=== PATIENT | male | born 1945 | race Caucasian/White ===

== ENCOUNTER 2016-06-07 11:15 | Emergency (ER) | payer OTHER, MEDICARE, BC ==
--- NOTE | 2016-06-07 11:22 | ER Document Report ---
ED Medical Screen (RME) - General Stated Complaint: POSSIBLE FINGER LACERATION Notes: 70 yo male c/o finger laceration. cut left index finger with kitchen knife. unknown tetnus status. bleeding controlled
[2016-06-07 11:23] VITALS: BP 115/75
[2016-06-07] MEDS ORDERED: DIPH/PERTUSS(ACELL)/TETANUS VAC/PF 0.5 ML SYR (>=10YO) IM ONE (11:42)
--- NOTE | 2016-06-07 12:02 | ER Document Report ---
ED General - General Chief Complaint: Laceration Stated Complaint: POSSIBLE FINGER LACERATION TRAVEL OUTSIDE OF THE [place] IN LAST 30 DAYS: No - HPI Patient complains to provider of: left index finger laceration Notes: Patient coming in for evaluation of the left index finger laceration. Lacerations approximately 1.5 cm. Patient states cut this with a knife at work. Patient is unaware if his tetanus status. Laceration is on the palmar side of the index finger going through the pulp of the distal phalanx. Range of motion intact bleeding controlled no other medical problems - Related Data Allergies/Adverse Reactions: No Known Allergies Allergy (Verified 06/07/16 11:20) Past Medical History - Social History Smoking Status: Current Every Day Smoker Chew tobacco use (# tins/day): No Frequency of alcohol use: None Drug Abuse: None Family History: Reviewed & Not Pertinent Patient has suicidal ideation: No Patient has homicidal ideation: No Review of Systems - Review of Systems Constitutional: No symptoms reported EENT: No symptoms reported Cardiovascular: No symptoms reported Respiratory: No symptoms reported Gastrointestinal: No symptoms reported Genitourinary: No symptoms reported Male Genitourinary: No symptoms reported Musculoskeletal: No symptoms reported Skin: No symptoms reported Hematologic/Lymphatic: No symptoms reported Neurological/Psychological: No symptoms reported -: Yes All other systems reviewed and negative Physical Exam - Vital signs Vitals: Temp Pulse Resp BP Pulse Ox 97.4 F 80 15 115/75 97 06/07/16 11:20 06/07/16 11:20 06/07/16 11:20 06/07/16 11:20 06/07/16 11:20 Interpretation: Normal - General General appearance: Appears well, Alert - HEENT Head: Normocephalic, Atraumatic Eyes: Normal Pupils: PERRL - Respiratory Respiratory status: No respiratory distress Chest status: Nontender Breath sounds: Normal Chest palpation: Normal - Cardiovascular Rhythm: Regular Heart sounds: Normal auscultation Murmur: No - Abdominal Inspection: Normal Distension: No distension Bowel sounds: Normal Tenderness: Nontender Organomegaly: No organomegaly - Back Back: Normal, Nontender - Extremities General upper extremity: Nontender, Tender - Patient with a 1.5 similar laceration over the left index finger palmar side., Normal color, Normal ROM, Normal temperature General lower extremity: Normal inspection, Nontender, Normal color, Normal ROM , Normal temperature, Normal weight bearing. No: Dwayne's sign - Neurological Neuro grossly intact: Yes Cognition: Normal Orientation: AAOx4 [place] Coma Scale Eye Opening: Spontaneous [place] Coma Scale Verbal: Oriented [place] Coma Scale Motor: Obeys Commands [place] Coma Scale Total: 15 Speech: Normal Motor strength normal: LUE, RUE, LLE, RLE Sensory: Normal - Psychological Associated symptoms: Normal affect, Normal mood - Skin Skin Temperature: Warm Skin Moisture: Dry Skin Color: Normal Course - Re-evaluation Re-evalutation: 06/07/16 13:44 Dermabond with Steri-Strips applied to the laceration. Good closure was obtained. Tetanus was updated patient discharged home - Vital Signs Vital signs: Temp Pulse Resp BP Pulse Ox 97.4 F 80 15 115/75 97 06/07/16 11:20 06/07/16 11:20 06/07/16 11:20 06/07/16 11:20 06/07/16 11:20 Procedures - Laceration/Wound Repair Left 2nd digit Wound length (cm): 1.5 Wound's Depth, Shape: Linear Wound explored: Clean Irrigated w/ Saline (mLs): 500 - water Wound Repaired With: Steri-strips, Dermabond Post-procedure wound care: Sterile dressing applied Post-procedure NV exam normal: Yes Complications: No Discharge - Discharge Clinical Impression: Laceration of left index finger Disposition: HOME, SELF-CARE Instructions: Tetanus Immunization Given ([facility]), Care of Steri-Strip Closure ( [facility]), Skin Adhesive Closure ([facility]) Additional Instructions: Follow-up with your doctor as needed. Read your discharge instructions Referrals: NICKY CAMPOS MD [Primary Care Provider] - Follow up as needed
== END 2016-06-07 12:20 | disposition home or self-care (01) ==
LOC: ER 11:15
PROC: 0HQGXZZ Repair Left Hand Skin, External Approach (ICD-10-PCS; principal; 2016-06-07)
DX: S61.211A Laceration without foreign body of left index finger without damage to nail, initial encounter (principal); W26.0XXA Contact with knife, initial encounter; F17.210 Nicotine dependence, cigarettes, uncomplicated
CPT/HCPCS: 90471; 90715; 99282

== ENCOUNTER 2017-03-11 10:08 | Day surgery (SDC) | payer MEDICARE, BC ==
[~2017-03-11 10:08] MED LIST: KETOROLAC TROMETHAMINE 0.45% 4 DROP/0.4 ML DROPERETTE OD PRN
[2017-03-11] MEDS ORDERED: LIDOCAINE 1% INJ-PF (10 MG/ML) 30 ML SDV ONE (10:15)
[2017-03-11] MEDS ORDERED: CHONDR SU A NA/HYALUR INTRAOC KIT (SURGICARE) ONE (10:15)
[2017-03-11] MEDS ORDERED: EPINEPHRINE INJ/PF 1 MG/1 ML AMPULE ONE (10:15)
[2017-03-11] MEDS ORDERED: MIDAZOLAM 2 MG/2 ML INJ ONE (10:27)
[2017-03-11] MEDS ORDERED: FENTANYL CITRATE INJ/PF 100 MCG/2 ML AMPUL ONE (10:27)
[2017-03-11] MEDS: CYCLOPENTOLATE 0.2%/PHENYLEPHRINE 1% OPH SOLN 2 ML OD PRN ×3 (10:28→10:41)
[2017-03-11] MEDS: TROPICAMIDE 1% OPH SOLN 3 ML OD PRN ×3 (10:28→10:41)
[2017-03-11] MEDS: BESIFLOXACIN HCL 0.6% OPH SUSP 5 ML BOTTLE OD PRN ×3 (10:28→11:10)
[2017-03-11] MEDS: TETRACAINE HCL 0.5% OPH SOLN 2 ML OD PRN ×3 (10:28→10:50)
--- NOTE | 2017-03-12 07:43 | [facility] OPERATIVE REPORT E ---
[facility] Operative Report NAME: FLORIN BOWIE AGE: 71Y DATE OF SURGERY: 03/11/2017 ROOM: PREOPERATIVE DIAGNOSIS: CATARACT, RIGHT EYE. POSTOPERATIVE DIAGNOSIS: CATARACT, RIGHT EYE. OPERATION: Cataract extraction with intraocular lens implant of the right eye. SURGEON: LEDA SILVA M.D. ANESTHESIA: Topical. PROCEDURE: After obtaining appropriate consent, the patient's right eye was prepped and draped in sterile fashion as well as the surgeon in a sterile manner and cataract surgery was started. First a paracentesis blade was used to make a small side-port incision. Viscoelastic was used to inflate the anterior chamber. Next a 2.4 mm incision was made with the paracentesis blade. A continuous capsulorrhexis incision was made using a cystotome and Utrata forceps. Following this hydrodissection was carried out to make the lens fully loose and mobile and it was rotated 90 degrees. Following this, a cptgtx-sho-xiyxoxw technique was used to phacoemulsify the lens with a CDE of 6.37. The remaining cortex was removed with irrigation/aspiration. Provisc was instilled into the capsular bag to inflate the bag. A SN60WF, 17.5 diopter lens was placed. The remaining viscoelastic material was removed with irrigation/aspiration. Following this, a 10-0 Nylon suture was used to close the incision and it was found to be watertight. Vigamox was instilled in the eye and a protective shield was placed over the eye. The patient returned to the postoperative recovery in stable condition. DICTATING PHYSICIAN: LEDA SILVA M.D. [id number] PHY#: [id number] ID: [id number] JOB#: [id number] ACCT: [id number] cc:LEDA SILVA M.D. >
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
== END 2017-03-11 11:56 | disposition home or self-care (01) ==
LOC: SC 10:08
PROVIDERS: ATTEND Internal Medicine
PROC: 08RJ3JZ Replacement of Right Lens with Synthetic Substitute, Percutaneous Approach (ICD-10-PCS; principal; 2017-03-11 11:30)
DX: H25.89 Other age-related cataract (principal); I10 Essential (primary) hypertension; F17.210 Nicotine dependence, cigarettes, uncomplicated; Z79.899 Other long term (current) drug therapy
CPT/HCPCS: 66984; V2632; J2250; J3490 ×2; A9270; J0171; J3010; 142

== ENCOUNTER 2017-04-08 07:27 | Day surgery (SDC) | payer MEDICARE, BC ==
[~2017-04-08 07:27] MED LIST changes: -KETOROLAC TROMETHAMINE 0.45% 4 DROP/0.4 ML DROPERETTE OD PRN; +KETOROLAC TROMETHAMINE 0.45% 4 DROP/0.4 ML DROPERETTE OS PRN; +MIDAZOLAM 2 MG/2 ML INJ ONE
[2017-04-08] MEDS ORDERED: CHONDR SU A NA/HYALUR INTRAOC KIT (SURGICARE) ONE (07:59)
[2017-04-08] MEDS: CYCLOPENTOLATE 0.2%/PHENYLEPHRINE 1% OPH SOLN 2 ML OS PRN ×3 (08:10→08:30)
[2017-04-08] MEDS: TETRACAINE HCL 0.5% OPH SOLN 2 ML OS PRN ×3 (08:10→08:43)
[2017-04-08] MEDS: TROPICAMIDE 1% OPH SOLN 3 ML OS PRN ×3 (08:10→08:30)
[2017-04-08] MEDS: BESIFLOXACIN HCL 0.6% OPH SUSP 5 ML BOTTLE OS PRN ×3 (08:11→09:08)
[2017-04-08] MEDS: LIDOCAINE 1% INJ-PF (10 MG/ML) 30 ML SDV ONE ×2 (08:43→08:55)
[2017-04-08] MEDS: EPINEPHRINE INJ/PF 1 MG/1 ML AMPULE ONE ×2 (08:43→08:55)
--- NOTE | 2017-04-08 20:53 | [facility] OPERATIVE REPORT E ---
[facility] Operative Report NAME: FLORIN BOWIE AGE: 71Y DATE OF SURGERY: 04/08/2017 ROOM: PREOPERATIVE DIAGNOSIS: CATARACT, LEFT EYE. POSTOPERATIVE DIAGNOSIS: CATARACT, LEFT EYE. OPERATION: Cataract extraction with intraocular lens implant of the left eye. SURGEON: LEDA SILVA M.D. ANESTHESIA: Topical. PROCEDURE: After obtaining appropriate consent, the patient's left eye was prepped and draped in sterile fashion as well as the surgeon in a sterile manner and cataract surgery was started. First a paracentesis blade was used to make a small side-port incision. Viscoelastic was used to inflate the anterior chamber. Next a 2.4 mm incision was made with the paracentesis blade. A continuous capsulorrhexis incision was made using a cystotome and Utrata forceps. Following this hydrodissection was carried out to make the lens fully loose and mobile and it was rotated 90 degrees. Following this, a ysevso-zpd-dxrqpwd technique was used to phacoemulsify the lens with a CDE of 19.7. The remaining cortex was removed with irrigation/aspiration. Provisc was instilled into the capsular bag to inflate the bag. A SN60WF, 18.0 diopter lens was placed. The remaining viscoelastic material was removed with irrigation/aspiration. Following this, a 10-0 nylon suture was used to close the incision and it was found to be watertight. Vigamox was instilled in the eye and a protective shield was placed over the eye. The patient returned to the postoperative recovery in stable condition. DICTATING PHYSICIAN: LEDA SILVA M.D. [id number] PHY#: [id number] ID: [id number] JOB#: [id number] ACCT: [id number] cc:LEDA SILVA M.D. >
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
== END 2017-04-08 09:51 | disposition home or self-care (01) ==
LOC: SC 07:27
PROVIDERS: ATTEND Internal Medicine
PROC: 08RK3JZ Replacement of Left Lens with Synthetic Substitute, Percutaneous Approach (ICD-10-PCS; principal; 2017-04-08 09:00)
DX: H25.89 Other age-related cataract (principal); Z96.1 Presence of intraocular lens; H35.3223 Exudative age-related macular degeneration, left eye, with inactive scar; I10 Essential (primary) hypertension; H81.09 Meniere's disease, unspecified ear; Z79.899 Other long term (current) drug therapy
CPT/HCPCS: 66984; V2632; J2250; J3490 ×2; A9270; J0171; 142

== ENCOUNTER 2018-04-02 10:14 | Emergency (ER) | payer OTHER, MEDICARE, BC ==
--- NOTE | 2018-04-02 10:45 | ER Document Report ---
ED Medical Screen (RME) - General Chief Complaint: Back Injury Stated Complaint: BACK PAIN Time Seen by Provider: 04/02/18 10:43 Mode of Arrival: Ambulatory Information source: Patient TRAVEL OUTSIDE OF THE [place] IN LAST 30 DAYS: No - HPI Patient complains to provider of: fall Onset: Yesterday - pt fell yesterday afternoon with injury to R lower back - Related Data Allergies/Adverse Reactions: No Known Allergies Allergy (Verified 06/07/16 11:20) Past Medical History - Past Medical History Cardiac Medical History: Denies: Hx Heart Attack, Hx Hypertension Pulmonary Medical History: Denies: Hx Asthma Neurological Medical History: Denies: Hx Cerebrovascular Accident, Hx Seizures GI Medical History: Denies: Hx Hepatitis, Hx Hiatal Hernia, Hx Ulcer Infectious Medical History: Denies: Hx Hepatitis Past Surgical History: Denies: Hx Open Heart Surgery, Hx Pacemaker Physical Exam - Vital signs Vitals: Temp Pulse Resp BP Pulse Ox 97.9 F 70 16 118/72 92 04/02/18 10:34 04/02/18 10:34 04/02/18 10:34 04/02/18 10:34 04/02/18 10:34 Course - Vital Signs Vital signs: Temp Pulse Resp BP Pulse Ox 97.9 F 70 16 118/72 92 04/02/18 10:34 04/02/18 10:34 04/02/18 10:34 04/02/18 10:34 04/02/18 10:34 Doctor's Discharge - Discharge Referrals: NICKY CAMPOS MD [Primary Care Provider] - Follow up as needed
--- NOTE | 2018-04-02 11:19 | RADIOLOGY REPORT (SQ) ---
EXAM DESCRIPTION: L SPINE WHOLE COMPLETED DATE/TIME: 04/02/2018 11:12 am REASON FOR STUDY: fall COMPARISON: None. NUMBER OF VIEWS: Five views including obliques. TECHNIQUE: AP, lateral, oblique, and sacral radiographic images acquired of the lumbar spine. LIMITATIONS: None. FINDINGS: MINERALIZATION: Normal. SEGMENTATION: Normal. No transitional anatomy. ALIGNMENT: Normal. VERTEBRAE: Maintained height. No fracture or worrisome bone lesion. DISCS: Multilevel disc space narrowing with osteophytes. POSTERIOR ELEMENTS: Pedicles and facets are intact. No pars defect or posterior arch defects. Facet arthropathy is present. HARDWARE: None in the spine. PARASPINAL SOFT TISSUES: Normal. PELVIS: Intact as visualized. No fractures or worrisome bone lesions. SI joints intact. OTHER: No other significant finding. IMPRESSION: SPONDYLOSIS WITHOUT BONE LESION OR FRACTURE. TECHNICAL DOCUMENTATION: JOB ID: [id number] [employer]- All Rights Reserved Reading location - IP/workstation name: [email or web address]
[2018-04-02] MEDS ORDERED: KETOROLAC TROMETHAMINE INJ/PF 30 MG/1 ML SDV IM ONE (13:19)
[2018-04-02] MEDS ORDERED: LIDOCAINE 5% (700 MG) TRANSDERMAL ADH..PATCH TP ONE (13:20)
--- NOTE | 2018-04-02 13:20 | ER Document Report ---
ED General - General Chief Complaint: Back Injury Stated Complaint: BACK PAIN Time Seen by Provider: 04/02/18 10:43 Mode of Arrival: Ambulatory TRAVEL OUTSIDE OF THE [place] IN LAST 30 DAYS: No - HPI Patient complains to provider of: Back pain Onset: Other - 72-year-old otherwise healthy man who presents for evaluation after slipping on some steps and hitting his right ribs. He says "all I need is a pain shot and a work note". He does have no other complaints at this time did not loses consciousness, no neck pain no chest pain no abdominal pain. No other complaints. - Related Data Allergies/Adverse Reactions: No Known Allergies Allergy (Verified 04/02/18 10:47) Past Medical History - General Information source: Patient - Social History Smoking Status: Never Smoker Chew tobacco use (# tins/day): No Frequency of alcohol use: None Drug Abuse: None Family History: Reviewed & Not Pertinent Patient has suicidal ideation: No Patient has homicidal ideation: No - Past Medical History Cardiac Medical History: Denies: Hx Heart Attack, Hx Hypertension Pulmonary Medical History: Denies: Hx Asthma Neurological Medical History: Denies: Hx Cerebrovascular Accident, Hx Seizures Renal/ Medical History: Reports: Hx Kidney Stones. Denies: Hx Peritoneal Dialysis GI Medical History: Denies: Hx Hepatitis, Hx Hiatal Hernia, Hx Ulcer Infectious Medical History: Denies: Hx Hepatitis Past Surgical History: Reports: Hx Bowel Surgery, Hx Kidney (Renal Surgery) - stone. Denies: Hx Open Heart Surgery, Hx Pacemaker Review of Systems - Review of Systems -: Yes All other systems reviewed and negative Physical Exam - Vital signs Vitals: Temp Pulse Resp BP Pulse Ox 97.9 F 70 16 118/72 92 04/02/18 10:34 04/02/18 10:34 04/02/18 10:34 04/02/18 10:34 04/02/18 10:34 - General General appearance: Appears well, Alert - HEENT Head: Normocephalic, Atraumatic Eyes: Normal Pupils: PERRL - Respiratory Respiratory status: No respiratory distress Chest status: Nontender Breath sounds: Normal Chest palpation: Normal - Cardiovascular Rhythm: Regular Heart sounds: Normal auscultation Murmur: No - Abdominal Inspection: Normal Distension: No distension Bowel sounds: Normal Tenderness: Nontender Organomegaly: No organomegaly - Back Back: Other - Ecchymoses over the right flank - Extremities General upper extremity: Normal inspection, Nontender, Normal color, Normal ROM , Normal temperature General lower extremity: Normal inspection, Nontender, Normal color, Normal ROM , Normal temperature, Normal weight bearing. No: Dwayne's sign - Neurological Neuro grossly intact: Yes Cognition: Normal Orientation: AAOx4 [place] Coma Scale Eye Opening: Spontaneous [place] Coma Scale Verbal: Oriented [place] Coma Scale Motor: Obeys Commands [place] Coma Scale Total: 15 Speech: Normal Motor strength normal: LUE, RUE, LLE, RLE Sensory: Normal - Psychological Associated symptoms: Normal affect, Normal mood - Skin Skin Temperature: Warm Skin Moisture: Dry Skin Color: Normal Course - Re-evaluation Re-evalutation: 04/04/18 21:18 Here is a 72-year-old man who presents for an ecchymosis over his right side after having hit them against the ground slipping down some steps while at work. On examination he is well-appearing, he is got intact breath sounds, he had an x -ray ordered through triage. X-ray does not demonstrate any acute fracture or listhesis in the lumbar spine. Patient does not have any midline tenderness. Will administer a dose of Toradol outpatient follow-up as necessary as well as Lidoderm patches. At the time of discharge as patient was ambulatory without any assistance able to tolerate p.o. and breathing spontaneously. - Vital Signs Vital signs: Temp Pulse Resp BP Pulse Ox 97.9 F 58 L 16 122/68 97 04/02/18 10:34 04/02/18 13:30 04/02/18 10:34 04/02/18 13:30 04/02/18 13:30 Discharge - Discharge Clinical Impression: Back contusion Qualifiers: Encounter type: initial encounter Laterality: right Qualified Code(s): S20.221A - Contusion of right back wall of thorax, initial encounter Condition: Good Disposition: HOME, SELF-CARE Instructions: Ice Packs ([facility]), Muscle Strain ([facility]) Prescriptions: Lidocaine HCl [Xylocaine 5% Ointment 35.44 gm] 35.44 applic TP BID #1 tube Referrals: NICKY CAMPOS MD [Primary Care Provider] - Follow up as needed
[2018-04-02 13:32] VITALS: BP 122/68
== END 2018-04-02 13:31 | disposition home or self-care (01) ==
LOC: ER 10:14
DX: S20.221A Contusion of right back wall of thorax, initial encounter (principal); W10.9XXA Fall (on) (from) unspecified stairs and steps, initial encounter; Y99.0 Civilian activity done for income or pay
CPT/HCPCS: 99283; 96372; 72110; J1885

== ENCOUNTER 2019-02-16 12:38 | Emergency (ER) | payer MEDICARE, BC ==
[2019-02-16] MEDS ORDERED: NORMAL SALINE 1000 ML 1,000 ML IV ONE (13:01)
--- NOTE | 2019-02-16 13:05 | ER Document Report ---
ED Medical Screen (RME) - General Chief Complaint: Abdominal Swelling Stated Complaint: ABDOMINAL PAIN Time Seen by Provider: 02/16/19 12:54 Primary Care Provider: NICKY CAMPOS MD [Primary Care Provider] - Follow up as needed Notes: Patient is a 73-year-old male who presents the emergency department with a chief complaint of abdominal pain. He states that he woke up this morning and felt bloated this morning. Patient states that he has a history of colitis and he feels like this is the same as he had a 5 years ago. He describes it as a contractions/cramping pain. His last bowel movement was this morning. Exam: Soft, distended, mildly tender abdomen. I have greeted and performed a rapid initial assessment of this patient. A comprehensive ED assessment and evaluation of the patient, analysis of test results and completion of medical decision making process will be conducted by an additional ED providers. TRAVEL OUTSIDE OF THE [place] IN LAST 30 DAYS: No - Related Data Allergies/Adverse Reactions: No Known Allergies Allergy (Verified 04/02/18 10:47) Past Medical History - Social History Chew tobacco use (# tins/day): No Frequency of alcohol use: None - Past Medical History Cardiac Medical History: Denies: Hx Heart Attack, Hx Hypertension Pulmonary Medical History: Denies: Hx Asthma Neurological Medical History: Denies: Hx Cerebrovascular Accident, Hx Seizures Renal/ Medical History: Reports: Hx Kidney Stones. Denies: Hx Peritoneal Dialysis GI Medical History: Denies: Hx Hepatitis, Hx Hiatal Hernia, Hx Ulcer Infectious Medical History: Denies: Hx Hepatitis Past Surgical History: Reports: Hx Bowel Surgery, Hx Kidney (Renal Surgery) - stone. Denies: Hx Open Heart Surgery, Hx Pacemaker Physical Exam - Vital signs Vitals: Temp Pulse Resp BP Pulse Ox 97.6 F 81 17 121/80 95 02/16/19 12:45 02/16/19 12:45 02/16/19 12:45 02/16/19 12:45 02/16/19 12:45 Course - Vital Signs Vital signs: Temp Pulse Resp BP Pulse Ox 97.6 F 81 17 121/80 95 02/16/19 12:45 02/16/19 12:45 02/16/19 12:45 02/16/19 12:45 02/16/19 12:45 Doctor's Discharge - Discharge Referrals: NICKY CAMPOS MD [Primary Care Provider] - Follow up as needed
[2019-02-16 13:40] LABS: ABSOLUTE BASOPHILS # (AUTO) 0.1 10^3/uL (0.0-0.2); ABSOLUTE EOSINOPHILS # (AUTO) 0.2 10^3/uL (0.0-0.6); ABSOLUTE LYMPHOCYTES (AUTO) 1.6 10^3/uL (0.5-4.7); ABSOLUTE MONOCYTES (AUTO) 0.6 10^3/uL (0.1-1.4); ABSOLUTE NEUT (AUTO) 3.7 10^3/uL (1.7-8.2); BASOPHILS % (AUTO) 1.1 % (0-2); EOSINOPHILS % (AUTO) 2.5 % (0-6); HEMATOCRIT 40.4 % (37.9-51.0); HEMOGLOBIN 14.3 g/dL (13.5-17.0); LYMPHOCYTES % (AUTO) 26.4 % (13-45); MEAN CORPUSCULAR HEMOGLOBIN 31.3 pg (27.0-33.4); MEAN CORPUSCULAR HGB CONC 35.4 g/dL (32.0-36.0); MEAN CORPUSCULAR VOLUME 88 fl (80-97); MONOCYTES % (AUTO) 9.9 % (3-13); PLATELET COUNT 219 10^3/uL (150-450); RED BLOOD COUNT 4.57 10^6/uL (4.35-5.55); RED CELL DISTRIBUTION WIDTH 12.9 % (11.5-14.0); SEGMENTED NEUTROPHILS % (AUTO) 60.1 % (42-78); TOTAL CELLS COUNTED % (AUTO) 100 %; WHITE BLOOD COUNT 6.2 10^3/uL (4.0-10.5)
[2019-02-16 13:42] LABS: APPEARANCE,URINE CLEAR; BILIRUBIN,URINE NEGATIVE (NEGATIVE); COLOR,URINE YELLOW; GLUCOSE, URINE NEGATIVE (NEGATIVE); KETONES,URINE NEGATIVE (NEGATIVE); LEUKOCYTE ESTERASE,URINE NEGATIVE (NEGATIVE); NITRITE,URINE NEGATIVE (NEGATIVE); PROTEIN,URINE NEGATIVE (NEGATIVE); UROBILINOGEN,URINE NEGATIVE mg/dL (<2.0)
[2019-02-16 13:58] LABS: ALBUMIN 4.2 g/dL (3.5-5.0); ALKALINE PHOSPHATASE 76 U/L (38-126); ANION GAP 6 (5-19); ASPARTATE AMINO TRANSFERASE 30 U/L (17-59); BILIRUBIN,DIRECT 0.1 mg/dL (0.0-0.4); BILIRUBIN,TOTAL 0.4 mg/dL (0.2-1.3); BLOOD UREA NITROGEN 14 mg/dL (7-20); CALCIUM 9.8 mg/dL (8.4-10.2); CARBON DIOXIDE 31 mmol/L (22-30); CHLORIDE 104 mmol/L (98-107); GLUCOSE 111 mg/dL (75-110); POTASSIUM 4.3 mmol/L (3.6-5.0); TOTAL PROTEIN 7.2 g/dL (6.3-8.2)
--- NOTE | 2019-02-16 15:59 | ER Document Report ---
ED GI/ - General Chief Complaint: Abdominal Swelling Stated Complaint: ABDOMINAL PAIN Time Seen by Provider: 02/16/19 12:54 Primary Care Provider: JOSE FRANCISCO HURLEY DO [NO LOCAL MD] - Follow up in 3-5 days Mode of Arrival: Ambulatory Information source: Patient Notes: 73-year-old male presented to ED for complaint of abdominal pain. He states he woke up this morning with a bloated feeling and feeling like he had a return of his colitis. He states his pain is much better now he is still feeling bloated. He does have some tenderness to the left flank area. He states he also had a few drops of blood from his penis he states this doctor thought that he might leigh ve a piece of skin that is thin and sometimes drops blood. He also has benign prostate hyperplasia just sometimes has some blood in his urine. He states he does not have any nausea or vomiting but he does have like a contract tracting cramping feelings at times but it is better at this time. Patient is alert and oriented respirations regular and unlabored speaking in full sentences. TRAVEL OUTSIDE OF THE [place] IN LAST 30 DAYS: No - HPI Patient complains to provider of: Abdominal pain, Flank pain Onset: This morning Timing/Duration: Intermittent, Better Quality of pain: Cramping Severity at maximum: Moderate Severity in ED: Almost gone Pain Level: 1 Location: Left flank Associated symptoms: Other - Bloated feeling Exacerbated by: Food Relieved by: Denies Similar symptoms previously: Yes Recently seen / treated by doctor: No - Related Data Allergies/Adverse Reactions: No Known Allergies Allergy (Verified 04/02/18 10:47) Past Medical History - General Information source: Patient - Social History Smoking Status: Former Smoker Chew tobacco use (# tins/day): No Frequency of alcohol use: Occasional Drug Abuse: None Lives with: Spouse/Significant other Family History: Reviewed & Not Pertinent Patient has suicidal ideation: No Patient has homicidal ideation: No - Past Medical History Cardiac Medical History: Reports: None Pulmonary Medical History: Reports: None EENT Medical History: Reports: None Neurological Medical History: Reports: None Endocrine Medical History: Reports: None Renal/ Medical History: Reports: Hx Benign Prostatic Hyperplasia, Hx Kidney Stones, Other - Erectile dysfunction Malignancy Medical History: Reports None GI Medical History: Reports: Other - Colitis Musculoskeletal Medical History: Reports Hx Arthritis Skin Medical History: Reports None Psychiatric Medical History: Reports: None Traumatic Medical History: Reports: None Infectious Medical History: Denies: Hx Hepatitis Past Surgical History: Reports: Hx Bowel Surgery - 15 and she does have a small intestines removed when he was a young child, Hx Kidney (Renal Surgery) - stone - Immunizations Immunizations up to date: Yes Review of Systems - Review of Systems Constitutional: No symptoms reported EENT: No symptoms reported Cardiovascular: No symptoms reported Respiratory: No symptoms reported Gastrointestinal: Abdomen distended, Abdominal pain, Nausea. denies: Vomiting Genitourinary: No symptoms reported Male Genitourinary: No symptoms reported Musculoskeletal: No symptoms reported Skin: No symptoms reported Hematologic/Lymphatic: No symptoms reported Neurological/Psychological: No symptoms reported Physical Exam - Vital signs Vitals: Temp Pulse Resp BP Pulse Ox 97.6 F 81 17 121/80 95 02/16/19 12:45 02/16/19 12:45 02/16/19 12:45 02/16/19 12:45 02/16/19 12:45 Interpretation: Normal - General General appearance: Appears well, Alert - HEENT Head: Normocephalic, Atraumatic Eyes: Normal Pupils: PERRL - Respiratory Respiratory status: No respiratory distress Chest status: Nontender Breath sounds: Normal Chest palpation: Normal - Cardiovascular Rhythm: Regular Heart sounds: Normal auscultation Murmur: No - Abdominal Inspection: Normal Distension: No distension Bowel sounds: Normal Tenderness: Tender - Left flank Organomegaly: No organomegaly - Back Back: Normal, Tender, CVA tenderness - Left flank - Extremities General upper extremity: Normal inspection, Nontender, Normal color, Normal ROM, Normal temperature General lower extremity: Normal inspection, Nontender, Normal color, Normal ROM, Normal temperature, Normal weight bearing. No: Dwayne's sign - Neurological Neuro grossly intact: Yes Cognition: Normal Orientation: AAOx4 Tova Coma Scale Eye Opening: Spontaneous Springer Coma Scale Verbal: Oriented Springer Coma Scale Motor: Obeys Commands Springer Coma Scale Total: 15 Speech: Normal Motor strength normal: LUE, RUE, LLE, RLE Sensory: Normal - Psychological Associated symptoms: Normal affect, Normal mood - Skin Skin Temperature: Warm Skin Moisture: Dry Skin Color: Normal Course - Re-evaluation Re-evalutation: 02/16/19 17:[address] were discussed with patient and written report of labs and CT were given to patient. Patient was instructed to follow-up with his primary care doctor today or tomorrow to schedule follow-up appointment. He is very constipated according to the CT. He was given mag citrate and given instructions on MiraLAX. Patient verbalized understanding and agreement with treatment plan and patient was discharged home. - Vital Signs Vital signs: Temp Pulse Resp BP Pulse Ox 98.2 F 72 20 135/87 H 96 02/16/19 16:55 02/16/19 16:55 02/16/19 16:55 02/16/19 16:55 02/16/19 16:55 - Laboratory Result Diagrams: 02/16/19 13:07 02/16/19 13:07 Laboratory results interpreted by me: 02/16/19 02/16/19 13:07 13:07 Carbon Dioxide 31 H Glucose 111 H Urine Blood MODERATE H - Diagnostic Test Radiology reviewed: Image reviewed, Reports reviewed Discharge - Discharge Clinical Impression: Abdominal pain Qualifiers: Abdominal location: generalized Qualified Code(s): R10.84 - Generalized abdominal pain Constipation Qualifiers: Constipation type: unspecified constipation type Qualified Code(s): K59.00 - Constipation, unspecified Condition: Stable Disposition: HOME, SELF-CARE Additional Instructions: ABDOMINAL PAIN: There are many causes of abdominal pain. Pain can mean a serious problem requiring surgery (such as appendicitis). It can also be an innocent problem that goes away on its own (such as a viral infection). Often, time must pass to determine the cause of pain. The physician does not feel that hospitalization is necessary, at present. Things may change within the next 24 hours. Call the doctor or come back for re- examination if any problems occur, such as: (1) Pain that becomes more severe, steady, or becomes concentrated in one specific area. Also, pain that is more severe with movement or coughing. (2) Vomiting that persists or becomes more frequent. (3) Blood in the vomitus, urine, or bowel movements. Blood in the stool may have a tarry or black appearance. (4) Shaking chills or fever greater than 100 degrees F. (5) The abdomen becomes more distended or swollen. (6) Bowel movements cease. (7) Failure to improve as expected. NORMAL EXAM AND WORKUP: At this time, your examination and workup show no significant abnormality. No significant abnormal physical findings are noted. All laboratory, EKG, and imaging (x-ray, CT scans, ultrasound) studies that were ordered show no significant abnormality. Although your examination and all studies that were ordered showed no significant abnormal finding, there are no examinations and no studies that are 100% accurate. There is always the possibility that some abnormality could exist and not be detected with physical examination or within the limits and capabilities of laboratory and other studies. You should return or follow up as you were instructed on your visit today for further evaluation if your symptoms do not resolve. CONSTIPATION: Constipation is a common problem. It is especially likely as you get older. Constipation is a common cause of abdominal pain, but sometimes causes no symptoms at all. Causes of constipation include certain medications, dehydration, diets, inactivity, and low-fiber intake. Rarely, it can be a symptom of underlying disease. The physician has evaluated you for this. Avoid constipation by eating a diet high in fiber, fruits, and vegetables. Drink plenty of liquids. Get regular exercise. If possible, avoid constipating medicines like narcotic pain medication. Some vitamin tablets can cause con stipation. Stool softeners may be needed for difficult cases. An excellent stool softener is Konsyl which is available at [employer], and [employer]. Just add a teaspoon to a glass of pineapple or orange juice daily or twice a day if needed. Laxatives are useful for occasional constipation. You should use them only when necessary. Too-frequent use can make your bowels dependent on them. Some over the counter laxatives available without prescription are: Milk of Magnesia, 1-2 tablespoons twice a day Dulcolax, 5 mg pill or 10 mg suppository. Citrate of Magnesia, 4-5 ounces a day for a day or two For acute constipation, Fleet's Enemas and Dulcolax suppositories are helpful. Chronic, manager intermediate use of laxatives or enemas is not a good idea. Your bowel may become dependant on them. You do not need to have a bowel movement every day. Many people do fine with a bowel movement every three or four days. You should call your doctor or return for re-evaluation if you pass blood in the stool, or if you develop fever or increasing abdominal pain. BULK LAXATIVES: Bulk laxatives make the stool softer and bulkier. They're useful for preventing constipation. You can choose between psyllium, methylcellulose, and polycarbophil. They are available without a prescription. Psyllium brand names include Konsyl, Metamucil, Perdiem, Effer-Syllium and Hydrocil. It's available as powder, flavored drink powder, or chewable. The usual dose of psyllium powder is one heaping teaspoon in water each morning, increasing to twice a day if needed. [place] juice can disguise the slightly grainy texture. Methylcellulose is marketed as Citrucel and other brands. The average dose is two grams in a cup of water one to three times a day. Polycarbophil is marketed as Fiber-Con. Take two tablets with a cup of water one to three times a day. LAXATIVE: A laxative agent has been prescribed for your condition. This should result in passage of stool within 12 hours. Some mild intestinal cramping is common as the hard stool begins to move. You may have loose or runny stools for a short time. Contact your doctor if there is severe cramping, vomiting, or passage of blood. Return for further care if this medicine fails to improve your condition. I have given you a copy of your labs and CAT scan for you to take to your primary care doctor. Please take these with you so that your primary care doctor can evaluate your progress on your constipation. Also of your labs. Please take 1 capful of MiraLAX in 8 ounce glass of liquid daily for the next 2 weeks to regulate your bowels. You could take this just about every day and it would not harm you but I want you to take it for at least the next 2 weeks. FOLLOW-UP CARE: If you have been referred to a physician for follow-up care, call the [facility] sicians office for an appointment as you were instructed or within the next two days. If you experience worsening or a significant change in your symptoms, notify the physician immediately or return to the Emergency Department at any time for re-evaluation. Referrals: JOSE FRANCISCO HURLEY DO [NO LOCAL MD] - Follow up in 3-5 days
--- NOTE | 2019-02-16 16:18 | RADIOLOGY REPORT (SQ) ---
EXAM DESCRIPTION: CT ABD/PELVIS NO ORAL OR IV COMPLETED DATE/TIME: 02/16/2019 4:00 pm REASON FOR STUDY: abdominal pain blood in urine COMPARISON: None. TECHNIQUE: CT scan of the abdomen and pelvis performed without intravenous or oral contrast. Images reviewed with lung, soft tissue, and bone windows. Reconstructed coronal and sagittal MPR images revi ewed. All images stored on PACS. All CT scanners at this facility use dose modulation, iterative reconstruction, and/or weight based d osing when appropriate to reduce radiation dose to as low as reasonably achievable (ALARA). [facility]: Dose Right [facility]: CareDose [facility]: Dose Right [facility]: Teradose 4D [facility]: Smart Distractify RADIATION DOSE: CT Rad equipment meets quality standard of care and radiation dose reduction techniq ues were employed. CTDIvol: 13.7 mGy. DLP: 823 mGy-cm.mGy. LIMITATIONS: None. FINDINGS: LOWER CHEST: No significant findings. No nodules or infiltrates. NON-CONTRASTED LIVER, SPLEEN, ADRENALS: The liver is diffusely hypoattenuating. No masses. The sple en and adrenal glands are normal. PANCREAS: No masses. No peripancreatic inflammatory changes. GALLBLADDER: Multiple small gallstones are present. RIGHT KIDNEY AND URETER: No suspicious masses. Assessment limited by lack of IV contrast. No signif icant calcifications. No hydronephrosis or hydroureter. LEFT KIDNEY AND URETER: No suspicious masses. Assessment limited by lack of IV contrast. No signifi cant calcifications. No hydronephrosis or hydroureter. AORTA AND RETROPERITONEUM: No aneurysm. No retroperitoneal masses or adenopathy. BOWEL AND PERITONEAL CAVITY: Considerable retained stool. No obvious bowel mass. APPENDIX: Normal. PELVIS, BLADDER, AND ABDOMINAL WALL:Urinary bladder is normal. There is prostatic enlargement. BONES: No significant findings. OTHER: No other significant finding. IMPRESSION: Hepatic steatosis. Constipation. Prostatic enlargement. COMMENT: Quality ID # [id number]: Final reports with documentation of one or more dose reduction techniques (e.g., Automated exposure control, adjustment of the mA and/or kV according to patient size, use of iterative reconstruction technique) TECHNICAL DOCUMENTATION: JOB ID: [id number] [employer]- All Rights Reserved Reading location - IP/workstation name: [email or web address]
[2019-02-16] MEDS ORDERED: NITROFURANTOIN MONOHYD/M-CRYST 100 MG CAPSULE PO ONE (16:37)
[2019-02-16] MEDS ORDERED: MAGNESIUM CITRATE 296 ML BOTTLE PO ONE (16:47)
[2019-02-16 16:58] VITALS: BP 135/87
== END 2019-02-16 16:58 | disposition home or self-care (01) ==
LOC: ER 12:38
DX: K59.00 Constipation, unspecified (principal); R10.84 Generalized abdominal pain; R11.0 Nausea; N48.89 Other specified disorders of penis; Z87.19 Personal history of other diseases of the digestive system; Z87.891 Personal history of nicotine dependence; Z87.442 Personal history of urinary calculi; Z90.49 Acquired absence of other specified parts of digestive tract
CPT/HCPCS: 99284; 96360; 36415; 83690; 85025; 80053; 81001; 74176; J3490; J7030

== ENCOUNTER 2019-03-27 09:22 | Day surgery (SDC) | payer MEDICARE, BC ==
[~2019-03-27 09:22] MED LIST changes: -KETOROLAC TROMETHAMINE 0.45% 4 DROP/0.4 ML DROPERETTE OS PRN; -MIDAZOLAM 2 MG/2 ML INJ ONE; +PROPOFOL INJ 200 MG/20 ML VIAL IV ONE
[2019-03-27 10:50] VITALS: BP 105/65
--- NOTE | 2019-03-27 11:59 | Operative Report ---
Operative Report DATE OF SURGERY: 03/27/19 Operative Report: The risks, benefits and alternatives of the procedure including the risk of bleeding, perforation requiring surgery have been explained to the patient in detail and informed consent has been obtained. The patient is placed in a left, lateral decubital position. Timeout was called. Propofol medication is administered. Rectal examination is done which did not reveal any masses, tears or fissures. An Olympus videoscope was introduced into the patient's rectum. The scope was then carefully advanced all the way to the cecum. Cecum was identified by the usual anatomical landmarks of the ileocecal valve as well as the appendiceal office. Photodocumentation is obtained. Scope was then sequentially pulled back via the the various segments of the colon including the ascending colon, hepatic flexure, transverse colon, splenic flexure, descending colon finding to the rectosigmoid portions of the colon. Retroflexion maneuvers performed. The risks benefits and alternatives of the procedure explained to the patient in detail and informed consent is obtained.A GIF Olympus video scope was inserted into the patient's mouth and hypopharynx ,the esophagus is identified intubated and insufflated, the scope was then advanced through the esophagus stomach and duodenum, retroflexion maneuver is done, the esophagus stomach and first and second portions of the duodenum examined. PREOPERATIVE DIAGNOSIS: Personal history of polyp. Dyspepsia POSTOPERATIVE DIAGNOSIS: Duodenitis. Mild nodular gastritis status post biopsy without Helicobacter pylori. right colon inflammation status post biopsy. Internal hemorrhoids OPERATION: Colonoscopy with biopsy. EGD with biopsy SURGEON: BINA PADILLA ANESTHESIA: LMAC TISSUE REMOVED OR ALTERED: As noted above. COMPLICATIONS: None. ESTIMATED BLOOD LOSS: None. INTRAOPERATIVE FINDINGS: As noted above. PROCEDURE: Patient tolerated the procedure well. No immediate postprocedure complications are noted. Patient is discharged in good condition. Discharge date 03/27/2019. Discharge diet: Regular. Discharge activity: Regular. 2 to 3-week follow-up to discuss findings. Patient is instructed to call the office or proceed to the emergency room should there be any further problems or questions. Wait on the pathology. 5-year surveillance colonoscopy.
== END 2019-03-27 11:03 | disposition home or self-care (01) ==
LOC: END 09:22
PROVIDERS: ATTEND Internal Medicine Gastroenterology
DX: Z12.11 Encounter for screening for malignant neoplasm of colon (principal); K52.9 Noninfective gastroenteritis and colitis, unspecified; K64.8 Other hemorrhoids; K29.60 Other gastritis without bleeding; Z86.010 Personal history of colon polyps; I10 Essential (primary) hypertension
CPT/HCPCS: 43239; 45380; 88305 ×2; 00813; J2704; 813

== ENCOUNTER → 2019-12-05 | Outpatient (CLI) | payer MEDICARE, BC ==
--- NOTE | 2019-12-05 14:50 | ER [facility] ASSESSMENT REPORT ---
Intake - In the Last 14 days Have you traveled outside [place]?: Yes Have you been in close contact with someone CONFIRMED: Yes Worked in Healthcare?: No - Symptoms Subjective Fever([place] feverish): No Chills: No Muscule Aches: No Runny Nose: No Sore Throat: No Cough (New or worsening chronic cough): No Shortness of breath: No Nausea or Vomiting: No Headache: No Abdominal Pain: No Diarrhea(3 or more loose stools in last 24 hours): No - Do you have any of the following Chronic lung disease: Asthma or emphysema or COPD: No Cystic Fibrosis: No Diabetes: No High Blood Pressure: Yes Cardiovascular Disease: No Chronic Kidney Disease: No Chronic Liver Disease: No Chronic blood disorder like Sickle Cell Disease: No Weak immune system due to disease or medication: No Neurologic condition that limits movement: No Developmental delay - Moderate to Severe: No Recent (within past 2 weeks) or current : No Morbid Obesity (>100 pounds over ideal weight): No - Objective Temperature: 97.1 F Pulse Rate: 93 Respiratory Rate: 20 Blood Pressure: 127/61 O2 Sat by Pulse Oximetry: 93 Objective: Given above, testing performed: If Testing Performed: Test Specimen Type Sent to General - General Information source: Patient Notes: Patient presents to the [facility] for screening for the coronavirus. Patient denies any symptoms although does report recent [id number] travel as well as a recent exposure to someone who did test positive. Patient has underlying history of hypertension. - Related Data Allergies/Adverse Reactions: No Known Allergies Allergy (Verified 03/27/19 09:40) Past Medical History - General Information source: Patient - Social History Smoking Status: Never Smoker Lives with: Family Family History: Reviewed & Not Pertinent - Past Medical History Cardiac Medical History: Reports: Hx Hypertension Denies: Hx Coronary Artery Disease, Hx Heart Attack Pulmonary Medical History: Denies: Hx Asthma, Hx Bronchitis, Hx COPD, Hx Pneumonia Neurological Medical History: Denies: Hx Cerebrovascular Accident, Hx Seizures Renal/ Medical History: Reports: Hx Benign Prostatic Hyperplasia, Hx Kidney Stones. Denies: Hx Peritoneal Dialysis Musculoskeletal Medical History: Reports Hx Arthritis Infectious Medical History: Denies: Hx Hepatitis Past Surgical History: Reports: Hx Bowel Surgery - 15 and she does have a small intestines removed when he was a young child, Hx Kidney (Renal Surgery) - stone Physical Exam - Notes Notes: The patient was evaluated during the global Covid 19 pandemic, and that diagnosis was suspected/considered upon their initial presentation. Their evaluation, treatment and testing was consistent with current guidelines for p atients who present with complaints or symptoms that may be related to Covid 19. Full physical exam could not be performed due to covid 19 isolation protocols. Constitutional: Nontoxic appearance, no acute distress Eyes: Nonicteric, extraocular movements intact, sclera clear Cardiovascular: Heart rate and rhythm regular, no JVD Respiratory: Breath sounds clear bilaterally, nonlabored breathing, no use of accessory muscles, no tachypnea Gastrointestinal: Abdomen not distended Muculoskeletal: Moves all extremities well Skin: Normal color Neuro: Awake alert oriented, normal speech Psych: Normal mood and affect Diagnostic Results Laboratory Results: Patient presents with upper respiratory symptoms worrisome for possible Covid 19. Patient does not have emergency worrying symptoms such as difficulty breathing, shortness of breath, chest pain, pressure, confusion or cyanosis. Patient appears suitable for discharge as vital signs are stable and patient is nontoxic in appearance. Good return precautions have been discussed with patient, patient verbalized understanding and is agreeable with discharge plan of care at this time. Patient Education/Counseling Counseling/Education: Patient was provided with discharge information including: As a person under investigation for Covid 19, the [place] department of Health and Human Services, division of public health advises you to adhere to the following guidance until your test results are reported to you. If your test result is positive, you will receive additional information from your provider and your local health department at that time. Remain at home until you are cleared by the health provider or public health authorities. Keep a log of visitors to your home, notify any visitors to your home of your isolation status. If you plan to move to a new address or leave the county, notify the local health department in your County. Call your doctor or seek care if you have an urgent medical need. Before seeking medical care, call ahead to get instructions from the provider before arriving at the medical office clinic or hospital. Notify them that you are being tested for the virus that causes Covid 19 so that arrangements can be made, as necessary, to prevent transmission to others in the healthcare setting. Next, notify the local health department in your county. If a medical emergency arises and you need to call 911, inform the first responders that you are being tested for the virus that causes Covid 19. Next, notify the local health department in your county. [facility] Discharge - Discharge Clinical Impression: Encounter for screening laboratory testing for COVID-19 virus Condition: Stable Disposition: Home; Selfcare
[2019-12-05 14:51] VITALS: BP 127/61
== END ==
LOC: RDC 13:59
PROVIDERS: ATTEND Nurse Practitioner Family
DX: Z20.828 Contact with and (suspected) exposure to other viral communicable diseases (principal); I10 Essential (primary) hypertension; N40.0 Benign prostatic hyperplasia without lower urinary tract symptoms
CPT/HCPCS: 99201; U0003; G0463; C9803; 87635; 99211

== ENCOUNTER 2020-05-16 08:51 | Emergency (ER) | payer MEDICARE, BC ==
[2020-05-16] MEDS ORDERED: ACETAMINOPHEN 325 MG TABLET PO ONE (10:42)
[2020-05-16] MEDS ORDERED: NORMAL SALINE 500 ML IV ONE (10:42)
--- NOTE | 2020-05-16 10:46 | ER Document Report ---
ED General - General Chief Complaint: Abdominal Pain Stated Complaint: ABDOMINAL PAIN/DIARRHEA Time Seen by Provider: 05/16/20 10:03 Primary Care Provider: JOSE FRANCISCO HURLEY DO [Primary Care Provider] - Follow up as needed TRAVEL OUTSIDE OF THE [place] IN LAST 30 DAYS: No - HPI Notes: Patient is a 74-year-old male who presents emergency department for evaluation. Proximally 6 days ago the patient started developing shaking chills. He has had some nausea but no vomiting. He has had diarrhea. His only had about 1 episode of diarrhea in the last 24 hours. He has minimal cough, primarily only at night, that he states he just attributed to being a former smoker. He has had some cramping abdominal pain that continues, so he thought he should be evaluated for that. He denies any anosmia. He denies any shortness of breath. - Related Data Allergies/Adverse Reactions: No Known Allergies Allergy (Verified 03/27/19 09:40) Home Medications: finasteride, triamterene-hctz Past Medical History - General Information source: Patient - Social History Smoking Status: Former Smoker Chew tobacco use (# tins/day): No Frequency of alcohol use: None Drug Abuse: None Family History: Reviewed & Not Pertinent - Past Medical History Cardiac Medical History: Reports: Hx Hypertension Denies: Hx Coronary Artery Disease, Hx Heart Attack Pulmonary Medical History: Denies: Hx Asthma, Hx Bronchitis, Hx COPD, Hx Pneumonia EENT Medical History: Reports: Eyes - Glaucoma and retinal detachment in the right eye Neurological Medical History: Denies: Hx Cerebrovascular Accident, Hx Seizures Renal/ Medical History: Reports: Hx Benign Prostatic Hyperplasia, Hx Kidney Stones. Denies: Hx Peritoneal Dialysis GI Medical History: Denies: Hx Hepatitis Musculoskeletal Medical History: Reports Hx Arthritis Infectious Medical History: Denies: Hx Hepatitis Past Surgical History: Reports: Hx Bowel Surgery - 15, Hx Kidney (Renal Surgery) - stone - Immunizations Immunizations up to date: Yes Hx Diphtheria, Pertussis, Tetanus Vaccination: Yes Hx Pneumococcal Vaccination: 05/31/18 Review of Systems - Review of Systems Constitutional: See HPI EENT: No symptoms reported Cardiovascular: No symptoms reported Respiratory: See HPI Gastrointestinal: See HPI Genitourinary: No symptoms reported Musculoskeletal: No symptoms reported Skin: No symptoms reported Neurological/Psychological: No symptoms reported Physical Exam - Vital signs Vitals: Temp Pulse Resp BP Pulse Ox 97.9 F 65 18 121/65 95 05/16/20 08:58 05/16/20 08:58 05/16/20 08:58 05/16/20 08:58 05/16/20 08:58 - Notes Notes: Vital signs reviewed, please refer to chart. Head is normocephalic, atraumatic. Left pupil is round, reactive to light. Right pupil is dilated, nonreactive. Oral mucosa is moist. Neck is supple without meningismus. Heart is regular rate and rhythm. Lungs reveal crackles in the right base. Abdomen is soft, diffusely tender without rebound or guarding, normoactive bowel sounds throughout. Extremities without cyanosis, clubbing. Posterior calves are nontender. Peripheral pulses are equal. Skin is warm and dry. Patient is awake, alert, neurological exam is nonfocal. Course - Re-evaluation Re-evalutation: 05/16/20 10:45 Patient presents emergency department for evaluation. Laboratory investigations, fluids, symptomatic treatment has been initiated. Patient has a minimal cough but he does have diarrhea and chills, I am concerned about the possibility of COVID-19. He does have crackles in the right base of his lungs as well. Chest x-ray ordered. Patient was updated on the treatment plan and is amenable to it. We will continue to monitor. - Vital Signs Vital signs: Temp Pulse Resp BP Pulse Ox 97.7 F 78 17 113/74 95 05/16/20 13:50 05/16/20 13:50 05/16/20 13:50 05/16/20 13:50 05/16/20 13:50 - Laboratory Results Result Diagrams: 05/16/20 11:45 05/16/20 11:45 Laboratory Results Interpreted: 05/16/20 05/16/20 05/16/20 11:15 11:45 11:45 Hct 37.8 L MCHC 36.4 H Sodium 133.5 L Potassium 3.2 L Chloride 95 L Glucose 114 H Lipase 342.8 H Urine Ascorbic Acid 20 H Critical Laboratory Results Reviewed: No Critical Results - Radiology Results Critical Radiology Results Reviewed: No Critical Results Discharge - Discharge Clinical Impression: Hypokalemia, Generalized abdominal pain, Person under investigation for COVID- 19 Diarrhea Qualifiers: Diarrhea type: presumed infectious Qualified Code(s): R19.7 - Diarrhea, unspe cified Condition: Stable Disposition: HOME, SELF-CARE Instructions: COVID-19 Guidance for Persons Under Investigation, Abdominal Pain ([facility]), Diarrhea, Nonspecific ([facility]), Hypokalemia ([facility]) Additional Instructions: Your chest x-ray did not show any acute process. Your lab work showed some mild dehydration and low potassium. Your potassium was replaced. Please try to eat a bland diet with potassium rich foods. Otherwise, you have been tested for COVID-19. Your test results are still pending. You will be contacted. Please quarantine. No clear cause was found for your abdominal pain today. Follow-up with your primary care provider this week. Return to the emergency department for worsening or new concerning symptoms of any sort. Referrals: JOSE FRANCISCO HURLEY DO [Primary Care Provider] - Follow up as needed
[2020-05-16 11:27] LABS: APPEARANCE,URINE CLEAR; BILIRUBIN,URINE NEGATIVE (NEGATIVE); COLOR,URINE YELLOW; GLUCOSE, URINE NEGATIVE (NEGATIVE); KETONES,URINE NEGATIVE (NEGATIVE); LEUKOCYTE ESTERASE,URINE NEGATIVE (NEGATIVE); NITRITE,URINE NEGATIVE (NEGATIVE); PROTEIN,URINE NEGATIVE (NEGATIVE); UROBILINOGEN,URINE NEGATIVE mg/dL (<2.0)
--- NOTE | 2020-05-16 11:40 | RADIOLOGY REPORT (SQ) ---
EXAM DESCRIPTION: CHEST SINGLE VIEW IMAGES COMPLETED DATE/TIME: 05/16/2020 11:28 am REASON FOR STUDY: mild cough, chills COMPARISON: None. EXAM PARAMETERS: NUMBER OF VIEWS: One view. TECHNIQUE: Single frontal radiographic view of the chest acquired. RADIATION DOSE: NA LIMITATIONS: None. FINDINGS: LUNGS AND PLEURA: No opacities, masses or pneumothorax. No pleural effusion. MEDIASTINUM AND HILAR STRUCTURES: No masses. Contour normal. HEART AND VASCULAR STRUCTURES: Heart normal in size. Normal vasculature. BONES: No acute findings. HARDWARE: None in the chest. OTHER: No other significant finding. IMPRESSION: NO ACUTE RADIOGRAPHIC FINDING IN THE CHEST. TECHNICAL DOCUMENTATION: JOB ID: [id number] 2010 [employer]- All Rights Reserved Reading location - IP/workstation name: [id number]
[2020-05-16 12:01] LABS: ABSOLUTE LYMPHOCYTES (AUTO) 0.9 10^3/uL (0.5-4.7); ABSOLUTE MONOCYTES (AUTO) 0.6 10^3/uL (0.1-1.4); ABSOLUTE NEUT (AUTO) 3.2 10^3/uL (1.7-8.2); BASOPHILS % (AUTO) 0.4 % (0-2); EOSINOPHILS % (AUTO) 0.3 % (0-6); HEMATOCRIT 37.8 % (37.9-51.0); HEMOGLOBIN 13.8 g/dL (13.5-17.0); LYMPHOCYTES % (AUTO) 19.1 % (13-45); MEAN CORPUSCULAR HEMOGLOBIN 31.3 pg (27.0-33.4); MEAN CORPUSCULAR HGB CONC 36.4 g/dL (32.0-36.0); MEAN CORPUSCULAR VOLUME 86 fl (80-97); PLATELET COUNT 161 10^3/uL (150-450); RED BLOOD COUNT 4.41 10^6/uL (4.35-5.55); RED CELL DISTRIBUTION WIDTH 13.1 % (11.5-14.0); SEGMENTED NEUTROPHILS % (AUTO) 68.2 % (42-78); TOTAL CELLS COUNTED % (AUTO) 100 %; WHITE BLOOD COUNT 4.6 10^3/uL (4.0-10.5)
[2020-05-16 12:23] LABS: ALBUMIN 3.7 g/dL (3.5-5.0); ALKALINE PHOSPHATASE 58 U/L (38-126); ANION GAP 10 (5-19); ASPARTATE AMINO TRANSFERASE 39 U/L (17-59); BILIRUBIN,DIRECT 0.2 mg/dL (0.0-0.4); BILIRUBIN,TOTAL 0.7 mg/dL (0.2-1.3); BLOOD UREA NITROGEN 14 mg/dL (7-20); CARBON DIOXIDE 29 mmol/L (22-30); CHLORIDE 95 mmol/L (98-107); GLUCOSE 114 mg/dL (75-110); POTASSIUM 3.2 mmol/L (3.6-5.0); TOTAL PROTEIN 6.7 g/dL (6.3-8.2)
[2020-05-16] MEDS ORDERED: POTASSIUM CHLORIDE 10 MEQ TABLET.ER PO ONE (12:36)
[2020-05-16 13:55] VITALS: BP 113/74
== END 2020-05-16 13:55 | disposition home or self-care (01) ==
LOC: ER 08:51
DX: U07.1 COVID-19 (principal); E87.6 Hypokalemia; R10.84 Generalized abdominal pain; R11.0 Nausea; R68.83 Chills (without fever); R19.7 Diarrhea, unspecified; R05 Cough; H57.04 Mydriasis; I10 Essential (primary) hypertension; N40.0 Benign prostatic hyperplasia without lower urinary tract symptoms; Z79.899 Other long term (current) drug therapy; Z87.891 Personal history of nicotine dependence
CPT/HCPCS: 99284; 96360; 36415; 83690; 85025; 80053; 81001; 71045; U0003; A9270 ×2; J7040; C9803; 87635

== ENCOUNTER 2020-05-19 10:57 | Inpatient (IN) | payer MEDICARE, BC ==
--- NOTE | 2020-05-19 11:14 | ER Document Report ---
ED Medical Screen (RME) - General Chief Complaint: Fever Stated Complaint: FEVER Time Seen by Provider: 05/19/20 11:06 Primary Care Provider: JOSE FRANCISCO HURLEY DO [Primary Care Provider] - Follow up as needed Notes: Patient presents complaining of not feeling well for the past 3 weeks. Patient reports diarrhea that is watery. Patient reports lower abdominal tenderness. Patient denies any nausea or vomiting. Patient reports occasional lightheadedness. Patient with persistent fever for the past 4 days and recent diagnosis of Covid 4 days ago. Patient had decreased oral intake. Patient does have a history of hypertension and retinal detachment. I have greeted and performed a rapid initial assessment of this patient. A comprehensive ED assessment and evaluation of the patient, analysis of test results and completion of the medical decision making process will be conducted by additional ED providers. TRAVEL OUTSIDE OF THE [place] IN LAST 30 DAYS: No - Related Data Allergies/Adverse Reactions: No Known Allergies Allergy (Verified 03/27/19 09:40) Past Medical History - Past Medical History Cardiac Medical History: Reports: Hx Hypertension Denies: Hx Coronary Artery Disease, Hx Heart Attack Pulmonary Medical History: Denies: Hx Asthma, Hx Bronchitis, Hx COPD, Hx Pneumonia Neurological Medical History: Denies: Hx Cerebrovascular Accident, Hx Seizures Renal/ Medical History: Reports: Hx Benign Prostatic Hyperplasia, Hx Kidney Stones. Denies: Hx Peritoneal Dialysis GI Medical History: Denies: Hx Hepatitis Musculoskeltal Medical History: Reports Hx Arthritis Infectious Medical History: Denies: Hx Hepatitis Past Surgical History: Reports: Hx Bowel Surgery - 15, Hx Kidney (Renal Surgery) - stone - Immunizations Immunizations up to date: Yes Hx Diphtheria, Pertussis, Tetanus Vaccination: Yes Physical Exam - Abdominal Tenderness: Tender - Lower abdomen, exam limited as patient is in chair Doctor's Discharge - Discharge Referrals: JOSE FRANCISCO HURLEY DO [Primary Care Provider] - Follow up as needed
--- NOTE | 2020-05-19 11:40 | RADIOLOGY REPORT (SQ) ---
EXAM DESCRIPTION: CHEST SINGLE VIEW IMAGES COMPLETED DATE/TIME: 05/19/2020 11:32 am REASON FOR STUDY: fever, hx covid COMPARISON: 05/16/2020. EXAM PARAMETERS: NUMBER OF VIEWS: One view. TECHNIQUE: Single frontal radiographic view of the chest acquired. RADIATION DOSE: NA LIMITATIONS: None. FINDINGS: LUNGS AND PLEURA: Chronic interstitial scarring. No opacities, masses or pneumothorax. No pleural effusion. MEDIASTINUM AND HILAR STRUCTURES: No masses. Contour normal. HEART AND VASCULAR STRUCTURES: Heart normal in size. Normal vasculature. BONES: No acute findings. HARDWARE: None in the chest. OTHER: No other significant finding. IMPRESSION: CHRONIC SCARRING. NO ACUTE RADIOGRAPHIC FINDING IN THE CHEST. TECHNICAL DOCUMENTATION: JOB ID: [id number] 2010 [employer]- All Rights Reserved Reading location - IP/workstation name: [email or web address]
[2020-05-19 13:16] LABS: ABSOLUTE MONOCYTES (AUTO) 0.3 10^3/uL (0.1-1.4); ABSOLUTE NEUT (AUTO) 5.1 10^3/uL (1.7-8.2); BASOPHILS % (AUTO) 0.1 % (0-2); HEMATOCRIT 37.3 % (37.9-51.0); HEMOGLOBIN 13.5 g/dL (13.5-17.0); LYMPHOCYTES % (AUTO) 16.1 % (13-45); MEAN CORPUSCULAR HEMOGLOBIN 30.9 pg (27.0-33.4); MEAN CORPUSCULAR HGB CONC 36.1 g/dL (32.0-36.0); MEAN CORPUSCULAR VOLUME 85 fl (80-97); PLATELET COUNT 125 10^3/uL (150-450); RED BLOOD COUNT 4.37 10^6/uL (4.35-5.55); SEGMENTED NEUTROPHILS % (AUTO) 78.8 % (42-78); TOTAL CELLS COUNTED % (AUTO) 100 %; WHITE BLOOD COUNT 6.5 10^3/uL (4.0-10.5)
[2020-05-19 13:31] LABS: ALBUMIN 3.4 g/dL (3.5-5.0); ALKALINE PHOSPHATASE 47 U/L (38-126); ANION GAP 7 (5-19); ASPARTATE AMINO TRANSFERASE 49 U/L (17-59); BILIRUBIN,DIRECT 0.2 mg/dL (0.0-0.4); BILIRUBIN,TOTAL 0.6 mg/dL (0.2-1.3); BLOOD UREA NITROGEN 16 mg/dL (7-20); CALCIUM 8.3 mg/dL (8.4-10.2); CARBON DIOXIDE 31 mmol/L (22-30); CHLORIDE 90 mmol/L (98-107); GLUCOSE 146 mg/dL (75-110); POTASSIUM 3.1 mmol/L (3.6-5.0); TOTAL PROTEIN 6.6 g/dL (6.3-8.2)
[2020-05-19 13:34] LABS: APPEARANCE,URINE SLIGHTLY-CLOUDY; BILIRUBIN,URINE NEGATIVE (NEGATIVE); COLOR,URINE YELLOW; GLUCOSE, URINE NEGATIVE (NEGATIVE); KETONES,URINE TRACE mg/dL (NEGATIVE); LEUKOCYTE ESTERASE,URINE NEGATIVE (NEGATIVE); NITRITE,URINE NEGATIVE (NEGATIVE); PROTEIN,URINE 30 mg/dL (NEGATIVE); URINE SPECIFIC GRAVITY 1.017; UROBILINOGEN,URINE NEGATIVE mg/dL (<2.0)
[2020-05-19] MEDS ORDERED: NORMAL SALINE 1000 ML 1,000 ML IV ONE (15:55)
--- NOTE | 2020-05-19 17:20 | RADIOLOGY REPORT (SQ) ---
EXAM DESCRIPTION: CT ABD/PELVIS WITH IV ONLY IMAGES COMPLETED DATE/TIME: 05/19/2020 1:39 pm REASON FOR STUDY: elevated Lipase, ? pancreatitis COMPARISON: 02/16/2019. TECHNIQUE: CT scan of the abdomen and pelvis performed using helical scanning technique with dynamic intravenous contrast injection. No oral contrast. Images reviewed with lung, soft tissue, and bone windows. Reconstructed coronal and sagittal MPR images reviewed. Delayed images for evaluation of the urinary system also acquired. All images stored on PACS. All CT scanners at this facility use dose modulation, iterative reconstruction, and/or weight based d osing when appropriate to reduce radiation dose to as low as reasonably achievable (ALARA). [facility]: Dose Right [facility]: CareDose [facility]: Dose Right [facility]: Teradose 4D [facility]: LeCab CONTRAST TYPE AND DOSE: contrast/concentration: Isovue 350.00 mmol/ml; Total Contrast Delivered: 100 .0 ml; Total Saline Delivered: 72.0 ml RENAL FUNCTION: Creatinine 1.1 RADIATION DOSE: CT Rad equipment meets quality standard of care and radiation dose reduction techniq ues were employed. CTDIvol: 11.2 - 11.2 mGy. DLP: 1289 mGy-cm.. LIMITATIONS: None. FINDINGS: LOWER CHEST: Prominent ground-glass opacities in the posterior right lower lobe and additi onal mild patchy bilateral predominantly peripheral ground-glass opacities may be infectious in etiol ogy. LIVER: Diffuse decreased density compatible with steatosis. Possible cyst within hepatic segment IV. Appearance is similar to prior examination. SPLEEN: Normal size. No focal lesions. PANCREAS: No masses. No significant calcifications. No adjacent inflammation or peripancreatic fluid collections. Pancreatic duct not dilated. GALLBLADDER: Cholelithiasis. No acute inflammation. ADRENAL GLANDS: No significant masses or asymmetry. RIGHT KIDNEY AND URETER: No solid masses. No significant calcifications. No hydronephrosis or hyd roureter. LEFT KIDNEY AND URETER: Multiple hypodense left renal lesions are too small to adequately characteriz e, but likely represent benign cysts. No suspicious renal mass. No significant calcifications. N o hydronephrosis or hydroureter. AORTA AND VESSELS: No aneurysm. No dissection. Renal arteries, SMA, celiac without stenosis. RETROPERITONEUM: No retroperitoneal adenopathy, hemorrhage or masses. BOWEL AND PERITONEAL CAVITY: Tiny hiatal hernia. Some mild nonspecific fluid-filled small bowel loop s in the right abdomen. No bowel obstruction. No significant wall thickening. APPENDIX: Not visualized. PELVIS: Enlarged prostate gland. Urinary bladder is unremarkable. Small fat containing left inguina l hernia ABDOMINAL WALL: No masses. No hernias. BONES: No significant or acute findings. OTHER: No other significant finding. IMPRESSION: 1. Nonspecific mild fluid-filled small bowel loops could reflect a mild enteritis. No bowel obstruction. 2. No peripancreatic inflammation. 3. Cholelithiasis. 4. Hepatic steatosis. 5. Enlarged prostate gland. 6. Basilar ground-glass pulmonary opacities are not specific but can be seen with infectious and non infectious processes, including COVID 19 infection. Correlate with exposure history. TECHNICAL DOCUMENTATION: JOB ID: [id number] Quality ID # [id number]: Final reports with documentation of one or more dose reduction techniques (e.g., Au tomated exposure control, adjustment of the mA and/or kV according to patient size, use of iterative reconstruction technique) 2010 [employer]- All Rights Reserved Reading location - IP/workstation name: [email or web address]
--- NOTE | 2020-05-19 18:21 | ER Document Report ---
ED General - General Chief Complaint: Diarrhea Stated Complaint: FEVER Time Seen by Provider: 05/19/20 11:06 Mode of Arrival: Ambulatory Information source: Patient Notes: This 74-year-old man presents to the emergency department with a 3-week history of fatigue, feeling weak and recently developed diarrhea and decreased appetite with associated nonproductive cough. Patient had tested positive for the coronavirus on . His daughter who is a nurse instructed him to seek medical care for the continued diarrhea and possible dehydration. Patient also complains of some mild epigastric abdominal pain. He denies a prior history of any difficulties regarding his GI tract. TRAVEL OUTSIDE OF THE [place] IN LAST 30 DAYS: No - Related Data Allergies/Adverse Reactions: No Known Allergies Allergy (Verified 03/27/19 09:40) Home Medications: htn. macular degeneration Past Medical History - Social History Smoking Status: Former Smoker Chew tobacco use (# tins/day): No Frequency of alcohol use: None Drug Abuse: None Family History: Reviewed & Not Pertinent Patient has homicidal ideation: No - Past Medical History Cardiac Medical History: Reports: Hx Hypertension Denies: Hx Coronary Artery Disease, Hx Heart Attack Pulmonary Medical History: Denies: Hx Asthma, Hx Bronchitis, Hx COPD, Hx Pneumonia Neurological Medical History: Denies: Hx Cerebrovascular Accident, Hx Seizures Renal/ Medical History: Reports: Hx Benign Prostatic Hyperplasia, Hx Kidney Stones. Denies: Hx Peritoneal Dialysis GI Medical History: Denies: Hx Hepatitis Musculoskeletal Medical History: Reports Hx Arthritis Infectious Medical History: Denies: Hx Hepatitis Past Surgical History: Reports: Hx Bowel Surgery - 15, Hx Kidney (Renal Surgery) - stone - Immunizations Immunizations up to date: Yes Hx Diphtheria, Pertussis, Tetanus Vaccination: Yes Hx Pneumococcal Vaccination: 05/31/18 Review of Systems - Review of Systems Notes: Constitutional: Negative for fever. HENT: Negative for sore throat. Eyes: Negative for visual changes. Cardiovascular: Negative for chest pain. Respiratory: Negative for shortness of breath. Gastrointestinal: See HPI Genitourinary: Negative for dysuria. Musculoskeletal: Negative for back pain. Skin: Negative for rash. Neurological: Negative for headaches, weakness or numbness. 10 point ROS negative except as marked above and in HPI. Physical Exam - Vital signs Vitals: Temp Pulse Resp BP Pulse Ox 98.0 F 100 18 104/64 97 05/19/20 11:08 05/19/20 11:08 05/19/20 11:08 05/19/20 11:08 05/19/20 11:08 - Notes Notes: PHYSICAL EXAMINATION: Physical Exam: General: Well-nourished well-developed 74-year-old male in no acute distress HEENT: NC/AT, pupils equal round and reactive to light, MM moist,nares clear, oropharynx clear, airway patent Neck: supple, no adenopathy, no masses. Good range of motion Lungs: clear, no wheezing, no rales no rhonchi CVS: Regular rate and rhythm no murmur gallop or rub Abdomen: Soft, active, + epigastric tenderness, no guarding, no rebound, no masses, no hepatosplenomegaly Ext: No edema, clubbing or cyanosis. Neuro: Alert and responsive, moving all 4 extremities on command, cranial nerves intact, no focal findings Skin: decreased capillary refill Course - Re-evaluation Re-evalutation: 05/19/20 18:30 74-year-old man presenting with a known coronavirus positive test as an outpatient. He has no complaint of diarrhea and epigastric pain. Found to have an elevated lipase of 1745.2, CT scan was performed there is no peripancreatic stranding, noted to have glass ground opacities on the chest portion of the CT scan. The nurses notified me that the patient's temperature has spiked to 102.9, his O2 sat has decreased to 93%. He also known to have blood pressure 1 40/70. I contacted the hospitalist service regarding the patient with what appears to be coronavirus related GI manifestations with diarrhea and elevated lipase. There has been no reported associations between COVID-19 and pancreatitis with the mechanism reported to be diffuse severe endothelialysis. This is typically treated by treating the virus and symptoms. Dr. Mejias was called and states he will see the patient in the emergency department. - Vital Signs Vital signs: Temp Pulse Resp BP Pulse Ox 98.0 F 89 22 H 129/71 H 95 05/19/20 22:32 05/19/20 22:32 05/19/20 22:32 05/19/20 22:32 05/19/20 22:32 - Laboratory Results Result Diagrams: 05/19/20 12:40 05/19/20 12:40 Laboratory Results Interpreted: 05/19/20 05/19/20 05/19/20 12:30 12:40 12:40 Hct 37.3 L MCHC 36.1 H Plt Count 125 L Seg Neutrophils % 78.8 H Sodium 127.5 L Potassium 3.1 L Chloride 90 L Carbon Dioxide 31 H Glucose 146 H Calcium 8.3 L Albumin 3.4 L Lipase 1745.2 H Urine Protein 30 H Urine Ketones TRACE H Critical Laboratory Results Reviewed: Yes Attending or Supervising Physician who Reviewed Labs: CHERELLE EVANS - low sodium, low potassium, positive COVID19 - Radiology Results Radiology Results Interpreted: 05/19/20 18:35 Chest X-Ray 05/19/20 11:12 IMPRESSION: CHRONIC SCARRING. NO ACUTE RADIOGRAPHIC FINDING IN THE CHEST. Abdomen/Pelvis CT 05/19/20 15:57 IMPRESSION: 1. Nonspecific mild fluid-filled small bowel loops could reflect a mild enteritis. No bowel obstruction. 2. No peripancreatic inflammation. 3. Cholelithiasis. 4. Hepatic steatosis. 5. Enlarged prostate gland. 6. Basilar ground-glass pulmonary opacities are not specific but can be seen with infectious and noninfectious processes, including COVID 19 infection. Correlate with exposure history. Critical Radiology Results Reviewed: No Critical Results Discharge - Discharge Clinical Impression: Pneumonia due to 2019 novel coronavirus, Elevated lipase, Hyponatremia, Hypokalemia, Generalized abdominal pain Diarrhea Qualifiers: Diarrhea type: unspecified type Qualified Code(s): R19.7 - Diarrhea, unspecified Condition: Good Disposition: ADMITTED INPATIENT Admitting Provider: Magalie (Hospitalist) Unit Admitted: Telemetry
[2020-05-19] MEDS ORDERED: HYDROMORPHONE HCL INJ/PF 2 MG/ML AMPULE IV ONE (18:39)
[2020-05-19] MEDS ORDERED: ACETAMINOPHEN 325 MG TABLET PO ONE (18:40)
[2020-05-19] MEDS ORDERED: ONDANSETRON HCL INJ/PF 4 MG/2 ML SDV IV PRN (19:12)
[2020-05-19] MEDS ORDERED: MEROPENEM 1 GM in NORMAL SALINE 50 ML IV ONE (19:30)
--- NOTE | 2020-05-19 19:32 | PDOC H&P ---
History of Present Illness Admission Date/PCP: JOSE FRANCISCO HURLEY DO History of Present Illness: FLORIN BOWIE is a 74 year old male with a history of hypertension, hepatic steatosis, and colon polyps who presents with diarrhea and abdominal pain. He said that he has had diarrhea for about 3 weeks. He said he has been having 1-3 episodes of diarrhea a day. He said it is mostly loose and watery. He has not been on any antibiotics in the past several months. He has not been around a nyone he knows to be sick. He does not think that he has had a fever at home. He said he mostly just feels poorly. He is not been eating and drinking very much lately. He came to the ER a few days ago with the same complaints and somehow got tested for coronavirus, which he says came back positive. He has not had any cough or shortness of breath. He has not had any tachypnea. He has not been hypoxic. In the ER his saturations at rest are 90 to 92%, but that is when he is dozing. When he wakes up his saturations come up into the mid to upper 90s. I experienced this when I was in the room with him. He is a former smoker and has evidence of lung scarring on his chest imaging. 1 radiologist called it scarring on chest x-ray at another 1 called it groundglass opacities on chest CT. As previously noted, this patient is not hypoxic and not in any kind of respiratory distress, and has had no history of any respiratory complaints. He said they told him he did have a fever of 102 Fahrenheit, I have not confirm this yet. He has not had any recent changes in his medications. The only thing he takes at home is a combination triamterene/ HCTZ pill. He did not have a leukocytosis. His lipase was elevated at greater than 1700, and his sodium and potassium were both a bit low. He was noted to have gallstones on CT but his bilirubin and transaminases, as well as alkaline phosphatase, were normal. He is not an alcohol drinker. Past Medical History Cardiac Medical History: Reports: Hypertension Denies: Coronary Artery Disease, Myocardial Infarction Pulmonary Medical History: Denies: Asthma, Bronchitis, Chronic Obstructive Pulmonary Disease (COPD), Pneumonia Neurological Medical History: Denies: Seizures GI Medical History: Denies: Hepatitis Musculoskeltal Medical History: Reports: Arthritis Hematology: Denies: Anemia, Sickle Cell Disease Social History Smoking Status: Former Smoker Electronic Cigarette use?: No Family History Family History: Reviewed & Not Pertinent, Hypertension Parental Family History Reviewed: Yes Children Family History Reviewed: Yes Sibling(s) Family History Reviewed.: Yes Medication/Allergy Home Medications: Triamterene/Hydrochlorothiazid [Triamterene-Hctz 37.5-25 mg Tb] 1 each PO DAILY 03/27/19 Allergies/Adverse Reactions: No Known Allergies Allergy (Verified 03/27/19 09:40) Review of Systems All systems: reviewed and no additional remarkable complaints except as stated - All systems were reviewed and were negative except as noted in the HPI Physical Exam Vital Signs: Temp Pulse Resp BP Pulse Ox 102.9 F H 60 20 141/79 H 93 05/19/20 18:29 05/19/20 18:29 05/19/20 18:29 05/19/20 18:29 05/19/20 18:29 Intake & Output 05/18/20 05/19/20 05/20/20 06:59 06:59 06:59 Intake Total 1000 Balance 1000 Weight 92.7 kg General appearance: PRESENT: no acute distress, cooperative, disheveled, obese Head exam: PRESENT: atraumatic, normocephalic Eye exam: PRESENT: EOMI, PERRLA. ABSENT: conjunctival injection, nystagmus, scleral icterus Ear exam: PRESENT: normal external ear exam Mouth exam: PRESENT: dry mucosa, neck supple Throat exam: ABSENT: post pharyngeal erythema Neck exam: PRESENT: full ROM. ABSENT: carotid bruit, JVD, lymphadenopathy, meningismus, tenderness, thyromegaly Respiratory exam: PRESENT: clear to auscultation demi, symmetrical, unlabored. ABSENT: accessory muscle use, chest wall tenderness, crackles, prolonged expiratory phas, rhonchi, tachypnea, wheezes Cardiovascular exam: PRESENT: RRR, +S1, +S2 Pulses: PRESENT: normal carotid pulses Vascular exam: PRESENT: normal capillary refill GI/Abdominal exam: PRESENT: hypoactive bowel sounds, soft, tenderness - Very mild epigastric. ABSENT: distended, guarding, rebound Extremities exam: ABSENT: clubbing, pedal edema Musculoskeletal exam: PRESENT: normal inspection. ABSENT: deformity Neurological exam: PRESENT: awake, oriented to person, oriented to place, oriented to situation, CN II-XII grossly intact. ABSENT: motor sensory deficit Psychiatric exam: PRESENT: flat affect Skin exam: PRESENT: dry, warm Results Laboratory Results: 05/19/20 12:40 05/19/20 12:40 05/19/20 05/19/20 05/19/20 12:30 12:40 12:40 WBC 6.5 RBC 4.37 Hgb 13.5 Hct 37.3 L MCV 85 MCH 30.9 MCHC 36.1 H RDW 13.0 Plt Count 125 L Seg Neutrophils % 78.8 H Sodium 127.5 L Potassium 3.1 L Chloride 90 L Carbon Dioxide 31 H Anion Gap 7 BUN 16 Creatinine 1.10 Est GFR ( Amer) > 60 Glucose 146 H Calcium 8.3 L Magnesium 1.8 Total Bilirubin 0.6 AST 49 Alkaline Phosphatase 47 Total Protein 6.6 Albumin 3.4 L Lipase 1745.2 H Urine Color YELLOW Urine Appearance SLIGHTLY-CLOUDY Urine pH 6.0 Ur Specific [place] 1.017 Urine Protein 30 H Urine Glucose (UA) NEGATIVE Urine Ketones TRACE H Urine Blood NEGATIVE Urine Nitrite NEGATIVE Ur Leukocyte Esterase NEGATIVE Urine WBC (Auto) 8 Urine RBC (Auto) 0 Impressions: Chest X-Ray 05/19/20 11:12 IMPRESSION: CHRONIC SCARRING. NO ACUTE RADIOGRAPHIC FINDING IN THE CHEST. Abdomen/Pelvis CT 05/19/20 15:57 IMPRESSION: 1. Nonspecific mild fluid-filled small bowel loops could reflect a mild enteritis. No bowel obstruction. 2. No peripancreatic inflammation. 3. Cholelithiasis. 4. Hepatic steatosis. 5. Enlarged prostate gland. 6. Basilar ground-glass pulmonary opacities are not specific but can be seen with infectious and noninfectious processes, including COVID 19 infection. Correlate with exposure history. Assessment and Plan - Diagnosis (1) Acute pancreatitis Qualifiers: Pancreatitis type: other Acute pancreatitis complication: unspecified Qualified Code(s): K85.80 - Other acute pancreatitis without necrosis or infection Is this a current diagnosis for this admission?: Yes (2) Diarrhea Qualifiers: Diarrhea type: unspecified type Qualified Code(s): R19.7 - Diarrhea, unspecified Is this a current diagnosis for this admission?: Yes (3) Hypokalemia Is this a current diagnosis for this admission?: Yes (4) Hyponatremia Is this a current diagnosis for this admission?: Yes - Plan Summary Summary: I was told the patient had crackles on examination. When I examined him, I noted that he had a very hairy back, so I pressed the diaphragm down with a little bit more pressure, and the patient had no crackles at all on his chest examination. He has no tachypnea no evidence of any sort of respiratory dist ress or hemodynamic compromise. He is not hypoxic on room air. When he is dozing or asleep his oxygen saturations drop between 88 to 92%, which is normal and expected. When he wakes up, takes a few breaths, his saturations come up into the mid 90s. He has a history of smoking and more than likely has some lung scarring which accounts for the finding seen on examination. I do not think he has any pulmonary manifestations of coronavirus. In fact, I think were it not for that test result, it would not even be a consideration. This is a patient with 3 weeks of diarrhea who has some electrolyte disturbances, is clinically dehydrated, and has a pancreatitis due to his elevated lipase and ab dominal pain. He has not been on antibiotics but I am going to test him for C. difficile just to rule that out. We will go and put him on some fluids and keep him n.p.o. We will replace his electrolytes. We will check his triglycerides. Due to his prolonged course of symptoms and his fever, I will empirically put him on meropenem in case he has intra-abdominal infection related to his pancrea titis in some way. No evidence of necrosis on CT. Of course, we will monitor him for any cardiopulmonary decompensation, but at this time he displays no symptoms that would necessitate treatment for COVID-19. We have had many patients here who have tested positive for COVID-19 but have displayed no signs of the disease whatsoever. - Time Time Spent with patient: 35 or more minutes Anticipated Discharge Disposition: Home, Self Care Anticipated Discharge Timeframe: Unknown - Inpatient Certification Based on my medical assessment, after consideration of the patient's comorbidit ies, presenting symptoms, or acuity I expect that the services needed warrant INPATIENT care.: Yes I certify that my determination is in accordance with my understanding of Me emily's requirements for reasonable and necessary INPATIENT services [42 CFR 412.3e].: Yes Medical Necessity: Failure to Improve With Outpatient Therapy, Need Close Monitoring Due to Risk of Patient Decompensation, Need For IV Fluids, Need For Continuous Telemetry Monitoring, Need for IV Antibiotics, Risk of Complication if Not Cared For in Hospital
[2020-05-19 19:46] LABS: CHOLESTEROL 118.95 mg/dL (0-200); TRIGLYCERIDES 108 mg/dL (<150)
[2020-05-19 20:02] LABS: DIRECT LDL 44 mg/dL (<100)
[2020-05-19] MEDS ORDERED: MEROPENEM 1 GM VIAL ONE (20:55)
[2020-05-19] MEDS: RINGERS SOLUTION,LACTATED 1,000 ML IV PRN (21:23)
[2020-05-19] MEDS: HEPARIN SOD (PORCINE) 5,000 UNIT/ML 1 ML VIAL SUBCUT SCH (22:00)
[2020-05-20] MEDS: HEPARIN SOD (PORCINE) 5,000 UNIT/ML 1 ML VIAL SUBCUT SCH ×3 (05:30→23:24)
[2020-05-20] MEDS: MEROPENEM 1 GM in NORMAL SALINE 50 ML IV SCH ×3 (05:31→23:29)
[2020-05-20] MEDS: RINGERS SOLUTION,LACTATED 1,000 ML IV PRN (05:31)
[2020-05-20] MEDS ORDERED: MEROPENEM 1 GM VIAL ONE (05:36)
[2020-05-20 06:16] LABS: ABSOLUTE LYMPHOCYTES (AUTO) 0.7 10^3/uL (0.5-4.7); ABSOLUTE MONOCYTES (AUTO) 0.3 10^3/uL (0.1-1.4); BASOPHILS % (AUTO) 0.1 % (0-2); HEMATOCRIT 34.6 % (37.9-51.0); HEMOGLOBIN 12.8 g/dL (13.5-17.0); LYMPHOCYTES % (AUTO) 12.3 % (13-45); MEAN CORPUSCULAR HGB CONC 36.9 g/dL (32.0-36.0); MEAN CORPUSCULAR VOLUME 84 fl (80-97); MONOCYTES % (AUTO) 4.8 % (3-13); PLATELET COUNT 118 10^3/uL (150-450); RED BLOOD COUNT 4.12 10^6/uL (4.35-5.55); RED CELL DISTRIBUTION WIDTH 13.1 % (11.5-14.0); SEGMENTED NEUTROPHILS % (AUTO) 82.8 % (42-78); TOTAL CELLS COUNTED % (AUTO) 100 %
[2020-05-20 06:39] LABS: ALBUMIN 3.2 g/dL (3.5-5.0); ALKALINE PHOSPHATASE 40 U/L (38-126); ANION GAP 8 (5-19); ASPARTATE AMINO TRANSFERASE 49 U/L (17-59); BILIRUBIN,DIRECT 0.1 mg/dL (0.0-0.4); BILIRUBIN,TOTAL 0.6 mg/dL (0.2-1.3); BLOOD UREA NITROGEN 12 mg/dL (7-20); CALCIUM 8.1 mg/dL (8.4-10.2); CARBON DIOXIDE 27 mmol/L (22-30); CHLORIDE 95 mmol/L (98-107); GLUCOSE 133 mg/dL (75-110)
[2020-05-20] MEDS: POTASSIUM CHLORIDE 20 MEQ/50 ML RTU IV SCH ×2 (10:03→13:21)
[2020-05-20] MEDS ORDERED: IVERMECTIN 3 MG TABLET PO ONE (11:00)
[2020-05-20] MEDS: METHYLPREDNISOLONE INJ 40 MG/1 ML SDV IV SCH ×2 (13:22→23:31)
--- NOTE | 2020-05-20 14:23 | PDOC PROGRESS REPORT ---
Subjective Date:: 05/20/20 Subjective:: No adverse events overnight. He has had no shortness of breath, but they keep r ating his oxygen levels as low and so they have been keeping him on oxygen up on the floor. I checked him this morning and at rest he still 89 to 90% with no shortness of breath. He says his abdominal pain is minimal. He has not been having any more diarrhea. Reason For Visit: ACUTE PANCREATITIS Physical Exam Vital Signs: Temp Pulse Resp BP Pulse Ox 98.4 F 98 24 H 131/71 H 94 05/20/20 11:28 05/20/20 11:28 05/20/20 11:28 05/20/20 11:28 05/20/20 11:28 Intake & Output 05/19/20 05/20/20 05/21/20 06:59 06:59 06:59 Intake Total 2350 50 Output Total 100 Balance 2250 50 Weight 92.7 kg General appearance: PRESENT: no acute distress, cooperative, disheveled, obese Respiratory exam: PRESENT: Bibasilar crackles, symmetrical, unlabored. ABSENT: accessory muscle use, chest wall tenderness, prolonged expiratory phas, rhonchi, tachypnea, wheezes Cardiovascular exam: PRESENT: RRR, +S1, +S2 Pulses: PRESENT: normal carotid pulses Vascular exam: PRESENT: normal capillary refill GI/Abdominal exam: PRESENT: hypoactive bowel sounds, soft, tenderness - Very mild epigastric. ABSENT: distended, guarding, rebound Extremities exam: ABSENT: clubbing, pedal edema Musculoskeletal exam: PRESENT: normal inspection. ABSENT: deformity Neurological exam: PRESENT: awake, oriented to person, oriented to place, oriented to situation Psychiatric exam: PRESENT: flat affect Skin exam: PRESENT: dry, warm Results Laboratory Results: 05/20/20 05:52 05/20/20 05:52 05/19/20 05/20/20 05/20/20 12:40 05:52 05:52 WBC 6.0 RBC 4.12 L Hgb 12.8 L Hct 34.6 L MCV 84 MCH 31.0 MCHC 36.9 H RDW 13.1 Plt Count 118 L Seg Neutrophils % 82.8 H Sodium 130.0 L Potassium 3.0 L* Chloride 95 L Carbon Dioxide 27 Anion Gap 8 BUN 12 Creatinine 0.86 Est GFR ( Amer) > 60 Glucose 133 H Calcium 8.1 L Total Bilirubin 0.6 AST 49 Alkaline Phosphatase 40 Total Protein 6.0 L Albumin 3.2 L Triglycerides 108 Cholesterol 118.95 LDL Cholesterol Direct 44 VLDL Cholesterol 22.0 HDL Cholesterol 47 Lipase 1961.3 H Impressions: Chest X-Ray 05/19/20 11:12 IMPRESSION: CHRONIC SCARRING. NO ACUTE RADIOGRAPHIC FINDING IN THE CHEST. Abdomen/Pelvis CT 05/19/20 15:57 IMPRESSION: 1. Nonspecific mild fluid-filled small bowel loops could reflect a mild enteritis. No bowel obstruction. 2. No peripancreatic inflammation. 3. Cholelithiasis. 4. Hepatic steatosis. 5. Enlarged prostate gland. 6. Basilar ground-glass pulmonary opacities are not specific but can be seen with infectious and noninfectious processes, including COVID 19 infection. Correlate with exposure history. Assessment and Plan - Diagnosis (1) Acute pancreatitis Qualifiers: Pancreatitis type: other Acute pancreatitis complication: unspecified Qualified Code(s): K85.80 - Other acute pancreatitis without necrosis or infection Is this a current diagnosis for this admission?: Yes (2) Diarrhea Qualifiers: Diarrhea type: unspecified type Qualified Code(s): R19.7 - Diarrhea, unspecified Is this a current diagnosis for this admission?: Yes (3) Hypokalemia Is this a current diagnosis for this admission?: Yes (4) Hyponatremia Is this a current diagnosis for this admission?: Yes (5) Pneumonia due to 2019 novel coronavirus Is this a current diagnosis for this admission?: Yes - Plan Summary Summary: Today when I examined him I pressed the diaphragm into his back, he did have crackles on examination. He is not short of breath, and he is comfortable on room air at rest. While I am not completely sold on him having Covid pneumonia, given his comorbidities and chance of a poor prognosis if he were to develop full pulmonary disease, I am going to empirically treat him for it with steroids and ivermectin. We will give him some IV folate and thiamine. He is able to tolerate p.o. I will add rest of the medications. Continues on IV meropenem, lipase is actually worse today despite fluids but he denies any substantial abdominal pain, saying that it aches a little bit. - Time Time Spent with patient: 15-24 minutes Anticipated Discharge Disposition: Unknown Anticipated Discharge Timeframe: ivelisse perdomo
[2020-05-20] MEDS: THIAMINE HCL 100 MG, FOLIC ACID 1 MG in NORMAL SALINE 250 ML IV SCH (16:59)
[2020-05-21 05:25] LABS: ABSOLUTE LYMPHOCYTES (AUTO) 0.5 10^3/uL (0.5-4.7); ABSOLUTE MONOCYTES (AUTO) 0.3 10^3/uL (0.1-1.4); ABSOLUTE NEUT (AUTO) 6.2 10^3/uL (1.7-8.2); HEMATOCRIT 33.8 % (37.9-51.0); HEMOGLOBIN 12.3 g/dL (13.5-17.0); LYMPHOCYTES % (AUTO) 7.5 % (13-45); MEAN CORPUSCULAR HEMOGLOBIN 30.7 pg (27.0-33.4); MEAN CORPUSCULAR HGB CONC 36.3 g/dL (32.0-36.0); MEAN CORPUSCULAR VOLUME 85 fl (80-97); MONOCYTES % (AUTO) 4.3 % (3-13); PLATELET COUNT 128 10^3/uL (150-450); RED BLOOD COUNT 3.99 10^6/uL (4.35-5.55); SEGMENTED NEUTROPHILS % (AUTO) 88.2 % (42-78); TOTAL CELLS COUNTED % (AUTO) 100 %; WHITE BLOOD COUNT 7.1 10^3/uL (4.0-10.5)
[2020-05-21 05:49] LABS: ALBUMIN 2.8 g/dL (3.5-5.0); ALKALINE PHOSPHATASE 36 U/L (38-126); ANION GAP 8 (5-19); ASPARTATE AMINO TRANSFERASE 47 U/L (17-59); BILIRUBIN,DIRECT 0.2 mg/dL (0.0-0.4); BILIRUBIN,TOTAL 0.6 mg/dL (0.2-1.3); BLOOD UREA NITROGEN 15 mg/dL (7-20); CALCIUM 8.2 mg/dL (8.4-10.2); CARBON DIOXIDE 28 mmol/L (22-30); CHLORIDE 98 mmol/L (98-107); GLUCOSE 173 mg/dL (75-110); POTASSIUM 3.2 mmol/L (3.6-5.0); TOTAL PROTEIN 5.4 g/dL (6.3-8.2)
[2020-05-21] MEDS: MEROPENEM 1 GM in NORMAL SALINE 50 ML IV SCH ×3 (06:31→22:28)
[2020-05-21] MEDS: HEPARIN SOD (PORCINE) 5,000 UNIT/ML 1 ML VIAL SUBCUT SCH ×3 (07:03→22:28)
[2020-05-21 07:05] LABS: C DIFFICILE GDH NEGATIVE (NEGATIVE)
[2020-05-21] MEDS: THIAMINE HCL 100 MG, FOLIC ACID 1 MG in NORMAL SALINE 250 ML IV SCH (10:31)
[2020-05-21] MEDS: METHYLPREDNISOLONE INJ 40 MG/1 ML SDV IV SCH ×2 (10:31→22:28)
--- NOTE | 2020-05-21 14:28 | PDOC PROGRESS REPORT ---
Subjective Date:: 05/21/20 Subjective:: No adverse events overnight. Oxygenation stable on the nasal cannula. He denie s any shortness of breath. No cough. No nausea. He is still having a little bit of minimal abdominal pain but he says for the most part he feels comfortable. No more diarrhea. Reason For Visit: ACUTE PANCREATITIS Physical Exam Vital Signs: Temp Pulse Resp BP Pulse Ox 97.5 F 76 18 104/63 92 05/21/20 12:21 05/21/20 12:21 05/21/20 12:21 05/21/20 12:21 05/21/20 12:21 Intake & Output 05/20/20 05/21/20 05/22/20 06:59 06:59 06:59 Intake Total 2350 1601.2 301.2 Output Total 100 300 Balance 2250 1301.2 301.2 Weight 91.8 kg 91.2 kg General appearance: PRESENT: no acute distress, cooperative, disheveled, obese Respiratory exam: PRESENT: Bibasilar crackles, symmetrical, unlabored. ABSENT: accessory muscle use, chest wall tenderness, prolonged expiratory phas, rhonchi, tachypnea, wheezes Cardiovascular exam: PRESENT: RRR, +S1, +S2 Pulses: PRESENT: normal carotid pulses Vascular exam: PRESENT: normal capillary refill GI/Abdominal exam: PRESENT: hypoactive bowel sounds, soft, tenderness - Very mild epigastric. ABSENT: distended, guarding, rebound Extremities exam: ABSENT: clubbing, pedal edema Musculoskeletal exam: PRESENT: normal inspection. ABSENT: deformity Neurological exam: PRESENT: awake, oriented to person, oriented to place, oriented to situation Psychiatric exam: PRESENT: flat affect Skin exam: PRESENT: dry, warm Results Laboratory Results: 05/21/20 04:43 05/21/20 04:43 05/21/20 05/21/20 04:43 04:43 WBC 7.1 RBC 3.99 L Hgb 12.3 L Hct 33.8 L MCV 85 MCH 30.7 MCHC 36.3 H RDW 13.0 Plt Count 128 L Seg Neutrophils % 88.2 H Sodium 133.6 L Potassium 3.2 L Chloride 98 Carbon Dioxide 28 Anion Gap 8 BUN 15 Creatinine 0.71 Est GFR ( Amer) > 60 Glucose 173 H Calcium 8.2 L Total Bilirubin 0.6 AST 47 Alkaline Phosphatase 36 L Total Protein 5.4 L Albumin 2.8 L Lipase 1735.3 H Impressions: Chest X-Ray 05/19/20 11:12 IMPRESSION: CHRONIC SCARRING. NO ACUTE RADIOGRAPHIC FINDING IN THE CHEST. Abdomen/Pelvis CT 05/19/20 15:57 IMPRESSION: 1. Nonspecific mild fluid-filled small bowel loops could reflect a mild enteritis. No bowel obstruction. 2. No peripancreatic inflammation. 3. Cholelithiasis. 4. Hepatic steatosis. 5. Enlarged prostate gland. 6. Basilar ground-glass pulmonary opacities are not specific but can be seen w ith infectious and noninfectious processes, including COVID 19 infection. Correlate with exposure history. Assessment and Plan - Diagnosis (1) Acute pancreatitis Qualifiers: Pancreatitis type: other Acute pancreatitis complication: unspecified Qualified Code(s): K85.80 - Other acute pancreatitis without necrosis or infection Is this a current diagnosis for this admission?: Yes (2) Diarrhea Qualifiers: Diarrhea type: unspecified type Qualified Code(s): R19.7 - Diarrhea, unspecified Is this a current diagnosis for this admission?: Yes (3) Hypokalemia Is this a current diagnosis for this admission?: Yes (4) Hyponatremia Is this a current diagnosis for this admission?: Yes (5) Pneumonia due to 2019 novel coronavirus Is this a current diagnosis for this admission?: Yes - Plan Summary Summary: Continue MATH+ protocol for COVID-19. Continue oxygen supplementation. No evidence of any respiratory distress at this point. Lipase has improved today, continue n.p.o. and IV fluids. Replacing potassium and other electrolytes as needed. He has been afebrile for over 24 hours, continue meropenem. Cultures have remained negative. - Time Time Spent with patient: 15-24 minutes Anticipated Discharge Disposition: Unknown Anticipated Discharge Timeframe: Unknown
[2020-05-21] MEDS: POTASSI CL 20 MEQ/50 ML RIDER 20 MEQ/50 ML RTUPB IV SCH ×2 (16:03→18:23)
[2020-05-22] MEDS: RINGERS SOLUTION,LACTATED 1,000 ML IV PRN ×2 (03:38→12:45)
[2020-05-22] MEDS ORDERED: ACETAMINOPHEN 325 MG TABLET PO PRN (04:44)
[2020-05-22] MEDS: MEROPENEM 1 GM in NORMAL SALINE 50 ML IV SCH ×3 (05:05→22:47)
[2020-05-22] MEDS: HEPARIN SOD (PORCINE) 5,000 UNIT/ML 1 ML VIAL SUBCUT SCH ×3 (05:06→22:47)
[2020-05-22 05:32] LABS: HEMATOCRIT 31.4 % (37.9-51.0); HEMOGLOBIN 11.4 g/dL (13.5-17.0); MEAN CORPUSCULAR HGB CONC 36.3 g/dL (32.0-36.0); MEAN CORPUSCULAR VOLUME 85 fl (80-97); PLATELET COUNT 154 10^3/uL (150-450); RED BLOOD COUNT 3.67 10^6/uL (4.35-5.55); RED CELL DISTRIBUTION WIDTH 13.2 % (11.5-14.0); WHITE BLOOD COUNT 12.2 10^3/uL (4.0-10.5)
[2020-05-22 05:50] LABS: ALBUMIN 2.6 g/dL (3.5-5.0); ALKALINE PHOSPHATASE 36 U/L (38-126); ANION GAP 7 (5-19); ASPARTATE AMINO TRANSFERASE 46 U/L (17-59); BILIRUBIN,DIRECT 0.2 mg/dL (0.0-0.4); BILIRUBIN,TOTAL 0.7 mg/dL (0.2-1.3); BLOOD UREA NITROGEN 17 mg/dL (7-20); CALCIUM 8.1 mg/dL (8.4-10.2); CARBON DIOXIDE 28 mmol/L (22-30); CHLORIDE 100 mmol/L (98-107); GLUCOSE 161 mg/dL (75-110); POTASSIUM 3.5 mmol/L (3.6-5.0); TOTAL PROTEIN 5.3 g/dL (6.3-8.2)
[2020-05-22 06:06] LABS: ABSOLUTE LYMPHOCYTES# (MANUAL) 0.1 10^3/uL (0.5-4.7); ABSOLUTE MONOCYTES # (MANUAL) 0.7 10^3/uL (0.1-1.4); BAND NEUTROPHILS % (MANUAL) 1 % (3-5); BASOPHILS % (MANUAL) 0 % (0-2); EOSINOPHILS % (MANUAL) 0 % (0-6); LYMPHOCYTES % (MANUAL) 1 % (13-45); MONOCYTES % (MANUAL) 6 % (3-13); RBC MORPHOLOGY COMMENT NORMO-CYTIC/CHROMIC; SEGMENTED NEUTROPHILS % (MAN) 92 % (42-78); TOTAL CELLS COUNTED 100
[2020-05-22 06:07] LABS: PLATELET COMMENT ADEQUATE
[2020-05-22] MEDS ORDERED: IVERMECTIN 3 MG TABLET PO ONE (10:00)
[2020-05-22] MEDS: METHYLPREDNISOLONE INJ 40 MG/1 ML SDV IV SCH ×2 (11:13→22:47)
[2020-05-22] MEDS: THIAMINE HCL 100 MG, FOLIC ACID 1 MG in NORMAL SALINE 250 ML IV SCH (11:15)
--- NOTE | 2020-05-22 14:19 | PDOC PROGRESS REPORT ---
Subjective Date:: 05/22/20 Subjective:: No adverse events overnight. He was sitting in bed looking comfortable and he h ad a nonrebreather on. I asked him if he was short of breath and he said no. He said he is not had any shortness of breath anytime he has been here. His O2 saturations at that time showed 88% with a good plethysmography wave. We got him down to 6 L and he has been sitting there at 88%. He is looked comfortable the entire time. He said he has minimal abdominal pain if any. Reason For Visit: ACUTE PANCREATITIS Physical Exam Vital Signs: Temp Pulse Resp BP Pulse Ox 97.5 F 38 L 20 123/64 88 L 05/22/20 12:52 05/22/20 12:52 05/22/20 12:52 05/22/20 12:52 05/22/20 12:52 Intake & Output 05/21/20 05/22/20 05/23/20 06:59 06:59 06:59 Intake Total 1601.2 551.2 1000 Output Total 300 520 Balance 1301.2 31.2 1000 Weight 91.2 kg 90.3 kg General appearance: PRESENT: no acute distress, cooperative, disheveled, obese Respiratory exam: PRESENT: Bibasilar crackles, symmetrical, unlabored. ABSENT: accessory muscle use, chest wall tenderness, prolonged expiratory phas, rhonchi, tachypnea, wheezes Cardiovascular exam: PRESENT: RRR, +S1, +S2 Pulses: PRESENT: normal carotid pulses Vascular exam: PRESENT: normal capillary refill GI/Abdominal exam: PRESENT: hypoactive bowel sounds, soft. ABSENT: distended, guarding, rebound, tenderness Extremities exam: ABSENT: clubbing, pedal edema Musculoskeletal exam: PRESENT: normal inspection. ABSENT: deformity Neurological exam: PRESENT: awake, oriented to person, oriented to place, oriented to situation Psychiatric exam: PRESENT: flat affect Skin exam: PRESENT: dry, warm Results Laboratory Results: 05/22/20 04:20 05/22/20 04:20 05/21/20 05/22/20 05/22/20 05:52 04:20 04:20 WBC 12.2 H RBC 3.67 L Hgb 11.4 L Hct 31.4 L MCV 85 MCH 31.0 MCHC 36.3 H RDW 13.2 Plt Count 154 Seg Neutrophils % Not Reportable Sodium 134.7 L Potassium 3.5 L Chloride 100 Carbon Dioxide 28 Anion Gap 7 BUN 17 Creatinine 0.74 Est GFR ( Amer) > 60 Glucose 161 H Calcium 8.1 L Total Bilirubin 0.7 AST 46 Alkaline Phosphatase 36 L C-Reactive Protein 158.3 H 67.0 H Total Protein 5.3 L Albumin 2.6 L Lipase 760.4 H Impressions: Chest X-Ray 05/19/20 11:12 IMPRESSION: CHRONIC SCARRING. NO ACUTE RADIOGRAPHIC FINDING IN THE CHEST. Abdomen/Pelvis CT 05/19/20 15:57 IMPRESSION: 1. Nonspecific mild fluid-filled small bowel loops could reflect a mild enteritis. No bowel obstruction. 2. No peripancreatic inflammation. 3. Cholelithiasis. 4. Hepatic steatosis. 5. Enlarged prostate gland. 6. Basilar ground-glass pulmonary opacities are not specific but can be seen with infectious and noninfectious processes, including COVID 19 infection. Correlate with exposure history. Assessment and Plan - Diagnosis (1) Acute pancreatitis Qualifiers: Pancreatitis type: other Acute pancreatitis complication: unspecified Qualified Code(s): K85.80 - Other acute pancreatitis without necrosis or infection Is this a current diagnosis for this admission?: Yes (2) Diarrhea Qualifiers: Diarrhea type: unspecified type Qualified Code(s): R19.7 - Diarrhea, unspecified Is this a current diagnosis for this admission?: Yes (3) Hypokalemia Is this a current diagnosis for this admission?: Yes (4) Hyponatremia Is this a current diagnosis for this admission?: Yes (5) Pneumonia due to 2019 novel coronavirus Is this a current diagnosis for this admission?: Yes - Plan Summary Summary: Continue MATH+ protocol for COVID-19. Continue oxygen supplementation. No evidence of any respiratory distress at this point, despite his pulse oximetry. Lipase continues to improve, continue n.p.o. and IV fluids, consider starting clear liquids tomorrow. Replacing potassium and other electrolytes as needed. He has been afebrile for over 48 hours, continue meropenem, consider disconti nuing if he remains afebrile. Cultures have remained negative. - Time Time Spent with patient: 15-24 minutes Anticipated Discharge Disposition: Unknown Anticipated Discharge Timeframe: Unknown
[2020-05-23] MEDS: MEROPENEM 1 GM in NORMAL SALINE 50 ML IV SCH ×3 (05:45→21:50)
[2020-05-23] MEDS: HEPARIN SOD (PORCINE) 5,000 UNIT/ML 1 ML VIAL SUBCUT SCH ×3 (05:45→21:50)
[2020-05-23] MEDS: RINGERS SOLUTION,LACTATED 1,000 ML IV PRN (08:15)
[2020-05-23 08:33] LABS: HEMATOCRIT 32.1 % (37.9-51.0); HEMOGLOBIN 11.7 g/dL (13.5-17.0); MEAN CORPUSCULAR HEMOGLOBIN 30.8 pg (27.0-33.4); MEAN CORPUSCULAR HGB CONC 36.5 g/dL (32.0-36.0); MEAN CORPUSCULAR VOLUME 84 fl (80-97); PLATELET COUNT 184 10^3/uL (150-450); RED BLOOD COUNT 3.81 10^6/uL (4.35-5.55); RED CELL DISTRIBUTION WIDTH 13.5 % (11.5-14.0); WHITE BLOOD COUNT 11.3 10^3/uL (4.0-10.5)
[2020-05-23 08:53] LABS: ALBUMIN 2.5 g/dL (3.5-5.0); ALKALINE PHOSPHATASE 40 U/L (38-126); ANION GAP 7 (5-19); ASPARTATE AMINO TRANSFERASE 45 U/L (17-59); BILIRUBIN,DIRECT 0.3 mg/dL (0.0-0.4); BILIRUBIN,TOTAL 0.9 mg/dL (0.2-1.3); BLOOD UREA NITROGEN 20 mg/dL (7-20); CALCIUM 8.5 mg/dL (8.4-10.2); CARBON DIOXIDE 29 mmol/L (22-30); CHLORIDE 105 mmol/L (98-107); GLUCOSE 162 mg/dL (75-110); POTASSIUM 3.2 mmol/L (3.6-5.0); TOTAL PROTEIN 5.1 g/dL (6.3-8.2)
[2020-05-23 09:13] LABS: ABSOLUTE LYMPHOCYTES# (MANUAL) 0.3 10^3/uL (0.5-4.7); ABSOLUTE MONOCYTES # (MANUAL) 0.2 10^3/uL (0.1-1.4); BASOPHILS % (MANUAL) 0 % (0-2); EOSINOPHILS % (MANUAL) 0 % (0-6); LYMPHOCYTES % (MANUAL) 3 % (13-45); MONOCYTES % (MANUAL) 2 % (3-13); PLATELET COMMENT ADEQUATE; RBC MORPHOLOGY COMMENT NORMO-CYTIC/CHROMIC; SEGMENTED NEUTROPHILS % (MAN) 95 % (42-78); TOTAL CELLS COUNTED 100
[2020-05-23] MEDS ORDERED: LORAZEPAM INJ 2 MG/1 ML VIAL IV PRN ×2 (09:36→12:03)
[2020-05-23] MEDS: METHYLPREDNISOLONE INJ 40 MG/1 ML SDV IV SCH ×2 (10:07→21:50)
[2020-05-23] MEDS: THIAMINE HCL 100 MG, FOLIC ACID 1 MG in NORMAL SALINE 250 ML IV SCH (10:07)
[2020-05-23] MEDS ORDERED: POTASSIUM CHLORIDE 10 MEQ TABLET.ER PO ONE (13:00)
--- NOTE | 2020-05-23 14:36 | PDOC PROGRESS REPORT ---
Subjective Date:: 05/23/20 Subjective:: patient denies abdominal pain, wants to eat. Denies chest pain/SOB Reason For Visit: ACUTE PANCREATITIS Physical Exam Vital Signs: Temp Pulse Resp BP Pulse Ox 97.5 F 79 32 H 131/69 H 85 L 05/23/20 08:38 05/23/20 08:38 05/23/20 03:22 05/23/20 08:38 05/23/20 08:38 Intake & Output 05/22/20 05/23/20 05/24/20 06:59 06:59 06:59 Intake Total 551.2 2351.2 50 Output Total 520 1275 Balance 31.2 1076.2 50 Weight 90.3 kg 90.8 kg General appearance: PRESENT: no acute distress Respiratory exam: PRESENT: crackles - bilaterally on NRB Cardiovascular exam: PRESENT: RRR, other - no pedal edema GI/Abdominal exam: PRESENT: hypoactive bowel sounds, soft. ABSENT: tenderness Results Laboratory Results: 05/23/20 04:44 05/23/20 04:44 05/23/20 05/23/20 05/23/20 04:44 04:44 04:44 WBC 11.3 H RBC 3.81 L Hgb 11.7 L Hct 32.1 L MCV 84 MCH 30.8 MCHC 36.5 H RDW 13.5 Plt Count 184 Seg Neutrophils % Not Reportable Sodium 141.3 Potassium 3.2 L Chloride 105 Carbon Dioxide 29 Anion Gap 7 BUN 20 Creatinine 0.62 Est GFR ( Amer) > 60 Glucose 162 H Lactic Acid Calcium 8.5 Total Bilirubin 0.9 AST 45 Alkaline Phosphatase 40 C-Reactive Protein 76.5 H Total Protein 5.1 L Albumin 2.5 L Lipase 340.7 H 05/23/20 09:34 WBC RBC Hgb Hct MCV MCH MCHC RDW Plt Count Seg Neutrophils % Sodium Potassium Chloride Carbon Dioxide Anion Gap BUN Creatinine Est GFR ( Amer) Glucose Lactic Acid 1.5 Calcium Total Bilirubin AST Alkaline Phosphatase C-Reactive Protein Total Protein Albumin Lipase 05/23/20 04:44 NT-Pro-B Natriuret Pep 757 H Impressions: Chest X-Ray 05/19/20 11:12 IMPRESSION: CHRONIC SCARRING. NO ACUTE RADIOGRAPHIC FINDING IN THE CHEST. Abdomen/Pelvis CT 05/19/20 15:57 IMPRESSION: 1. Nonspecific mild fluid-filled small bowel loops could reflect a mild enteritis. No bowel obstruction. 2. No peripancreatic inflammation. 3. Cholelithiasis. 4. Hepatic steatosis. 5. Enlarged prostate gland. 6. Basilar ground-glass pulmonary opacities are not specific but can be seen w ith infectious and noninfectious processes, including COVID 19 infection. Correlate with exposure history. Assessment and Plan - Diagnosis (1) Acute respiratory failure with hypoxia Is this a current diagnosis for this admission?: Yes (2) Acute pancreatitis Qualifiers: Pancreatitis type: other Acute pancreatitis complication: unspecified Qualified Code(s): K85.80 - Other acute pancreatitis without necrosis or in fection Is this a current diagnosis for this admission?: Yes (3) Hyponatremia Is this a current diagnosis for this admission?: Yes (4) Pneumonia due to 2019 novel coronavirus Is this a current diagnosis for this admission?: Yes (5) Acute encephalopathy Is this a current diagnosis for this admission?: Yes - Plan Summary Summary: sodium improved, replace potassium - monitor for signs of refeeding syndrome. Start a clear liquid diet, stop IVF as has been hospitalized for 4 days. Patient remains on O2 support, BNP in am and consider diuresing then if needed acute encephalopathy and hospital unwitnessed fall: persists despite of ativan 0.5 and 1mg, ABG ordered; neurochecks q1h for 6h, haldol 2mg PRN. - Time Time Spent with patient: 15-24 minutes Anticipated Discharge Disposition: Home, Self Care Anticipated Discharge Timeframe: unknown
[2020-05-23] MEDS ORDERED: HALOPERIDOL LACTATE INJ 5 MG/1 ML VIAL IV ONE (14:45)
[2020-05-23 15:08] LABS: ARTERIAL BLOOD BASE EXCESS 4.8 mmol/L; ARTERIAL BLOOD H2CO3 1.28 mmol/L (1.05-1.35); ARTERIAL BLOOD HCO3 29.2 mmol/L (20-24); ARTERIAL BLOOD O2 SATURATION 88.3 % (94-98); ARTERIAL BLOOD PCO2 42.6 mmHg (35-45); ARTERIAL BLOOD PH 7.45 (7.35-7.45); ARTERIAL BLOOD PO2 51.9 mmHg (80-100); ARTERIAL BLOOD TOTAL CO2 30.5 mmol/L (23-27)
[2020-05-23] MEDS ORDERED: FUROSEMIDE INJ/PF 40 MG/4 ML SDV ONE ×2 (15:24→16:12)
[2020-05-23] MEDS ORDERED: FUROSEMIDE INJ/PF 40 MG/4 ML SDV IV ONE ×3 (15:45→22:00)
[2020-05-23] MEDS ORDERED: LORAZEPAM INJ 2 MG/1 ML VIAL ONE (15:47)
[2020-05-23] MEDS ORDERED: ZIPRASIDONE MESYLATE INJ/PF 20 MG SDV IM ONE ×2 (16:17→17:00)
[2020-05-23] MEDS: LORAZEPAM INJ 2 MG/1 ML VIAL IV SCH ×2 (16:25)
[2020-05-23] MEDS ORDERED: HALOPERIDOL LACTATE INJ 5 MG/1 ML VIAL IM PRN (17:20)
--- NOTE | 2020-05-23 17:28 | Progress Note ---
Provider Note Provider Note: patient became hypoxic, confused pulling at lines O2. Ativan, haldol, geodon progressively given which initially did not help, 4-point restraints were needed to allow healing to occur. Continue diuresis, O2 support.
[2020-05-23] MEDS: MORPHINE SULFATE 10 MG/ML INJ IV PRN ×2 (17:58→23:13)
[2020-05-24] MEDS: MORPHINE SULFATE 10 MG/ML INJ IV PRN ×2 (03:24→06:20)
[2020-05-24] MEDS: LORAZEPAM INJ 2 MG/1 ML VIAL IV PRN ×4 (03:57→22:04)
[2020-05-24] MEDS: HEPARIN SOD (PORCINE) 5,000 UNIT/ML 1 ML VIAL SUBCUT SCH ×3 (05:05→21:43)
[2020-05-24] MEDS: MEROPENEM 1 GM in NORMAL SALINE 50 ML IV SCH ×3 (05:05→21:42)
[2020-05-24 05:48] LABS: HEMATOCRIT 35.9 % (37.9-51.0); HEMOGLOBIN 13.2 g/dL (13.5-17.0); MEAN CORPUSCULAR HEMOGLOBIN 30.9 pg (27.0-33.4); MEAN CORPUSCULAR HGB CONC 36.7 g/dL (32.0-36.0); MEAN CORPUSCULAR VOLUME 84 fl (80-97); PLATELET COUNT 234 10^3/uL (150-450); RED BLOOD COUNT 4.27 10^6/uL (4.35-5.55); RED CELL DISTRIBUTION WIDTH 13.5 % (11.5-14.0); WHITE BLOOD COUNT 10.2 10^3/uL (4.0-10.5)
[2020-05-24] MEDS ORDERED: FUROSEMIDE INJ/PF 40 MG/4 ML SDV IV SCH (06:00)
[2020-05-24 06:15] LABS: ALBUMIN 2.9 g/dL (3.5-5.0); ALKALINE PHOSPHATASE 46 U/L (38-126); ASPARTATE AMINO TRANSFERASE 46 U/L (17-59); BILIRUBIN,DIRECT 0.2 mg/dL (0.0-0.4); BLOOD UREA NITROGEN 22 mg/dL (7-20); C-REACTIVE PROTEIN 48.8 mg/L (<10.0); CALCIUM 8.3 mg/dL (8.4-10.2); CHLORIDE 96 mmol/L (98-107); GLUCOSE 179 mg/dL (75-110); POTASSIUM 3.1 mmol/L (3.6-5.0)
[2020-05-24 06:16] LABS: ABSOLUTE LYMPHOCYTES# (MANUAL) 0.1 10^3/uL (0.5-4.7); ABSOLUTE MONOCYTES # (MANUAL) 0.3 10^3/uL (0.1-1.4); BASOPHILS % (MANUAL) 0 % (0-2); EOSINOPHILS % (MANUAL) 0 % (0-6); LYMPHOCYTES % (MANUAL) 1 % (13-45); MONOCYTES % (MANUAL) 3 % (3-13); PLATELET COMMENT ADEQUATE; RBC MORPHOLOGY COMMENT NORMO-CYTIC/CHROMIC; SEGMENTED NEUTROPHILS % (MAN) 96 % (42-78); TOTAL CELLS COUNTED 100; TOXIC VACUOLATION PRESENT
[2020-05-24 06:21] LABS: ANION GAP 4 (5-19)
[2020-05-24 06:22] LABS: CARBON DIOXIDE 43 mmol/L (22-30)
[2020-05-24] MEDS: POTASSI CL 20 MEQ/50 ML RIDER 20 MEQ/50 ML RTUPB IV SCH ×4 (06:53→13:13)
[2020-05-24 06:59] LABS: ARTERIAL BLOOD H2CO3 1.79 mmol/L (1.05-1.35); ARTERIAL BLOOD HCO3 42.2 mmol/L (20-24); ARTERIAL BLOOD O2 SATURATION 85.2 % (94-98); ARTERIAL BLOOD PCO2 59.5 mmHg (35-45); ARTERIAL BLOOD PH 7.47 (7.35-7.45); ARTERIAL BLOOD PO2 48.1 mmHg (80-100); ARTERIAL BLOOD TOTAL CO2 44.1 mmol/L (23-27)
[2020-05-24 07:00] LABS: ARTERIAL BLOOD FIO2 15L
[2020-05-24] MEDS: TRIAMTERENE/HYDROCHLOROTHIAZIDE 37.5-25 MG TABLET PO SCH (09:16)
[2020-05-24] MEDS: FINASTERIDE 5 MG TABLET PO SCH (09:16)
[2020-05-24] MEDS: METHYLPREDNISOLONE INJ 40 MG/1 ML SDV IV SCH ×2 (10:16→21:44)
[2020-05-24] MEDS: THIAMINE HCL 100 MG, FOLIC ACID 1 MG in NORMAL SALINE 250 ML IV SCH (10:16)
[2020-05-24 12:20] LABS: ARTERIAL BLOOD BASE EXCESS 16.3 mmol/L; ARTERIAL BLOOD H2CO3 1.54 mmol/L (1.05-1.35); ARTERIAL BLOOD HCO3 41.5 mmol/L (20-24); ARTERIAL BLOOD O2 SATURATION 91.5 % (94-98); ARTERIAL BLOOD PCO2 51.3 mmHg (35-45); ARTERIAL BLOOD PH 7.53 (7.35-7.45); ARTERIAL BLOOD PO2 55.9 mmHg (80-100); ARTERIAL BLOOD TOTAL CO2 43.1 mmol/L (23-27)
[2020-05-24 12:21] LABS: ARTERIAL BLOOD FIO2 100%
[2020-05-24] MEDS: FUROSEMIDE INJ/PF 40 MG/4 ML SDV IV SCH ×2 (13:13→21:43)
--- NOTE | 2020-05-24 15:43 | PDOC PROGRESS REPORT ---
Subjective Date:: 05/24/20 Subjective:: patient on BiPAP, not arousable to conversation. Was agitated this am per RN, be fore he was placed on BiPAP Reason For Visit: ACUTE PANCREATITIS Physical Exam Vital Signs: Temp Pulse Resp BP Pulse Ox 98.2 F 76 26 H 124/74 91 L 05/24/20 12:31 05/24/20 14:00 05/24/20 12:40 05/24/20 12:31 05/24/20 12:40 Intake & Output 05/23/20 05/24/20 05/25/20 06:59 06:59 06:59 Intake Total 2351.2 1398.2 436.2 Output Total 1275 4750 600 Balance 1076.2 -3351.8 -163.8 Weight 90.8 kg 90.7 kg General appearance: PRESENT: no acute distress - on bIPAP Respiratory exam: PRESENT: rales Cardiovascular exam: PRESENT: RRR Results Laboratory Results: 05/24/20 04:49 05/24/20 04:49 05/24/20 05/24/20 05/24/20 04:49 04:49 06:42 WBC 10.2 RBC 4.27 L Hgb 13.2 L Hct 35.9 L MCV 84 MCH 30.9 MCHC 36.7 H RDW 13.5 Plt Count 234 Seg Neutrophils % Not Reportable Carbonic Acid 1.79 H HCO3/H2CO3 Ratio 23:1 ABG pH 7.47 H ABG pCO2 59.5 H ABG pO2 48.1 L ABG HCO3 42.2 H ABG O2 Saturation 85.2 L ABG Base Excess 15.0 FiO2 15L Sodium 142.8 Potassium 3.1 L Chloride 96 L Carbon Dioxide 43 H* Anion Gap 4 L BUN 22 H Creatinine 0.72 Est GFR ( Amer) > 60 Glucose 179 H Calcium 8.3 L Magnesium 2.1 Total Bilirubin 1.0 AST 46 Alkaline Phosphatase 46 C-Reactive Protein 48.8 H Total Protein 6.0 L Albumin 2.9 L Lipase 576.5 H 05/24/20 10:55 WBC RBC Hgb Hct MCV MCH MCHC RDW Plt Count Seg Neutrophils % Carbonic Acid 1.54 H HCO3/H2CO3 Ratio 26:1 ABG pH 7.53 H ABG pCO2 51.3 H ABG pO2 55.9 L ABG HCO3 41.5 H ABG O2 Saturation 91.5 L ABG Base Excess 16.3 FiO2 100% Sodium Potassium Chloride Carbon Dioxide Anion Gap BUN Creatinine Est GFR ( Amer) Glucose Calcium Magnesium Total Bilirubin AST Alkaline Phosphatase C-Reactive Protein Total Protein Albumin Lipase 05/19/20 13:47 Blood Blood Culture - Final NO GROWTH IN 5 DAYS 05/19/20 12:40 Blood Blood Culture - Final NO GROWTH IN 5 DAYS 05/23/20 05/24/20 04:44 04:49 NT-Pro-B Natriuret Pep 757 H 883 H Impressions: Chest X-Ray 05/19/20 11:12 IMPRESSION: CHRONIC SCARRING. NO ACUTE RADIOGRAPHIC FINDING IN THE CHEST. Abdomen/Pelvis CT 05/19/20 15:57 IMPRESSION: 1. Nonspecific mild fluid-filled small bowel loops could reflect a mild enteritis. No bowel obstruction. 2. No peripancreatic inflammation. 3. Cholelithiasis. 4. Hepatic steatosis. 5. Enlarged prostate gland. 6. Basilar ground-glass pulmonary opacities are not specific but can be seen with infectious and noninfectious processes, including COVID 19 infection. C orrelate with exposure history. Assessment and Plan - Diagnosis (1) Acute respiratory failure with hypoxia Is this a current diagnosis for this admission?: Yes (2) Acute pancreatitis Qualifiers: Pancreatitis type: other Acute pancreatitis complication: unspecified Qualified Code(s): K85.80 - Other acute pancreatitis without necrosis or infection Is this a current diagnosis for this admission?: Yes (3) Hyponatremia Is this a current diagnosis for this admission?: Yes (4) Pneumonia due to 2019 novel coronavirus Is this a current diagnosis for this admission?: Yes (5) Acute encephalopathy Is this a current diagnosis for this admission?: Yes - Plan Summary Summary: 1. Fluid overload with acute hypoxic, hypercapneic respiratory failure: continue diureseis, BiPAP for support as hypercapneic on ABG this am 2. COVID-19: contact precautions; steroids 3. Acute pancreatitis: on CLD when able to be awake enough to eat 4. Acute hypercapneic hypoxic encephalopathy: he had not slept for 4 days per patient, no need for additional sedating medications. 5. unwitnessed fall: PERRL, CT head - Time Time Spent with patient: 15-24 minutes Anticipated Discharge Disposition: [facility] Facility Anticipated Discharge Timeframe: unknown
--- NOTE | 2020-05-24 16:33 | RADIOLOGY REPORT (SQ) ---
EXAM DESCRIPTION: CHEST SINGLE VIEW IMAGES COMPLETED DATE/TIME: 05/24/2020 4:20 pm REASON FOR STUDY: pneumonia COMPARISON: 05/19/2021 EXAM PARAMETERS: NUMBER OF VIEWS: One view. TECHNIQUE: Single frontal radiographic view of the chest acquired. RADIATION DOSE: NA LIMITATIONS: None. FINDINGS: LUNGS AND PLEURA: Poorly defined ground-glass infiltrates bilaterally. MEDIASTINUM AND HILAR STRUCTURES: Possible hiatal hernia. HEART AND VASCULAR STRUCTURES: Heart normal in size. Normal vasculature. BONES: No acute findings. HARDWARE: None in the chest. OTHER: No other significant finding. IMPRESSION: Ground-glass infiltrates. May suggest an atypical infectious/ inflammatory process such as COVID-19 pneumonia. TECHNICAL DOCUMENTATION: JOB ID: [id number] 2010 [employer]- All Rights Reserved Reading location - IP/workstation name: [email or web address]
[2020-05-25] MEDS: LORAZEPAM INJ 2 MG/1 ML VIAL IV PRN ×2 (01:38→05:42)
[2020-05-25] MEDS: HEPARIN SOD (PORCINE) 5,000 UNIT/ML 1 ML VIAL SUBCUT SCH (05:15)
[2020-05-25] MEDS: MEROPENEM 1 GM in NORMAL SALINE 50 ML IV SCH (05:16)
[2020-05-25] MEDS: FUROSEMIDE INJ/PF 40 MG/4 ML SDV IV SCH (05:16)
[2020-05-25 05:35] LABS: HEMATOCRIT 37.1 % (37.9-51.0); HEMOGLOBIN 13.1 g/dL (13.5-17.0); MEAN CORPUSCULAR HEMOGLOBIN 30.4 pg (27.0-33.4); MEAN CORPUSCULAR HGB CONC 35.3 g/dL (32.0-36.0); MEAN CORPUSCULAR VOLUME 86 fl (80-97); PLATELET COUNT 289 10^3/uL (150-450); RED BLOOD COUNT 4.31 10^6/uL (4.35-5.55); RED CELL DISTRIBUTION WIDTH 13.4 % (11.5-14.0); WHITE BLOOD COUNT 10.8 10^3/uL (4.0-10.5)
[2020-05-25 05:56] LABS: ALKALINE PHOSPHATASE 47 U/L (38-126); ASPARTATE AMINO TRANSFERASE 40 U/L (17-59); BILIRUBIN,DIRECT 0.4 mg/dL (0.0-0.4); BILIRUBIN,TOTAL 1.2 mg/dL (0.2-1.3); BLOOD UREA NITROGEN 35 mg/dL (7-20); C-REACTIVE PROTEIN 38.7 mg/L (<10.0); CALCIUM 8.8 mg/dL (8.4-10.2); CHLORIDE 100 mmol/L (98-107); GLUCOSE 179 mg/dL (75-110); POTASSIUM 3.3 mmol/L (3.6-5.0)
[2020-05-25 06:04] LABS: ANION GAP 8 (5-19)
[2020-05-25 06:11] LABS: ABSOLUTE LYMPHOCYTES# (MANUAL) 0.2 10^3/uL (0.5-4.7); ABSOLUTE MONOCYTES # (MANUAL) 0.4 10^3/uL (0.1-1.4); BASOPHILS % (MANUAL) 0 % (0-2); EOSINOPHILS % (MANUAL) 0 % (0-6); LYMPHOCYTES % (MANUAL) 2 % (13-45); MONOCYTES % (MANUAL) 4 % (3-13); PLATELET COMMENT ADEQUATE; RBC MORPHOLOGY COMMENT NORMO-CYTIC/CHROMIC; SEGMENTED NEUTROPHILS % (MAN) 94 % (42-78); TOTAL CELLS COUNTED 100
[2020-05-25 06:13] LABS: CARBON DIOXIDE 40 mmol/L (22-30)
[2020-05-25] MEDS ORDERED: 1/2 NORMAL SALINE 1,000 ML IV PRN (07:31)
[2020-05-25] MEDS: MORPHINE SULFATE 10 MG/ML INJ IV PRN (09:03)
[2020-05-25] MEDS: FINASTERIDE 5 MG TABLET PO SCH (10:00)
[2020-05-25] MEDS: TRIAMTERENE/HYDROCHLOROTHIAZIDE 37.5-25 MG TABLET PO SCH (10:00)
[2020-05-25] MEDS: ASCORBIC ACID 500 MG TABLET PO SCH (10:00)
[2020-05-25] MEDS: CEFTRIAXONE 1 GM/D5W RTU 1 GM/50 ML RTUPB IV SCH (11:09)
[2020-05-25] MEDS: POTASSI CL 20 MEQ/50 ML RIDER 20 MEQ/50 ML RTUPB IV SCH ×2 (11:57→17:36)
--- NOTE | 2020-05-25 14:06 | PDOC PROGRESS REPORT ---
Subjective Date:: 05/25/20 Subjective:: patient moving but not arousable to verbal stimuli Reason For Visit: ACUTE PANCREATITIS Physical Exam Vital Signs: Temp Pulse Resp BP Pulse Ox 97.7 F 106 H 40 H 113/88 H 94 05/25/20 08:43 05/25/20 08:43 05/25/20 12:35 05/25/20 08:43 05/25/20 12:35 Intake & Output 05/24/20 05/25/20 05/26/20 06:59 06:59 06:59 Intake Total 1398.2 586.2 Output Total 4750 2300 Balance -3351.8 -1713.8 Weight 90.7 kg 93.2 kg General appearance: ABSENT: cooperative Respiratory exam: PRESENT: crackles, rhonchi, other - on bipap Cardiovascular exam: PRESENT: RRR Extremities exam: PRESENT: other - 4-point restraints Results Laboratory Results: 05/25/20 04:51 05/25/20 04:51 05/25/20 05/25/20 04:51 04:51 WBC 10.8 H RBC 4.31 L Hgb 13.1 L Hct 37.1 L MCV 86 MCH 30.4 MCHC 35.3 RDW 13.4 Plt Count 289 Seg Neutrophils % Not Reportable Sodium 148.4 H Potassium 3.3 L Chloride 100 Carbon Dioxide 40 H* Anion Gap 8 BUN 35 H Creatinine 0.66 Est GFR ( Amer) > 60 Glucose 179 H Calcium 8.8 Total Bilirubin 1.2 AST 40 Alkaline Phosphatase 47 C-Reactive Protein 38.7 H Total Protein 6.0 L Albumin 3.0 L Lipase 213.5 05/19/20 13:47 Blood Blood Culture - Final NO GROWTH IN 5 DAYS 05/19/20 12:40 Blood Blood Culture - Final NO GROWTH IN 5 DAYS 05/23/20 05/24/20 05/25/20 04:44 04:49 04:51 NT-Pro-B Natriuret Pep 757 H 883 H 253 H Impressions: Abdomen/Pelvis CT 05/19/20 15:57 IMPRESSION: 1. Nonspecific mild fluid-filled small bowel loops could reflect a mild enteritis. No bowel obstruction. 2. No peripancreatic inflammation. 3. Cholelithiasis. 4. Hepatic steatosis. 5. Enlarged prostate gland. 6. Basilar ground-glass pulmonary opacities are not specific but can be seen with infectious and noninfectious processes, including COVID 19 infection. Correlate with exposure history. Chest X-Ray 05/24/20 00:00 IMPRESSION: Ground-glass infiltrates. May suggest an atypical infectious/ inflammatory process such as COVID-19 pneumonia. Assessment and Plan - Diagnosis (1) Acute respiratory failure with hypoxia Is this a current diagnosis for this admission?: Yes (2) Acute pancreatitis Qualifiers: Pancreatitis type: other Acute pancreatitis complication: unspecified Qualified Code(s): K85.80 - Other acute pancreatitis without necrosis or infection Is this a current diagnosis for this admission?: Yes (3) Hyponatremia Is this a current diagnosis for this admission?: Yes (4) Pneumonia due to 2019 novel coronavirus Is this a current diagnosis for this admission?: Yes (5) Acute encephalopathy Is this a current diagnosis for this admission?: Yes - Plan Summary Summary: 1. Fluid overload with acute hypoxic, hypercapneic respiratory failure: completed diureseis, BiPAP for support as hypercapneic; F/U ABG pending 2. COVID-19: contact precautions; steroids. Decrease dose of steroids to see if improves encephalopathy, on emperic rocephin, d/w pharmacy to start on remdesavir 3. Acute pancreatitis: on CLD when able to be awake enough to eat 4. Acute hypercapneic hypoxic encephalopathy: he had not slept for 4 days per patient, no need for additional sedating medications. At baseline functional lives alone, works, not an alcoholic per daughter Elizabeth 5. unwitnessed fall: PERRL, CT head failed due to attempts to transport two times on 05/24 6. Agitation: evaluate ABG, attempt to remove lower restraints today, not coherent enough to participate in care. 7. hypernatremia: mild, 1/2NS hold diuretics and recheck DVT prophylaxis: 1mg/kg due to worsening D-dimer D/W Daughter Elizabeth [phone] - Time Time Spent with patient: 25-34 minutes Anticipated Discharge Disposition: Home with Home Health Anticipated Discharge Timeframe: unknown
[2020-05-25 14:20] LABS: ARTERIAL BLOOD BASE EXCESS 16.5 mmol/L; ARTERIAL BLOOD FIO2 100%; ARTERIAL BLOOD H2CO3 1.36 mmol/L (1.05-1.35); ARTERIAL BLOOD HCO3 40.7 mmol/L (20-24); ARTERIAL BLOOD O2 SATURATION 97.8 % (94-98); ARTERIAL BLOOD PCO2 45.3 mmHg (35-45); ARTERIAL BLOOD PH 7.57 (7.35-7.45); ARTERIAL BLOOD PO2 91.2 mmHg (80-100); ARTERIAL BLOOD TOTAL CO2 42.1 mmol/L (23-27)
[2020-05-25] MEDS ORDERED: IPRATROPIUM/ALBUTEROL 0.5-2.5 MG/3 ML AMPUL NEB ONE (14:35)
[2020-05-25] MEDS ORDERED: ALBUTEROL SULFATE 0.083% NEB 2.5 MG/3 ML AMPUL NEB ONE (14:38)
[2020-05-25] MEDS: ALBUTEROL SULFATE 0.083% NEB 2.5 MG/3 ML AMPUL NEB SCH ×3 (14:42→20:31)
[2020-05-25] MEDS: THIAMINE HCL 100 MG, FOLIC ACID 1 MG in NORMAL SALINE 250 ML IV SCH (15:24)
[2020-05-25] MEDS: ENOXAPARIN SODIUM INJ 100 MG/1 ML DISP.SYRIN SUBCUT SCH ×2 (15:26→21:41)
[2020-05-25] MEDS ORDERED: REMDESIVIR 200 MG in NORMAL SALINE 250 ML IV ONE (16:00)
[2020-05-25] MEDS ORDERED: HALOPERIDOL LACTATE INJ 5 MG/1 ML VIAL IV ONE (17:10)
[2020-05-25] MEDS ORDERED: POTASSI CL 20 MEQ/50 ML RIDER 20 MEQ/50 ML RTUPB IV ONE (17:34)
[2020-05-25 17:35] LABS: HEMOGLOBIN 13.4 g/dL (13.5-17.0); MEAN CORPUSCULAR HEMOGLOBIN 30.1 pg (27.0-33.4); MEAN CORPUSCULAR HGB CONC 34.3 g/dL (32.0-36.0); MEAN CORPUSCULAR VOLUME 88 fl (80-97); PLATELET COUNT 325 10^3/uL (150-450); RED BLOOD COUNT 4.45 10^6/uL (4.35-5.55); RED CELL DISTRIBUTION WIDTH 13.4 % (11.5-14.0); WHITE BLOOD COUNT 11.9 10^3/uL (4.0-10.5)
[2020-05-25 17:53] LABS: BLOOD UREA NITROGEN 36 mg/dL (7-20); CALCIUM 8.9 mg/dL (8.4-10.2); CHLORIDE 101 mmol/L (98-107); GLUCOSE 158 mg/dL (75-110); POTASSIUM 3.1 mmol/L (3.6-5.0)
[2020-05-25 17:56] LABS: ABSOLUTE LYMPHOCYTES# (MANUAL) 0.5 10^3/uL (0.5-4.7); ABSOLUTE MONOCYTES # (MANUAL) 0.8 10^3/uL (0.1-1.4); BASOPHILS % (MANUAL) 0 % (0-2); EOSINOPHILS % (MANUAL) 0 % (0-6); LYMPHOCYTES % (MANUAL) 4 % (13-45); MONOCYTES % (MANUAL) 7 % (3-13); SEGMENTED NEUTROPHILS % (MAN) 89 % (42-78); TOTAL CELLS COUNTED 100
[2020-05-25 17:57] LABS: PLATELET COMMENT ADEQUATE; RBC MORPHOLOGY COMMENT NORMO-CYTIC/CHROMIC
[2020-05-25 18:02] LABS: ANION GAP 11 (5-19)
[2020-05-25 18:08] LABS: CARBON DIOXIDE 40 mmol/L (22-30)
[2020-05-25] MEDS: METHYLPREDNISOLONE INJ 40 MG/1 ML SDV IV SCH (21:41)
[2020-05-26] MEDS: ALBUTEROL SULFATE 0.083% NEB 2.5 MG/3 ML AMPUL NEB SCH ×6 (00:17→20:04)
[2020-05-26] MEDS ORDERED: HALOPERIDOL LACTATE INJ 5 MG/1 ML VIAL IV ONE (03:45)
[2020-05-26] MEDS: MORPHINE SULFATE 10 MG/ML INJ IV PRN (04:00)
[2020-05-26 06:32] LABS: ALBUMIN 2.8 g/dL (3.5-5.0); ALKALINE PHOSPHATASE 53 U/L (38-126); ASPARTATE AMINO TRANSFERASE 56 U/L (17-59); BILIRUBIN,DIRECT 0.4 mg/dL (0.0-0.4); BILIRUBIN,TOTAL 1.3 mg/dL (0.2-1.3); BLOOD UREA NITROGEN 36 mg/dL (7-20); C-REACTIVE PROTEIN 69.6 mg/L (<10.0); CALCIUM 8.4 mg/dL (8.4-10.2); CHLORIDE 105 mmol/L (98-107); GLUCOSE 221 mg/dL (75-110); POTASSIUM 3.4 mmol/L (3.6-5.0); TOTAL PROTEIN 5.8 g/dL (6.3-8.2)
[2020-05-26 06:37] LABS: ANION GAP 5 (5-19)
[2020-05-26 06:39] LABS: CARBON DIOXIDE 41 mmol/L (22-30)
[2020-05-26] MEDS: DEXTROSE 5%-WATER 1000 ML 1,000 ML IV PRN ×2 (08:21→18:42)
[2020-05-26] MEDS: POTASSI CL 20 MEQ/50 ML RIDER 20 MEQ/50 ML RTUPB IV SCH ×5 (08:22→23:10)
[2020-05-26 09:14] LABS: ARTERIAL BLOOD BASE EXCESS 17.1 mmol/L; ARTERIAL BLOOD H2CO3 1.14 mmol/L (1.05-1.35); ARTERIAL BLOOD HCO3 39.5 mmol/L (20-24); ARTERIAL BLOOD O2 SATURATION 93.9 % (94-98); ARTERIAL BLOOD TOTAL CO2 40.7 mmol/L (23-27)
[2020-05-26 09:15] LABS: ARTERIAL BLOOD FIO2 50%
[2020-05-26 09:16] LABS: ARTERIAL BLOOD PH 7.64 (7.35-7.45)
[2020-05-26] MEDS: THIAMINE HCL 100 MG, FOLIC ACID 1 MG in NORMAL SALINE 250 ML IV SCH ×2 (10:18→17:20)
[2020-05-26] MEDS: CEFTRIAXONE 1 GM/D5W RTU 1 GM/50 ML RTUPB IV SCH (10:18)
[2020-05-26] MEDS: ENOXAPARIN SODIUM INJ 100 MG/1 ML DISP.SYRIN SUBCUT SCH ×2 (10:26→21:08)
[2020-05-26] MEDS: METHYLPREDNISOLONE INJ 40 MG/1 ML SDV IV SCH ×2 (10:27→21:08)
[2020-05-26] MEDS: FINASTERIDE 5 MG TABLET PO SCH (10:27)
[2020-05-26] MEDS: ASCORBIC ACID 500 MG TABLET PO SCH ×2 (10:27→17:45)
[2020-05-26] MEDS: REMDESIVIR 100 MG in NORMAL SALINE 250 ML IV SCH (11:44)
[2020-05-26] MEDS ORDERED: CEFTRIAXONE 1 GM/D5W RTU 1 GM/50 ML RTUPB IV SCH (14:00)
[2020-05-26 15:42] LABS: BLOOD UREA NITROGEN 34 mg/dL (7-20); CALCIUM 8.4 mg/dL (8.4-10.2); CHLORIDE 108 mmol/L (98-107); GLUCOSE 211 mg/dL (75-110); POTASSIUM 3.1 mmol/L (3.6-5.0)
[2020-05-26 15:51] LABS: ANION GAP 3 (5-19)
[2020-05-26 15:52] LABS: CARBON DIOXIDE 40 mmol/L (22-30)
--- NOTE | 2020-05-26 17:05 | PDOC PROGRESS REPORT ---
Subjective Date:: 05/26/20 Subjective:: patient unable to provide any information, aware opening left eye, but not able to converse Reason For Visit: ACUTE PANCREATITIS Physical Exam Vital Signs: Temp Pulse Resp BP Pulse Ox 98.6 F 106 H 38 H 145/87 H 94 05/26/20 11:42 05/26/20 12:09 05/26/20 12:09 05/26/20 11:42 05/26/20 12:09 Intake & Output 05/25/20 05/26/20 05/27/20 06:59 06:59 06:59 Intake Total 586.2 651.2 400 Output Total 2300 Balance -1713.8 651.2 400 Weight 93.2 kg 82.4 kg General appearance: PRESENT: other - on BiPAP. ABSENT: cooperative Eye exam: PRESENT: other - right pupils non-reactive to light Cardiovascular exam: PRESENT: RRR Pulses: PRESENT: +1 pedal pulses bilateral Extremities exam: PRESENT: other - moving all 4 arms and legs Neurological exam: PRESENT: aphasic Results Laboratory Results: 05/25/20 17:20 05/26/20 14:33 05/25/20 05/25/20 05/26/20 17:20 17:20 05:20 WBC 11.9 H RBC 4.45 Hgb 13.4 L Hct 39.0 MCV 88 MCH 30.1 MCHC 34.3 RDW 13.4 Plt Count 325 Seg Neutrophils % Not Reportable Carbonic Acid HCO3/H2CO3 Ratio ABG pH ABG pCO2 ABG pO2 ABG HCO3 ABG O2 Saturation ABG Base Excess FiO2 Sodium 151.5 H 150.8 H Potassium 3.1 L 3.4 L Chloride 101 105 Carbon Dioxide 40 H* 41 H* Anion Gap 11 5 BUN 36 H 36 H Creatinine 0.88 0.75 Est GFR ( Amer) > 60 > 60 Glucose 158 H 221 H Calcium 8.9 8.4 Total Bilirubin 1.3 AST 56 Alkaline Phosphatase 53 C-Reactive Protein 69.6 H Total Protein 5.8 L Albumin 2.8 L 05/26/20 05/26/20 08:45 14:33 WBC RBC Hgb Hct MCV MCH MCHC RDW Plt Count Seg Neutrophils % Carbonic Acid 1.14 HCO3/H2CO3 Ratio 34:1 ABG pH 7.64 H* ABG pCO2 38.0 ABG pO2 56.0 L ABG HCO3 39.5 H ABG O2 Saturation 93.9 L ABG Base Excess 17.1 FiO2 50% Sodium 151.2 H Potassium 3.1 L Chloride 108 H Carbon Dioxide 40 H* Anion Gap 3 L BUN 34 H Creatinine 0.68 Est GFR ( Amer) > 60 Glucose 211 H Calcium 8.4 Total Bilirubin AST Alkaline Phosphatase C-Reactive Protein Total Protein Albumin 05/23/20 05/24/20 05/25/20 04:44 04:49 04:51 NT-Pro-B Natriuret Pep 757 H 883 H 253 H Impressions: Abdomen/Pelvis CT 05/19/20 15:57 IMPRESSION: 1. Nonspecific mild fluid-filled small bowel loops could reflect a mild enteritis. No bowel obstruction. 2. No peripancreatic inflammation. 3. Cholelithiasis. 4. Hepatic steatosis. 5. Enlarged prostate gland. 6. Basilar ground-glass pulmonary opacities are not specific but can be seen with infectious and noninfectious processes, including COVID 19 infection. Correlate with exposure history. Chest X-Ray 05/24/20 00:00 IMPRESSION: Ground-glass infiltrates. May suggest an atypical infectious/ inflammatory process such as COVID-19 pneumonia. Assessment and Plan - Diagnosis (1) Acute respiratory failure with hypoxia Is this a current diagnosis for this admission?: Yes (2) Acute pancreatitis Qualifiers: Pancreatitis type: other Acute pancreatitis complication: unspecified Qualified Code(s): K85.80 - Other acute pancreatitis without necrosis or infection Is this a current diagnosis for this admission?: Yes (3) Hyponatremia Is this a current diagnosis for this admission?: Yes (4) Pneumonia due to 2019 novel coronavirus Is this a current diagnosis for this admission?: Yes (5) Acute encephalopathy Is this a current diagnosis for this admission?: Yes - Plan Summary Summary: 74 yo M with diarrhea admitted for COVID-19 and pancreatitis 1. Fluid overload with acute hypoxic, hypercapneic respiratory failure: completed diureseis, BiPAP for support as hypercapneic; F/U ABG shows hypercapnea improving, FiO2 reduced 2. COVID-19: contact precautions; steroids. Decrease dose of steroids to see if improves encephalopathy, on emperic rocephin, d/w pharmacy to start on remdesavir, unable to take PO for ivermectin 3. Acute pancreatitis: on CLD when able to be awake enough to eat, has not been able to eat since admission because initially NPO then became encephalopathic and has been on biPAP. trial to remove BiPAP needs initiated again 4. Acute hypercapneic hypoxic encephalopathy: he had not slept for 4 days prior to admission, no need for additional sedating medications. At baseline more silva lives alone, works, not an alcoholic per daughter Elizabeth. Unknown if patient has had a stroke, attempts x2 to sedate and perform Ct head have been unsuccessful, start rectal ASA 5. unwitnessed fall in hospital: right pupil not reacting to light, his is able to move arms and legs unintentionally, but unable to perform rest of exam. Will formally need [employer] prior to initiation of diet. 6. Agitation: evaluate ABG, attempt to remove lower restraints today, not coherent enough to participate in care. 7. hypernatremia: d5W started DVT prophylaxis: 1mg/kg due to worsening D-dimer and hypercoagulable state from covid # Daughter Elizabeth [phone] - Time Time Spent with patient: 15-24 minutes Anticipated Discharge Disposition: Intermediate Facility Anticipated Discharge Timeframe: unknown
[2020-05-26] MEDS ORDERED: ASPIRIN 300 MG SUPP, RECTAL PR ONE (18:39)
[2020-05-26] MEDS: ASPIRIN 300 MG SUPP, RECTAL PR SCH (18:42)
--- NOTE | 2020-05-26 20:41 | EKG REPORT ---
SEVERITY:- ABNORMAL ECG - SINUS TACHYCARDIA ATRIAL PREMATURE COMPLEXES WITH ABERRENCY PROMINENT P WAVES, NONDIAGNOSTIC NONSPECIFIC ST-T CHANGES : Confirmed by: Marshall Gillespie MD 26-May-2020 20:41:31
[2020-05-27] MEDS: ALBUTEROL SULFATE 0.083% NEB 2.5 MG/3 ML AMPUL NEB SCH ×7 (00:08→23:50)
[2020-05-27 05:50] LABS: HEMATOCRIT 34.2 % (37.9-51.0); HEMOGLOBIN 11.8 g/dL (13.5-17.0); MEAN CORPUSCULAR HEMOGLOBIN 30.6 pg (27.0-33.4); MEAN CORPUSCULAR HGB CONC 34.6 g/dL (32.0-36.0); MEAN CORPUSCULAR VOLUME 89 fl (80-97); PLATELET COUNT 288 10^3/uL (150-450); RED BLOOD COUNT 3.87 10^6/uL (4.35-5.55); RED CELL DISTRIBUTION WIDTH 13.6 % (11.5-14.0); WHITE BLOOD COUNT 10.3 10^3/uL (4.0-10.5)
[2020-05-27 06:12] LABS: ANION GAP 5 (5-19); BLOOD UREA NITROGEN 34 mg/dL (7-20); CALCIUM 8.5 mg/dL (8.4-10.2); CARBON DIOXIDE 38 mmol/L (22-30); CHLORIDE 110 mmol/L (98-107); GLUCOSE 227 mg/dL (75-110); PHOSPHORUS 3.1 mg/dL (2.5-4.5); POTASSIUM 3.6 mmol/L (3.6-5.0)
[2020-05-27 07:00] LABS: ARTERIAL BLOOD BASE EXCESS 10.2 mmol/L; ARTERIAL BLOOD H2CO3 1.33 mmol/L (1.05-1.35); ARTERIAL BLOOD HCO3 34.4 mmol/L (20-24); ARTERIAL BLOOD O2 SATURATION 97.5 % (94-98); ARTERIAL BLOOD PCO2 44.2 mmHg (35-45); ARTERIAL BLOOD PH 7.51 (7.35-7.45); ARTERIAL BLOOD PO2 91.1 mmHg (80-100); ARTERIAL BLOOD TOTAL CO2 35.8 mmol/L (23-27)
[2020-05-27] MEDS: ASCORBIC ACID 500 MG TABLET PO SCH ×2 (09:19→17:36)
[2020-05-27] MEDS: FINASTERIDE 5 MG TABLET PO SCH (09:19)
[2020-05-27] MEDS: METHYLPREDNISOLONE INJ 40 MG/1 ML SDV IV SCH (09:21)
[2020-05-27] MEDS: ASPIRIN 300 MG SUPP, RECTAL PR SCH (09:32)
[2020-05-27] MEDS ORDERED: ENOXAPARIN SODIUM INJ 40 MG/0.4 ML DISP.SYRIN SUBCUT SCH (10:00)
[2020-05-27] MEDS: REMDESIVIR 100 MG in NORMAL SALINE 250 ML IV SCH (13:01)
--- NOTE | 2020-05-27 15:29 | PDOC PROGRESS REPORT ---
Subjective Date:: 05/27/20 Subjective:: Is a 74-year-old male with a past medical history of hypertension, hepatic steatosis, and arthritis who was admitted 05/19/2020 with acute pancreatitis and 19. Patient was seen on morning rounds. He was found resting in bed on continuous BiPAP. Due to cephalopathy, agitation, frequent pulling at IV lines and oxygen equipment, he has unfortunately required soft limb restraints and mittens. The patient does wake briefly when I said his name but he does not answer questions or follow directions. Noted to be quite restless. He is maintaining oxygen saturations in the mid to high 90s while on BiPAP. Though he does continue to have tachypnea with a respiratory rate averaging 28-30. ROS is therefore limited. He does not appear to be in distress at this time. No questions per nursing. Reason For Visit: ACUTE PANCREATITIS Physical Exam Vital Signs: Temp Pulse Resp BP Pulse Ox 98.0 F 110 H 31 H 132/90 H 96 05/27/20 05:36 05/27/20 14:00 05/27/20 12:08 05/27/20 05:36 05/27/20 12:08 Intake & Output 05/26/20 05/27/20 05/28/20 06:59 06:59 06:59 Intake Total 651.2 1577.2 Balance 651.2 1577.2 Weight 82.4 kg 81.8 kg General appearance: PRESENT: well-developed, well-nourished Head exam: PRESENT: atraumatic, normocephalic Eye exam: PRESENT: conjunctiva pink, EOMI, PERRLA. ABSENT: scleral icterus Mouth exam: PRESENT: dry mucosa, tongue midline Respiratory exam: PRESENT: clear to auscultation demi, tachypnea, other - BiPAP. ABSENT: rales, rhonchi, wheezes Cardiovascular exam: PRESENT: RRR. ABSENT: diastolic murmur, rubs, systolic murmur Pulses: PRESENT: +1 pedal pulses bilateral Vascular exam: PRESENT: normal capillary refill GI/Abdominal exam: PRESENT: normal bowel sounds, soft. ABSENT: distended, guar ding, mass, organolmegaly, rebound, tenderness Rectal exam: PRESENT: deferred Extremities exam: PRESENT: full ROM - Extremities Spontaneously. ABSENT: calf tenderness, clubbing, pedal edema Neurological exam: PRESENT: CN II-XII grossly intact, other - Responds to verbal and tactile stimulation; briefly makes eye contact. Does not answer questions or follow directions.. ABSENT: motor sensory deficit Skin exam: PRESENT: dry, intact, warm. ABSENT: cyanosis, rash Results Laboratory Results: 05/27/20 04:41 05/27/20 04:41 05/26/20 05/27/20 05/27/20 14:33 04:41 04:41 WBC 10.3 RBC 3.87 L Hgb 11.8 L Hct 34.2 L MCV 89 MCH 30.6 MCHC 34.6 RDW 13.6 Plt Count 288 Carbonic Acid HCO3/H2CO3 Ratio ABG pH ABG pCO2 ABG pO2 ABG HCO3 ABG O2 Saturation ABG Base Excess FiO2 Sodium 151.2 H 153.1 H Potassium 3.1 L 3.6 Chloride 108 H 110 H Carbon Dioxide 40 H* 38 H Anion Gap 3 L 5 BUN 34 H 34 H Creatinine 0.68 0.67 Est GFR ( Amer) > 60 > 60 Glucose 211 H 227 H Calcium 8.4 8.5 Phosphorus 3.1 Magnesium 2.6 H C-Reactive Protein 05/27/20 05/27/20 04:41 06:35 WBC RBC Hgb Hct MCV MCH MCHC RDW Plt Count Carbonic Acid 1.33 HCO3/H2CO3 Ratio 25:1 ABG pH 7.51 H ABG pCO2 44.2 ABG pO2 91.1 ABG HCO3 34.4 H ABG O2 Saturation 97.5 ABG Base Excess 10.2 FiO2 55% Sodium Potassium Chloride Carbon Dioxide Anion Gap BUN Creatinine Est GFR ( Amer) Glucose Calcium Phosphorus Magnesium C-Reactive Protein 159.4 H 05/23/20 05/24/20 05/25/20 04:44 04:49 04:51 NT-Pro-B Natriuret Pep 757 H 883 H 253 H 05/27/20 04:41 NT-Pro-B Natriuret Pep 307 H Impressions: Abdomen/Pelvis CT 05/19/20 15:57 IMPRESSION: 1. Nonspecific mild fluid-filled small bowel loops could reflect a mild enteritis. No bowel obstruction. 2. No peripancreatic inflammation. 3. Cholelithiasis. 4. Hepatic steatosis. 5. Enlarged prostate gland. 6. Basilar ground-glass pulmonary opacities are not specific but can be seen with infectious and noninfectious processes, including COVID 19 infection. Correlate with exposure history. Chest X-Ray 05/24/20 00:00 IMPRESSION: Ground-glass infiltrates. May suggest an atypical infectious/ inflammatory process such as COVID-19 pneumonia. Assessment and Plan - Diagnosis (1) Acute encephalopathy Is this a current diagnosis for this admission?: Yes Plan: Multifactorial secondary to acute illness, hypoxia, prolonged hospitalization, n arcotic use. Patient was noted to move all extremities spontaneously. Strength +5 throughout. He does not answer questions or follow directions at this time, however, does respond to vocal and tactile stimulation. Supportive care. Nonpharmacological interventions including providing the night balance. Reorientation. We will decrease steroids as tolerated. Avoid benzodiazepines. Consider CT imaging. (2) Pneumonia due to 2019 novel coronavirus Is this a current diagnosis for this admission?: Yes Plan: Covid positive. D-dimer has trended down from 1.48-0.81 CRP again trending up; unclear if initial downward trend was related to resolution of his pancreatitis; 158.3-> 38.7-> 159.4 Was receiving full dose Lovenox; now on hold due to bright red blood noted in stools today. Provide supplemental oxygen as needed maintain saturations greater than 89%. Noninvasive ventilatory support as indicated by clinical status. Currently receiving BiPAP. Received ivermectin x2 doses. Currently receiving remdesivir. Day #3 of 5. IV Solu-Medrol. Scheduled nebulizer treatments. Zinc, vitamin D, vitamin C, and melatonin supplementation. Encourage pulmonary toilet. Isolation precautions. (3) Acute respiratory failure with hypoxia Is this a current diagnosis for this admission?: Yes Plan: Secondary to COVID-19 pneumonia. Management as above. (4) Hypernatremia Is this a current diagnosis for this admission?: Yes Plan: Currently 153.1. Has trended up from 127.5 at time of admission. Continue D5 W for correction. Serial chemistries (5) Acute pancreatitis Qualifiers: Pancreatitis type: other Acute pancreatitis complication: unspecified Qualified Code(s): K85.80 - Other acute pancreatitis without necrosis or infection Is this a current diagnosis for this admission?: Yes Plan: Resolved. Lipase 213.5 Pain, nausea, vomiting had all resolved. She was being advanced to clear liquid diets prior to developing acute encephalopathy. Now in n.p.o. status due to mentation. Received IV meropenem. (6) Hyponatremia Is this a current diagnosis for this admission?: Yes Plan: Resolved; now with hypernatremia. - Time Time Spent with patient: 35 or more minutes Medications reviewed and adjusted accordingly: Yes Anticipated Discharge Disposition: TBD Anticipated Discharge Timeframe: TBD
[2020-05-27] MEDS ORDERED: ZIPRASIDONE MESYLATE INJ/PF 20 MG SDV IM PRN (15:33)
[2020-05-27] MEDS: THIAMINE HCL 100 MG, FOLIC ACID 1 MG in NORMAL SALINE 250 ML IV SCH (17:38)
[2020-05-27 17:50] LABS: HEMATOCRIT 34.4 % (37.9-51.0); HEMOGLOBIN 11.8 g/dL (13.5-17.0); MEAN CORPUSCULAR HEMOGLOBIN 30.2 pg (27.0-33.4); MEAN CORPUSCULAR HGB CONC 34.2 g/dL (32.0-36.0); MEAN CORPUSCULAR VOLUME 88 fl (80-97); PLATELET COUNT 313 10^3/uL (150-450); RED BLOOD COUNT 3.89 10^6/uL (4.35-5.55); RED CELL DISTRIBUTION WIDTH 13.4 % (11.5-14.0); WHITE BLOOD COUNT 13.9 10^3/uL (4.0-10.5)
[2020-05-27 18:10] LABS: BLOOD UREA NITROGEN 33 mg/dL (7-20); CALCIUM 8.5 mg/dL (8.4-10.2); GLUCOSE 194 mg/dL (75-110); POTASSIUM 3.3 mmol/L (3.6-5.0)
[2020-05-27 18:16] LABS: CHLORIDE 111 mmol/L (98-107)
[2020-05-27 18:41] LABS: ANION GAP 5 (5-19)
[2020-05-27 18:42] LABS: CARBON DIOXIDE 36 mmol/L (22-30)
[2020-05-27] MEDS: DEXTROSE 5%-WATER 1000 ML 1,000 ML IV PRN (22:50)
[2020-05-28] MEDS: ZIPRASIDONE MESYLATE INJ/PF 20 MG SDV IM PRN ×2 (04:05→21:16)
[2020-05-28] MEDS: ALBUTEROL SULFATE 0.083% NEB 2.5 MG/3 ML AMPUL NEB SCH ×5 (04:36→20:29)
[2020-05-28 05:13] LABS: HEMATOCRIT 35.4 % (37.9-51.0); HEMOGLOBIN 12.2 g/dL (13.5-17.0); MEAN CORPUSCULAR HEMOGLOBIN 30.7 pg (27.0-33.4); MEAN CORPUSCULAR HGB CONC 34.5 g/dL (32.0-36.0); MEAN CORPUSCULAR VOLUME 89 fl (80-97); PLATELET COUNT 286 10^3/uL (150-450); RED BLOOD COUNT 3.99 10^6/uL (4.35-5.55); RED CELL DISTRIBUTION WIDTH 13.4 % (11.5-14.0); WHITE BLOOD COUNT 11.1 10^3/uL (4.0-10.5)
[2020-05-28 05:55] LABS: ANION GAP 6 (5-19); BLOOD UREA NITROGEN 29 mg/dL (7-20); C-REACTIVE PROTEIN 74.7 mg/L (<10.0); CALCIUM 8.4 mg/dL (8.4-10.2); CARBON DIOXIDE 36 mmol/L (22-30); CHLORIDE 111 mmol/L (98-107); GLUCOSE 201 mg/dL (75-110); POTASSIUM 3.3 mmol/L (3.6-5.0)
[2020-05-28] MEDS: DEXTROSE 5%-WATER 1000 ML 1,000 ML IV PRN ×2 (07:05→12:56)
[2020-05-28] MEDS: METHYLPREDNISOLONE INJ 40 MG/1 ML SDV IV SCH (09:29)
[2020-05-28] MEDS: ASPIRIN 300 MG SUPP, RECTAL PR SCH (09:30)
[2020-05-28] MEDS: POTASSI CL 20 MEQ/50 ML RIDER 20 MEQ/50 ML RTUPB IV SCH ×2 (09:30→13:22)
[2020-05-28] MEDS: ASCORBIC ACID 500 MG TABLET PO SCH ×2 (10:46→17:34)
[2020-05-28] MEDS: FINASTERIDE 5 MG TABLET PO SCH (10:46)
--- NOTE | 2020-05-28 12:55 | RADIOLOGY REPORT (SQ) ---
EXAM DESCRIPTION: CHEST SINGLE VIEW IMAGES COMPLETED DATE/TIME: 05/28/2020 9:07 am REASON FOR STUDY: dyspnea, increased wbc COMPARISON: 05/24/2020 NUMBER OF VIEWS: One view. TECHNIQUE: Single frontal radiographic image of the chest acquired. LIMITATIONS: None. FINDINGS: LUNGS AND PLEURA: Patchy ground-glass opacities without focal consolidation. No significa nt change. MEDIASTINUM AND HEART: Stable heart size and mediastinal structures. BONY STRUCTURES: No acute findings. HARDWARE: None. OTHER: No other significant finding. IMPRESSION: STABLE APPEARANCE OF THE CHEST. TECHNICAL DOCUMENTATION: JOB ID: [id number] Reading location - IP/workstation name: [email or web address]
[2020-05-28] MEDS: REMDESIVIR 100 MG in NORMAL SALINE 250 ML IV SCH (13:20)
[2020-05-28 17:16] LABS: HEMATOCRIT 34.3 % (37.9-51.0); HEMOGLOBIN 11.8 g/dL (13.5-17.0); MEAN CORPUSCULAR HEMOGLOBIN 30.5 pg (27.0-33.4); MEAN CORPUSCULAR HGB CONC 34.5 g/dL (32.0-36.0); MEAN CORPUSCULAR VOLUME 88 fl (80-97); PLATELET COUNT 279 10^3/uL (150-450); RED BLOOD COUNT 3.88 10^6/uL (4.35-5.55); RED CELL DISTRIBUTION WIDTH 13.5 % (11.5-14.0); WHITE BLOOD COUNT 11.8 10^3/uL (4.0-10.5)
[2020-05-28 17:26] LABS: INTERNATIONAL RATION (INR) 1.31; PROTHROMBIN TIME 16.4 SEC (11.4-15.4)
[2020-05-28] MEDS: THIAMINE HCL 100 MG, FOLIC ACID 1 MG in NORMAL SALINE 250 ML IV SCH (18:17)
--- NOTE | 2020-05-28 18:46 | PDOC PROGRESS REPORT ---
Subjective Date:: 05/28/20 Subjective:: Is a 74-year-old male with a past medical history of hypertension, hepatic steatosis, and arthritis who was admitted 05/19/2020 with acute pancreatitis and COVID 19. Patient was seen on afternoon rounds. He was found resting in bed on continuous BiPAP. Due to encephalopathy, agitation, frequent pulling at IV lines and oxygen equipment, he has unfortunately required soft limb restraints and mittens. The patient does wake briefly when I said his name but he does not answer questions or follow directions. He does appear more comfortable today; less restless, calm, mumbles in response to questions though is not speaking clearly. The patient was changed from BiPAP 18/10 to CPAP 10 continued oxygen saturations 90s. Attempted Oxymizer at 15 L/min; desaturated to 80%. He was replaced on CPAP with immediate recovery. ROS remains limited. He appears comfortable and does not appear to be in distress at this time. No questions per nursing. Reason For Visit: ACUTE PANCREATITIS Physical Exam Vital Signs: Temp Pulse Resp BP Pulse Ox 98.0 F 98 41 H 136/83 H 91 L 05/28/20 03:26 05/28/20 16:01 05/28/20 16:01 05/28/20 03:26 05/28/20 16:01 Intake & Output 05/27/20 05/28/20 05/29/20 06:59 06:59 06:59 Intake Total 1577.2 501 2081 Balance 1577.2 501 2081 Weight 81.8 kg 79.4 kg 79.4 kg General appearance: PRESENT: no acute distress, disheveled, well-developed, well-nourished Head exam: PRESENT: atraumatic, normocephalic Eye exam: PRESENT: conjunctiva pink, EOMI, PERRLA. ABSENT: scleral icterus Mouth exam: PRESENT: dry mucosa, tongue midline Respiratory exam: PRESENT: clear to auscultation demi, symmetrical, tachypnea, other - CPAP; FiO2 55%. ABSENT: rales, rhonchi, wheezes Cardiovascular exam: PRESENT: RRR. ABSENT: diastolic murmur, rubs, systolic murmur Pulses: PRESENT: normal dorsalis pedis pul Vascular exam: PRESENT: normal capillary refill GI/Abdominal exam: PRESENT: normal bowel sounds, soft. ABSENT: distended, guarding, mass, organolmegaly, rebound, tenderness Rectal exam: PRESENT: heme (+) stool Extremities exam: PRESENT: full ROM - Moves all extremities spontaneously. ABSENT: calf tenderness, clubbing, pedal edema Neurological exam: PRESENT: alert, awake, CN II-XII grossly intact, other - Decreased restlessness/agitation today. Localizes to voice, mumbles in response, but does not answer questions or follow directions. ABSENT: motor sensory deficit Skin exam: PRESENT: dry, intact, warm. ABSENT: cyanosis, rash Results Laboratory Results: 05/28/20 17:01 05/28/20 04:21 05/27/20 05/28/20 05/28/20 17:41 04:21 04:21 WBC 11.1 H RBC 3.99 L Hgb 12.2 L Hct 35.4 L MCV 89 MCH 30.7 MCHC 34.5 RDW 13.4 Plt Count 286 Sodium 151.9 H 152.7 H Potassium 3.3 L 3.3 L Chloride 111 H 111 H Carbon Dioxide 36 H 36 H Anion Gap 5 6 BUN 33 H 29 H Creatinine 0.69 0.68 Est GFR ( Amer) > 60 > 60 Glucose 194 H 201 H Calcium 8.5 8.4 Ferritin 2690.00 H C-Reactive Protein 74.7 H Lipase 167.1 Stool Occult Blood Blood Type Antibody Screen 05/28/20 05/28/20 05/28/20 14:45 17:01 17:01 WBC 11.8 H RBC 3.88 L Hgb 11.8 L Hct 34.3 L MCV 88 MCH 30.5 MCHC 34.5 RDW 13.5 Plt Count 279 Sodium Potassium Chloride Carbon Dioxide Anion Gap BUN Creatinine Est GFR ( Amer) Glucose Calcium Ferritin C-Reactive Protein Lipase Stool Occult Blood POSITIVE Blood Type O POSITIVE Antibody Screen NEGATIVE 05/23/20 05/24/20 05/25/20 04:44 04:49 04:51 NT-Pro-B Natriuret Pep 757 H 883 H 253 H 05/27/20 04:41 NT-Pro-B Natriuret Pep 307 H Impressions: Abdomen/Pelvis CT 05/19/20 15:57 IMPRESSION: 1. Nonspecific mild fluid-filled small bowel loops could reflect a mild enteritis. No bowel obstruction. 2. No peripancreatic inflammation. 3. Cholelithiasis. 4. Hepatic steatosis. 5. Enlarged prostate gland. 6. Basilar ground-glass pulmonary opacities are not specific but can be seen with infectious and noninfectious processes, including COVID 19 infection. Correlate with exposure history. Chest X-Ray 05/28/20 07:00 IMPRESSION: STABLE APPEARANCE OF THE CHEST. Assessment and Plan - Diagnosis (1) Acute encephalopathy Is this a current diagnosis for this admission?: Yes Plan: Slight improvement today. Multifactorial secondary to acute illness, hypoxia, prolonged hospitalization, narcotic use. Patient was noted to move all extremities spontaneously. Strength +5 throughout. He does not answer questions or follow directions at this time, however, does respond to vocal and tactile stimulation. Supportive care. Nonpharmacological interventions including providing the night balance. Reorientation. Continue to decrease steroids as tolerated. Avoid benzodiazepines. Consider CT imaging. (2) Pneumonia due to 2019 novel coronavirus Is this a current diagnosis for this admission?: Yes Plan: Covid positive. D-dimer has trended down from 1.48->0.81 CRP variable; 158.3-> 38.7-> 159.4-> 74.7 Ferritin 2691 Repeat CXR today is unchanged. Was receiving full dose Lovenox; now on hold due to heme positive stools. Provide supplemental oxygen as needed maintain saturations greater than 89%. Noninvasive ventilatory support as indicated by clinical status. Currently receiving CPAP. Received ivermectin x2 doses. Currently receiving remdesivir. Day #4 of 5. IV Solu-Medrol; continue weaning. Scheduled nebulizer treatments. Zinc, vitamin D, vitamin C, and melatonin supplementation. Encourage pulmonary toilet. Isolation precautions. (3) Acute respiratory failure with hypoxia Is this a current diagnosis for this admission?: Yes Plan: Secondary to COVID-19 pneumonia. Follow-up ABG in the morning. Continue to remain noninvasive ventilatory support as tolerated. Management as above. (4) GI bleed Is this a current diagnosis for this admission?: Yes Plan: Occult stool is positive. Hemoglobin is stable; 11.8-> 12.2-> 11.8. Lovenox and aspirin are placed on hold. Patient is typed and screened. PT 16.4/1.31 Discussed with patient's daughter, Gianna Frye, by phone. She confirms FULL CODE status and provided consent for blood transfusion should this be indicated. (5) Hypernatremia Is this a current diagnosis for this admission?: Yes Plan: Currently 153.1-> 152.7 Has trended up from 127.5 at time of admission. Continue D5 W for correction. Serial chemistries (6) Acute pancreatitis Qualifiers: Pancreatitis type: other Acute pancreatitis complication: unspecified Qualified Code(s): K85.80 - Other acute pancreatitis without necrosis or infection Is this a current diagnosis for this admission?: Yes Plan: Resolved. Lipase 213.5-> 167.21 Pain, nausea, vomiting had all resolved. She was being advanced to clear liquid diets prior to developing acute encephalopathy. Now in n.p.o. status due to mentation. Received IV meropenem. (7) Hyponatremia Is this a current diagnosis for this admission?: Yes Plan: Resolved; now with hypernatremia. - Time Time Spent with patient: 35 or more minutes Medications reviewed and adjusted accordingly: Yes Anticipated Discharge Disposition: TBD Anticipated Discharge Timeframe: TBD
--- NOTE | 2020-05-28 21:36 | EKG REPORT ---
SEVERITY:- ABNORMAL ECG - SINUS TACHYCARDIA ATRIAL PREMATURE COMPLEX NONSPECIFIC REPOL ABNORMALITY, LATERAL LEADS : Confirmed by: August Lopez MD 28-May-2020 21:36:09
[2020-05-29] LABS: HEMATOCRIT 34.6 % (37.9-51.0); MEAN CORPUSCULAR HEMOGLOBIN 30.6 pg (27.0-33.4); MEAN CORPUSCULAR HGB CONC 34.6 g/dL (32.0-36.0); MEAN CORPUSCULAR VOLUME 88 fl (80-97); PLATELET COUNT 266 10^3/uL (150-450); RED BLOOD COUNT 3.92 10^6/uL (4.35-5.55); RED CELL DISTRIBUTION WIDTH 13.6 % (11.5-14.0); WHITE BLOOD COUNT 12.7 10^3/uL (4.0-10.5)
[2020-05-29] MEDS: ALBUTEROL SULFATE 0.083% NEB 2.5 MG/3 ML AMPUL NEB SCH ×6 (00:50→20:29)
[2020-05-29 01:36] LABS: C DIFFICILE GDH NEGATIVE (NEGATIVE)
[2020-05-29] MEDS ORDERED: METOPROLOL TARTRATE PF/INJ 5 MG/5 ML SDV IV ONE ×3 (05:00→23:27)
[2020-05-29 05:03] LABS: HEMATOCRIT 34.8 % (37.9-51.0); MEAN CORPUSCULAR HEMOGLOBIN 30.4 pg (27.0-33.4); MEAN CORPUSCULAR HGB CONC 34.5 g/dL (32.0-36.0); MEAN CORPUSCULAR VOLUME 88 fl (80-97); PLATELET COUNT 265 10^3/uL (150-450); RED BLOOD COUNT 3.95 10^6/uL (4.35-5.55); RED CELL DISTRIBUTION WIDTH 13.5 % (11.5-14.0); WHITE BLOOD COUNT 13.9 10^3/uL (4.0-10.5)
[2020-05-29] MEDS: ZIPRASIDONE MESYLATE INJ/PF 20 MG SDV IM PRN (05:06)
[2020-05-29 05:26] LABS: ALBUMIN 2.3 g/dL (3.5-5.0); ALKALINE PHOSPHATASE 53 U/L (38-126); ASPARTATE AMINO TRANSFERASE 62 U/L (17-59); BILIRUBIN,DIRECT 0.3 mg/dL (0.0-0.4); BILIRUBIN,TOTAL 1.1 mg/dL (0.2-1.3); BLOOD UREA NITROGEN 27 mg/dL (7-20); CALCIUM 8.2 mg/dL (8.4-10.2); GLUCOSE 169 mg/dL (75-110); POTASSIUM 3.2 mmol/L (3.6-5.0); TOTAL PROTEIN 5.4 g/dL (6.3-8.2)
[2020-05-29 05:31] LABS: CARBON DIOXIDE 34 mmol/L (22-30); CHLORIDE 116 mmol/L (98-107)
[2020-05-29 05:37] LABS: ANION GAP 1 (5-19)
[2020-05-29 05:39] LABS: CREATINE KINASE MB 3.21 ng/mL (<4.55)
[2020-05-29 05:40] LABS: TROPONIN I < 0.012 ng/mL
[2020-05-29 05:43] LABS: ARTERIAL BLOOD H2CO3 1.19 mmol/L (1.05-1.35); ARTERIAL BLOOD HCO3 30.7 mmol/L (20-24); ARTERIAL BLOOD O2 SATURATION 93.6 % (94-98); ARTERIAL BLOOD PCO2 39.7 mmHg (35-45); ARTERIAL BLOOD PH 7.51 (7.35-7.45); ARTERIAL BLOOD PO2 61.8 mmHg (80-100); ARTERIAL BLOOD TOTAL CO2 31.9 mmol/L (23-27)
[2020-05-29] MEDS: DEXTROSE 5%-WATER 1000 ML 1,000 ML IV PRN (06:06)
[2020-05-29] MEDS: METOPROLOL TARTRATE PF/INJ 5 MG/5 ML SDV IV ONE ×5 (08:05→23:56)
[2020-05-29] MEDS: ASCORBIC ACID 500 MG TABLET PO SCH ×2 (10:04→17:57)
[2020-05-29] MEDS: METHYLPREDNISOLONE INJ 40 MG/1 ML SDV IV SCH (10:05)
[2020-05-29] MEDS: FINASTERIDE 5 MG TABLET PO SCH (10:07)
[2020-05-29] MEDS: POTASSI CL 20 MEQ/50 ML RIDER 20 MEQ/50 ML RTUPB IV SCH ×2 (10:15→12:30)
[2020-05-29] MEDS: METOPROLOL TARTRATE PF/INJ 5 MG/5 ML SDV IV SCH ×3 (11:15→23:31)
[2020-05-29] MEDS ORDERED: ACETAMINOPHEN 650 MG SUPP.RECT PR ONE (11:31)
[2020-05-29] MEDS ORDERED: LORAZEPAM INJ 2 MG/1 ML VIAL IV ONE (12:07)
[2020-05-29 13:17] LABS: APPEARANCE,URINE CLEAR; BILIRUBIN,URINE NEGATIVE (NEGATIVE); COLOR,URINE YELLOW; GLUCOSE, URINE NEGATIVE (NEGATIVE); KETONES,URINE NEGATIVE (NEGATIVE); PROTEIN,URINE 30 mg/dL (NEGATIVE); UROBILINOGEN,URINE NEGATIVE mg/dL (<2.0)
--- NOTE | 2020-05-29 13:20 | PDOC PROGRESS REPORT ---
Subjective Date:: 05/29/20 Subjective:: Is a 74-year-old male with a past medical history of hypertension, hepatic steatosis, and arthritis who was admitted 05/19/2020 with acute pancreatitis and COVID 19. Patient was seen on morning rounds. He was found resting in bed on continuous CPAP; 10/FiO2 55%. Due to encephalopathy, agitation, frequent pulling at IV lines and oxygen equipment, he remains in soft limb restraints and mittens. The patient does wake briefly when I say his name; opens his eyes byt does not turn to me, answer questions, or follow directions. Does appear clinically worsened today; temp 101.3, RR now in the mid 40s w/ retractions, tachycardic with HR 110-140, and increased leukocytosis. ROS remains limited. Discussed plan of care with nursing. Reason For Visit: ACUTE PANCREATITIS Physical Exam Vital Signs: Temp Pulse Resp BP Pulse Ox 101.3 F H 102 H 41 H 137/70 H 92 05/29/20 11:24 05/29/20 12:15 05/29/20 12:15 05/29/20 08:00 05/29/20 12:15 Intake & Output 05/28/20 05/29/20 05/30/20 06:59 06:59 06:59 Intake Total 501 3081 50 Balance 501 3081 50 Weight 79.4 kg 80 kg General appearance: PRESENT: disheveled, mild distress, well-developed, well- nourished, other - Acutely ill-appearing Head exam: PRESENT: atraumatic, normocephalic Eye exam: PRESENT: conjunctiva pink, EOMI, PERRLA. ABSENT: scleral icterus Mouth exam: PRESENT: dry mucosa, tongue midline Respiratory exam: PRESENT: accessory muscle use, clear to auscultation demi, decreased breath sounds - Diminished throughout, retraction, symmetrical, tachypnea, other - CPAP dependent. ABSENT: rales, rhonchi, wheezes Cardiovascular exam: PRESENT: RRR, +S1, +S2, tachycardia. ABSENT: diastolic murmur, rubs, systolic murmur Pulses: PRESENT: normal dorsalis pedis pul Vascular exam: PRESENT: normal capillary refill GI/Abdominal exam: PRESENT: normal bowel sounds, soft. ABSENT: distended, guarding, mass, organolmegaly, rebound, tenderness Rectal exam: PRESENT: deferred Extremities exam: PRESENT: full ROM. ABSENT: calf tenderness, clubbing, pedal edema Neurological exam: PRESENT: other - Arousable; does not answer questions or follow directions. ABSENT: motor sensory deficit Skin exam: PRESENT: dry, intact, warm. ABSENT: cyanosis, rash Results Laboratory Results: 05/29/20 04:15 05/29/20 04:15 05/28/20 05/28/20 05/28/20 14:45 17:01 17:01 WBC 11.8 H RBC 3.88 L Hgb 11.8 L Hct 34.3 L MCV 88 MCH 30.5 MCHC 34.5 RDW 13.5 Plt Count 279 Carbonic Acid HCO3/H2CO3 Ratio ABG pH ABG pCO2 ABG pO2 ABG HCO3 ABG O2 Saturation ABG Base Excess FiO2 Sodium Potassium Chloride Carbon Dioxide Anion Gap BUN Creatinine Est GFR ( Amer) Glucose Calcium Magnesium Total Bilirubin AST Alkaline Phosphatase Total Protein Albumin Stool Occult Blood POSITIVE Blood Type O POSITIVE Antibody Screen NEGATIVE 05/28/20 05/29/20 05/29/20 23:38 04:15 04:15 WBC 12.7 H 13.9 H RBC 3.92 L 3.95 L Hgb 12.0 L 12.0 L Hct 34.6 L 34.8 L MCV 88 88 MCH 30.6 30.4 MCHC 34.6 34.5 RDW 13.6 13.5 Plt Count 266 265 Carbonic Acid HCO3/H2CO3 Ratio ABG pH ABG pCO2 ABG pO2 ABG HCO3 ABG O2 Saturation ABG Base Excess FiO2 Sodium 151.4 H Potassium 3.2 L Chloride 116 H Carbon Dioxide 34 H Anion Gap 1 L BUN 27 H Creatinine 0.66 Est GFR ( Amer) > 60 Glucose 169 H Calcium 8.2 L Magnesium Total Bilirubin 1.1 AST 62 H Alkaline Phosphatase 53 Total Protein 5.4 L Albumin 2.3 L Stool Occult Blood Blood Type Antibody Screen 05/29/20 05/29/20 04:15 05:34 WBC RBC Hgb Hct MCV MCH MCHC RDW Plt Count Carbonic Acid 1.19 HCO3/H2CO3 Ratio 25:1 ABG pH 7.51 H ABG pCO2 39.7 ABG pO2 61.8 L ABG HCO3 30.7 H ABG O2 Saturation 93.6 L ABG Base Excess 7.0 FiO2 55% Sodium Potassium Chloride Carbon Dioxide Anion Gap BUN Creatinine Est GFR ( Amer) Glucose Calcium Magnesium 2.4 H Total Bilirubin AST Alkaline Phosphatase Total Protein Albumin Stool Occult Blood Blood Type Antibody Screen 05/23/20 05/24/20 05/25/20 04:44 04:49 04:51 Creatine Kinase CK-MB (CK-2) Troponin I NT-Pro-B Natriuret Pep 757 H 883 H 253 H 05/27/20 05/29/20 05/29/20 04:41 04:15 04:15 Creatine Kinase 439 H CK-MB (CK-2) 3.21 Troponin I < 0.012 NT-Pro-B Natriuret Pep 307 H Impressions: Abdomen/Pelvis CT 05/19/20 15:57 IMPRESSION: 1. Nonspecific mild fluid-filled small bowel loops could reflect a mild enteritis. No bowel obstruction. 2. No peripancreatic inflammation. 3. Cholelithiasis. 4. Hepatic steatosis. 5. Enlarged prostate gland. 6. Basilar ground-glass pulmonary opacities are not specific but can be seen with infectious and noninfectious processes, including COVID 19 infection. Correlate with exposure history. Chest X-Ray 05/28/20 07:00 IMPRESSION: STABLE APPEARANCE OF THE CHEST. Assessment and Plan - Diagnosis (1) Acute encephalopathy Is this a current diagnosis for this admission?: Yes Plan: Unchanged from yesterday Multifactorial secondary to acute illness, hypoxia, prolonged hospitalization, narcotic use. Patient was noted to move all extremities spontaneously. Strength +5 throughout. He does not answer questions or follow directions at this time, however, does respond to vocal and tactile stimulation. Supportive care. Nonpharmacological interventions including providing the night balance. Reorientation. Continue to decrease steroids as tolerated. Due to persistent encephalopathy and now worsened respiratory status, will attempt one-time dose of IV Ativan in order to obtain CT imaging. Head CT pending. (2) Pneumonia due to 2019 novel coronavirus Is this a current diagnosis for this admission?: Yes Plan: Covid positive. D-dimer has trended down from 1.48->0.81 CRP variable; 158.3-> 38.7-> 159.4-> 74.7 Ferritin 2691 Repeat CXR today is unchanged. CT Chest pending. Was receiving full dose Lovenox; now on hold due to heme positive stools. Provide supplemental oxygen as needed maintain saturations greater than 89%. Noninvasive ventilatory support as indicated by clinical status. Currently receiving CPAP. Received ivermectin x2 doses. Has completed a 5-day course of remdesivir. Continue IV Solu-Medrol 40 mg daily. Scheduled nebulizer treatments. Zinc, vitamin D, vitamin C, and melatonin supplementation. Encourage pulmonary toilet. Isolation precautions. (3) Acute respiratory failure with hypoxia Is this a current diagnosis for this admission?: Yes Plan: Secondary to COVID-19 pneumonia. ABG shows compensated respiratory alkalosis with appropriate oxygenation while on CPAP 10/FiO2 55%. Now with increased fever, tachycardia, tachypnea, and leukocytosis. Noted to have retractions and accessory muscle use. Continue to wean noninvasive ventilatory support as tolerated. Remaining management as above. (4) GI bleed Is this a current diagnosis for this admission?: Yes Plan: Occult stool is positive. Hemoglobin is stable; 11.8-> 12.2-> 11.8-> 12-> 12. Lovenox and aspirin are placed on hold. Patient is typed and screened. PT 16.4/.31 Discussed with patient's daughter, Gianna Frye, by phone. She confirms FULL CODE status and provided consent for blood transfusion should this be indicated. (5) Hypernatremia Is this a current diagnosis for this admission?: Yes Plan: Currently 153.1-> 152.7-> 151.4 Has trended up from 127.5 at time of admission. Continue D5 W for correction. Serial chemistries (6) Acute pancreatitis Qualifiers: Pancreatitis type: other Acute pancreatitis complication: unspecified Qualified Code(s): K85.80 - Other acute pancreatitis without necrosis or infection Is this a current diagnosis for this admission?: Yes Plan: Resolved. Lipase 213.5-> 167.21 Pain, nausea, vomiting had all resolved. She was being advanced to clear liquid diets prior to developing acute encephalopathy. Now in n.p.o. status due to mentation. Received IV meropenem. (7) Hyponatremia Is this a current diagnosis for this admission?: Yes Plan: Resolved; now with hypernatremia. (8) Sepsis Qualifiers: Sepsis type: sepsis due to unspecified organism Is this a current diagnosis for this admission?: Yes Plan: Patient now with fever (101.3), tachycardia (HR 144), tachypnea (RR 41), continued hypoxia, with worsened leukocytosis (WBC is 13.9). Currently under treatment for COVID-19 pneumonia; day #10 of his admission. I am concerned that the patient may have developed a superimposed bacterial infection Will attempt to get a CT chest to evaluate for hospital-acquired pneumonia superimposed upon COVID-19. We will obtain UA. Blood and urine cultures pending. Lactic acid pending. She is empirically placed on IV cefepime and Levaquin. Will adjust as cultures result. (9) Stage III pressure ulcer Qualifiers: Pressure injury location: other site Qualified Code(s): L89.893 - Pressure ulcer of other site, stage 3 Is this a current diagnosis for this admission?: Yes Plan: Stage III pressure ulcer to bridge of nose. Likely secondary to near constant BiPAP/CPAP use x 10 days. ABG is reassuring today; would like to trial HFNC. Unfortunately, all equipment is currently in use. Failed Oxymizer yesterday. Discussed with RT and Nursing; need to provide dressing and pressure off loading as much as possible while awaiting HFNC equipment delivery. - Time Time Spent with patient: 35 or more minutes Medications reviewed and adjusted accordingly: Yes Anticipated Discharge Disposition: TBD Anticipated Discharge Timeframe: TBD
[2020-05-29] MEDS: ACETAMINOPHEN 650 MG SUPP.RECT PR PRN (13:40)
--- NOTE | 2020-05-29 14:17 | RADIOLOGY REPORT (SQ) ---
EXAM DESCRIPTION: CT HEAD WITHOUT IMAGES COMPLETED DATE/TIME: 05/29/2020 2:10 pm REASON FOR STUDY: ams COMPARISON: None. TECHNIQUE: Axial images acquired through the brain without intravenous contrast. Images reviewed wi th bone, brain and subdural windows. Additional sagittal and coronal reconstructions were generated. Images stored on PACS. All CT scanners at this facility use dose modulation, iterative reconstruction, and/or weight based d osing when appropriate to reduce radiation dose to as low as reasonably achievable (ALARA). [facility]: Dose Right [facility]: CareDose [facility]: Dose Right [facility]: Teradose 4D [facility]: [employer] RADIATION DOSE: CT Rad equipment meets quality standard of care and radiation dose reduction techniq ues were employed. CTDIvol: 50.0 mGy. DLP: 931 mGy-cm. mGy. LIMITATIONS: None. FINDINGS: VENTRICLES: Prominent. CEREBRUM: No masses. No hemorrhage. No midline shift. Areas of low density in the white matter mos t likely due to chronic micro-vascular ischemic change. No evidence for acute infarction. CEREBELLUM: No masses. No hemorrhage. No alteration of density. No evidence for acute infarction. EXTRAAXIAL SPACES: Mild age-related involutional change. No fluid collections. No masses. ORBITS AND GLOBE: No intra- or extraconal masses. Normal contour of globe without masses. CALVARIUM: No fracture. PARANASAL SINUSES: No fluid or mucosal thickening. SOFT TISSUES: No mass or hematoma. OTHER: No other significant finding. IMPRESSION: MILD CHRONIC CHANGES OF ATROPHY AND MICROVASCULAR ISCHEMIA. NO ACUTE PROCESS. EVIDENCE OF ACUTE STROKE: NO. TECHNICAL DOCUMENTATION: JOB ID: [id number] Quality ID # [id number]: Final reports with documentation of one or more dose reduction techniques (e.g., Au tomated exposure control, adjustment of the mA and/or kV according to patient size, use of iterative reconstruction technique) 2010 [employer]- All Rights Reserved Reading location - IP/workstation name: [email or web address]
--- NOTE | 2020-05-29 14:21 | RADIOLOGY REPORT (SQ) ---
EXAM DESCRIPTION: CT CHEST WITHOUT IMAGES COMPLETED DATE/TIME: 05/29/2020 2:10 pm REASON FOR STUDY: worsening hypoxia/fever/wbcs; ?superimposed bacter COMPARISON: Chest x-ray dated 05/28/2020 TECHNIQUE: CT scan performed of the chest without intravenous contrast. Images reviewed with lung, soft tissue and bone windows. Reconstructed coronal and sagittal MPR images reviewed. All images st ored on PACS. All CT scanners at this facility use dose modulation, iterative reconstruction, and/or weight based d osing when appropriate to reduce radiation dose to as low as reasonably achievable (ALARA). [facility]: Dose Right [facility]: CareDose [facility]: Dose Right [facility]: Teradose 4D [facility]: [employer] RADIATION DOSE: CT Rad equipment meets quality standard of care and radiation dose reduction techniq ues were employed. CTDIvol: 16.9 mGy. DLP: 692 mGy-cm. mGy. LIMITATIONS: No technical limitations. FINDINGS: LUNGS AND PLEURA: Diffuse bilateral ground-glass opacities long with lower lobe consolidat ion either atelectasis or pneumonia. No effusions. HILAR AND MEDIASTINAL STRUCTURES: No identified masses or abnormal nodes. No obvious aneurysm. HEART AND VASCULAR STRUCTURES: No aneurysm. No pericardial effusion. UPPER ABDOMEN: Hepatic steatosis. THYROID AND OTHER SOFT TISSUES: No masses. No adenopathy. BONES: No significant finding. HARDWARE: None in the chest. OTHER: No other significant findings. IMPRESSION: Diffuse bilateral ground-glass opacities consistent with pulmonary edema or pneumonia. There is bibasilar consolidation either atelectasis or pneumonia. No effusions. TECHNICAL DOCUMENTATION: JOB ID: [id number] Quality ID # [id number]: Final reports with documentation of one or more dose reduction techniques (e.g., Au tomated exposure control, adjustment of the mA and/or kV according to patient size, use of iterative reconstruction technique) 2010 [employer]- All Rights Reserved Reading location - IP/workstation name: [email or web address]
[2020-05-29] MEDS ORDERED: DIPHENHYDRAMINE HCL 50 MG/ML VIAL IV ONE (14:30)
[2020-05-29 15:44] LABS: HEMATOCRIT 33.8 % (37.9-51.0); HEMOGLOBIN 11.8 g/dL (13.5-17.0); MEAN CORPUSCULAR VOLUME 89 fl (80-97); PLATELET COUNT 235 10^3/uL (150-450); RED BLOOD COUNT 3.82 10^6/uL (4.35-5.55); RED CELL DISTRIBUTION WIDTH 13.5 % (11.5-14.0); WHITE BLOOD COUNT 13.1 10^3/uL (4.0-10.5)
[2020-05-29] MEDS: REMDESIVIR 100 MG in NORMAL SALINE 250 ML IV SCH (15:44)
[2020-05-29] MEDS: LEVOFLOXACIN 750 MG/D5W RTU 750 MG/150 ML RTUPB IV SCH (17:06)
[2020-05-29] MEDS: CEFEPIME HCL 2 GM in DEXTROSE 5%-WATER 50 ML IV SCH ×2 (18:40→23:21)
[2020-05-29] MEDS ORDERED: DEXTROSE 5%-WATER 1000 ML 1,000 ML IV PRN (19:07)
[2020-05-29] MEDS ORDERED: FUROSEMIDE INJ/PF 40 MG/4 ML SDV IV ONE (19:30)
[2020-05-29] MEDS: THIAMINE HCL 100 MG, FOLIC ACID 1 MG in NORMAL SALINE 250 ML IV SCH (20:54)
[2020-05-29] MEDS ORDERED: CEFEPIME 2 GM/D5W RTU 50 ML IV SCH (22:00)
[2020-05-30] MEDS: ALBUTEROL SULFATE 0.083% NEB 2.5 MG/3 ML AMPUL NEB SCH ×6 (00:15→20:00)
[2020-05-30] MEDS ORDERED: METOPROLOL TARTRATE PF/INJ 5 MG/5 ML SDV IV ONE (01:30)
[2020-05-30] MEDS ORDERED: ZIPRASIDONE MESYLATE INJ/PF 20 MG SDV IM ONE (02:00)
[2020-05-30] MEDS: METOPROLOL TARTRATE PF/INJ 5 MG/5 ML SDV IV SCH ×4 (05:03→23:54)
[2020-05-30 05:29] LABS: HEMATOCRIT 37.6 % (37.9-51.0); HEMOGLOBIN 12.9 g/dL (13.5-17.0); MEAN CORPUSCULAR HEMOGLOBIN 30.3 pg (27.0-33.4); MEAN CORPUSCULAR HGB CONC 34.2 g/dL (32.0-36.0); MEAN CORPUSCULAR VOLUME 88 fl (80-97); PLATELET COUNT 190 10^3/uL (150-450); RED BLOOD COUNT 4.26 10^6/uL (4.35-5.55); RED CELL DISTRIBUTION WIDTH 13.3 % (11.5-14.0); WHITE BLOOD COUNT 17.6 10^3/uL (4.0-10.5)
[2020-05-30 05:35] LABS: ALBUMIN 2.4 g/dL (3.5-5.0); ALKALINE PHOSPHATASE 58 U/L (38-126); ANION GAP 9 (5-19); ASPARTATE AMINO TRANSFERASE 61 U/L (17-59); BILIRUBIN,DIRECT 0.6 mg/dL (0.0-0.4); BILIRUBIN,TOTAL 1.4 mg/dL (0.2-1.3); BLOOD UREA NITROGEN 34 mg/dL (7-20); CALCIUM 8.4 mg/dL (8.4-10.2); CARBON DIOXIDE 29 mmol/L (22-30); CHLORIDE 118 mmol/L (98-107); GLUCOSE 162 mg/dL (75-110); POTASSIUM 3.1 mmol/L (3.6-5.0); TOTAL PROTEIN 5.7 g/dL (6.3-8.2)
[2020-05-30 05:44] LABS: ABSOLUTE LYMPHOCYTES# (MANUAL) 0.5 10^3/uL (0.5-4.7); ABSOLUTE MONOCYTES # (MANUAL) 0.2 10^3/uL (0.1-1.4); BASOPHILS % (MANUAL) 0 % (0-2); EOSINOPHILS % (MANUAL) 0 % (0-6); LYMPHOCYTES % (MANUAL) 3 % (13-45); MONOCYTES % (MANUAL) 1 % (3-13); SEGMENTED NEUTROPHILS % (MAN) 96 % (42-78); TOTAL CELLS COUNTED 100
[2020-05-30 05:45] LABS: OVALOCYTES SLIGHT; PLATELET COMMENT ADEQUATE; POIKILOCYTOSIS SLIGHT; SCHISTOCYTES SLIGHT; TOXIC GRANULATION 1+
[2020-05-30 07:09] LABS: APPEARANCE,URINE SLIGHTLY-CLOUDY; BILIRUBIN,URINE NEGATIVE (NEGATIVE); COLOR,URINE YELLOW; GLUCOSE, URINE NEGATIVE (NEGATIVE); KETONES,URINE NEGATIVE (NEGATIVE); LEUKOCYTE ESTERASE,URINE NEGATIVE (NEGATIVE); NITRITE,URINE NEGATIVE (NEGATIVE); PROTEIN,URINE 30 mg/dL (NEGATIVE); URINE SPECIFIC GRAVITY 1.025; UROBILINOGEN,URINE NEGATIVE mg/dL (<2.0)
[2020-05-30] MEDS: POTASSI CL 20 MEQ/50 ML RIDER 20 MEQ/50 ML RTUPB IV SCH ×2 (08:08→10:13)
[2020-05-30] MEDS: ASCORBIC ACID 500 MG TABLET PO SCH ×2 (09:08→17:23)
[2020-05-30] MEDS: METHYLPREDNISOLONE INJ 40 MG/1 ML SDV IV SCH (09:08)
[2020-05-30] MEDS: FINASTERIDE 5 MG TABLET PO SCH (09:08)
[2020-05-30] MEDS ORDERED: LEVOFLOXACIN 750 MG/D5W RTU 150 ML IV SCH (10:00)
[2020-05-30] MEDS ORDERED: DEXTROSE 5%-1/2 NORMAL SALINE 1,000 ML IV PRN (10:34)
[2020-05-30] MEDS ORDERED: HEPARIN SODIUM,PORCINE/D5W 25,000 UNIT/250 ML RTUINJ IV PRN (10:45)
[2020-05-30] MEDS ORDERED: HEPARIN SOD (PORCINE) 1,000 UNIT/ML 10 ML VIAL IV ONE ×2 (11:30→15:45)
[2020-05-30] MEDS: CEFEPIME HCL 2 GM in DEXTROSE 5%-WATER 50 ML IV SCH ×2 (11:56→22:07)
[2020-05-30 12:24] LABS: HEMATOCRIT 36.9 % (37.9-51.0); HEMOGLOBIN 12.7 g/dL (13.5-17.0); MEAN CORPUSCULAR HEMOGLOBIN 30.2 pg (27.0-33.4); MEAN CORPUSCULAR HGB CONC 34.4 g/dL (32.0-36.0); MEAN CORPUSCULAR VOLUME 88 fl (80-97); PLATELET COUNT 197 10^3/uL (150-450); RED BLOOD COUNT 4.22 10^6/uL (4.35-5.55); RED CELL DISTRIBUTION WIDTH 13.3 % (11.5-14.0); WHITE BLOOD COUNT 18.3 10^3/uL (4.0-10.5)
[2020-05-30 12:26] LABS: INTERNATIONAL RATION (INR) 1.63; PROTHROMBIN TIME 19.5 SEC (11.4-15.4)
[2020-05-30 12:27] LABS: PARTIAL THROMBOPLASTIN TIME 45.1 SEC (23.5-35.8)
[2020-05-30 12:41] LABS: ARTERIAL BLOOD BASE EXCESS 2.3 mmol/L; ARTERIAL BLOOD H2CO3 0.89 mmol/L (1.05-1.35); ARTERIAL BLOOD O2 SATURATION 94.8 % (94-98); ARTERIAL BLOOD PCO2 29.6 mmHg (35-45); ARTERIAL BLOOD PH 7.53 (7.35-7.45); ARTERIAL BLOOD PO2 64.5 mmHg (80-100); ARTERIAL BLOOD TOTAL CO2 24.9 mmol/L (23-27)
[2020-05-30 12:43] LABS: ARTERIAL BLOOD FIO2 65%
[2020-05-30] MEDS: LEVOFLOXACIN 750 MG/D5W RTU 750 MG/150 ML RTUPB IV SCH (12:52)
[2020-05-30 13:01] LABS: ABSOLUTE LYMPHOCYTES# (MANUAL) 0.4 10^3/uL (0.5-4.7); ABSOLUTE MONOCYTES # (MANUAL) 0.4 10^3/uL (0.1-1.4); BASOPHILS % (MANUAL) 0 % (0-2); EOSINOPHILS % (MANUAL) 0 % (0-6); LYMPHOCYTES % (MANUAL) 2 % (13-45); MONOCYTES % (MANUAL) 2 % (3-13); SEGMENTED NEUTROPHILS % (MAN) 96 % (42-78); TOTAL CELLS COUNTED 100
[2020-05-30 13:02] LABS: PLATELET COMMENT ADEQUATE; RBC MORPHOLOGY COMMENT NORMO-CYTIC/CHROMIC
[2020-05-30] MEDS ORDERED: DIPHENHYDRAMINE HCL 50 MG/ML VIAL IV ONE (13:56)
[2020-05-30] MEDS ORDERED: LORAZEPAM INJ 2 MG/1 ML VIAL IV ONE (13:56)
--- NOTE | 2020-05-30 13:57 | PDOC PROGRESS REPORT ---
Subjective Date:: 05/30/20 Subjective:: Is a 74-year-old male with a past medical history of hypertension, hepatic steatosis, and arthritis who was admitted 05/19/2020 with acute pancreatitis and COVID 19. Patient was seen on morning rounds. He was found resting in bed on continuous CPAP; 10/FiO2 65%. Respiratory rate has increased; now averaging high 30s to low 40s. Continues to have tachycardia; HR 100-140. Due to encephalopathy, agitation, frequent pulling at IV lines and oxygen equipment, he remains in soft limb restraints and mittens. The patient does wake briefly when I say his name; opens his eyes but does not turn to me, answer questions, or follow directions. T-max 101.3 last 24 hours. ROS remains limited. Discussed plan of care with nursing. Patient's daughter, Prema, was updated by phone; all questions answered. Reason For Visit: ACUTE PANCREATITIS Physical Exam Vital Signs: Temp Pulse Resp BP Pulse Ox 99.8 F 85 44 H 96/76 L 98 05/30/20 11:27 05/30/20 12:23 05/30/20 12:23 05/30/20 11:27 05/30/20 12:23 Intake & Output 05/29/20 05/30/20 05/31/20 06:59 06:59 06:59 Intake Total 3332.2 1751.2 378 Output Total 825 Balance 3332.2 926.2 378 Weight 80 kg 79.1 kg General appearance: PRESENT: well-developed, well-nourished, other - moderate distress; acutely ill appearing Head exam: PRESENT: atraumatic, normocephalic Eye exam: PRESENT: conjunctiva pink, EOMI, PERRLA, other - droop to right eye. ABSENT: scleral icterus Mouth exam: PRESENT: dry mucosa, tongue midline Respiratory exam: PRESENT: decreased breath sounds - throughout, retraction, symmetrical, unlabored, other - CPAP. ABSENT: rales, rhonchi, wheezes Cardiovascular exam: PRESENT: tachycardia. ABSENT: diastolic murmur, rubs, systolic murmur Pulses: PRESENT: +1 pedal pulses bilateral Vascular exam: PRESENT: normal capillary refill GI/Abdominal exam: PRESENT: normal bowel sounds, soft. ABSENT: distended, guarding, mass, organolmegaly, rebound, tenderness Rectal exam: PRESENT: deferred Gentrourinary exam: PRESENT: indwelling catheter Extremities exam: PRESENT: full ROM - Moves all extremities spontaneously. ABSENT: calf tenderness, clubbing, pedal edema Neurological exam: PRESENT: other - Arousable; does not answer questions or follow directions Skin exam: PRESENT: dry, intact, warm. ABSENT: cyanosis, rash Results Laboratory Results: 05/30/20 11:51 05/30/20 04:13 05/29/20 05/30/20 05/30/20 15:02 04:13 04:13 WBC 13.1 H 17.6 H RBC 3.82 L 4.26 L Hgb 11.8 L 12.9 L Hct 33.8 L 37.6 L MCV 89 88 MCH 31.0 30.3 MCHC 35.0 34.2 RDW 13.5 13.3 Plt Count 235 190 Seg Neutrophils % Not Reportable Carbonic Acid HCO3/H2CO3 Ratio ABG pH ABG pCO2 ABG pO2 ABG HCO3 ABG O2 Saturation ABG Base Excess FiO2 Sodium 155.8 H Potassium 3.1 L Chloride 118 H Carbon Dioxide 29 Anion Gap 9 BUN 34 H Creatinine 0.78 Est GFR ( Amer) > 60 Glucose 162 H Calcium 8.4 Ferritin 3470.00 H Total Bilirubin 1.4 H AST 61 H Alkaline Phosphatase 58 Total Protein 5.7 L Albumin 2.4 L Urine Color Urine Appearance Urine pH Ur Specific [place] Urine Protein Urine Glucose (UA) Urine Ketones Urine Blood Urine Nitrite Ur Leukocyte Esterase Urine WBC (Auto) Urine RBC (Auto) 05/30/20 05/30/20 05/30/20 06:30 11:51 12:15 WBC 18.3 H RBC 4.22 L Hgb 12.7 L Hct 36.9 L MCV 88 MCH 30.2 MCHC 34.4 RDW 13.3 Plt Count 197 Seg Neutrophils % Not Reportable Carbonic Acid 0.89 L HCO3/H2CO3 Ratio 26:1 ABG pH 7.53 H ABG pCO2 29.6 L ABG pO2 64.5 L ABG HCO3 24.0 ABG O2 Saturation 94.8 ABG Base Excess 2.3 FiO2 65% Sodium Potassium Chloride Carbon Dioxide Anion Gap BUN Creatinine Est GFR ( Amer) Glucose Calcium Ferritin Total Bilirubin AST Alkaline Phosphatase Total Protein Albumin Urine Color YELLOW Urine Appearance SLIGHTLY-CLOUDY Urine pH 5.0 Ur Specific [place] 1.025 Urine Protein 30 H Urine Glucose (UA) NEGATIVE Urine Ketones NEGATIVE Urine Blood MODERATE H Urine Nitrite NEGATIVE Ur Leukocyte Esterase NEGATIVE Urine WBC (Auto) 4 Urine RBC (Auto) 31 05/28/20 19:33 Stool - Stool - Final 05/23/20 05/24/20 05/25/20 04:44 04:49 04:51 Creatine Kinase CK-MB (CK-2) Troponin I NT-Pro-B Natriuret Pep 757 H 883 H 253 H 05/27/20 05/29/20 05/29/20 04:41 04:15 04:15 Creatine Kinase 439 H CK-MB (CK-2) 3.21 Troponin I < 0.012 NT-Pro-B Natriuret Pep 307 H 05/30/20 04:13 Creatine Kinase CK-MB (CK-2) Troponin I NT-Pro-B Natriuret Pep 549 H Impressions: Abdomen/Pelvis CT 05/19/20 15:57 IMPRESSION: 1. Nonspecific mild fluid-filled small bowel loops could reflect a mild enteritis. No bowel obstruction. 2. No peripancreatic inflammation. 3. Cholelithiasis. 4. Hepatic steatosis. 5. Enlarged prostate gland. 6. Basilar ground-glass pulmonary opacities are not specific but can be seen wi th infectious and noninfectious processes, including COVID 19 infection. Correlate with exposure history. Chest X-Ray 05/28/20 07:00 IMPRESSION: STABLE APPEARANCE OF THE CHEST. Chest CT 05/29/20 00:00 IMPRESSION: Diffuse bilateral ground-glass opacities consistent with pulmonary edema or pneumonia. There is bibasilar consolidation either atelectasis or pneumonia. No effusions. Head CT 05/29/20 00:00 IMPRESSION: MILD CHRONIC CHANGES OF ATROPHY AND MICROVASCULAR ISCHEMIA. NO ACUTE PROCESS. EVIDENCE OF ACUTE STROKE: NO. Assessment and Plan - Diagnosis (1) Acute encephalopathy Is this a current diagnosis for this admission?: Yes Plan: Unchanged from yesterday Multifactorial secondary to acute illness, hypoxia, prolonged hospitalization, narcotic use. Patient was noted to move all extremities spontaneously. Strength +5 throughout. He does not answer questions or follow directions at this time, however, does respond to vocal and tactile stimulation. Head CT is negative for acute findings. Supportive care. Nonpharmacological interventions including providing the night balance. Reorientation. Continue to decrease steroids as tolerated. (2) Pneumonia due to 2019 novel coronavirus Is this a current diagnosis for this admission?: Yes Plan: Covid positive. D-dimer has trended down from 1.48->0.81-> 12.91 CRP variable; 158.3-> 38.7-> 159.4-> 74.7 Ferritin 2691-> 3470 CT Chest shows multifocal groundglass opacities. Cautiously start heparin drip. Provide supplemental oxygen as needed maintain saturations greater than 89%. Noninvasive ventilatory support as indicated by clinical status. Have asked RT to trial HFNC. Currently receiving CPAP. Received ivermectin x2 doses. Has completed a 5-day course of remdesivir. Continue IV Solu-Medrol 40 mg daily. Scheduled nebulizer treatments. Zinc, vitamin D, vitamin C, and melatonin supplementation. Encourage pulmonary toilet. Isolation precautions. (3) Acute respiratory failure with hypoxia Is this a current diagnosis for this admission?: Yes Plan: Secondary to COVID-19 pneumonia. Superimposed bacterial infection versus aspiration event likely. ABG shows compensated respiratory alkalosis with appropriate oxygenation while on CPAP 10/FiO2 55%. Now with increased fever, tachycardia, tachypnea, and leukocytosis. Noted to have retractions and accessory muscle use. Continue to wean noninvasive ventilatory support as tolerated. Remaining management as above. (4) GI bleed Is this a current diagnosis for this admission?: Yes Plan: Occult stool was positive. Hemoglobin is stable; 11.8-> 12.2-> 11.8-> 12-> 12. Lovenox and aspirin were placed on hold. Patient is typed and screened. PT 16.4/1.31 Discussed with patient's daughter, Gianna Frye, by phone. She confirms FULL CODE status and provided consent for blood transfusion should this be indicated. Will cautiously trial Heparin gtt as patient's D. Dimer is >12. Discussed risks w/ daughter, Prema, she agrees w/ plan. (5) Hypernatremia Is this a current diagnosis for this admission?: Yes Plan: Currently 153.1-> 152.7-> 151.4-> 155 Has trended up from 127.5 at time of admission. Cussed with Dr. Cardoza; IV fluids adjusted to D5 half-normal saline at 150/h. Continue serial chemistries. (6) Sepsis Qualifiers: Sepsis type: sepsis due to unspecified organism Is this a current diagnosis for this admission?: Yes Plan: Patient now with fever (101.3), tachycardia (HR 144), tachypnea (RR 41), continued hypoxia, with worsened leukocytosis (WBC is 13.9). Currently under treatment for COVID-19 pneumonia; day #10 of his admission. I am concerned that the patient may have developed a superimposed bacterial infection CT chest shows multifocal groundglass opacities consistent with viral pneumonia. Slight bibasilar opacity consistent with atelectasis versus scarring versus infectious process. High risk for aspiration event. Urinalysis is negative for UTI. Blood cultures negative at 24 hours. Urine cultures not completed due to normal urinalysis. Lactic acid 1.6 Continue empiric IV cefepime and Levaquin; day #2. Continue IV fluid hydration. Will adjust as cultures result. (7) Stage III pressure ulcer Qualifiers: Pressure injury location: other site Qualified Code(s): L89.893 - Pressure ulcer of other site, stage 3 Is this a current diagnosis for this admission?: Yes Plan: Stage III pressure ulcer to bridge of nose. Likely secondary to near constant BiPAP/CPAP use x 10 days. ABG is reassuring today; would like to trial HFNC. Unfortunately, all equipment is currently in use. Failed Oxymizer. Discussed with RT and Nursing; need to provide dressing and pressure off loading as much as possible while awaiting HFNC equipment delivery. (8) Hyponatremia Is this a current diagnosis for this admission?: Yes Plan: Resolved; now with hypernatremia. (9) Acute pancreatitis Qualifiers: Pancreatitis type: other Acute pancreatitis complication: unspecified Qualified Code(s): K85.80 - Other acute pancreatitis without necrosis or infection Is this a current diagnosis for this admission?: Yes Plan: Resolved. Lipase 213.5-> 167.21 Pain, nausea, vomiting had all resolved. She was being advanced to clear liquid diets prior to developing acute encephalopathy. Now in n.p.o. status due to mentation. Received IV meropenem. - Plan Summary Summary: Discussed patient's clinical case w/ channel business manager, Dr. Cardoza. Dr. Cardoza reviewed vitals,labs, and imaging. Appreciate his time and recommendations. Adjust IVF to D51/2NS at 150 ml/hr. Continue antibiotics. Start Heparin gtt; monitor for recurrent GI bleed. Continue oxygen support; utilize NIVVP as needed. Avoid intubation. Start TPN. - Time Time Spent with patient: 35 or more minutes Medications reviewed and adjusted accordingly: Yes Anticipated Discharge Disposition: Home, Self Care Anticipated Discharge Timeframe: within 24 hours
[2020-05-30] MEDS ORDERED: DEXTROSE 50%-WATER SYRINGE 25 GM/50 ML DOSE IV PRN (14:30)
[2020-05-30] MEDS ORDERED: GLUCAGON,HUMAN RECOMB 1 MG INJ IM PRN (14:30)
[2020-05-30] MEDS ORDERED: DEXTROSE 50%-WATER SYRINGE 12.5 GM/25 ML DOSE IV PRN (14:30)
[2020-05-30] MEDS ORDERED: DEXTROSE 40% GEL 15 GM TUBE PO PRN (14:30)
[2020-05-30] MEDS ORDERED: DEXTROSE 40% GEL 15 GM TUBE X 2 PO PRN (14:30)
[2020-05-30] MEDS ORDERED: DEXTROSE 10%-WATER 1,000 ML IV PRN (14:30)
[2020-05-30] MEDS ORDERED: AMINO ACIDS 5 %/DEXTROSE 20 % 1,000 ML IV PRN (14:30)
--- NOTE | 2020-05-30 15:45 | RADIOLOGY REPORT (SQ) ---
EXAM DESCRIPTION: PICC INSERTION IMAGES COMPLETED DATE/TIME: 05/30/2020 3:34 pm REASON FOR STUDY: TPN COMPARISON: None. FLUOROSCOPY TIME: 26 seconds 1 images saved to PACS. TECHNIQUE: Fluoroscopic and ultrasound guided PICC placement. LIMITATIONS: None. PROCEDURE: After written consent and assessment were obtained, the patient was brought into the fluo roscopy room and placed supine on the table. Ultrasound evaluation of potential access sites were per formed. After successfully identifying a patent right upper extremity basilic vein, the right upper a rm was prepped and draped in a sterile fashion along with the ultrasound probe. The entry site was an esthetized with 1% lidocaine. A 21 gauge 7 cm needle was advanced through the skin and into the right basilic vein under live ultrasound guidance. An ultrasound image was saved to PACS confirming acces s site. A .018 guide wire was then inserted through the needle and into the venous system. The needl e was then removed and an 11 blade scalpel was used to make a 1cm skin incision. A 5 fr peel-away sh eath was advanced over the wire and into the venous system. A measurement was then made using the exi sting wire and live fluoroscopic guidance. The wire was then removed and trimmed. The PICC was advanc ed through the peel-away sheath and into the venous system. The peel-away sheath was removed and the catheter was adhered to the patients arm with a stat lock. The catheter was then aspirated and flushe d and a sterile bandage was placed over the access site. A fluoroscopic spot image was saved to PACS confirming the catheter tip within the SVC. IMPRESSION: SUCCESSFUL PLACEMENT OF A 5 FR DUAL LUMEN 35 CM PICC IN THE RIGHT BASILIC VEIN. COMMENT: Patient medication list reviewed: Yes- Quality ID# 130:Eligible professional attests to doc umenting in the medical record they obtained, updated, or reviewed the patient's current medications. . Quality ID 145: Final reports for procedures using fluoroscopy that document radiation exposure krystal manuel, or exposure time and number of fluorographic images (if radiation exposure indices are not avail able) Quality ID #76: The patient was prepped and draped using maximum sterile barrier technique including cap, mask, sterile gown, sterile gloves, a large sterile sheet, hand hygiene, and 2% Chlorhexidine fo r cutaneous antisepsis. When ultrasound is used, sterile ultrasound techniques are followed requiring sterile gel and sterile probes. TECHNICAL DOCUMENTATION: JOB ID: [id number] 2010 [employer]- All Rights Reserved rev Reading location - IP/workstation name: [email or web address]
[2020-05-30] MEDS: DEXTROSE 5%-1/2 NORMAL SALINE 1,000 ML IV PRN (17:48)
[2020-05-30] MEDS: INSULIN REG, HUMAN 100 UNIT/ML 3 ML VIAL (PYX) SUBCUT SCH ×2 (17:51→23:55)
[2020-05-30 18:58] LABS: BLOOD UREA NITROGEN 40 mg/dL (7-20); CALCIUM 7.9 mg/dL (8.4-10.2); CARBON DIOXIDE 32 mmol/L (22-30); CHLORIDE 120 mmol/L (98-107); GLUCOSE 209 mg/dL (75-110); POTASSIUM 3.1 mmol/L (3.6-5.0)
[2020-05-30 19:04] LABS: ANION GAP 4 (5-19)
[2020-05-30] MEDS: NORMAL SALINE 10 ML SDV (SCHEDULED) IV SCH (22:13)
[2020-05-31] MEDS: ALBUTEROL SULFATE 0.083% NEB 2.5 MG/3 ML AMPUL NEB SCH ×6 (01:16→20:17)
[2020-05-31] MEDS ORDERED: DIPHENHYDRAMINE HCL 50 MG/ML VIAL ONE (03:04)
[2020-05-31] MEDS ORDERED: DIPHENHYDRAMINE HCL 50 MG/ML VIAL IV ONE (03:15)
[2020-05-31] MEDS ORDERED: MORPHINE SULFATE 10 MG/ML INJ ONE (04:08)
[2020-05-31] MEDS ORDERED: MORPHINE SULFATE 10 MG/ML INJ IV ONE (05:00)
[2020-05-31] MEDS: METOPROLOL TARTRATE PF/INJ 5 MG/5 ML SDV IV SCH ×3 (05:32→19:25)
[2020-05-31] MEDS: DEXTROSE 5%-1/2 NORMAL SALINE 1,000 ML IV PRN (06:01)
[2020-05-31] MEDS: INSULIN REG, HUMAN 100 UNIT/ML 3 ML VIAL (PYX) SUBCUT SCH ×3 (06:21→20:15)
[2020-05-31 06:24] LABS: ARTERIAL BLOOD BASE EXCESS 0.9 mmol/L; ARTERIAL BLOOD H2CO3 1.92 mmol/L (1.05-1.35); ARTERIAL BLOOD HCO3 29.4 mmol/L (20-24); ARTERIAL BLOOD PCO2 63.8 mmHg (35-45); ARTERIAL BLOOD PH 7.28 (7.35-7.45); ARTERIAL BLOOD PO2 85.3 mmHg (80-100); ARTERIAL BLOOD TOTAL CO2 31.4 mmol/L (23-27)
[2020-05-31 06:25] LABS: ARTERIAL BLOOD FIO2 100%
[2020-05-31 06:26] LABS: HEMATOCRIT 34.5 % (37.9-51.0); HEMOGLOBIN 11.8 g/dL (13.5-17.0); MEAN CORPUSCULAR HEMOGLOBIN 30.7 pg (27.0-33.4); MEAN CORPUSCULAR HGB CONC 34.3 g/dL (32.0-36.0); MEAN CORPUSCULAR VOLUME 89 fl (80-97); PLATELET COUNT 166 10^3/uL (150-450); RED BLOOD COUNT 3.86 10^6/uL (4.35-5.55); RED CELL DISTRIBUTION WIDTH 13.8 % (11.5-14.0); WHITE BLOOD COUNT 14.6 10^3/uL (4.0-10.5)
[2020-05-31 06:28] LABS: APPEARANCE,URINE SLIGHTLY-CLOUDY; BILIRUBIN,URINE NEGATIVE (NEGATIVE); COLOR,URINE YELLOW; GLUCOSE, URINE 50 mg/dL (NEGATIVE); KETONES,URINE NEGATIVE (NEGATIVE); LEUKOCYTE ESTERASE,URINE NEGATIVE (NEGATIVE); NITRITE,URINE NEGATIVE (NEGATIVE); PROTEIN,URINE 30 mg/dL (NEGATIVE); URINE SPECIFIC GRAVITY 1.025; UROBILINOGEN,URINE NEGATIVE mg/dL (<2.0)
[2020-05-31] MEDS: HEPARIN SOD (PORCINE) 1,000 UNIT/ML 10 ML VIAL IV PRN ×2 (07:08→21:45)
[2020-05-31 09:29] LABS: ALBUMIN 2.4 g/dL (3.5-5.0); ALKALINE PHOSPHATASE 54 U/L (38-126); ASPARTATE AMINO TRANSFERASE 38 U/L (17-59); BILIRUBIN,DIRECT 0.4 mg/dL (0.0-0.4); BILIRUBIN,TOTAL 0.8 mg/dL (0.2-1.3); BLOOD UREA NITROGEN 40 mg/dL (7-20); CALCIUM 8.1 mg/dL (8.4-10.2); CHLORIDE 119 mmol/L (98-107); GLUCOSE 229 mg/dL (75-110); POTASSIUM 3.8 mmol/L (3.6-5.0); TOTAL PROTEIN 5.9 g/dL (6.3-8.2)
[2020-05-31 09:34] LABS: CARBON DIOXIDE 35 mmol/L (22-30)
[2020-05-31 09:35] LABS: ANION GAP 3 (5-19)
[2020-05-31] MEDS: CEFEPIME HCL 2 GM in DEXTROSE 5%-WATER 50 ML IV SCH (10:39)
[2020-05-31] MEDS: METHYLPREDNISOLONE INJ 40 MG/1 ML SDV IV SCH (10:40)
[2020-05-31] MEDS ORDERED: PROPOFOL 1,000 MG/100 ML INFUS..BTL IV PRN (11:07)
--- NOTE | 2020-05-31 11:07 | CRITICAL CARE ADMISSION REPORT ---
HPI Date:: 05/31/20 Time:: 10:00 Reason for ICU Reason:: Need for intubation Admission Date/Time & PCP: Admission Date/Time: 05/19/20 19:34 Primary Care Provider: JOSE FRANCISCO HURLEY DO HPI: FLORIN BOWIE is a 74 year old male with a history of hypertension, hepatic steatosis, and colon polyps who presents with diarrhea and abdominal pain. He said that he has had diarrhea for about 3 weeks. He said he has been having 1-3 episodes of diarrhea a day. He said it is mostly loose and watery. He has not been on any antibiotics in the past several months. He has not been around anyone he knows to be sick. He does not think that he has had a fever at home. He said he mostly just feels poorly. He is not been eating and drinking very much lately. He came to the ER a few days ago with the same complaints and s joe got tested for coronavirus, which he says came back positive. He has not had any cough or shortness of breath. He has not had any tachypnea. He has not been hypoxic. In the ER his saturations at rest are 90 to 92%, but that is when he is dozing. When he wakes up his saturations come up into the mid to upper 90s. I experienced this when I was in the room with him. He is a former smoker and has evidence of lung scarring on his chest imaging. 1 radiologist called it scarring on chest x-ray at another 1 called it groundglass opacities on chest CT. As previously noted, this patient is not hypoxic and not in any kind of respiratory distress, and has had no history of any respiratory complaints. He said they told him he did have a fever of 102 Fahrenheit, I have not confirm this yet. He has not had any recent changes in his medications. The only thing he takes at home is a combination triamterene/ HCTZ pill. He did not have a leukocytosis. His lipase was elevated at greater than 1700, and his sodium and potassium were both a bit low. He was noted to have gallstones on CT but his bilirubin and transaminases, as well as alkaline phosphatase, were normal. He is not an alcohol drinker. 05/31/20: Asked to see this patient by Lucila Lockhart. He is Covid positive with worsening mental status to the point where he is obtunded and mildly hypoxic on bipap. He is at risk for respiratory failure and arrest without intubation. Therefore he will be moved to the ICU for intubation. He also had diarrhea for a week before presentation which may have been a Covid harbinger. History obtained from:: Lucila Lockhart RN staff and record - Diagnosis/Plan (1) Acute encephalopathy Is this a current diagnosis for this admission?: Yes Plan: Right now he is obtunded. Not able to arouse him by voice or touch. Another reason for intubation. (2) Pneumonia due to 2019 novel coronavirus Is this a current diagnosis for this admission?: Yes Plan: At an age over 71 expect more severe symptoms up to and including arrest as his course thus far has been downward. (3) Hypernatremia Is this a current diagnosis for this admission?: Yes Plan: Level 157. This should be addressed with TPN. Plan Summary: Transfer to ICU for intubation. Past Medical History Cardiac Medical History: Reports: Hypertension Denies: Coronary Artery Disease, Myocardial Infarction Pulmonary Medical History: Denies: Asthma, Bronchitis, Chronic Obstructive Pulmonary Disease (COPD), Pneumonia Neurological Medical History: Denies: Seizures GI Medical History: Denies: Hepatitis Musculoskeltal Medical History: Reports: Arthritis Psychiatric Medical History: Denies: Depression Hematology: Denies: Anemia, Sickle Cell Disease Social/Family History - Social History Smoking Status: Former Smoker - Medication/Allergies Home Medications: Triamterene/Hydrochlorothiazid [Triamterene-Hctz 37.5-25 mg Tb] 1 each PO DAILY 03/27/19 Finasteride [Proscar 5 mg Tablet] 5 mg PO DAILY 05/20/20 Allergies/Adverse Reactions: No Known Allergies Allergy (Verified 03/27/19 09:40) Review of Systems ROS unobtainable: Due to mental status Physical Exam Vital Signs: Temp Pulse Resp BP Pulse Ox 99.8 F 122 H 33 H 136/72 H 98 05/31/20 03:23 05/31/20 07:39 05/31/20 07:39 05/31/20 03:23 05/31/20 07:39 Intake & Output 05/30/20 05/31/20 06/01/20 06:59 06:59 06:59 Intake Total 1751.2 2413 146 Output Total 825 1225 Balance 926.2 1188 146 Weight 79.1 kg 80.6 kg Weight/Height Weight 80.6 kg Height 5 ft 11 in General appearance: PRESENT: no acute distress Head exam: PRESENT: atraumatic, normocephalic Eye exam: PRESENT: conjunctiva pink, EOMI, PERRLA. ABSENT: scleral icterus Ear exam: PRESENT: normal external ear exam Mouth exam: PRESENT: moist, tongue midline Respiratory exam: PRESENT: clear to auscultation demi, decreased breath sounds. ABSENT: rales, rhonchi, wheezes Cardiovascular exam: PRESENT: RRR, tachycardia. ABSENT: diastolic murmur, rubs, systolic murmur GI/Abdominal exam: PRESENT: normal bowel sounds, soft. ABSENT: distended, guarding, mass, organolmegaly, rebound, tenderness Rectal exam: PRESENT: deferred Gentrourinary exam: PRESENT: indwelling catheter Extremities exam: PRESENT: full ROM. ABSENT: calf tenderness, clubbing, pedal edema Musculoskeletal exam: PRESENT: normal inspection Neurological exam: PRESENT: altered, other - He is obtunded. Skin exam: PRESENT: dry, intact, warm. ABSENT: cyanosis, rash Laboratory/Radiographs Laboratory Results: 05/31/20 06:01 05/31/20 08:45 05/30/20 05/30/20 05/30/20 11:51 12:15 18:04 WBC 18.3 H RBC 4.22 L Hgb 12.7 L Hct 36.9 L MCV 88 MCH 30.2 MCHC 34.4 RDW 13.3 Plt Count 197 Seg Neutrophils % Not Reportable Carbonic Acid 0.89 L HCO3/H2CO3 Ratio 26:1 ABG pH 7.53 H ABG pCO2 29.6 L ABG pO2 64.5 L ABG HCO3 24.0 ABG O2 Saturation 94.8 ABG Base Excess 2.3 FiO2 65% Sodium 155.8 H Potassium 3.1 L Chloride 120 H Carbon Dioxide 32 H Anion Gap 4 L BUN 40 H Creatinine 0.85 Est GFR ( Amer) > 60 Glucose 209 H Calcium 7.9 L Total Bilirubin AST Alkaline Phosphatase Total Protein Albumin Urine Color Urine Appearance Urine pH Ur Specific [place] Urine Protein Urine Glucose (UA) Urine Ketones Urine Blood Urine Nitrite Ur Leukocyte Esterase Urine WBC (Auto) Urine RBC (Auto) 05/31/20 05/31/20 05/31/20 00:54 06:01 06:01 WBC 14.6 H RBC 3.86 L Hgb 11.8 L Hct 34.5 L MCV 89 MCH 30.7 MCHC 34.3 RDW 13.8 Plt Count 166 Seg Neutrophils % Carbonic Acid 1.92 H HCO3/H2CO3 Ratio 15:1 ABG pH 7.28 L ABG pCO2 63.8 H ABG pO2 85.3 ABG HCO3 29.4 H ABG O2 Saturation 95.0 ABG Base Excess 0.9 FiO2 100% Sodium Potassium Chloride Carbon Dioxide Anion Gap BUN Creatinine Est GFR ( Amer) Glucose Calcium Total Bilirubin AST Alkaline Phosphatase Total Protein Albumin Urine Color YELLOW Urine Appearance SLIGHTLY-CLOUDY Urine pH 5.0 Ur Specific [place] 1.025 Urine Protein 30 H Urine Glucose (UA) 50 H Urine Ketones NEGATIVE Urine Blood MODERATE H Urine Nitrite NEGATIVE Ur Leukocyte Esterase NEGATIVE Urine WBC (Auto) 2 Urine RBC (Auto) 19 05/31/20 08:45 WBC RBC Hgb Hct MCV MCH MCHC RDW Plt Count Seg Neutrophils % Carbonic Acid HCO3/H2CO3 Ratio ABG pH ABG pCO2 ABG pO2 ABG HCO3 ABG O2 Saturation ABG Base Excess FiO2 Sodium 157.4 H Potassium 3.8 Chloride 119 H Carbon Dioxide 35 H Anion Gap 3 L BUN 40 H Creatinine 1.30 H Est GFR ( Amer) > 60 Glucose 229 H Calcium 8.1 L Total Bilirubin 0.8 AST 38 Alkaline Phosphatase 54 Total Protein 5.9 L Albumin 2.4 L Urine Color Urine Appearance Urine pH Ur Specific [place] Urine Protein Urine Glucose (UA) Urine Ketones Urine Blood Urine Nitrite Ur Leukocyte Esterase Urine WBC (Auto) Urine RBC (Auto) 05/28/20 19:33 Stool - Stool - Final 05/28/20 19:33 Stool - Stool Stool Culture - Final Yeast, Not Amanda Albicans 05/23/20 05/24/20 05/25/20 04:44 04:49 04:51 Creatine Kinase CK-MB (CK-2) Troponin I NT-Pro-B Natriuret Pep 757 H 883 H 253 H 05/27/20 05/29/20 05/29/20 04:41 04:15 04:15 Creatine Kinase 439 H CK-MB (CK-2) 3.21 Troponin I < 0.012 NT-Pro-B Natriuret Pep 307 H 05/30/20 04:13 Creatine Kinase CK-MB (CK-2) Troponin I NT-Pro-B Natriuret Pep 549 H Impressions: Abdomen/Pelvis CT 05/19/20 15:57 IMPRESSION: 1. Nonspecific mild fluid-filled small bowel loops could reflect a mild enteritis. No bowel obstruction. 2. No peripancreatic inflammation. 3. Cholelithiasis. 4. Hepatic steatosis. 5. Enlarged prostate gland. 6. Basilar ground-glass pulmonary opacities are not specific but can be seen with infectious and noninfectious processes, including COVID 19 infection. Correlate with exposure history. Chest X-Ray 05/28/20 07:00 IMPRESSION: STABLE APPEARANCE OF THE CHEST. Chest CT 05/29/20 00:00 IMPRESSION: Diffuse bilateral ground-glass opacities consistent with pulmonary edema or pneumonia. There is bibasilar consolidation either atelectasis or pneumonia. No effusions. Head CT 05/29/20 00:00 IMPRESSION: MILD CHRONIC CHANGES OF ATROPHY AND MICROVASCULAR ISCHEMIA. NO ACUTE PROCESS. EVIDENCE OF ACUTE STROKE: NO. PICC Line Insertion 05/30/20 00:00 IMPRESSION: SUCCESSFUL PLACEMENT OF A 5 FR DUAL LUMEN 35 CM PICC IN THE RIGHT BASILIC VEIN. All labs, radiographs, diagnostic studies and EKGs were personally reviewed: Yes In addition, reports of radiographic and diagnostic studies were read: Yes Critical Time Critical Time (minutes): 40 -: The care of a critically ill patient is dynamic. This note represents a static moment in the admission process. Orders and treatments may be given simultaneously and urgently, and time is not junior sales representative of the treatment process. This patient requires Critical Care secondary to life threatening organ or limb dysfunction. Without Critical Care services, the patient is at risk for increased mortality and morbidity.
[2020-05-31] MEDS ORDERED: PHARMACY COMMUNICATION ORDER MC NR (11:15)
[2020-05-31] MEDS: LEVOFLOXACIN 750 MG/D5W RTU 750 MG/150 ML RTUPB IV SCH (11:23)
[2020-05-31] MEDS: FINASTERIDE 5 MG TABLET PO SCH (11:53)
[2020-05-31] MEDS: ASCORBIC ACID 500 MG TABLET PO SCH ×2 (11:53→19:27)
[2020-05-31] MEDS ORDERED: ETOMIDATE INJ/PF 20 MG/10 ML SDV IV ONE ×2 (12:17→12:20)
[2020-05-31] MEDS ORDERED: FAMOTIDINE INJ/PF 20 MG/2 ML SDV IV SCH (12:30)
[2020-05-31] MEDS ORDERED: ACETAMINOPHEN 325 MG TABLET NG PRN (12:30)
[2020-05-31] MEDS: DEXMEDETOMIDINE IN 0.9 % NACL 400 MCG/100 ML RTUPB IV PRN ×2 (12:32→20:05)
[2020-05-31] MEDS ORDERED: DEXMEDETOMIDINE IN 0.9 % NACL 400 MCG/100 ML RTUPB IV ONE (12:32)
--- NOTE | 2020-05-31 12:32 | Operative Report ---
Bedside Procedure - History of Present Illness History of Present Illness: FLORIN BOWIE is a 74 year old male with a history of hypertension, hepatic steatosis, and colon polyps who presents with diarrhea and abdominal pain. He said that he has had diarrhea for about 3 weeks. He said he has been having 1-3 episodes of diarrhea a day. He said it is mostly loose and watery. He has not been on any antibiotics in the past several months. He has not been around anyone he knows to be sick. He does not think that he has had a fever at home. He said he mostly just feels poorly. He is not been eating and drinking very much lately. He came to the ER a few days ago with the same complaints and somehow got tested for coronavirus, which he says came back positive. He has not had any cough or shortness of breath. He has not had any tachypnea. He has not been hypoxic. In the ER his saturations at rest are 90 to 92%, but that is when he is dozing. When he wakes up his saturations come up into the mid to upper 90s. I experienced this when I was in the room with him. He is a former smoker and has evidence of lung scarring on his chest imaging. 1 radiologist called it scarring on chest x-ray at another 1 called it groundglass opacities on chest CT. As previously noted, this patient is not hypoxic and not in any kind of respiratory distress, and has had no history of any respiratory complaints. He said they told him he did have a fever of 102 Fahrenheit, I have not confirm this yet. He has not had any recent changes in his medications. The only thing he takes at home is a combination triamterene/ HCTZ pill. He did not have a leukocytosis. His lipase was elevated at greater than 1700, and his sodium and potassium were both a bit low. He was noted to have gallstones on CT but his bilirubin and transaminases, as well as alkaline phosphatase, were normal. He is not an alcohol drinker. 05/31/20: Asked to see this patient by Lucila Lockhart. He is Covid positive with worsening mental status to the point where he is obtunded and mildly hypoxic on bipap. He is at risk for respiratory failure and arrest without intubation. Therefore he will be moved to the ICU for intubation. He also had diarrhea for a week before presentation which may have been a Covid harbinger. Indication for Procedure: Airway protection Date: 05/31/20 Provider: JORDEN Bullock Orotracheal Time of Intubation: 12:00 Airway evaluation: Normal anatomy Mallampati Classification: Class 1 Medications: Etomidate Intubation method: Orotracheal Blade type: [place] Blade size: 4 Equipment used: Glidescope ETT size: 7.5 ETT secured at: Teeth ETT secured at (cm): 23 Post Intubation Xray: Yes Intubation Complications: No complications
[2020-05-31] MEDS ORDERED: RINGERS SOLUTION,LACTATED 1,000 ML IV PRN (12:37)
[2020-05-31] MEDS ORDERED: NOREPINEPHRINE BITARTRATE INJ/PF 4 MG/4 ML SDV IV ONE (13:47)
[2020-05-31] MEDS: DEXTROSE 5%-WATER 250 ML with NOREPINEPHRINE BITARTRATE 4 MG IV PRN ×4 (13:50→20:30)
--- NOTE | 2020-05-31 14:04 | RADIOLOGY REPORT (SQ) ---
EXAM DESCRIPTION: CHEST SINGLE VIEW IMAGES COMPLETED DATE/TIME: 05/31/2020 9:58 am REASON FOR STUDY: Check Placement of NG Tube/ET Tube COMPARISON: 05/28/2020 EXAM PARAMETERS: NUMBER OF VIEWS: 1 TECHNIQUE: Single frontal radiographic view of the chest acquired. RADIATION DOSE: NA LIMITATIONS: External leads partially obscure underlying structures. FINDINGS: LUNGS AND PLEURA: Bilateral hazy opacities are similar prior examination. No significant pleural effusion. No visualized pneumothorax. MEDIASTINUM AND HILAR STRUCTURES: Stable. HEART AND VASCULAR STRUCTURES: Stable. BONES: No acute findings. HARDWARE: Interval intubation with endotracheal tube tip projecting approximately 5.7 cm above the ca solitario. The esophagogastric tube tip projects over the mid to upper chest. Side port is noted above t he level of the thoracic inlet. Right upper extremity PICC line tip projecting over the SVC. OTHER: No other significant finding. IMPRESSION: 1. Esophagogastric tube tip projects over the mid to upper chest, just inferior to the endotracheal tube tip. 2. Endotracheal tube tip projects approximately 5.7 cm above the jessica. 3. No significant change in bilateral hazy opacities. TECHNICAL DOCUMENTATION: JOB ID: [id number] 2010 [employer] All Rights Reserved Reading location - IP/workstation name: [email or web address]
[2020-05-31] MEDS: NORMAL SALINE 10 ML SDV (SCHEDULED) IV SCH ×2 (17:02→22:26)
--- NOTE | 2020-05-31 18:31 | Progress Note ---
Provider Note Provider Note: Overnight events, vital signs, AM lab work, and nurse notes reviewed. Immediately contacted the hoist mechanic, Dr. Cardoza, who met me at bedside for patient evaluation. Patient was immediately accepted to the ICU service with plans for intubation. The patient's daughter, Prema Charles ([phone]), was contacted on patient's clinical change and plan of care. Please see Dr. Cardoza's Critical Care Admission note.
[2020-05-31] MEDS: HEPARIN SODIUM,PORCINE/D5W 25,000 UNIT/250 ML RTUINJ IV PRN (21:45)
[2020-05-31] MEDS: ACETAMINOPHEN 650 MG SUPP.RECT PR PRN (21:55)
[2020-06-01] MEDS ORDERED: CEFEPIME 2 GM/D5W RTU 2 GM/50 ML RTUPB IV ONE (00:04)
[2020-06-01] MEDS: CEFEPIME HCL 2 GM in DEXTROSE 5%-WATER 50 ML IV SCH ×3 (00:10→21:02)
[2020-06-01] MEDS: DEXTROSE 5%-1/2 NORMAL SALINE 1,000 ML IV PRN ×2 (00:10→10:30)
[2020-06-01] MEDS: ALBUTEROL SULFATE 0.083% NEB 2.5 MG/3 ML AMPUL NEB SCH ×7 (00:14→23:27)
[2020-06-01] MEDS: ACETAMINOPHEN 650 MG SUPP.RECT PR PRN ×2 (01:00→05:51)
[2020-06-01] MEDS: INSULIN REG, HUMAN 100 UNIT/ML 3 ML VIAL (PYX) SUBCUT SCH ×4 (01:15→17:49)
[2020-06-01] MEDS: METOPROLOL TARTRATE PF/INJ 5 MG/5 ML SDV IV SCH ×4 (02:28→17:44)
[2020-06-01] MEDS ORDERED: NOREPINEPHRINE BITARTRATE INJ/PF 4 MG/4 ML SDV IV ONE (02:47)
[2020-06-01] MEDS: DEXTROSE 5%-WATER 250 ML with NOREPINEPHRINE BITARTRATE 4 MG IV PRN ×4 (03:00→15:08)
--- NOTE | 2020-06-01 03:23 | RADIOLOGY REPORT (SQ) ---
Abdomen x-ray single view on 06/01/2020 at 2:40 AM CLINICAL INDICATION: NG tube placement COMPARISON: CT abdomen and pelvis from 05/19/2020 FINDINGS: Only the uppermost aspect of the abdomen is imaged on this exam. NG tube extends into the upper stomach in good position. Visualized bowel gas pattern is nonspecific. There is elevation of the right diaphragm. IMPRESSION: NG tube in good position in the upper stomach.
[2020-06-01] MEDS: DEXMEDETOMIDINE IN 0.9 % NACL 400 MCG/100 ML RTUPB IV PRN ×5 (03:47→16:45)
[2020-06-01 05:59] LABS: HEMATOCRIT 33.1 % (37.9-51.0); HEMOGLOBIN 11.2 g/dL (13.5-17.0); MEAN CORPUSCULAR HEMOGLOBIN 30.6 pg (27.0-33.4); MEAN CORPUSCULAR HGB CONC 33.8 g/dL (32.0-36.0); MEAN CORPUSCULAR VOLUME 91 fl (80-97); PLATELET COUNT 122 10^3/uL (150-450); RED BLOOD COUNT 3.66 10^6/uL (4.35-5.55); WHITE BLOOD COUNT 9.6 10^3/uL (4.0-10.5)
[2020-06-01 06:00] LABS: ARTERIAL BLOOD BASE EXCESS -1.7 mmol/L; ARTERIAL BLOOD FIO2 100%; ARTERIAL BLOOD H2CO3 1.23 mmol/L (1.05-1.35); ARTERIAL BLOOD HCO3 23.4 mmol/L (20-24); ARTERIAL BLOOD O2 SATURATION 97.2 % (94-98); ARTERIAL BLOOD PCO2 40.9 mmHg (35-45); ARTERIAL BLOOD PH 7.38 (7.35-7.45); ARTERIAL BLOOD PO2 96.4 mmHg (80-100); ARTERIAL BLOOD TOTAL CO2 24.6 mmol/L (23-27)
[2020-06-01 06:35] LABS: ABSOLUTE LYMPHOCYTES# (MANUAL) 0.2 10^3/uL (0.5-4.7); ABSOLUTE MONOCYTES # (MANUAL) 0.1 10^3/uL (0.1-1.4); BASOPHILS % (MANUAL) 0 % (0-2); EOSINOPHILS % (MANUAL) 0 % (0-6); LYMPHOCYTES % (MANUAL) 2 % (13-45); MONOCYTES % (MANUAL) 1 % (3-13); SEGMENTED NEUTROPHILS % (MAN) 97 % (42-78); TOTAL CELLS COUNTED 100
[2020-06-01 06:36] LABS: ANISOCYTOSIS SLIGHT; OVALOCYTES SLIGHT; PLATELET COMMENT ADEQUATE; POIKILOCYTOSIS SLIGHT; TEAR DROP CELLS SLIGHT
[2020-06-01 07:12] LABS: ALBUMIN 2.3 g/dL (3.5-5.0); ALKALINE PHOSPHATASE 53 U/L (38-126); ANION GAP 6 (5-19); ASPARTATE AMINO TRANSFERASE 34 U/L (17-59); BILIRUBIN,DIRECT 0.3 mg/dL (0.0-0.4); BILIRUBIN,TOTAL 0.6 mg/dL (0.2-1.3); BLOOD UREA NITROGEN 52 mg/dL (7-20); CALCIUM 7.9 mg/dL (8.4-10.2); CARBON DIOXIDE 26 mmol/L (22-30); CHLORIDE 121 mmol/L (98-107); GLUCOSE 317 mg/dL (75-110); PHOSPHORUS 3.5 mg/dL (2.5-4.5); POTASSIUM 3.7 mmol/L (3.6-5.0); TOTAL PROTEIN 5.7 g/dL (6.3-8.2)
[2020-06-01 07:19] LABS: PREALBUMIN 9.6 mg/dL (17.6-36.0)
--- NOTE | 2020-06-01 08:14 | RADIOLOGY REPORT (SQ) ---
EXAM DESCRIPTION: CHEST SINGLE VIEW IMAGES COMPLETED DATE/TIME: 06/01/2020 6:43 am REASON FOR STUDY: resp failure; f/u pneumonia COMPARISON: Previous day NUMBER OF VIEWS: One view. TECHNIQUE: Single frontal radiographic image of the chest acquired. LIMITATIONS: None. FINDINGS: LUNGS AND PLEURA: Stable appearance. MEDIASTINUM AND HEART: Stable heart size and mediastinal structures. SUPPORT DEVICES: Appropriate location without change. BONY STRUCTURES: No acute findings. HARDWARE: None. OTHER: No other significant finding. IMPRESSION: STABLE APPEARANCE OF THE CHEST. SUPPORT DEVICES UNCHANGED. Reading location - IP/workstation name: [email or web address]
[2020-06-01] MEDS: FENTANYL CITRATE/PF 600 MCG/60 ML BAG IV PRN ×5 (08:27→20:10)
[2020-06-01] MEDS ORDERED: ENOXAPARIN SODIUM INJ 40 MG/0.4 ML DISP.SYRIN SUBCUT SCH (10:00)
[2020-06-01] MEDS: LEVOFLOXACIN 750 MG/D5W RTU 750 MG/150 ML RTUPB IV SCH (10:32)
[2020-06-01] MEDS: ASCORBIC ACID 500 MG TABLET PO SCH ×2 (10:32→17:51)
[2020-06-01] MEDS: METHYLPREDNISOLONE INJ 40 MG/1 ML SDV IV SCH (10:32)
[2020-06-01] MEDS: NORMAL SALINE 10 ML SDV (SCHEDULED) IV SCH ×2 (10:33→21:02)
--- NOTE | 2020-06-01 14:01 | PDOC CRITICAL CARE PROG REPORT ---
General Date:: 06/01/20 ICU Day:: 2 Ventilator Day:: 2 Hospital Day:: 13 Resuscitation Status: Full Code Events in the past 12 to 24 Hours:: Brought to ICU and intubated for worsening mental status Review of systems relevant to events:: Neurological, pulmonary. Reason for ICU Addmission:: Need for intubation - Medications: Medications reviewed and adjusted accordingly: Yes Vasopressors:: Levophed. Sedation:: Precedex. Physical Exam Vital Signs: Temp Pulse Resp BP Pulse Ox 101.0 F H 92 15 100/49 L 99 06/01/20 12:00 06/01/20 12:00 06/01/20 12:00 06/01/20 12:00 06/01/20 12:00 Intake & Output 05/31/20 06/01/20 06/02/20 06:59 06:59 06:59 Intake Total 2413 2282 138 Output Total 1225 1320 150 Balance 1188 962 -12 Weight 80.6 kg 80.7 kg Weight/Height Weight 80.7 kg Height 5 ft 11 in General appearance: PRESENT: no acute distress Head exam: PRESENT: atraumatic, normocephalic Eye exam: PRESENT: conjunctiva pink, EOMI, PERRLA. ABSENT: scleral icterus Ear exam: PRESENT: normal external ear exam Mouth exam: PRESENT: moist, tongue midline Respiratory exam: PRESENT: clear to auscultation demi. ABSENT: rales, rhonchi, wheezes Cardiovascular exam: PRESENT: RRR. ABSENT: diastolic murmur, rubs, systolic murmur GI/Abdominal exam: PRESENT: normal bowel sounds, soft. ABSENT: distended, guarding, mass, organolmegaly, rebound, tenderness Rectal exam: PRESENT: deferred Gentrourinary exam: PRESENT: indwelling catheter Extremities exam: PRESENT: full ROM. ABSENT: calf tenderness, clubbing, pedal edema Musculoskeletal exam: PRESENT: normal inspection Neurological exam: PRESENT: other - Very sedated. Skin exam: PRESENT: dry, intact, warm. ABSENT: cyanosis, rash Tubes/Lines: PRESENT: Endotracheal Tube, Nasogastic Tube Laboratory/Radiographs Laboratory Results: 06/01/20 04:15 06/01/20 04:15 06/01/20 06/01/20 06/01/20 04:15 04:15 04:15 WBC 9.6 RBC 3.66 L Hgb 11.2 L Hct 33.1 L MCV 91 MCH 30.6 MCHC 33.8 RDW 14.0 Plt Count 122 L Seg Neutrophils % Not Reportable Carbonic Acid 1.23 HCO3/H2CO3 Ratio 19:1 ABG pH 7.38 ABG pCO2 40.9 ABG pO2 96.4 ABG HCO3 23.4 ABG O2 Saturation 97.2 ABG Base Excess -1.7 FiO2 100% Sodium 153.4 H Potassium 3.7 Chloride 121 H Carbon Dioxide 26 Anion Gap 6 BUN 52 H Creatinine 1.57 H Est GFR ( Amer) 53 L Glucose 317 H Calcium 7.9 L Phosphorus 3.5 Total Bilirubin 0.6 AST 34 Alkaline Phosphatase 53 Total Protein 5.7 L Albumin 2.3 L Prealbumin 9.6 L 05/28/20 19:33 Stool - Stool - Final 05/28/20 19:33 Stool - Stool Stool Culture - Final Yeast, Not Amanda Albicans 05/23/20 05/24/20 05/25/20 04:44 04:49 04:51 Creatine Kinase CK-MB (CK-2) Troponin I NT-Pro-B Natriuret Pep 757 H 883 H 253 H 05/27/20 05/29/20 05/29/20 04:41 04:15 04:15 Creatine Kinase 439 H CK-MB (CK-2) 3.21 Troponin I < 0.012 NT-Pro-B Natriuret Pep 307 H 05/30/20 04:13 Creatine Kinase CK-MB (CK-2) Troponin I NT-Pro-B Natriuret Pep 549 H Impressions: Abdomen/Pelvis CT 05/19/20 15:57 IMPRESSION: 1. Nonspecific mild fluid-filled small bowel loops could reflect a mild enteritis. No bowel obstruction. 2. No peripancreatic inflammation. 3. Cholelithiasis. 4. Hepatic steatosis. 5. Enlarged prostate gland. 6. Basilar ground-glass pulmonary opacities are not specific but can be seen with infectious and noninfectious processes, including COVID 19 infection. Correlate with exposure history. Chest CT 05/29/20 00:00 IMPRESSION: Diffuse bilateral ground-glass opacities consistent with pulmonary edema or pneumonia. There is bibasilar consolidation either atelectasis or pneumonia. No effusions. Head CT 05/29/20 00:00 IMPRESSION: MILD CHRONIC CHANGES OF ATROPHY AND MICROVASCULAR ISCHEMIA. NO ACUTE PROCESS. EVIDENCE OF ACUTE STROKE: NO. PICC Line Insertion 05/30/20 00:00 IMPRESSION: SUCCESSFUL PLACEMENT OF A 5 FR DUAL LUMEN 35 CM PICC IN THE RIGHT BASILIC VEIN. KUB X-Ray 06/01/20 00:00 IMPRESSION: NG tube in good position in the upper stomach. Chest X-Ray 06/01/20 06:00 IMPRESSION: STABLE APPEARANCE OF THE CHEST. SUPPORT DEVICES UNCHANGED. All labs, radiographs, diagnostic studies and EKGs were personally reviewed: Yes In addition, reports of radiographic and diagnostic studies were read: Yes Assessment and Plan - Diagnosis (1) Pneumonia due to 2019 novel coronavirus Is this a current diagnosis for this admission?: Yes Plan: The cause of his pulmonary problem and likely the cause of his obtundation which would make this an acute encephalopathy. (2) Acute encephalopathy Is this a current diagnosis for this admission?: Yes Plan: Right now he is sedated on the ventilator. Lighten up sedation some. (3) Hypernatremia Is this a current diagnosis for this admission?: Yes Plan: Coming down slowly to 153. Plan Summary: Too soon to wean vent. Continue tube feeds as I feel this will be a prolonged vent course Critical Time Critical Time (minutes): 35 Level of Care: ICU Anticipated discharge: SNF Anticipated DC Timeframe: Other -: 1. The care of a critical patient is a dynamic process. This note is a artist's representative synopsis but static in nature. The timeframe for treatments given in order is not necessarily the actual time these treatments may have been done. 2. This patient requires critical care secondary to ongoing requirements for therapy not offered or safe outside the critical care environment. Transfer to a lower level of care will result in altered life or limb morbidity and mortality. 3. Multidisciplinary rounds completed. 4. ABCDE bundle addressed.
[2020-06-01 16:41] LABS: ARTERIAL BLOOD BASE EXCESS -1.2 mmol/L; ARTERIAL BLOOD FIO2 80%; ARTERIAL BLOOD H2CO3 2.01 mmol/L (1.05-1.35); ARTERIAL BLOOD HCO3 27.5 mmol/L (20-24); ARTERIAL BLOOD O2 SATURATION 97.2 % (94-98); ARTERIAL BLOOD PCO2 66.8 mmHg (35-45); ARTERIAL BLOOD PH 7.23 (7.35-7.45); ARTERIAL BLOOD TOTAL CO2 29.6 mmol/L (23-27)
[2020-06-01 19:18] LABS: ARTERIAL BLOOD BASE EXCESS -3.8 mmol/L; ARTERIAL BLOOD H2CO3 1.88 mmol/L (1.05-1.35); ARTERIAL BLOOD HCO3 24.8 mmol/L (20-24); ARTERIAL BLOOD O2 SATURATION 97.5 % (94-98); ARTERIAL BLOOD PCO2 62.4 mmHg (35-45); ARTERIAL BLOOD PH 7.22 (7.35-7.45); ARTERIAL BLOOD TOTAL CO2 26.7 mmol/L (23-27)
[2020-06-01 19:23] LABS: ARTERIAL BLOOD FIO2 85%
[2020-06-01] MEDS ORDERED: DEXTROSE 5%-WATER 1000 ML 500 ML IV PRN (20:04)
--- NOTE | 2020-06-01 20:43 | Progress Note ---
Provider Note Provider Note: ICU Interim Evaluation Note: Mr Charles is known to ICU service-see HPI in daily critical care progress note. Reason for follow-up evaluation: Worsening EULOGIO I performed [id number] ultrasound to assess global cardiac function and volume status. My findings are that there is no significant wall motion abnormalities identified. However, there is the presence of hypovolemia given bilateral respirophasic ventricular changes as well as approximately 90% change in diameter of the IVC with changes in intrathoracic pressure. His free water deficit for a goal serum Na+ of 140 is 4.9 liters. ABG 7.22/62/119/25 base deficit 3.8 SPO2 98% on 85% FiO2 Assessment: Hypernatremia Hyperchloremia EULOGIO Hypovolemia Acute respiratory failure with hypoxia and hypercapnia Respiratory as well as metabolic acidosis Plan: -Avoid chloride containing solutions as able to avoid worsening metabolic acidosis. -D5W infusion at 50 mL/hr for a total of 500 mL. -Start enteral free water infusion at 100 mL/hr. -Repeat BMP in AM as well as 4pm on 06/02/20 to monitor too rapid of Na+ correction as well as renal function. -I anticipate needing to increase insulin coverage. -Increase RR to 18, decrease FiO2 to 75% and continue to wean for SPO2 > or = 92% -Will monitor need to increase Peep to 8 depending on FiO2 wean overnight -AM ABG Total critical care time spent was 45 minutes assessing patient, reviewing lab work and chest x-ray, ventilator management, performing [id number] ultrasound, and developing plan of care.
[2020-06-01] MEDS: HEPARIN SODIUM,PORCINE/D5W 25,000 UNIT/250 ML RTUINJ IV PRN (22:46)
[2020-06-02] MEDS: FENTANYL CITRATE/PF 600 MCG/60 ML BAG IV PRN ×7 (00:25→22:25)
[2020-06-02] MEDS: DEXTROSE 5%-WATER 250 ML with NOREPINEPHRINE BITARTRATE 4 MG IV PRN ×6 (01:30→17:35)
[2020-06-02] MEDS: METOPROLOL TARTRATE PF/INJ 5 MG/5 ML SDV IV SCH ×5 (01:33→23:55)
[2020-06-02] MEDS: INSULIN REG, HUMAN 100 UNIT/ML 3 ML VIAL (PYX) SUBCUT SCH ×5 (01:33→23:52)
[2020-06-02] MEDS: ALBUTEROL SULFATE 0.083% NEB 2.5 MG/3 ML AMPUL NEB SCH ×6 (03:47→23:55)
[2020-06-02 04:20] LABS: HEMATOCRIT 30.5 % (37.9-51.0); HEMOGLOBIN 10.4 g/dL (13.5-17.0); MEAN CORPUSCULAR HGB CONC 34.2 g/dL (32.0-36.0); MEAN CORPUSCULAR VOLUME 90 fl (80-97); PLATELET COUNT 123 10^3/uL (150-450); RED BLOOD COUNT 3.37 10^6/uL (4.35-5.55); RED CELL DISTRIBUTION WIDTH 13.8 % (11.5-14.0); WHITE BLOOD COUNT 16.1 10^3/uL (4.0-10.5)
[2020-06-02 04:29] LABS: ARTERIAL BLOOD BASE EXCESS -1.8 mmol/L; ARTERIAL BLOOD HCO3 26.1 mmol/L (20-24); ARTERIAL BLOOD O2 SATURATION 95.2 % (94-98); ARTERIAL BLOOD PCO2 59.7 mmHg (35-45); ARTERIAL BLOOD PH 7.26 (7.35-7.45); ARTERIAL BLOOD PO2 88.1 mmHg (80-100); ARTERIAL BLOOD TOTAL CO2 27.9 mmol/L (23-27)
[2020-06-02 04:30] LABS: ARTERIAL BLOOD FIO2 70%
[2020-06-02 04:45] LABS: ABSOLUTE LYMPHOCYTES# (MANUAL) 0.6 10^3/uL (0.5-4.7); ABSOLUTE MONOCYTES # (MANUAL) 0.3 10^3/uL (0.1-1.4); BASOPHILS % (MANUAL) 0 % (0-2); EOSINOPHILS % (MANUAL) 0 % (0-6); LYMPHOCYTES % (MANUAL) 4 % (13-45); MONOCYTES % (MANUAL) 2 % (3-13); SEGMENTED NEUTROPHILS % (MAN) 94 % (42-78); TOTAL CELLS COUNTED 100
[2020-06-02 04:46] LABS: PLATELET COMMENT DECREASED
[2020-06-02 04:48] LABS: BURR CELLS SLIGHT
[2020-06-02 04:49] LABS: OVALOCYTES SLIGHT
[2020-06-02 05:04] LABS: BLOOD UREA NITROGEN 52 mg/dL (7-20); CALCIUM 7.8 mg/dL (8.4-10.2); GLUCOSE 280 mg/dL (75-110); POTASSIUM 4.2 mmol/L (3.6-5.0)
[2020-06-02 05:15] LABS: ANION GAP 4 (5-19); CARBON DIOXIDE 28 mmol/L (22-30); CHLORIDE 119 mmol/L (98-107)
[2020-06-02] MEDS: NORMAL SALINE 10 ML SDV (SCHEDULED) IV SCH ×2 (10:10→21:14)
[2020-06-02] MEDS: ASCORBIC ACID 500 MG TABLET PO SCH ×2 (10:10→18:02)
[2020-06-02] MEDS: CEFEPIME HCL 2 GM in DEXTROSE 5%-WATER 50 ML IV SCH ×2 (10:10→21:15)
[2020-06-02] MEDS: METHYLPREDNISOLONE INJ 40 MG/1 ML SDV IV SCH ×2 (10:10→21:14)
[2020-06-02] MEDS: LEVOFLOXACIN 750 MG/D5W RTU 750 MG/150 ML RTUPB IV SCH (10:10)
--- NOTE | 2020-06-02 10:34 | PDOC CRITICAL CARE PROG REPORT ---
General Date:: 06/02/20 ICU Day:: 2 Ventilator Day:: 2 Hospital Day:: 14 Resuscitation Status: Full Code Events in the past 12 to 24 Hours:: Brought to ICU and intubated for worsening mental status\ 06/02/20: Still needing vent. Na and kidney function slightly better. Review of systems relevant to events:: Pulmonary Reason for ICU Addmission:: Need for intubation - Medications: Medications reviewed and adjusted accordingly: Yes Vasopressors:: Levophed Sedation:: Precedex, fentanyl. Physical Exam Vital Signs: Temp Pulse Resp BP Pulse Ox 98.2 F 93 18 93/55 L 92 06/02/20 09:09 06/02/20 08:24 06/02/20 08:24 06/02/20 08:00 06/02/20 08:24 Intake & Output 06/01/20 06/02/20 06/03/20 06:59 06:59 06:59 Intake Total 2282 4301 638 Output Total 1320 2325 275 Balance 962 1976 363 Weight 80.7 kg 85.4 kg Weight/Height Weight 85.4 kg Height 5 ft 11 in General appearance: PRESENT: no acute distress Head exam: PRESENT: atraumatic, normocephalic Eye exam: PRESENT: conjunctiva pink, EOMI, PERRLA. ABSENT: scleral icterus Ear exam: PRESENT: normal external ear exam Mouth exam: PRESENT: moist, tongue midline Respiratory exam: PRESENT: clear to auscultation demi. ABSENT: rales, rhonchi, wheezes Cardiovascular exam: PRESENT: RRR. ABSENT: diastolic murmur, rubs, systolic murmur GI/Abdominal exam: PRESENT: normal bowel sounds, soft. ABSENT: distended, guarding, mass, organolmegaly, rebound, tenderness Rectal exam: PRESENT: deferred Gentrourinary exam: PRESENT: indwelling catheter Extremities exam: PRESENT: full ROM. ABSENT: calf tenderness, clubbing, pedal edema Musculoskeletal exam: PRESENT: normal inspection Neurological exam: PRESENT: altered, other - Sedated. Skin exam: PRESENT: dry, intact, warm. ABSENT: cyanosis, rash Tubes/Lines: PRESENT: Endotracheal Tube, Nasogastic Tube Laboratory/Radiographs Laboratory Results: 06/02/20 03:30 06/02/20 03:30 06/01/20 06/01/20 06/02/20 16:02 18:57 03:30 WBC RBC Hgb Hct MCV MCH MCHC RDW Plt Count Seg Neutrophils % Carbonic Acid 2.01 H 1.88 H HCO3/H2CO3 Ratio 13:1 13:1 ABG pH 7.23 L 7.22 L ABG pCO2 66.8 H 62.4 H ABG pO2 113.0 H 119.0 H ABG HCO3 27.5 H 24.8 H ABG O2 Saturation 97.2 97.5 ABG Base Excess -1.2 -3.8 FiO2 80% 85% Sodium 151.0 H Potassium 4.2 Chloride 119 H Carbon Dioxide 28 Anion Gap 4 L BUN 52 H Creatinine 1.40 H Est GFR ( Amer) > 60 Glucose 280 H Calcium 7.8 L 06/02/20 06/02/20 03:30 03:30 WBC 16.1 H RBC 3.37 L Hgb 10.4 L Hct 30.5 L MCV 90 MCH 31.0 MCHC 34.2 RDW 13.8 Plt Count 123 L Seg Neutrophils % Not Reportable Carbonic Acid 1.80 H HCO3/H2CO3 Ratio 14:1 ABG pH 7.26 L ABG pCO2 59.7 H ABG pO2 88.1 ABG HCO3 26.1 H ABG O2 Saturation 95.2 ABG Base Excess -1.8 FiO2 70% Sodium Potassium Chloride Carbon Dioxide Anion Gap BUN Creatinine Est GFR ( Amer) Glucose Calcium 06/01/20 02:00 Tracheal Aspirate Gram Stain - Final 05/23/20 05/24/20 05/25/20 04:44 04:49 04:51 Creatine Kinase CK-MB (CK-2) Troponin I NT-Pro-B Natriuret Pep 757 H 883 H 253 H 05/27/20 05/29/20 05/29/20 04:41 04:15 04:15 Creatine Kinase 439 H CK-MB (CK-2) 3.21 Troponin I < 0.012 NT-Pro-B Natriuret Pep 307 H 05/30/20 04:13 Creatine Kinase CK-MB (CK-2) Troponin I NT-Pro-B Natriuret Pep 549 H Impressions: Abdomen/Pelvis CT 05/19/20 15:57 IMPRESSION: 1. Nonspecific mild fluid-filled small bowel loops could reflect a mild enteritis. No bowel obstruction. 2. No peripancreatic inflammation. 3. Cholelithiasis. 4. Hepatic steatosis. 5. Enlarged prostate gland. 6. Basilar ground-glass pulmonary opacities are not specific but can be seen with infectious and noninfectious processes, including COVID 19 infection. Correlate with exposure history. Chest CT 05/29/20 00:00 IMPRESSION: Diffuse bilateral ground-glass opacities consistent with pulmonary edema or pneumonia. There is bibasilar consolidation either atelectasis or pneumonia. No effusions. Head CT 05/29/20 00:00 IMPRESSION: MILD CHRONIC CHANGES OF ATROPHY AND MICROVASCULAR ISCHEMIA. NO ACUTE PROCESS. EVIDENCE OF ACUTE STROKE: NO. PICC Line Insertion 05/30/20 00:00 IMPRESSION: SUCCESSFUL PLACEMENT OF A 5 FR DUAL LUMEN 35 CM PICC IN THE RIGHT BASILIC VEIN. KUB X-Ray 06/01/20 00:00 IMPRESSION: NG tube in good position in the upper stomach. Chest X-Ray 06/01/20 06:00 IMPRESSION: STABLE APPEARANCE OF THE CHEST. SUPPORT DEVICES UNCHANGED. All labs, radiographs, diagnostic studies and EKGs were personally reviewed: Yes In addition, reports of radiographic and diagnostic studies were read: Yes Assessment and Plan - Diagnosis (1) Pneumonia due to 2019 novel coronavirus Is this a current diagnosis for this admission?: Yes Plan: High risk of mortality at his age. Will support as best we can with ventilator. (2) Acute encephalopathy Is this a current diagnosis for this admission?: Yes Plan: Impossible to tell with sedation. (3) Hypernatremia Is this a current diagnosis for this admission?: Yes Plan: Improved. Still getting D51/2 NS labs pending at 4P. Do not correct too fast. Plan Summary: I've spoken to daughter who is a nurse from [place]. She knows the severity and knows her father would not want long tern vent support. If he still needs it at 2 weeks, we will then assess his progress to continue or withdraw. Critical Time Critical Time (minutes): 35 Level of Care: ICU Anticipated discharge: SNF Anticipated DC Timeframe: Other -: 1. The care of a critical patient is a dynamic process. This note is a education courses sales representative synopsis but static in nature. The timeframe for treatments given in order is not necessarily the actual time these treatments may have been done. 2. This patient requires critical care secondary to ongoing requirements for therapy not offered or safe outside the critical care environment. Transfer to a lower level of care will result in altered life or limb morbidity and mortality. 3. Multidisciplinary rounds completed. 4. ABCDE bundle addressed.
[2020-06-02] MEDS ORDERED: DEXTROSE 5%-WATER 1000 ML 1,000 ML IV PRN (13:56)
[2020-06-02] MEDS: DEXMEDETOMIDINE IN 0.9 % NACL 400 MCG/100 ML RTUPB IV PRN ×2 (15:10→20:53)
[2020-06-02 15:58] LABS: BLOOD UREA NITROGEN 52 mg/dL (7-20); CALCIUM 7.6 mg/dL (8.4-10.2); CARBON DIOXIDE 29 mmol/L (22-30); CHLORIDE 109 mmol/L (98-107); GLUCOSE 320 mg/dL (75-110); POTASSIUM 4.3 mmol/L (3.6-5.0)
[2020-06-02 16:04] LABS: ANION GAP 2 (5-19)
[2020-06-02] MEDS ORDERED: 1/2 NORMAL SALINE 1,000 ML IV PRN (18:58)
[2020-06-03] MEDS: DEXTROSE 5%-WATER 250 ML with NOREPINEPHRINE BITARTRATE 4 MG IV PRN ×4 (00:20→10:00)
[2020-06-03] MEDS: HEPARIN SODIUM,PORCINE/D5W 25,000 UNIT/250 ML RTUINJ IV PRN ×2 (00:31→21:28)
[2020-06-03] MEDS: DEXMEDETOMIDINE IN 0.9 % NACL 400 MCG/100 ML RTUPB IV PRN ×6 (01:50→22:20)
[2020-06-03] MEDS: FENTANYL CITRATE/PF 600 MCG/60 ML BAG IV PRN ×7 (02:25→21:11)
[2020-06-03] MEDS: ALBUTEROL SULFATE 0.083% NEB 2.5 MG/3 ML AMPUL NEB SCH ×6 (04:10→23:39)
[2020-06-03 06:52] LABS: ARTERIAL BLOOD BASE EXCESS -2.4 mmol/L; ARTERIAL BLOOD H2CO3 1.77 mmol/L (1.05-1.35); ARTERIAL BLOOD HCO3 25.6 mmol/L (20-24); ARTERIAL BLOOD O2 SATURATION 85.8 % (94-98); ARTERIAL BLOOD PCO2 58.7 mmHg (35-45); ARTERIAL BLOOD PH 7.26 (7.35-7.45); ARTERIAL BLOOD PO2 58.7 mmHg (80-100); ARTERIAL BLOOD TOTAL CO2 27.4 mmol/L (23-27)
[2020-06-03 06:58] LABS: HEMOGLOBIN 9.8 g/dL (13.5-17.0); MEAN CORPUSCULAR HEMOGLOBIN 31.2 pg (27.0-33.4); MEAN CORPUSCULAR HGB CONC 35.1 g/dL (32.0-36.0); MEAN CORPUSCULAR VOLUME 89 fl (80-97); PLATELET COUNT 108 10^3/uL (150-450); RED BLOOD COUNT 3.15 10^6/uL (4.35-5.55); RED CELL DISTRIBUTION WIDTH 13.6 % (11.5-14.0); WHITE BLOOD COUNT 10.9 10^3/uL (4.0-10.5)
[2020-06-03 07:43] LABS: ABSOLUTE LYMPHOCYTES# (MANUAL) 0.1 10^3/uL (0.5-4.7); ABSOLUTE MONOCYTES # (MANUAL) 0.1 10^3/uL (0.1-1.4); BASOPHILS % (MANUAL) 0 % (0-2); EOSINOPHILS % (MANUAL) 0 % (0-6); LYMPHOCYTES % (MANUAL) 1 % (13-45); MONOCYTES % (MANUAL) 1 % (3-13); SEGMENTED NEUTROPHILS % (MAN) 98 % (42-78); TOTAL CELLS COUNTED 100
[2020-06-03 07:44] LABS: PLATELET CLUMPS PRESENT; PLATELET COMMENT DECREASED; RBC MORPHOLOGY COMMENT NORMO-CYTIC/CHROMIC
[2020-06-03] MEDS: INSULIN REG, HUMAN 100 UNIT/ML 3 ML VIAL (PYX) SUBCUT SCH ×4 (07:49→23:24)
[2020-06-03] MEDS: METOPROLOL TARTRATE PF/INJ 5 MG/5 ML SDV IV SCH ×4 (07:49→23:13)
[2020-06-03 08:11] LABS: BLOOD UREA NITROGEN 57 mg/dL (7-20); CALCIUM 7.7 mg/dL (8.4-10.2); GLUCOSE 264 mg/dL (75-110); POTASSIUM 4.5 mmol/L (3.6-5.0)
[2020-06-03 08:16] LABS: ANION GAP 6 (5-19); CARBON DIOXIDE 26 mmol/L (22-30); CHLORIDE 109 mmol/L (98-107)
[2020-06-03] MEDS ORDERED: FAT EMULSIONS 250 ML IV SCH (10:00)
[2020-06-03] MEDS: CEFEPIME HCL 2 GM in DEXTROSE 5%-WATER 50 ML IV SCH ×2 (10:30→21:10)
[2020-06-03] MEDS: ASCORBIC ACID 500 MG TABLET PO SCH ×2 (12:22→18:04)
[2020-06-03] MEDS: LEVOFLOXACIN 750 MG/D5W RTU 750 MG/150 ML RTUPB IV SCH (12:22)
[2020-06-03] MEDS: METHYLPREDNISOLONE INJ 40 MG/1 ML SDV IV SCH ×2 (12:26→21:10)
[2020-06-03] MEDS: NORMAL SALINE 10 ML SDV (SCHEDULED) IV SCH ×2 (12:26→21:11)
[2020-06-03] MEDS: PANTOPRAZOLE SODIUM 40 MG VIAL IV SCH (12:26)
[2020-06-03 12:53] LABS: ARTERIAL BLOOD BASE EXCESS -0.2 mmol/L; ARTERIAL BLOOD H2CO3 1.66 mmol/L (1.05-1.35); ARTERIAL BLOOD HCO3 26.7 mmol/L (20-24); ARTERIAL BLOOD O2 SATURATION 94.1 % (94-98); ARTERIAL BLOOD PCO2 55.1 mmHg (35-45); ARTERIAL BLOOD TOTAL CO2 28.4 mmol/L (23-27)
[2020-06-03 12:54] LABS: ARTERIAL BLOOD FIO2 65%
[2020-06-03] MEDS: SENNOSIDES/DOCUSATE 8.6-50 MG 1 EACH TABLET PO SCH ×2 (14:31→21:10)
--- NOTE | 2020-06-03 19:16 | PDOC CRITICAL CARE PROG REPORT ---
General Date:: 06/03/20 ICU Day:: 4 Ventilator Day:: 4 Hospital Day:: 16 Resuscitation Status: Full Code Events in the past 12 to 24 Hours:: This 74-year-old male was admitted on 05/19/2020 with diarrhea and ab dominal pain (over 3 weeks). He was admitted to the hospitalist. He was transferred to the ICU on 05/31/2019 and intubated for worsening mental status, suspected to be due to acute hypoxemic respiratory failure secondary to COVID-19 pneumonia. 06/02/20: Still needing vent. Na and kidney function slightly better. 06/03: remains intubated. shows minimal response to verbal stimuli. does not follow commands. On PRVC 18/450/55/8 for a.m ABG. on Precedex/fentanyl for sedation. on heparin. on norepinephine. Review of systems relevant to events:: Pulmonary Reason for ICU Addmission:: Need for intubation - Medications: Medications reviewed and adjusted accordingly: Yes Vasopressors:: Levophed Sedation:: Precedex/fentanyl Physical Exam Vital Signs: Temp Pulse Resp BP Pulse Ox 98.2 F 75 18 114/61 90 L 06/03/20 06:00 06/03/20 04:00 06/03/20 07:33 06/03/20 07:33 06/03/20 07:33 Intake & Output 06/02/20 06/03/20 06/04/20 06:59 06:59 06:59 Intake Total 4301 2399 900 Output Total 2325 2670 Balance 1975 - 900 Weight 85.4 kg 87.1 kg Weight/Height Weight 87.1 kg Height 1.8 m General appearance: PRESENT: no acute distress, well-developed, well-nourished Head exam: PRESENT: normocephalic, other - pressure sore on bridge of nose. Eye exam: PRESENT: conjunctiva pink. ABSENT: conjunctival injection, PERRLA - OD > OS (old), scleral icterus Neck exam: ABSENT: carotid bruit, JVD, lymphadenopathy, thyromegaly Respiratory exam: PRESENT: clear to auscultation demi, symmetrical. ABSENT: rales, rhonchi, wheezes Cardiovascular exam: PRESENT: RRR. ABSENT: rubs, systolic murmur, tachycardia GI/Abdominal exam: PRESENT: normal bowel sounds, soft. ABSENT: distended, guarding, mass, organolmegaly, rebound, tenderness Rectal exam: PRESENT: other - BM x3 over the past 24 hours. Gentrourinary exam: PRESENT: indwelling catheter Extremities exam: ABSENT: clubbing, joint swelling, pedal edema Neurological exam: PRESENT: altered, CN II-XII grossly intact. ABSENT: reflexes normal Tubes/Lines: PRESENT: Endotracheal Tube, Central Line - PICC Laboratory/Radiographs Laboratory Results: 06/03/20 06:20 06/02/20 06/03/20 06/03/20 15:09 06:20 06:20 WBC 10.9 H RBC 3.15 L Hgb 9.8 L Hct 28.0 L MCV 89 MCH 31.2 MCHC 35.1 RDW 13.6 Plt Count 108 L Seg Neutrophils % Not Reportable Carbonic Acid 1.77 H HCO3/H2CO3 Ratio 14:1 ABG pH 7.26 L ABG pCO2 58.7 H ABG pO2 58.7 L ABG HCO3 25.6 H ABG O2 Saturation 85.8 L ABG Base Excess -2.4 FiO2 55% Sodium 139.8 Potassium 4.3 Chloride 109 H Carbon Dioxide 29 Anion Gap 2 L BUN 52 H Creatinine 1.56 H Est GFR ( Amer) 53 L Glucose 320 H Calcium 7.6 L 06/01/20 02:00 Tracheal Aspirate Gram Stain - Final 06/01/20 02:00 Tracheal Aspirate Sputum Culture - Final Yeast, Not Amanda Albicans Normal Roberta Absent 05/23/20 05/24/20 05/25/20 04:44 04:49 04:51 Creatine Kinase CK-MB (CK-2) Troponin I NT-Pro-B Natriuret Pep 757 H 883 H 253 H 05/27/20 05/29/20 05/29/20 04:41 04:15 04:15 Creatine Kinase 439 H CK-MB (CK-2) 3.21 Troponin I < 0.012 NT-Pro-B Natriuret Pep 307 H 05/30/20 04:13 Creatine Kinase CK-MB (CK-2) Troponin I NT-Pro-B Natriuret Pep 549 H Impressions: Abdomen/Pelvis CT 05/19/20 15:57 IMPRESSION: 1. Nonspecific mild fluid-filled small bowel loops could reflect a mild enteritis. No bowel obstruction. 2. No peripancreatic inflammation. 3. Cholelithiasis. 4. Hepatic steatosis. 5. Enlarged prostate gland. 6. Basilar ground-glass pulmonary opacities are not specific but can be seen with infectious and noninfectious processes, including COVID 19 infection. Correlate with exposure history. Chest CT 05/29/20 00:00 IMPRESSION: Diffuse bilateral ground-glass opacities consistent with pulmonary edema or pneumonia. There is bibasilar consolidation either atelectasis or pneumonia. No effusions. Head CT 05/29/20 00:00 IMPRESSION: MILD CHRONIC CHANGES OF ATROPHY AND MICROVASCULAR ISCHEMIA. NO ACUTE PROCESS. EVIDENCE OF ACUTE STROKE: NO. PICC Line Insertion 05/30/20 00:00 IMPRESSION: SUCCESSFUL PLACEMENT OF A 5 FR DUAL LUMEN 35 CM PICC IN THE RIGHT BASILIC VEIN. KUB X-Ray 06/01/20 00:00 IMPRESSION: NG tube in good position in the upper stomach. Chest X-Ray 06/01/20 06:00 IMPRESSION: STABLE APPEARANCE OF THE CHEST. SUPPORT DEVICES UNCHANGED. All labs, radiographs, diagnostic studies and EKGs were personally reviewed: Yes In addition, reports of radiographic and diagnostic studies were read: Yes Assessment and Plan - Diagnosis (1) Acute respiratory failure with hypoxia and hypercapnia Is this a current diagnosis for this admission?: Yes Plan: * Vent settings titrated at the bedside today. * Titrate sedation for RASS -2. (2) Pneumonia due to 2019 novel coronavirus Is this a current diagnosis for this admission?: Yes Plan: * High risk of mortality at his age. Will support as best we can with ventilator. * Add vitamin C. * Add vitamin D. * Continue Solu-Medrol 80 mg IV every 12 hours. * Received ivermectin. (3) Acute respiratory failure with hypoxia Is this a current diagnosis for this admission?: Yes Plan: * Secondary to COVID-19 pneumonia. (4) Acute kidney injury Is this a current diagnosis for this admission?: Yes Plan: * Renal dosing of medications. * Avoid nephrotoxic drugs. * Monitor urine output. * Creatinine 1.68 today. (5) Thrombocytopenia Is this a current diagnosis for this admission?: Yes Plan: * Unknown etiology. Stable without a clear upward or downward trajectory. He presented with mild thrombocytopenia, which corrected during his hospitalization but has now recurred. (6) Diarrhea Qualifiers: Diarrhea type: unspecified type Qualified Code(s): R19.7 - Diarrhea, unspecified Is this a current diagnosis for this admission?: Yes (7) Stage III pressure ulcer Qualifiers: Pressure injury location: other site Qualified Code(s): L89.893 - Pressure ulcer of other site, stage 3 Is this a current diagnosis for this admission?: Yes Critical Time Critical Time (minutes): 45 Level of Care: ICU -: 1. The care of a critical patient is a dynamic process. This note is a compliance representative dealer synopsis but static in nature. The timeframe for treatments given in order is not necessarily the actual time these treatments may have been done. 2. This patient requires critical care secondary to ongoing requirements for therapy not offered or safe outside the critical care environment. Transfer to a lower level of care will result in altered life or limb morbidity and mortality. 3. Multidisciplinary rounds completed. 4. ABCDE bundle addressed.
[2020-06-03 21:36] LABS: ARTERIAL BLOOD BASE EXCESS -0.4 mmol/L; ARTERIAL BLOOD H2CO3 1.46 mmol/L (1.05-1.35); ARTERIAL BLOOD HCO3 25.6 mmol/L (20-24); ARTERIAL BLOOD O2 SATURATION 94.7 % (94-98); ARTERIAL BLOOD PCO2 48.6 mmHg (35-45); ARTERIAL BLOOD PH 7.34 (7.35-7.45); ARTERIAL BLOOD TOTAL CO2 27.1 mmol/L (23-27)
[2020-06-03 21:37] LABS: ARTERIAL BLOOD FIO2 65%
[2020-06-04] MEDS: FENTANYL CITRATE/PF 600 MCG/60 ML BAG IV PRN ×9 (00:25→23:50)
[2020-06-04] MEDS: DEXMEDETOMIDINE IN 0.9 % NACL 400 MCG/100 ML RTUPB IV PRN ×7 (03:15→23:50)
[2020-06-04 03:54] LABS: ARTERIAL BLOOD BASE EXCESS -2.1 mmol/L; ARTERIAL BLOOD FIO2 65%; ARTERIAL BLOOD H2CO3 1.35 mmol/L (1.05-1.35); ARTERIAL BLOOD HCO3 23.6 mmol/L (20-24); ARTERIAL BLOOD O2 SATURATION 89.6 % (94-98); ARTERIAL BLOOD PCO2 44.7 mmHg (35-45); ARTERIAL BLOOD PH 7.34 (7.35-7.45); ARTERIAL BLOOD PO2 60.3 mmHg (80-100); ARTERIAL BLOOD TOTAL CO2 24.9 mmol/L (23-27)
[2020-06-04] MEDS: ALBUTEROL SULFATE 0.083% NEB 2.5 MG/3 ML AMPUL NEB SCH ×5 (03:56→20:57)
[2020-06-04 04:20] LABS: HEMATOCRIT 24.4 % (37.9-51.0); HEMOGLOBIN 8.4 g/dL (13.5-17.0); MEAN CORPUSCULAR HEMOGLOBIN 30.8 pg (27.0-33.4); MEAN CORPUSCULAR HGB CONC 34.3 g/dL (32.0-36.0); MEAN CORPUSCULAR VOLUME 90 fl (80-97); RED BLOOD COUNT 2.73 10^6/uL (4.35-5.55); RED CELL DISTRIBUTION WIDTH 13.4 % (11.5-14.0); WHITE BLOOD COUNT 6.6 10^3/uL (4.0-10.5)
[2020-06-04 04:38] LABS: ABSOLUTE LYMPHOCYTES# (MANUAL) 0.3 10^3/uL (0.5-4.7); ABSOLUTE MONOCYTES # (MANUAL) 0.1 10^3/uL (0.1-1.4); BASOPHILS % (MANUAL) 0 % (0-2); EOSINOPHILS % (MANUAL) 0 % (0-6); LYMPHOCYTES % (MANUAL) 5 % (13-45); MONOCYTES % (MANUAL) 2 % (3-13); SEGMENTED NEUTROPHILS % (MAN) 93 % (42-78); TOTAL CELLS COUNTED 100
[2020-06-04 04:41] LABS: BLOOD UREA NITROGEN 63 mg/dL (7-20); CALCIUM 7.7 mg/dL (8.4-10.2); CARBON DIOXIDE 27 mmol/L (22-30); CHLORIDE 110 mmol/L (98-107); GLUCOSE 249 mg/dL (75-110); PHOSPHORUS 4.9 mg/dL (2.5-4.5); POTASSIUM 4.5 mmol/L (3.6-5.0)
[2020-06-04 04:42] LABS: TOXIC GRANULATION SLIGHT
[2020-06-04 04:43] LABS: OVALOCYTES SLIGHT; PLATELET COMMENT DECREASED; POIKILOCYTOSIS SLIGHT; SCHISTOCYTES SLIGHT
[2020-06-04 04:44] LABS: PLATELET COUNT 85 10^3/uL (150-450)
[2020-06-04 04:52] LABS: ANION GAP 3 (5-19)
[2020-06-04] MEDS: METOPROLOL TARTRATE PF/INJ 5 MG/5 ML SDV IV SCH ×3 (05:25→19:09)
[2020-06-04] MEDS: DEXTROSE 5%-WATER 250 ML with NOREPINEPHRINE BITARTRATE 4 MG IV PRN ×2 (06:06)
[2020-06-04] MEDS: INSULIN REG, HUMAN 100 UNIT/ML 3 ML VIAL (PYX) SUBCUT SCH ×4 (06:07→23:53)
[2020-06-04] MEDS: SENNOSIDES/DOCUSATE 8.6-50 MG 1 EACH TABLET PO SCH ×3 (06:07→22:02)
--- NOTE | 2020-06-04 08:23 | RADIOLOGY REPORT (SQ) ---
EXAM DESCRIPTION: CHEST SINGLE VIEW IMAGES COMPLETED DATE/TIME: 06/04/2020 7:15 am REASON FOR STUDY: ETT tube COMPARISON: 06/01/2020. EXAM PARAMETERS: NUMBER OF VIEWS: One view. TECHNIQUE: Single frontal radiographic view of the chest acquired. RADIATION DOSE: NA LIMITATIONS: None. FINDINGS: LUNGS AND PLEURA: Bilateral airspace disease. May be slightly worse versus change in tech nique. MEDIASTINUM AND HILAR STRUCTURES: No masses. Contour normal. HEART AND VASCULAR STRUCTURES: Heart normal in size. Normal vasculature. BONES: No acute findings. Degenerative changes in the spine. HARDWARE: Stable endotracheal tube, nasogastric tube, and PICC line. OTHER: No other significant finding. IMPRESSION: BILATERAL AIRSPACE DISEASE MAY BE SLIGHTLY WORSE. TECHNICAL DOCUMENTATION: JOB ID: [id number] 2010 [employer]- All Rights Reserved Reading location - IP/workstation name: [email or web address]
[2020-06-04] MEDS: CEFEPIME HCL 2 GM in DEXTROSE 5%-WATER 50 ML IV SCH ×2 (10:58→22:02)
[2020-06-04] MEDS: PANTOPRAZOLE SODIUM 40 MG VIAL IV SCH (11:01)
[2020-06-04] MEDS: NORMAL SALINE 10 ML SDV (SCHEDULED) IV SCH ×2 (11:01→21:52)
[2020-06-04] MEDS: ASCORBIC ACID 500 MG TABLET PO SCH ×2 (11:03→19:07)
[2020-06-04] MEDS: METHYLPREDNISOLONE INJ 40 MG/1 ML SDV IV SCH ×2 (11:07→22:02)
[2020-06-04] MEDS: LEVOFLOXACIN 750 MG/D5W RTU 750 MG/150 ML RTUPB IV SCH (11:10)
--- NOTE | 2020-06-04 16:44 | PDOC CRITICAL CARE PROG REPORT ---
General Date:: 06/04/20 ICU Day:: 5 Ventilator Day:: 5 Hospital Day:: 17 Resuscitation Status: Full Code Events in the past 12 to 24 Hours:: This 74-year-old male was admitted on 05/19/2020 with diarrhea and ab dominal pain (over 3 weeks). He was admitted to the hospitalist. He was transferred to the ICU on 05/31/2019 and intubated for worsening mental status, suspected to be due to acute hypoxemic respiratory failure secondary to COVID-19 pneumonia. 06/02/20: Still needing vent. Na and kidney function slightly better. 06/03: remains intubated. shows minimal response to verbal stimuli. does not follow commands. On PRVC 18/450/55/8 for a.m ABG. on Precedex/fentanyl for sedation. on heparin. on norepinephine. 06/04: remains intubated. on PRVC 20/500/65/8. clinically, no significant change. on Levophed @ 1. Platelets 85 today. Creatinine 1.68> 1.71. Review of systems relevant to events:: Pulmonary Reason for ICU Addmission:: Need for intubation - Medications: Medications reviewed and adjusted accordingly: Yes Vasopressors:: Levophed Sedation:: Precedex/fentanyl Physical Exam Vital Signs: Temp Pulse Resp BP Pulse Ox 98.8 F 78 20 94/53 L 98 06/04/20 08:00 06/04/20 08:00 06/04/20 08:00 06/04/20 08:00 06/04/20 08:00 Intake & Output 06/03/20 06/04/20 06/05/20 06:59 06:59 06:59 Intake Total 2399 2101 258 Output Total 2670 2230 Balance -271 -129 258 Weight 87.1 kg 88.2 kg Weight/Height Weight 88.2 kg Height 1.8 m General appearance: PRESENT: no acute distress, well-developed, well-nourished Head exam: PRESENT: normocephalic Eye exam: PRESENT: conjunctiva pink, EOMI, PERRLA. ABSENT: scleral icterus Neck exam: ABSENT: carotid bruit, JVD, lymphadenopathy, thyromegaly Respiratory exam: PRESENT: clear to auscultation demi. ABSENT: rales, rhonchi, wheezes Cardiovascular exam: PRESENT: RRR. ABSENT: diastolic murmur, rubs, systolic murmur Pulses: PRESENT: normal dorsalis pedis pul Extremities exam: PRESENT: full ROM. ABSENT: calf tenderness, clubbing, pedal edema Neurological exam: PRESENT: altered, CN II-XII grossly intact. ABSENT: reflexes normal Psychiatric exam: ABSENT: agitated, anxious Skin exam: PRESENT: other - pressure sore on bridge of nose Tubes/Lines: PRESENT: Endotracheal Tube, Other - Orogastric Laboratory/Radiographs Laboratory Results: 06/04/20 03:35 06/04/20 03:35 06/03/20 06/03/20 06/03/20 12:37 15:49 21:15 WBC RBC Hgb Hct MCV MCH MCHC RDW Plt Count Seg Neutrophils % Carbonic Acid 1.66 H 1.46 H HCO3/H2CO3 Ratio 16:1 17:1 ABG pH 7.30 L 7.34 L ABG pCO2 55.1 H 48.6 H ABG pO2 78.0 L 78.0 L ABG HCO3 26.7 H 25.6 H ABG O2 Saturation 94.1 94.7 ABG Base Excess -0.2 -0.4 FiO2 65% 65% Sodium Potassium Chloride Carbon Dioxide Anion Gap BUN Creatinine Est GFR ( Amer) Glucose Calcium Ionized Calcium Bradley Phosphorus Magnesium C-Reactive Protein 31.7 H 06/04/20 06/04/20 06/04/20 03:35 03:35 03:35 WBC 6.6 RBC 2.73 L Hgb 8.4 L Hct 24.4 L MCV 90 MCH 30.8 MCHC 34.3 RDW 13.4 Plt Count 85 L Seg Neutrophils % Not Reportable Carbonic Acid 1.35 HCO3/H2CO3 Ratio 17:1 ABG pH 7.34 L ABG pCO2 44.7 ABG pO2 60.3 L ABG HCO3 23.6 ABG O2 Saturation 89.6 L ABG Base Excess -2.1 FiO2 65% Sodium 140.1 Potassium 4.5 Chloride 110 H Carbon Dioxide 27 Anion Gap 3 L BUN 63 H Creatinine 1.71 H Est GFR ( Amer) 48 L Glucose 249 H Calcium 7.7 L Ionized Calcium Bradley 1.17 Phosphorus 4.9 H Magnesium 2.6 H C-Reactive Protein 05/29/20 12:45 Blood Blood Culture - Final NO GROWTH IN 5 DAYS 05/29/20 12:38 Blood Blood Culture - Final NO GROWTH IN 5 DAYS 05/23/20 05/24/20 05/25/20 04:44 04:49 04:51 Creatine Kinase CK-MB (CK-2) Troponin I NT-Pro-B Natriuret Pep 757 H 883 H 253 H 05/27/20 05/29/20 05/29/20 04:41 04:15 04:15 Creatine Kinase 439 H CK-MB (CK-2) 3.21 Troponin I < 0.012 NT-Pro-B Natriuret Pep 307 H 05/30/20 04:13 Creatine Kinase CK-MB (CK-2) Troponin I NT-Pro-B Natriuret Pep 549 H Impressions: Abdomen/Pelvis CT 05/19/20 15:57 IMPRESSION: 1. Nonspecific mild fluid-filled small bowel loops could reflect a mild enteritis. No bowel obstruction. 2. No peripancreatic inflammation. 3. Cholelithiasis. 4. Hepatic steatosis. 5. Enlarged prostate gland. 6. Basilar ground-glass pulmonary opacities are not specific but can be seen with infectious and noninfectious processes, including COVID 19 infection. Correlate with exposure history. Chest CT 05/29/20 00:00 IMPRESSION: Diffuse bilateral ground-glass opacities consistent with pulmonary edema or pneumonia. There is bibasilar consolidation either atelectasis or pneumonia. No effusions. Head CT 05/29/20 00:00 IMPRESSION: MILD CHRONIC CHANGES OF ATROPHY AND MICROVASCULAR ISCHEMIA. NO ACUTE PROCESS. EVIDENCE OF ACUTE STROKE: NO. PICC Line Insertion 05/30/20 00:00 IMPRESSION: SUCCESSFUL PLACEMENT OF A 5 FR DUAL LUMEN 35 CM PICC IN THE RIGHT B ASILIC VEIN. KUB X-Ray 06/01/20 00:00 IMPRESSION: NG tube in good position in the upper stomach. Chest X-Ray 06/04/20 05:00 IMPRESSION: BILATERAL AIRSPACE DISEASE MAY BE SLIGHTLY WORSE. All labs, radiographs, diagnostic studies and EKGs were personally reviewed: Yes In addition, reports of radiographic and diagnostic studies were read: Yes Assessment and Plan - Diagnosis (1) Acute respiratory failure with hypoxia and hypercapnia Is this a current diagnosis for this admission?: Yes Plan: * Not much room for significant change on ventilator today. * Check proBNP in a.m. * Titrate sedation for RASS -2. (2) Pneumonia due to 2019 novel coronavirus Is this a current diagnosis for this admission?: Yes Plan: * High risk of mortality at his age. Will support as best we can with ventilator. * 10 you vitamin C, vitamin D3, zinc sulfate. * Continue Solu-Medrol 80 mg IV every 12 hours. * Received ivermectin. (3) Acute kidney injury Is this a current diagnosis for this admission?: Yes Plan: * Renal dosing of medications. * Avoid nephrotoxic drugs. * Monitor urine output. * Creatinine slightly increased today. (4) Thrombocytopenia Is this a current diagnosis for this admission?: Yes Plan: * Unknown etiology. Stable without a clear upward or downward trajectory. He p resented with mild thrombocytopenia, which corrected during his hospitalization but has now recurred. * He is on heparin; however, he was thrombocytopenic prior to heparin exposure. * On aspirin of note of note, the patient's PO2 This does not rule out heparin- induced thrombocytopenia. We will repeat CBC in a.m. If he continues a downward trend, may need to discontinue heparin, investigate heparin-induced, cytopenia, and use an alternative (argatroban). (5) Diarrhea Qualifiers: Diarrhea type: unspecified type Qualified Code(s): R19.7 - Diarrhea, unspecified Is this a current diagnosis for this admission?: Yes (6) Stage III pressure ulcer Qualifiers: Pressure injury location: other site Qualified Code(s): L89.893 - Pressure ulcer of other site, stage 3 Is this a current diagnosis for this admission?: Yes (7) Acute respiratory failure with hypoxia Is this a current diagnosis for this admission?: Yes Critical Time Critical Time (minutes): 45 Level of Care: ICU -: 1. The care of a critical patient is a dynamic process. This note is a patient support representative synopsis but static in nature. The timeframe for treatments given in order is not necessarily the actual time these treatments may have been done. 2. This patient requires critical care secondary to ongoing requirements for therapy not offered or safe outside the critical care environment. Transfer to a lower level of care will result in altered life or limb morbidity and mortality. 3. Multidisciplinary rounds completed. 4. ABCDE bundle addressed.
[2020-06-04] MEDS: HEPARIN SODIUM,PORCINE/D5W 25,000 UNIT/250 ML RTUINJ IV PRN (21:15)
[2020-06-05] MEDS: ALBUTEROL SULFATE 0.083% NEB 2.5 MG/3 ML AMPUL NEB SCH ×7 (00:24→23:45)
[2020-06-05] MEDS: METOPROLOL TARTRATE PF/INJ 5 MG/5 ML SDV IV SCH ×4 (01:04→18:24)
[2020-06-05] MEDS: FENTANYL CITRATE/PF 600 MCG/60 ML BAG IV PRN ×8 (02:25→22:20)
[2020-06-05] MEDS: DEXMEDETOMIDINE IN 0.9 % NACL 400 MCG/100 ML RTUPB IV PRN ×8 (03:15→23:47)
[2020-06-05 04:33] LABS: ARTERIAL BLOOD BASE EXCESS -1.3 mmol/L; ARTERIAL BLOOD H2CO3 1.51 mmol/L (1.05-1.35); ARTERIAL BLOOD HCO3 25.1 mmol/L (20-24); ARTERIAL BLOOD O2 SATURATION 96.1 % (94-98); ARTERIAL BLOOD PH 7.32 (7.35-7.45); ARTERIAL BLOOD PO2 89.2 mmHg (80-100); ARTERIAL BLOOD TOTAL CO2 26.7 mmol/L (23-27)
[2020-06-05 04:39] LABS: ARTERIAL BLOOD FIO2 100%
[2020-06-05 05:05] LABS: HEMATOCRIT 22.4 % (37.9-51.0); MEAN CORPUSCULAR HEMOGLOBIN 30.9 pg (27.0-33.4); MEAN CORPUSCULAR HGB CONC 34.8 g/dL (32.0-36.0); MEAN CORPUSCULAR VOLUME 89 fl (80-97); RED BLOOD COUNT 2.53 10^6/uL (4.35-5.55); RED CELL DISTRIBUTION WIDTH 13.3 % (11.5-14.0); WHITE BLOOD COUNT 5.7 10^3/uL (4.0-10.5)
[2020-06-05 05:31] LABS: HEMOGLOBIN 7.8 g/dL (13.5-17.0)
[2020-06-05 05:32] LABS: PLATELET COUNT 82 10^3/uL (150-450)
[2020-06-05 06:21] LABS: BLOOD UREA NITROGEN 67 mg/dL (7-20); C-REACTIVE PROTEIN 11.7 mg/L (<10.0); CALCIUM 7.6 mg/dL (8.4-10.2); CARBON DIOXIDE 27 mmol/L (22-30); CHLORIDE 113 mmol/L (98-107); GLUCOSE 229 mg/dL (75-110); POTASSIUM 4.7 mmol/L (3.6-5.0)
[2020-06-05 06:27] LABS: ANION GAP 2 (5-19)
[2020-06-05] MEDS: INSULIN REG, HUMAN 100 UNIT/ML 3 ML VIAL (PYX) SUBCUT SCH ×3 (06:50→18:24)
[2020-06-05] MEDS: SENNOSIDES/DOCUSATE 8.6-50 MG 1 EACH TABLET PO SCH ×3 (06:50→21:50)
[2020-06-05] MEDS: CEFEPIME HCL 2 GM in DEXTROSE 5%-WATER 50 ML IV SCH (11:25)
[2020-06-05] MEDS: NORMAL SALINE 10 ML SDV (SCHEDULED) IV SCH ×2 (11:26→21:07)
[2020-06-05] MEDS: METHYLPREDNISOLONE INJ 40 MG/1 ML SDV IV SCH ×2 (11:26→21:50)
[2020-06-05] MEDS: ASCORBIC ACID 500 MG TABLET PO SCH ×2 (11:27→18:24)
[2020-06-05] MEDS: PANTOPRAZOLE SODIUM 40 MG VIAL IV SCH (11:27)
[2020-06-05] MEDS: ARGATROBAN 250 MG/NS 250 ML (NON-ESRD) IV PRN ×2 (11:49)
[2020-06-05] MEDS: LEVOFLOXACIN 750 MG/D5W RTU 750 MG/150 ML RTUPB IV SCH (11:54)
--- NOTE | 2020-06-05 19:02 | PDOC CRITICAL CARE PROG REPORT ---
General Date:: 06/05/20 ICU Day:: 6 Ventilator Day:: 6 Hospital Day:: 18 Resuscitation Status: Full Code Events in the past 12 to 24 Hours:: This 74-year-old male was admitted on 05/19/2020 with diarrhea and ab dominal pain (over 3 weeks). He was admitted to the hospitalist. He was transferred to the ICU on 05/31/2019 and intubated for worsening mental status, suspected to be due to acute hypoxemic respiratory failure secondary to COVID-19 pneumonia. 06/02/20: Still needing vent. Na and kidney function slightly better. 06/03: remains intubated. shows minimal response to verbal stimuli. does not follow commands. On PRVC 18/450/55/8 for a.m ABG. on Precedex/fentanyl for sedation. on heparin. on norepinephine. 06/04: remains intubated. on PRVC 20/500/65/8. clinically, no significant change. on Levophed @ 1. Platelets 85 today. Creatinine 1.68> 1.71. 06/05: Remains intubated. No significant change on the vent. ABG this mornin.32/50/89. On and off Levophed at 1 mcg/min. On fentanyl/Precedex for sedation. Creatinine 1.8. Review of systems relevant to events:: Pulmonary Reason for ICU Addmission:: Need for intubation - Medications: Medications reviewed and adjusted accordingly: Yes Vasopressors:: Levophed Sedation:: Precedex/fentanyl Physical Exam Vital Signs: Temp Pulse Resp BP Pulse Ox 98.8 F 85 22 H 97/54 L 96 06/05/20 10:00 06/05/20 08:40 06/05/20 10:20 06/05/20 10:20 06/05/20 10:20 Intake & Output 06/04/20 06/05/20 06/06/20 06:59 06:59 06:59 Intake Total 2100 1895 320 Output Total 3551994 505 Balance -129 -100 -185 Weight 88.2 kg 86.2 kg 86.2 kg Weight/Height Weight 86.2 kg Height 1.8 m Laboratory/Radiographs Laboratory Results: 06/05/20 04:35 06/05/20 04:35 06/05/20 06/05/20 06/05/20 03:55 04:35 04:35 WBC 5.7 RBC 2.53 L Hgb 7.8 L Hct 22.4 L MCV 89 MCH 30.9 MCHC 34.8 RDW 13.3 Plt Count 82 L Carbonic Acid 1.51 H HCO3/H2CO3 Ratio 16:1 ABG pH 7.32 L ABG pCO2 50.0 H ABG pO2 89.2 ABG HCO3 25.1 H ABG O2 Saturation 96.1 ABG Base Excess -1.3 FiO2 100% Sodium 142.2 Potassium 4.7 Chloride 113 H Carbon Dioxide 27 Anion Gap 2 L BUN 67 H Creatinine 1.78 H Est GFR ( Amer) 46 L Glucose 229 H Calcium 7.6 L Magnesium 2.7 H C-Reactive Protein 11.7 H 05/23/20 05/24/20 05/25/20 04:44 04:49 04:51 Creatine Kinase CK-MB (CK-2) Troponin I NT-Pro-B Natriuret Pep 757 H 883 H 253 H 05/27/20 05/29/20 05/29/20 04:41 04:15 04:15 Creatine Kinase 439 H CK-MB (CK-2) 3.21 Troponin I < 0.012 NT-Pro-B Natriuret Pep 307 H 05/30/20 04:13 Creatine Kinase CK-MB (CK-2) Troponin I NT-Pro-B Natriuret Pep 549 H Impressions: Abdomen/Pelvis CT 05/19/20 15:57 IMPRESSION: 1. Nonspecific mild fluid-filled small bowel loops could reflect a mild enteritis. No bowel obstruction. 2. No peripancreatic inflammation. 3. Cholelithiasis. 4. Hepatic steatosis. 5. Enlarged prostate gland. 6. Basilar ground-glass pulmonary opacities are not specific but can be seen with infectious and noninfectious processes, including COVID 19 infection. Correlate with exposure history. Chest CT 05/29/20 00:00 IMPRESSION: Diffuse bilateral ground-glass opacities consistent with pulmonary edema or pneumonia. There is bibasilar consolidation either atelectasis or pneumonia. No effusions. Head CT 05/29/20 00:00 IMPRESSION: MILD CHRONIC CHANGES OF ATROPHY AND MICROVASCULAR ISCHEMIA. NO ACUTE PROCESS. EVIDENCE OF ACUTE STROKE: NO. PICC Line Insertion 05/30/20 00:00 IMPRESSION: SUCCESSFUL PLACEMENT OF A 5 FR DUAL LUMEN 35 CM PICC IN THE RIGHT BASILIC VEIN. KUB X-Ray 06/01/20 00:00 IMPRESSION: NG tube in good position in the upper stomach. Chest X-Ray 06/04/20 05:00 IMPRESSION: BILATERAL AIRSPACE DISEASE MAY BE SLIGHTLY WORSE. Assessment and Plan - Diagnosis (1) Acute respiratory failure with hypoxia and hypercapnia Is this a current diagnosis for this admission?: Yes (2) Pneumonia due to 2019 novel coronavirus Is this a current diagnosis for this admission?: Yes (3) Acute kidney injury Is this a current diagnosis for this admission?: Yes (4) Thrombocytopenia Is this a current diagnosis for this admission?: Yes (5) Diarrhea Qualifiers: Diarrhea type: unspecified type Qualified Code(s): R19.7 - Diarrhea, unspecified Is this a current diagnosis for this admission?: Yes (6) Stage III pressure ulcer Qualifiers: Pressure injury location: other site Qualified Code(s): L89.893 - Pressure ulcer of other site, stage 3 Is this a current diagnosis for this admission?: Yes (7) Acute respiratory failure with hypoxia Is this a current diagnosis for this admission?: Yes Critical Time Critical Time (minutes): 45 Level of Care: ICU -: 1. The care of a critical patient is a dynamic process. This note is a small business sales representative synopsis but static in nature. The timeframe for treatments given in order is not necessarily the actual time these treatments may have been done. 2. This patient requires critical care secondary to ongoing requirements for therapy not offered or safe outside the critical care environment. Transfer to a lower level of care will result in altered life or limb morbidity and mortality. 3. Multidisciplinary rounds completed. 4. ABCDE bundle addressed.
[2020-06-06] MEDS: FENTANYL CITRATE/PF 600 MCG/60 ML BAG IV PRN ×8 (01:20→22:00)
[2020-06-06] MEDS: DEXMEDETOMIDINE IN 0.9 % NACL 400 MCG/100 ML RTUPB IV PRN ×8 (03:05→23:45)
[2020-06-06] MEDS: ALBUTEROL SULFATE 0.083% NEB 2.5 MG/3 ML AMPUL NEB SCH ×5 (04:15→20:43)
[2020-06-06] MEDS: METOPROLOL TARTRATE PF/INJ 5 MG/5 ML SDV IV SCH ×5 (04:29→23:09)
[2020-06-06] MEDS: INSULIN REG, HUMAN 100 UNIT/ML 3 ML VIAL (PYX) SUBCUT SCH ×5 (04:44→23:14)
[2020-06-06 04:55] LABS: HEMATOCRIT 22.2 % (37.9-51.0); MEAN CORPUSCULAR HEMOGLOBIN 30.4 pg (27.0-33.4); MEAN CORPUSCULAR HGB CONC 34.2 g/dL (32.0-36.0); MEAN CORPUSCULAR VOLUME 89 fl (80-97); RED CELL DISTRIBUTION WIDTH 13.9 % (11.5-14.0); WHITE BLOOD COUNT 5.9 10^3/uL (4.0-10.5)
[2020-06-06 05:08] LABS: HEMOGLOBIN 7.6 g/dL (13.5-17.0)
[2020-06-06 05:22] LABS: BLOOD UREA NITROGEN 69 mg/dL (7-20); CALCIUM 7.8 mg/dL (8.4-10.2); CARBON DIOXIDE 29 mmol/L (22-30); CHLORIDE 114 mmol/L (98-107); GLUCOSE 226 mg/dL (75-110); POTASSIUM 5.2 mmol/L (3.6-5.0)
[2020-06-06 05:24] LABS: ANION GAP 0 (5-19)
[2020-06-06] MEDS: SENNOSIDES/DOCUSATE 8.6-50 MG 1 EACH TABLET PO SCH ×3 (06:03→21:27)
[2020-06-06 06:06] LABS: PLATELET COUNT 94 10^3/uL (150-450)
[2020-06-06] MEDS: ARGATROBAN 250 MG/NS 250 ML (NON-ESRD) IV PRN ×2 (08:15)
[2020-06-06] MEDS: METHYLPREDNISOLONE INJ 40 MG/1 ML SDV IV SCH (09:08)
[2020-06-06] MEDS: ASCORBIC ACID 500 MG TABLET PO SCH ×2 (09:08→17:55)
[2020-06-06] MEDS: NORMAL SALINE 10 ML SDV (SCHEDULED) IV SCH ×2 (09:09→21:12)
[2020-06-06] MEDS: PANTOPRAZOLE SODIUM 40 MG VIAL IV SCH (09:09)
[2020-06-06] MEDS ORDERED: 1/2 NORMAL SALINE 1,000 ML IV PRN (09:14)
[2020-06-06] MEDS ORDERED: PROPOFOL 1,000 MG/100 ML INFUS..BTL IV PRN (12:42)
[2020-06-06] MEDS: POLYETHYLENE GLYCOL 3350 POWDER 17 GM/1 PACKET NG SCH (13:28)
[2020-06-06] MEDS: CHOLECALCIFEROL (D3) 1,000 UNIT (25 MCG) TABLET NG SCH (16:12)
[2020-06-06] MEDS: MINERAL OIL/PETROLATUM,WHITE OPH OINT 3.5 GM OU PRN (16:13)
--- NOTE | 2020-06-06 17:43 | PDOC CRITICAL CARE PROG REPORT ---
General Date:: 06/06/20 ICU Day:: 7 Ventilator Day:: 7 Hospital Day:: 19 Resuscitation Status: Full Code Events in the past 12 to 24 Hours:: This 74-year-old male was admitted on 05/19/2020 with diarrhea and ab dominal pain (over 3 weeks). He was admitted to the hospitalist. He was transferred to the ICU on 05/31/2019 and intubated for worsening mental status, suspected to be due to acute hypoxemic respiratory failure secondary to COVID-19 pneumonia. 06/02/20: Still needing vent. Na and kidney function slightly better. 06/03: remains intubated. shows minimal response to verbal stimuli. does not follow commands. On PRVC 18/450/55/8 for a.m ABG. on Precedex/fentanyl for sedation. on heparin. on norepinephine. 06/04: remains intubated. on PRVC 20/500/65/8. clinically, no significant change. on Levophed @ 1. Platelets 85 today. Creatinine 1.68> 1.71. 06/05: Remains intubated. No significant change on the vent. ABG this mornin.32/50/89. On and off Levophed at 1 mcg/min. On fentanyl/Precedex for sedation. Creatinine 1.8. 06/06: Remains intubated. On PRVC 20/500/65/8. FiO2 65% but SpO2 85-87% this a.m. On Precedex/fentanyl for sedation. Appears more active today. Squirms in the bed. Does not follow commands. Does not visually track. Changed from heparin to argatroban yesterday due to concerns about thrombocytopenia. Platelets 94 this morning, increasing. On TF. Review of systems relevant to events:: Pulmonary Reason for ICU Addmission:: Need for intubation - Medications: Medications reviewed and adjusted accordingly: Yes Vasopressors:: Levophed Sedation:: Precedex/fentanyl Physical Exam Vital Signs: Temp Pulse Resp BP Pulse Ox 98.8 F 95 20 104/63 93 06/06/20 08:00 06/06/20 08:00 06/06/20 08:00 06/06/20 08:00 06/06/20 08:00 Intake & Output 06/05/20 06/06/20 06/07/20 06:59 06:59 06:59 Intake Total 1895 1216 252 Output Total 1994 Balance -100 -794 -148 Weight 86.2 kg 89.8 kg Weight/Height Weight 89.8 kg Height 1.8 m General appearance: PRESENT: no acute distress, well-developed, well-nourished Head exam: PRESENT: atraumatic, normocephalic Eye exam: PRESENT: conjunctiva pink. ABSENT: EOMI, nystagmus, PERRLA - OD pupil defect. OS reactive. Mouth exam: PRESENT: moist, tongue midline Neck exam: ABSENT: carotid bruit, JVD, lymphadenopathy, thyromegaly Respiratory exam: PRESENT: clear to auscultation demi, symmetrical, tachypnea. ABSENT: rales, rhonchi, wheezes Cardiovascular exam: PRESENT: RRR, tachycardia. ABSENT: diastolic murmur, rubs, systolic murmur Pulses: PRESENT: normal dorsalis pedis pul GI/Abdominal exam: PRESENT: normal bowel sounds, soft. ABSENT: distended, guarding, mass, organolmegaly, rebound, tenderness Gentrourinary exam: PRESENT: indwelling catheter Extremities exam: PRESENT: full ROM. ABSENT: calf tenderness, clubbing, pedal edema Musculoskeletal exam: PRESENT: normal inspection. ABSENT: deformity Neurological exam: PRESENT: awake, reflexes normal, CN II-XII grossly intact. ABSENT: motor sensory deficit Psychiatric exam: PRESENT: anxious. ABSENT: agitated Skin exam: PRESENT: other - pressure sore on bridge of nose Laboratory/Radiographs Laboratory Results: 06/06/20 04:40 06/06/20 04:40 06/06/20 06/06/20 04:40 04:40 WBC 5.9 RBC 2.50 L Hgb 7.6 L Hct 22.2 L MCV 89 MCH 30.4 MCHC 34.2 RDW 13.9 Plt Count 94 L Sodium 142.5 Potassium 5.2 H Chloride 114 H Carbon Dioxide 29 Anion Gap 0 L BUN 69 H Creatinine 1.78 H Est GFR ( Amer) 46 L Glucose 226 H Calcium 7.8 L Magnesium 2.7 H 05/23/20 05/24/20 05/25/20 04:44 04:49 04:51 Creatine Kinase CK-MB (CK-2) Troponin I NT-Pro-B Natriuret Pep 757 H 883 H 253 H 05/27/20 05/29/20 05/29/20 04:41 04:15 04:15 Creatine Kinase 439 H CK-MB (CK-2) 3.21 Troponin I < 0.012 NT-Pro-B Natriuret Pep 307 H 05/30/20 04:13 Creatine Kinase CK-MB (CK-2) Troponin I NT-Pro-B Natriuret Pep 549 H Impressions: Abdomen/Pelvis CT 05/19/20 15:57 IMPRESSION: 1. Nonspecific mild fluid-filled small bowel loops could reflect a mild enteritis. No bowel obstruction. 2. No peripancreatic inflammation. 3. Cholelithiasis. 4. Hepatic steatosis. 5. Enlarged prostate gland. 6. Basilar ground-glass pulmonary opacities are not specific but can be seen with infectious and noninfectious processes, including COVID 19 infection. Correlate with exposure history. Chest CT 05/29/20 00:00 IMPRESSION: Diffuse bilateral ground-glass opacities consistent with pulmonary edema or pneumonia. There is bibasilar consolidation either atelectasis or pn eumonia. No effusions. Head CT 05/29/20 00:00 IMPRESSION: MILD CHRONIC CHANGES OF ATROPHY AND MICROVASCULAR ISCHEMIA. NO ACUTE PROCESS. EVIDENCE OF ACUTE STROKE: NO. PICC Line Insertion 05/30/20 00:00 IMPRESSION: SUCCESSFUL PLACEMENT OF A 5 FR DUAL LUMEN 35 CM PICC IN THE RIGHT BASILIC VEIN. KUB X-Ray 06/01/20 00:00 IMPRESSION: NG tube in good position in the upper stomach. Chest X-Ray 06/04/20 05:00 IMPRESSION: BILATERAL AIRSPACE DISEASE MAY BE SLIGHTLY WORSE. All labs, radiographs, diagnostic studies and EKGs were personally reviewed: Yes In addition, reports of radiographic and diagnostic studies were read: Yes Assessment and Plan - Diagnosis (1) Acute respiratory failure with hypoxia and hypercapnia Is this a current diagnosis for this admission?: Yes Plan: * Not much room for significant change on ventilator today. * Check proBNP in a.m. * Titrate sedation for RASS -2. (2) Pneumonia due to 2019 novel coronavirus Is this a current diagnosis for this admission?: Yes Plan: * High risk of mortality at his age. * Continue vitamin C, vitamin D3, zinc sulfate. * Decrease Solu-Medrol 60 mg IV every 12 hours. * Received ivermectin. (3) Thrombocytopenia Is this a current diagnosis for this admission?: Yes Plan: * Unknown etiology. Bewtter off heparin, on argatroban. (4) Acute kidney injury Is this a current diagnosis for this admission?: Yes (5) Diarrhea Qualifiers: Diarrhea type: unspecified type Qualified Code(s): R19.7 - Diarrhea, unspecified Is this a current diagnosis for this admission?: Yes (6) Stage III pressure ulcer Qualifiers: Pressure injury location: other site Qualified Code(s): L89.893 - Pressure ulcer of other site, stage 3 Is this a current diagnosis for this admission?: Yes (7) Acute respiratory failure with hypoxia Is this a current diagnosis for this admission?: Yes Critical Time Critical Time (minutes): 45 Level of Care: ICU -: 1. The care of a critical patient is a dynamic process. This note is a pharmaceutical service representative synopsis but static in nature. The timeframe for treatments given in order is not necessarily the actual time these treatments may have been done. 2. This patient requires critical care secondary to ongoing requirements for therapy not offered or safe outside the critical care environment. Transfer to a lower level of care will result in altered life or limb morbidity and mortality. 3. Multidisciplinary rounds completed. 4. ABCDE bundle addressed.
[2020-06-06] MEDS: METHYLPREDNISOLONE INJ 125 MG/2 ML SDV IV SCH (21:27)
[2020-06-06] MEDS ORDERED: METHYLPREDNISOLONE INJ 40 MG/1 ML SDV IV SCH (22:00)
[2020-06-07] MEDS: FENTANYL CITRATE/PF 600 MCG/60 ML BAG IV PRN ×9 (00:30→18:32)
[2020-06-07] MEDS: ALBUTEROL SULFATE 0.083% NEB 2.5 MG/3 ML AMPUL NEB SCH ×6 (00:35→20:55)
[2020-06-07] MEDS ORDERED: MIDAZOLAM 2 MG/2 ML INJ IV ONE (01:45)
[2020-06-07] MEDS ORDERED: MIDAZOLAM 2 MG/2 ML INJ ONE (01:48)
[2020-06-07] MEDS: DEXMEDETOMIDINE IN 0.9 % NACL 400 MCG/100 ML RTUPB IV PRN ×3 (03:01→09:49)
[2020-06-07] MEDS: MIDAZOLAM HCL 50 MG/100 ML RTUINJ IV PRN ×2 (03:14→18:52)
[2020-06-07] MEDS: METOPROLOL TARTRATE PF/INJ 5 MG/5 ML SDV IV SCH ×4 (06:34→18:24)
[2020-06-07] MEDS: SENNOSIDES/DOCUSATE 8.6-50 MG 1 EACH TABLET PO SCH ×3 (06:37→21:20)
[2020-06-07] MEDS: INSULIN REG, HUMAN 100 UNIT/ML 3 ML VIAL (PYX) SUBCUT SCH ×3 (06:37→18:24)
[2020-06-07 06:42] LABS: HEMATOCRIT 19.5 % (37.9-51.0); MEAN CORPUSCULAR HEMOGLOBIN 30.2 pg (27.0-33.4); MEAN CORPUSCULAR HGB CONC 33.6 g/dL (32.0-36.0); MEAN CORPUSCULAR VOLUME 90 fl (80-97); RED BLOOD COUNT 2.17 10^6/uL (4.35-5.55); RED CELL DISTRIBUTION WIDTH 13.8 % (11.5-14.0); WHITE BLOOD COUNT 5.2 10^3/uL (4.0-10.5)
[2020-06-07 06:50] LABS: PARTIAL THROMBOPLASTIN TIME 92.8 SEC (23.5-35.8)
[2020-06-07 06:51] LABS: D-DIMER 2.73 ug/mL (0.00-0.50)
[2020-06-07 07:00] LABS: HEMOGLOBIN 6.6 g/dL (13.5-17.0); PLATELET COUNT 82 10^3/uL (150-450)
[2020-06-07] MEDS ORDERED: NORMAL SALINE 250 ML IV PRN ×2 (07:01)
[2020-06-07 08:01] LABS: C-REACTIVE PROTEIN 15.9 mg/L (<10.0)
[2020-06-07] MEDS: CHOLECALCIFEROL (D3) 1,000 UNIT (25 MCG) TABLET NG SCH (09:12)
[2020-06-07] MEDS: POLYETHYLENE GLYCOL 3350 POWDER 17 GM/1 PACKET NG SCH (09:12)
[2020-06-07] MEDS: ASCORBIC ACID 500 MG TABLET PO SCH ×2 (09:12→18:25)
[2020-06-07] MEDS: METHYLPREDNISOLONE INJ 125 MG/2 ML SDV IV SCH ×2 (09:12→21:19)
[2020-06-07] MEDS: PANTOPRAZOLE SODIUM 40 MG VIAL IV SCH (09:13)
[2020-06-07] MEDS: NORMAL SALINE 10 ML SDV (SCHEDULED) IV SCH ×2 (09:13→21:19)
--- NOTE | 2020-06-07 09:14 | PDOC CRITICAL CARE PROG REPORT ---
General Date:: 06/07/20 ICU Day:: 8 Ventilator Day:: 8 Hospital Day:: 19 Resuscitation Status: Full Code Events in the past 12 to 24 Hours:: This 74-year-old male was admitted on 05/19/2020 with diarrhea and ab dominal pain (over 3 weeks). He was admitted to the hospitalist. He was transferred to the ICU on 05/31/2019 and intubated for worsening mental status, suspected to be due to acute hypoxemic respiratory failure secondary to COVID-19 pneumonia. 06/02/20: Still needing vent. Na and kidney function slightly better. 06/03: remains intubated. shows minimal response to verbal stimuli. does not follow commands. On PRVC 18/450/55/8 for a.m ABG. on Precedex/fentanyl for sedation. on heparin. on norepinephine. 06/04: remains intubated. on PRVC 20/500/65/8. clinically, no significant change. on Levophed @ 1. Platelets 85 today. Creatinine 1.68> 1.71. 06/05: Remains intubated. No significant change on the vent. ABG this mornin.32/50/89. On and off Levophed at 1 mcg/min. On fentanyl/Precedex for sedation. Creatinine 1.8. 06/06: Remains intubated. On PRVC 20/500/65/8. FiO2 65% but SpO2 85-87% this a.m. On Precedex/fentanyl for sedation. Appears more active today. Squirms in the bed. Does not follow commands. Does not visually track. Changed from heparin to argatroban yesterday due to concerns about thrombocytopenia. Platelets 94 this morning, increasing. On TF. 06/07: Hgb 6.8. No sign of bleeding. Blood ordered. Review of systems relevant to events:: Pulmonary. Reason for ICU Addmission:: Need for intubation - Medications: Medications reviewed and adjusted accordingly: Yes Vasopressors:: Levophed Sedation:: Precedex, fentanyl, versed. Physical Exam Vital Signs: Temp Pulse Resp BP Pulse Ox 96.8 F L 113 H 23 H 138/72 H 95 06/07/20 08:00 06/07/20 08:00 06/07/20 08:00 06/07/20 08:00 06/07/20 08:00 Intake & Output 06/06/20 06/07/20 06/08/20 06:59 06:59 06:59 Intake Total 1216 1736 253 Output Total 2009 7297 25 Balance -261 -8181 228 Weight 89.8 kg 89.3 kg Weight/Height Weight 89.3 kg Height 5 ft 11 in General appearance: PRESENT: no acute distress Head exam: PRESENT: atraumatic, normocephalic Eye exam: PRESENT: conjunctiva pink, EOMI, PERRLA. ABSENT: scleral icterus Ear exam: PRESENT: normal external ear exam Mouth exam: PRESENT: moist, tongue midline Respiratory exam: PRESENT: clear to auscultation demi, decreased breath sounds. ABSENT: rales, rhonchi, wheezes Cardiovascular exam: PRESENT: RRR, other - Occassionally gets tachycardic.. ABSENT: diastolic murmur, rubs, systolic murmur GI/Abdominal exam: PRESENT: normal bowel sounds, soft. ABSENT: distended, guarding, mass, organolmegaly, rebound, tenderness Rectal exam: PRESENT: deferred Gentrourinary exam: PRESENT: indwelling catheter Extremities exam: PRESENT: +1 edema Musculoskeletal exam: PRESENT: normal inspection Neurological exam: PRESENT: other - Sedated Skin exam: PRESENT: pallor Tubes/Lines: PRESENT: Endotracheal Tube, Nasogastic Tube Laboratory/Radiographs Laboratory Results: 06/07/20 06:30 06/06/20 04:40 06/06/20 06/07/20 06/07/20 04:40 06:30 06:30 WBC 5.2 RBC 2.17 L Hgb 6.6 L Hct 19.5 L MCV 90 MCH 30.2 MCHC 33.6 RDW 13.8 Plt Count 82 L C-Reactive Protein 15.9 H Triglycerides 179 H 174 H Blood Type Antibody Screen 06/07/20 07:18 WBC RBC Hgb Hct MCV MCH MCHC RDW Plt Count C-Reactive Protein Triglycerides Blood Type O POSITIVE Antibody Screen NEGATIVE 05/23/20 05/24/20 05/25/20 04:44 04:49 04:51 Creatine Kinase CK-MB (CK-2) Troponin I NT-Pro-B Natriuret Pep 757 H 883 H 253 H 05/27/20 05/29/20 05/29/20 04:41 04:15 04:15 Creatine Kinase 439 H CK-MB (CK-2) 3.21 Troponin I < 0.012 NT-Pro-B Natriuret Pep 307 H 05/30/20 06/06/20 04:13 13:30 Creatine Kinase CK-MB (CK-2) Troponin I NT-Pro-B Natriuret Pep 549 H 216 H Impressions: Abdomen/Pelvis CT 05/19/20 15:57 IMPRESSION: 1. Nonspecific mild fluid-filled small bowel loops could reflect a mild enteritis. No bowel obstruction. 2. No peripancreatic inflammation. 3. Cholelithiasis. 4. Hepatic steatosis. 5. Enlarged prostate gland. 6. Basilar ground-glass pulmonary opacities are not specific but can be seen with infectious and noninfectious processes, including COVID 19 infection. Correlate with exposure history. Chest CT 05/29/20 00:00 IMPRESSION: Diffuse bilateral ground-glass opacities consistent with pulmonary edema or pneumonia. There is bibasilar consolidation either atelectasis or pneumonia. No effusions. Head CT 05/29/20 00:00 IMPRESSION: MILD CHRONIC CHANGES OF ATROPHY AND MICROVASCULAR ISCHEMIA. NO ACUTE PROCESS. EVIDENCE OF ACUTE STROKE: NO. PICC Line Insertion 05/30/20 00:00 IMPRESSION: SUCCESSFUL PLACEMENT OF A 5 FR DUAL LUMEN 35 CM PICC IN THE RIGHT B ASILIC VEIN. KUB X-Ray 06/01/20 00:00 IMPRESSION: NG tube in good position in the upper stomach. Chest X-Ray 06/04/20 05:00 IMPRESSION: BILATERAL AIRSPACE DISEASE MAY BE SLIGHTLY WORSE. All labs, radiographs, diagnostic studies and EKGs were personally reviewed: Yes In addition, reports of radiographic and diagnostic studies were read: Yes Assessment and Plan - Diagnosis (1) Pneumonia due to 2019 novel coronavirus Is this a current diagnosis for this admission?: Yes Plan: We cannot make major changes to ventilator. The cause of his respiratory difficulty. (2) Acute encephalopathy Is this a current diagnosis for this admission?: Yes Plan: He will awake and get quite agitated therefore the need for fairly heavy sedation. (3) Hypernatremia Is this a current diagnosis for this admission?: Yes Plan: Resolved (4) Anemia Is this a current diagnosis for this admission?: Yes Plan: No sign of bleeding. Likely anemia of critical illness and inflammation. Blood ordered. Plan Summary: Try to make small changes to vent. Hope transfusion makes BP better to wean levophed. Critical Time Critical Time (minutes): 35 Level of Care: ICU Anticipated discharge: SNF Anticipated DC Timeframe: Other -: 1. The care of a critical patient is a dynamic process. This note is a abrasives sales representative synopsis but static in nature. The timeframe for treatments given in order is not necessarily the actual time these treatments may have been done. 2. This patient requires critical care secondary to ongoing requirements for therapy not offered or safe outside the critical care environment. Transfer to a lower level of care will result in altered life or limb morbidity and mortality. 3. Multidisciplinary rounds completed. 4. ABCDE bundle addressed.
[2020-06-07] MEDS: MINERAL OIL/PETROLATUM,WHITE OPH OINT 3.5 GM OU PRN (09:15)
[2020-06-07] MEDS: 1/2 NORMAL SALINE 1,000 ML IV PRN (11:00)
[2020-06-07 22:18] LABS: HEMATOCRIT 29.4 % (37.9-51.0); MEAN CORPUSCULAR HEMOGLOBIN 30.1 pg (27.0-33.4); MEAN CORPUSCULAR HGB CONC 33.8 g/dL (32.0-36.0); MEAN CORPUSCULAR VOLUME 89 fl (80-97); PLATELET COUNT 150 10^3/uL (150-450); RED BLOOD COUNT 3.31 10^6/uL (4.35-5.55); RED CELL DISTRIBUTION WIDTH 14.3 % (11.5-14.0)
[2020-06-07 22:46] LABS: WHITE BLOOD COUNT 18.3 10^3/uL (4.0-10.5)
[2020-06-08] MEDS: METOPROLOL TARTRATE PF/INJ 5 MG/5 ML SDV IV SCH ×5 (00:33→18:26)
[2020-06-08] MEDS: INSULIN REG, HUMAN 100 UNIT/ML 3 ML VIAL (PYX) SUBCUT SCH ×6 (00:33→23:27)
[2020-06-08] MEDS: ALBUTEROL SULFATE 0.083% NEB 2.5 MG/3 ML AMPUL NEB SCH ×6 (00:55→20:50)
[2020-06-08 06:10] LABS: HEMATOCRIT 26.8 % (37.9-51.0); MEAN CORPUSCULAR HGB CONC 33.6 g/dL (32.0-36.0); MEAN CORPUSCULAR VOLUME 89 fl (80-97); PLATELET COUNT 123 10^3/uL (150-450); RED CELL DISTRIBUTION WIDTH 14.2 % (11.5-14.0); WHITE BLOOD COUNT 12.5 10^3/uL (4.0-10.5)
[2020-06-08] MEDS: SENNOSIDES/DOCUSATE 8.6-50 MG 1 EACH TABLET PO SCH ×3 (06:24→21:36)
[2020-06-08] MEDS: 1/2 NORMAL SALINE 1,000 ML IV PRN (06:26)
[2020-06-08] MEDS: MIDAZOLAM HCL 50 MG/100 ML RTUINJ IV PRN ×2 (06:31→18:20)
[2020-06-08 06:43] LABS: BLOOD UREA NITROGEN 63 mg/dL (7-20); CALCIUM 7.8 mg/dL (8.4-10.2); CARBON DIOXIDE 30 mmol/L (22-30); CHLORIDE 113 mmol/L (98-107); GLUCOSE 185 mg/dL (75-110); POTASSIUM 4.9 mmol/L (3.6-5.0)
[2020-06-08 06:47] LABS: ANION GAP -1 (5-19)
[2020-06-08 07:11] LABS: ABSOLUTE LYMPHOCYTES# (MANUAL) 0.1 10^3/uL (0.5-4.7); ABSOLUTE MONOCYTES # (MANUAL) 0.4 10^3/uL (0.1-1.4); BASOPHILS % (MANUAL) 0 % (0-2); EOSINOPHILS % (MANUAL) 0 % (0-6); LYMPHOCYTES % (MANUAL) 1 % (13-45); MONOCYTES % (MANUAL) 3 % (3-13); SEGMENTED NEUTROPHILS % (MAN) 96 % (42-78); TOTAL CELLS COUNTED 100
[2020-06-08 07:12] LABS: OVALOCYTES SLIGHT; PLATELET COMMENT ADEQUATE; POIKILOCYTOSIS SLIGHT; TOXIC GRANULATION SLIGHT
[2020-06-08] MEDS: FENTANYL CITRATE/PF 600 MCG/60 ML BAG IV PRN ×2 (08:46→15:36)
[2020-06-08] MEDS: METHYLPREDNISOLONE INJ 125 MG/2 ML SDV IV SCH ×2 (09:33→21:36)
[2020-06-08] MEDS: PANTOPRAZOLE SODIUM 40 MG VIAL IV SCH (09:40)
[2020-06-08] MEDS: CHOLECALCIFEROL (D3) 1,000 UNIT (25 MCG) TABLET NG SCH (09:40)
[2020-06-08] MEDS: ASCORBIC ACID 500 MG TABLET PO SCH ×2 (09:40→18:21)
[2020-06-08] MEDS: NORMAL SALINE 10 ML SDV (SCHEDULED) IV SCH ×2 (09:50→21:36)
--- NOTE | 2020-06-08 10:11 | PDOC CRITICAL CARE PROG REPORT ---
General Date:: 06/08/20 ICU Day:: 9 Ventilator Day:: 9 Hospital Day:: 20 Resuscitation Status: Full Code Events in the past 12 to 24 Hours:: This 74-year-old male was admitted on 05/19/2020 with diarrhea and ab dominal pain (over 3 weeks). He was admitted to the hospitalist. He was transferred to the ICU on 05/31/2019 and intubated for worsening mental status, suspected to be due to acute hypoxemic respiratory failure secondary to COVID-19 pneumonia. 06/02/20: Still needing vent. Na and kidney function slightly better. 06/03: remains intubated. shows minimal response to verbal stimuli. does not follow commands. On PRVC 18/450/55/8 for a.m ABG. on Precedex/fentanyl for sedation. on heparin. on norepinephine. 06/04: remains intubated. on PRVC 20/500/65/8. clinically, no significant change. on Levophed @ 1. Platelets 85 today. Creatinine 1.68> 1.71. 06/05: Remains intubated. No significant change on the vent. ABG this mornin.32/50/89. On and off Levophed at 1 mcg/min. On fentanyl/Precedex for sedation. Creatinine 1.8. 06/06: Remains intubated. On PRVC 20/500/65/8. FiO2 65% but SpO2 85-87% this a.m. On Precedex/fentanyl for sedation. Appears more active today. Squirms in the bed. Does not follow commands. Does not visually track. Changed from heparin to argatroban yesterday due to concerns about thrombocytopenia. Platelets 94 this morning, increasing. On TF. 06/07: Hgb 6.8. No sign of bleeding. Blood ordered. 06/08: Still difficult to sedate. Intermittantly tachycardic Review of systems relevant to events:: Pulmonary, CV. Reason for ICU Addmission:: Need for intubation - Medications: Medications reviewed and adjusted accordingly: Yes Vasopressors:: Levophed. Sedation:: Fentanyl, versed, precedex. Physical Exam Vital Signs: Temp Pulse Resp BP Pulse Ox 99.0 F 102 H 22 H 144/80 H 96 06/08/20 08:00 06/08/20 08:07 06/08/20 08:07 06/08/20 08:00 06/08/20 08:07 Intake & Output 06/07/20 06/08/20 06/09/20 06:59 06:59 06:59 Intake Total 1736 2874 32 Output Total 3265 1670 190 Balance -1529 1204 -158 Weight 89.3 kg 88.8 kg Weight/Height Weight 88.8 kg Height 5 ft 11 in General appearance: PRESENT: no acute distress Head exam: PRESENT: atraumatic, normocephalic Eye exam: PRESENT: conjunctiva pink, EOMI, PERRLA. ABSENT: scleral icterus Ear exam: PRESENT: normal external ear exam Mouth exam: PRESENT: moist, tongue midline Respiratory exam: PRESENT: clear to auscultation demi. ABSENT: rales, rhonchi, wheezes Cardiovascular exam: PRESENT: RRR, tachycardia. ABSENT: diastolic murmur, rubs, systolic murmur GI/Abdominal exam: PRESENT: normal bowel sounds, soft. ABSENT: distended, guarding, mass, organolmegaly, rebound, tenderness Rectal exam: PRESENT: deferred Gentrourinary exam: PRESENT: indwelling catheter Extremities exam: PRESENT: full ROM. ABSENT: calf tenderness, clubbing, pedal edema Neurological exam: PRESENT: altered, CN II-XII grossly intact, other - Sedated Psychiatric exam: PRESENT: agitated - At times. Skin exam: PRESENT: dry, intact, warm. ABSENT: cyanosis, rash Tubes/Lines: PRESENT: Endotracheal Tube, Nasogastic Tube Laboratory/Radiographs Laboratory Results: 06/08/20 05:25 06/08/20 05:25 06/07/20 06/08/20 06/08/20 21:50 05:25 05:25 WBC 18.3 H D 12.5 H RBC 3.31 L 3.00 L Hgb 10.0 L D 9.0 L Hct 29.4 L 26.8 L MCV 89 89 MCH 30.1 30.0 MCHC 33.8 33.6 RDW 14.3 H 14.2 H Plt Count 150 123 L Seg Neutrophils % Not Reportable Sodium 142.3 Potassium 4.9 Chloride 113 H Carbon Dioxide 30 Anion Gap -1 L BUN 63 H Creatinine 1.25 Est GFR ( Amer) > 60 Glucose 185 H Calcium 7.8 L 05/23/20 05/24/20 05/25/20 04:44 04:49 04:51 Creatine Kinase CK-MB (CK-2) Troponin I NT-Pro-B Natriuret Pep 757 H 883 H 253 H 05/27/20 05/29/20 05/29/20 04:41 04:15 04:15 Creatine Kinase 439 H CK-MB (CK-2) 3.21 Troponin I < 0.012 NT-Pro-B Natriuret Pep 307 H 05/30/20 06/06/20 04:13 13:30 Creatine Kinase CK-MB (CK-2) Troponin I NT-Pro-B Natriuret Pep 549 H 216 H Impressions: Abdomen/Pelvis CT 05/19/20 15:57 IMPRESSION: 1. Nonspecific mild fluid-filled small bowel loops could reflect a mild enteritis. No bowel obstruction. 2. No peripancreatic inflammation. 3. Cholelithiasis. 4. Hepatic steatosis. 5. Enlarged prostate gland. 6. Basilar ground-glass pulmonary opacities are not specific but can be seen with infectious and noninfectious processes, including COVID 19 infection. Correlate with exposure history. Chest CT 05/29/20 00:00 IMPRESSION: Diffuse bilateral ground-glass opacities consistent with pulmonary edema or pneumonia. There is bibasilar consolidation either atelectasis or pneumonia. No effusions. Head CT 05/29/20 00:00 IMPRESSION: MILD CHRONIC CHANGES OF ATROPHY AND MICROVASCULAR ISCHEMIA. NO ACUTE PROCESS. EVIDENCE OF ACUTE STROKE: NO. PICC Line Insertion 05/30/20 00:00 IMPRESSION: SUCCESSFUL PLACEMENT OF A 5 FR DUAL LUMEN 35 CM PICC IN THE RIGHT BASILIC VEIN. KUB X-Ray 06/01/20 00:00 IMPRESSION: NG tube in good position in the upper stomach. Chest X-Ray 06/04/20 05:00 IMPRESSION: BILATERAL AIRSPACE DISEASE MAY BE SLIGHTLY WORSE. All labs, radiographs, diagnostic studies and EKGs were personally reviewed: Yes In addition, reports of radiographic and diagnostic studies were read: Yes Assessment and Plan - Diagnosis (1) Pneumonia due to 2019 novel coronavirus Is this a current diagnosis for this admission?: Yes Plan: His Fio2 has been at a relatively high FIO2 and it has not been possible to wean significantly (2) Acute encephalopathy Is this a current diagnosis for this admission?: Yes Plan: It is hard to evaluate with this degree of sedation. (3) Hypernatremia Is this a current diagnosis for this admission?: Yes Plan: Resolved. (4) Anemia Is this a current diagnosis for this admission?: Yes Plan: Resolved with transfusions. No sign of bleeding. (5) Acute kidney injury Is this a current diagnosis for this admission?: Yes Plan: Improving. Plan Summary: Continue to wean FIO2 as tolerated. Critical Time Critical Time (minutes): 35 Level of Care: ICU Anticipated discharge: SNF Anticipated DC Timeframe: Other -: 1. The care of a critical patient is a dynamic process. This note is a sales representative publications synopsis but static in nature. The timeframe for treatments given in order is not necessarily the actual time these treatments may have been done. 2. This patient requires critical care secondary to ongoing requirements for therapy not offered or safe outside the critical care environment. Transfer to a lower level of care will result in altered life or limb morbidity and mortality. 3. Multidisciplinary rounds completed. 4. ABCDE bundle addressed.
[2020-06-08] MEDS: POLYETHYLENE GLYCOL 3350 POWDER 17 GM/1 PACKET NG SCH (11:03)
[2020-06-08] MEDS ORDERED: NOREPINEPHRINE BITARTRATE INJ/PF 4 MG/4 ML SDV IV ONE (13:59)
[2020-06-08] MEDS: DEXTROSE 5%-WATER 250 ML with NOREPINEPHRINE BITARTRATE 4 MG IV PRN ×2 (17:20)
[2020-06-08] MEDS: ARGATROBAN 250 MG/NS 250 ML (NON-ESRD) IV PRN ×2 (18:19)
[2020-06-09] MEDS: FENTANYL CITRATE/PF 600 MCG/60 ML BAG IV PRN ×3 (00:13→12:13)
[2020-06-09] MEDS: METOPROLOL TARTRATE PF/INJ 5 MG/5 ML SDV IV SCH ×4 (00:13→18:13)
[2020-06-09] MEDS: MIDAZOLAM HCL 50 MG/100 ML RTUINJ IV PRN ×4 (00:15→23:46)
[2020-06-09] MEDS: 1/2 NORMAL SALINE 1,000 ML IV PRN ×2 (00:16→23:46)
[2020-06-09] MEDS: ALBUTEROL SULFATE 0.083% NEB 2.5 MG/3 ML AMPUL NEB SCH ×6 (00:17→19:47)
[2020-06-09] MEDS: SENNOSIDES/DOCUSATE 8.6-50 MG 1 EACH TABLET PO SCH ×3 (05:54→21:15)
[2020-06-09] MEDS: INSULIN REG, HUMAN 100 UNIT/ML 3 ML VIAL (PYX) SUBCUT SCH ×4 (05:54→23:46)
[2020-06-09 06:20] LABS: HEMOGLOBIN 8.9 g/dL (13.5-17.0); MEAN CORPUSCULAR HEMOGLOBIN 29.4 pg (27.0-33.4); MEAN CORPUSCULAR HGB CONC 32.8 g/dL (32.0-36.0); MEAN CORPUSCULAR VOLUME 90 fl (80-97); PLATELET COUNT 153 10^3/uL (150-450); RED BLOOD COUNT 3.02 10^6/uL (4.35-5.55); RED CELL DISTRIBUTION WIDTH 14.1 % (11.5-14.0); WHITE BLOOD COUNT 16.5 10^3/uL (4.0-10.5)
[2020-06-09 06:27] LABS: PARTIAL THROMBOPLASTIN TIME 74.6 SEC (23.5-35.8)
[2020-06-09 06:29] LABS: D-DIMER 2.33 ug/mL (0.00-0.50)
[2020-06-09] MEDS: NORMAL SALINE 10 ML SDV (SCHEDULED) IV SCH ×2 (09:00→21:16)
[2020-06-09] MEDS: DEXTROSE 5%-WATER 250 ML with NOREPINEPHRINE BITARTRATE 4 MG IV PRN ×4 (10:45→23:47)
[2020-06-09] MEDS: POLYETHYLENE GLYCOL 3350 POWDER 17 GM/1 PACKET NG SCH (11:00)
[2020-06-09] MEDS: ASCORBIC ACID 500 MG TABLET PO SCH ×2 (11:00→18:13)
[2020-06-09] MEDS: PANTOPRAZOLE SODIUM 40 MG VIAL IV SCH (11:00)
[2020-06-09] MEDS: METHYLPREDNISOLONE INJ 125 MG/2 ML SDV IV SCH ×2 (11:00→21:15)
--- NOTE | 2020-06-09 11:16 | PDOC CRITICAL CARE PROG REPORT ---
General Date:: 06/09/20 ICU Day:: 10 Ventilator Day:: 10 Hospital Day:: 21 Resuscitation Status: Full Code Events in the past 12 to 24 Hours:: This 74-year-old male was admitted on 05/19/2020 with diarrhea and abdominal pain (over 3 weeks). He was admitted to the hospitalist. He was transferred to the ICU on 05/31/2019 and intubated for worsening mental status, suspected to be due to acute hypoxemic respiratory failure secondary to COVID-19 pneumonia. 06/02/20: Still needing vent. Na and kidney function slightly better. 06/03: remains intubated. shows minimal response to verbal stimuli. does not follow commands. On PRVC 18/450/55/8 for a.m ABG. on Precedex/fentanyl for sedation. on heparin. on norepinephine. 06/04: remains intubated. on PRVC 20/500/65/8. clinically, no significant change. on Levophed @ 1. Platelets 85 today. Creatinine 1.68> 1.71. 06/05: Remains intubated. No significant change on the vent. ABG this mornin.32/50/89. On and off Levophed at 1 mcg/min. On fentanyl/Precedex for sedation. Creatinine 1.8. 06/06: Remains intubated. On PRVC 20/500/65/8. FiO2 65% but SpO2 85-87% this a.m. On Precedex/fentanyl for sedation. Appears more active today. Squirms in the bed. Does not follow commands. Does not visually track. Changed from heparin to argatroban yesterday due to concerns about thrombocytopenia. Platelets 94 this morning, increasing. On TF. 06/07: Hgb 6.8. No sign of bleeding. Blood ordered. 06/08: Still difficult to sedate. Intermittantly tachycardic 06/09: [place] replaced yesterday with 1500cc urine removed. Still intermittently agitated with varying amounts of sedation being needed. Review of systems relevant to events:: Pulmonary Reason for ICU Addmission:: Need for intubation - Medications: Medications reviewed and adjusted accordingly: Yes Vasopressors:: Levophed Sedation:: Fentanyl, versed, precedex Physical Exam Vital Signs: Temp Pulse Resp BP Pulse Ox 98.6 F 111 H 18 107/63 98 06/09/20 10:00 06/09/20 10:00 06/09/20 10:30 06/09/20 10:30 06/09/20 10:30 Intake & Output 06/08/20 06/09/20 06/10/20 06:59 06:59 06:59 Intake Total 2887 1982 400 Output Total 1670 6685 550 Balance 1217 -563 -150 Weight 88.8 kg 90.6 kg Weight/Height Weight 90.6 kg Height 5 ft 11 in General appearance: PRESENT: no acute distress Head exam: PRESENT: atraumatic, normocephalic Eye exam: PRESENT: conjunctiva pink, EOMI, PERRLA. ABSENT: scleral icterus Ear exam: PRESENT: normal external ear exam Mouth exam: PRESENT: moist, tongue midline Respiratory exam: PRESENT: clear to auscultation demi. ABSENT: rales, rhonchi, wheezes Cardiovascular exam: PRESENT: RRR, tachycardia - At times.. ABSENT: diastolic murmur, rubs, systolic murmur GI/Abdominal exam: PRESENT: normal bowel sounds, soft. ABSENT: distended, guarding, mass, organolmegaly, rebound, tenderness Rectal exam: PRESENT: deferred Gentrourinary exam: PRESENT: indwelling catheter Extremities exam: PRESENT: full ROM. ABSENT: calf tenderness, clubbing, pedal edema Musculoskeletal exam: PRESENT: normal inspection Neurological exam: PRESENT: other - He is for the most part sedated but at times becomes quite agitated. No command following. Skin exam: PRESENT: dry, intact, warm. ABSENT: cyanosis, rash Tubes/Lines: PRESENT: Endotracheal Tube, Central Line, Nasogastic Tube Laboratory/Radiographs Laboratory Results: 06/09/20 05:50 06/08/20 05:25 06/09/20 06/09/20 05:50 05:50 WBC 16.5 H RBC 3.02 L Hgb 8.9 L Hct 27.0 L MCV 90 MCH 29.4 MCHC 32.8 RDW 14.1 H Plt Count 153 C-Reactive Protein 27.0 H 05/23/20 05/24/20 05/25/20 04:44 04:49 04:51 Creatine Kinase CK-MB (CK-2) Troponin I NT-Pro-B Natriuret Pep 757 H 883 H 253 H 05/27/20 05/29/20 05/29/20 04:41 04:15 04:15 Creatine Kinase 439 H CK-MB (CK-2) 3.21 Troponin I < 0.012 NT-Pro-B Natriuret Pep 307 H 05/30/20 06/06/20 04:13 13:30 Creatine Kinase CK-MB (CK-2) Troponin I NT-Pro-B Natriuret Pep 549 H 216 H Impressions: Abdomen/Pelvis CT 05/19/20 15:57 IMPRESSION: 1. Nonspecific mild fluid-filled small bowel loops could reflect a mild enteritis. No bowel obstruction. 2. No peripancreatic inflammation. 3. Cholelithiasis. 4. Hepatic steatosis. 5. Enlarged prostate gland. 6. Basilar ground-glass pulmonary opacities are not specific but can be seen with infectious and noninfectious processes, including COVID 19 infection. Correlate with exposure history. Chest CT 05/29/20 00:00 IMPRESSION: Diffuse bilateral ground-glass opacities consistent with pulmonary edema or pneumonia. There is bibasilar consolidation either atelectasis or pneumonia. No effusions. Head CT 05/29/20 00:00 IMPRESSION: MILD CHRONIC CHANGES OF ATROPHY AND MICROVASCULAR ISCHEMIA. NO ACUTE PROCESS. EVIDENCE OF ACUTE STROKE: NO. PICC Line Insertion 05/30/20 00:00 IMPRESSION: SUCCESSFUL PLACEMENT OF A 5 FR DUAL LUMEN 35 CM PICC IN THE RIGHT BASILIC VEIN. KUB X-Ray 06/01/20 00:00 IMPRESSION: NG tube in good position in the upper stomach. Chest X-Ray 06/04/20 05:00 IMPRESSION: BILATERAL AIRSPACE DISEASE MAY BE SLIGHTLY WORSE. All labs, radiographs, diagnostic studies and EKGs were personally reviewed: Yes In addition, reports of radiographic and diagnostic studies were read: Yes Assessment and Plan - Diagnosis (1) Pneumonia due to 2019 novel coronavirus Is this a current diagnosis for this admission?: Yes Plan: The origin of his pulmonary illness. A risk factor for mortality at his age. (2) Acute encephalopathy Is this a current diagnosis for this admission?: Yes Plan: This was the case before intubation. His continued agitation makes me think it is still ongoing at some level. (3) Hypernatremia Is this a current diagnosis for this admission?: Yes Plan: Resolved (4) Anemia Is this a current diagnosis for this admission?: Yes Plan: Resolved with transfusion. (5) Acute kidney injury Is this a current diagnosis for this admission?: Yes Plan: Improving Plan Summary: Recheck labs, keep sedated and try to wean ventilator. Critical Time Critical Time (minutes): 35 Level of Care: ICU Anticipated discharge: SNF Anticipated DC Timeframe: Other -: 1. The care of a critical patient is a dynamic process. This note is a customer operations representative synopsis but static in nature. The timeframe for treatments given in order is not necessarily the actual time these treatments may have been done. 2. This patient requires critical care secondary to ongoing requirements for therapy not offered or safe outside the critical care environment. Transfer to a lower level of care will result in altered life or limb morbidity and mortality. 3. Multidisciplinary rounds completed. 4. ABCDE bundle addressed.
[2020-06-09] MEDS: CHOLECALCIFEROL (D3) 1,000 UNIT (25 MCG) TABLET NG SCH (11:55)
[2020-06-09] MEDS: MINERAL OIL/PETROLATUM,WHITE OPH OINT 3.5 GM OU PRN (12:32)
[2020-06-09] MEDS: ARGATROBAN 250 MG/NS 250 ML (NON-ESRD) IV PRN ×2 (16:06)
[2020-06-09] MEDS: NORMAL SALINE 10 ML SDV (AFTER EACH USE) IV PRN (21:16)
[2020-06-10] MEDS: ALBUTEROL SULFATE 0.083% NEB 2.5 MG/3 ML AMPUL NEB SCH ×7 (00:15→23:49)
[2020-06-10] MEDS: METOPROLOL TARTRATE PF/INJ 5 MG/5 ML SDV IV SCH ×3 (00:15→11:35)
[2020-06-10] MEDS: METOCLOPRAMIDE HCL INJ/PF 10 MG/2 ML SDV IV SCH ×3 (05:44→22:06)
[2020-06-10] MEDS: INSULIN REG, HUMAN 100 UNIT/ML 3 ML VIAL (PYX) SUBCUT SCH ×3 (05:44→17:49)
[2020-06-10 06:31] LABS: HEMATOCRIT 25.8 % (37.9-51.0); HEMOGLOBIN 8.5 g/dL (13.5-17.0); MEAN CORPUSCULAR HEMOGLOBIN 29.7 pg (27.0-33.4); MEAN CORPUSCULAR HGB CONC 32.8 g/dL (32.0-36.0); MEAN CORPUSCULAR VOLUME 90 fl (80-97); PLATELET COUNT 136 10^3/uL (150-450); RED BLOOD COUNT 2.85 10^6/uL (4.35-5.55); WHITE BLOOD COUNT 12.9 10^3/uL (4.0-10.5)
[2020-06-10 06:54] LABS: ABSOLUTE LYMPHOCYTES# (MANUAL) 0.1 10^3/uL (0.5-4.7); BASOPHILS % (MANUAL) 0 % (0-2); EOSINOPHILS % (MANUAL) 0 % (0-6); LYMPHOCYTES % (MANUAL) 1 % (13-45); MONOCYTES % (MANUAL) 0 % (3-13); SEGMENTED NEUTROPHILS % (MAN) 99 % (42-78); TOTAL CELLS COUNTED 100
[2020-06-10 06:55] LABS: ANISOCYTOSIS SLIGHT; OVALOCYTES SLIGHT; PLATELET COMMENT ADEQUATE; POIKILOCYTOSIS SLIGHT; TOXIC GRANULATION SLIGHT
[2020-06-10 06:59] LABS: BLOOD UREA NITROGEN 55 mg/dL (7-20); CALCIUM 8.1 mg/dL (8.4-10.2); CARBON DIOXIDE 31 mmol/L (22-30); CHLORIDE 106 mmol/L (98-107); GLUCOSE 211 mg/dL (75-110); POTASSIUM 4.7 mmol/L (3.6-5.0); TRIGLYCERIDES 199 mg/dL (<150)
[2020-06-10 07:03] LABS: ANION GAP 3 (5-19)
[2020-06-10] MEDS: SENNOSIDES/DOCUSATE 8.6-50 MG 1 EACH TABLET PO SCH ×3 (07:07→22:06)
--- NOTE | 2020-06-10 08:01 | PDOC CRITICAL CARE PROG REPORT ---
General Date:: 06/10/20 ICU Day:: 11 Ventilator Day:: 11 Hospital Day:: 22 Resuscitation Status: Full Code Events in the past 12 to 24 Hours:: This 74-year-old male was admitted on 05/19/2020 with diarrhea and abdominal pain (over 3 weeks). He was admitted to the hospitalist. He was transferred to the ICU on 05/31/2019 and intubated for worsening mental status, suspected to be due to acute hypoxemic respiratory failure secondary to COVID-19 pneumonia. 06/02/20: Still needing vent. Na and kidney function slightly better. 06/03: remains intubated. shows minimal response to verbal stimuli. does not follow commands. On PRVC 18/450/55/8 for a.m ABG. on Precedex/fentanyl for sedation. on heparin. on norepinephine. 06/04: remains intubated. on PRVC 20/500/65/8. clinically, no significant change. on Levophed @ 1. Platelets 85 today. Creatinine 1.68> 1.71. 06/05: Remains intubated. No significant change on the vent. ABG this mornin.32/50/89. On and off Levophed at 1 mcg/min. On fentanyl/Precedex for sedation. Creatinine 1.8. 06/06: Remains intubated. On PRVC 20/500/65/8. FiO2 65% but SpO2 85-87% this a.m. On Precedex/fentanyl for sedation. Appears more active today. Squirms in the bed. Does not follow commands. Does not visually track. Changed from heparin to argatroban yesterday due to concerns about thrombocytopenia. Platelets 94 this morning, increasing. On TF. 06/07: Hgb 6.8. No sign of bleeding. Blood ordered. 06/08: Still difficult to sedate. Intermittantly tachycardic 06/09: [place] replaced yesterday with 1500cc urine removed. Still intermittently agitated with varying amounts of sedation being needed. 06/10: Seems calmer today thus far. FIO2 dropped to 75%. No change to PEEP. TF held for residual 300. To restart. Review of systems relevant to events:: Pulmonary. Reason for ICU Addmission:: Need for intubation for Covid PNA. - Medications: Medications reviewed and adjusted accordingly: Yes Vasopressors:: Levophed. Sedation:: Precedex, fentanyl, versed. Physical Exam Vital Signs: Temp Pulse Resp BP Pulse Ox 97.5 F 76 17 154/76 H 90 L 06/10/20 05:50 06/10/20 04:45 06/10/20 06:01 06/10/20 06:00 06/10/20 06:01 Intake & Output 06/09/20 06/10/20 06/11/20 06:59 06:59 06:59 Intake Total 1982 2677 Output Total 2545 2310 Balance -563 367 Weight 90.6 kg 89.5 kg Weight/Height Weight 89.5 kg Height 5 ft 11 in General appearance: PRESENT: no acute distress, other - Calm right now but moving all extremities Head exam: PRESENT: atraumatic, normocephalic Eye exam: PRESENT: conjunctiva pink, EOMI, PERRLA. ABSENT: scleral icterus Ear exam: PRESENT: normal external ear exam Mouth exam: PRESENT: moist, tongue midline Respiratory exam: PRESENT: clear to auscultation demi. ABSENT: rales, rhonchi, wheezes Cardiovascular exam: PRESENT: RRR, tachycardia. ABSENT: diastolic murmur, rubs, systolic murmur GI/Abdominal exam: PRESENT: normal bowel sounds, soft. ABSENT: distended, guarding, mass, organolmegaly, rebound, tenderness Rectal exam: PRESENT: deferred Gentrourinary exam: PRESENT: indwelling catheter Extremities exam: PRESENT: full ROM. ABSENT: calf tenderness, clubbing, pedal edema Musculoskeletal exam: PRESENT: normal inspection Neurological exam: PRESENT: other - Quite sedated. Skin exam: PRESENT: dry, intact, warm. ABSENT: cyanosis, rash Tubes/Lines: PRESENT: Endotracheal Tube, Nasogastic Tube Laboratory/Radiographs Laboratory Results: 06/10/20 04:45 06/10/20 04:45 06/10/20 06/10/20 04:45 04:45 WBC 12.9 H RBC 2.85 L Hgb 8.5 L Hct 25.8 L MCV 90 MCH 29.7 MCHC 32.8 RDW 14.0 Plt Count 136 L Seg Neutrophils % Not Reportable Sodium 139.6 Potassium 4.7 Chloride 106 Carbon Dioxide 31 H Anion Gap 3 L BUN 55 H Creatinine 1.09 Est GFR ( Amer) > 60 Glucose 211 H Calcium 8.1 L Triglycerides 199 H 05/23/20 05/24/20 05/25/20 04:44 04:49 04:51 Creatine Kinase CK-MB (CK-2) Troponin I NT-Pro-B Natriuret Pep 757 H 883 H 253 H 05/27/20 05/29/20 05/29/20 04:41 04:15 04:15 Creatine Kinase 439 H CK-MB (CK-2) 3.21 Troponin I < 0.012 NT-Pro-B Natriuret Pep 307 H 05/30/20 06/06/20 04:13 13:30 Creatine Kinase CK-MB (CK-2) Troponin I NT-Pro-B Natriuret Pep 549 H 216 H Impressions: Abdomen/Pelvis CT 05/19/20 15:57 IMPRESSION: 1. Nonspecific mild fluid-filled small bowel loops could reflect a mild enteritis. No bowel obstruction. 2. No peripancreatic inflammation. 3. Cholelithiasis. 4. Hepatic steatosis. 5. Enlarged prostate gland. 6. Basilar ground-glass pulmonary opacities are not specific but can be seen with infectious and noninfectious processes, including COVID 19 infection. Correlate with exposure history. Chest CT 05/29/20 00:00 IMPRESSION: Diffuse bilateral ground-glass opacities consistent with pulmonary edema or pneumonia. There is bibasilar consolidation either atelectasis or pneumonia. No effusions. Head CT 05/29/20 00:00 IMPRESSION: MILD CHRONIC CHANGES OF ATROPHY AND MICROVASCULAR ISCHEMIA. NO ACUTE PROCESS. EVIDENCE OF ACUTE STROKE: NO. PICC Line Insertion 05/30/20 00:00 IMPRESSION: SUCCESSFUL PLACEMENT OF A 5 FR DUAL LUMEN 35 CM PICC IN THE RIGHT BASILIC VEIN. KUB X-Ray 06/01/20 00:00 IMPRESSION: NG tube in good position in the upper stomach. Chest X-Ray 06/04/20 05:00 IMPRESSION: BILATERAL AIRSPACE DISEASE MAY BE SLIGHTLY WORSE. All labs, radiographs, diagnostic studies and EKGs were personally reviewed: Yes In addition, reports of radiographic and diagnostic studies were read: Yes Assessment and Plan - Diagnosis (1) Pneumonia due to 2019 novel coronavirus Is this a current diagnosis for this admission?: Yes Plan: We are making small moves on vent. 80% to 75%. No change to PEEP yet. Anticipate prolonged course. Daughter stated he did not want this. If progress slows or stops we should reasses his status. (2) Acute encephalopathy Is this a current diagnosis for this admission?: Yes Plan: Impossible to tell degree of encephalopathy/delirium while this sedated. This level of sedation is required to keep him calm, comfortable and able to work with ventilator. (3) Hypernatremia Is this a current diagnosis for this admission?: Yes Plan: Resolved (4) Anemia Is this a current diagnosis for this admission?: Yes Plan: Stable at Hgb 8.5, slight drop each day as expected in the ICU. (5) Acute kidney injury Is this a current diagnosis for this admission?: Yes Plan: Resolved. BUN is higher than expected as is often seen in Covid patients. Plan Summary: Continue to wean FIO2. Restart TF. Critical Time Critical Time (minutes): 35 Level of Care: ICU Anticipated discharge: SNF Anticipated DC Timeframe: Other -: 1. The care of a critical patient is a dynamic process. This note is a employee's representative synopsis but static in nature. The timeframe for treatments given in order is not necessarily the actual time these treatments may have been done. 2. This patient requires critical care secondary to ongoing requirements for therapy not offered or safe outside the critical care environment. Transfer to a lower level of care will result in altered life or limb morbidity and mortality. 3. Multidisciplinary rounds completed. 4. ABCDE bundle addressed.
[2020-06-10] MEDS: MIDAZOLAM HCL 50 MG/100 ML RTUINJ IV PRN ×4 (09:55→23:20)
[2020-06-10] MEDS: ASCORBIC ACID 500 MG TABLET PO SCH ×2 (10:23→17:49)
[2020-06-10] MEDS: POLYETHYLENE GLYCOL 3350 POWDER 17 GM/1 PACKET NG SCH (10:23)
[2020-06-10] MEDS: NORMAL SALINE 10 ML SDV (SCHEDULED) IV SCH ×2 (10:24→22:06)
[2020-06-10] MEDS: CHOLECALCIFEROL (D3) 1,000 UNIT (25 MCG) TABLET NG SCH (10:24)
[2020-06-10] MEDS: METHYLPREDNISOLONE INJ 125 MG/2 ML SDV IV SCH ×2 (10:24→22:06)
[2020-06-10] MEDS: PANTOPRAZOLE SODIUM 40 MG VIAL IV SCH (10:24)
[2020-06-10] MEDS: FENTANYL CITRATE/PF 600 MCG/60 ML BAG IV PRN ×3 (11:32→23:20)
[2020-06-10] MEDS: ARGATROBAN 250 MG/NS 250 ML (NON-ESRD) IV PRN ×2 (15:30)
[2020-06-10] MEDS: 1/2 NORMAL SALINE 1,000 ML IV PRN (19:46)
[2020-06-11] MEDS: INSULIN REG, HUMAN 100 UNIT/ML 3 ML VIAL (PYX) SUBCUT SCH ×5 (00:27→23:58)
[2020-06-11] MEDS: ALBUTEROL SULFATE 0.083% NEB 2.5 MG/3 ML AMPUL NEB SCH ×5 (04:44→20:58)
[2020-06-11 05:12] LABS: HEMATOCRIT 24.4 % (37.9-51.0); HEMOGLOBIN 8.3 g/dL (13.5-17.0); MEAN CORPUSCULAR HEMOGLOBIN 30.4 pg (27.0-33.4); MEAN CORPUSCULAR VOLUME 90 fl (80-97); PLATELET COUNT 126 10^3/uL (150-450); RED BLOOD COUNT 2.72 10^6/uL (4.35-5.55); RED CELL DISTRIBUTION WIDTH 14.1 % (11.5-14.0); WHITE BLOOD COUNT 11.9 10^3/uL (4.0-10.5)
[2020-06-11 05:15] LABS: PARTIAL THROMBOPLASTIN TIME 64.3 SEC (23.5-35.8)
[2020-06-11 05:17] LABS: D-DIMER 1.8 ug/mL (0.00-0.50)
[2020-06-11 05:34] LABS: BLOOD UREA NITROGEN 47 mg/dL (7-20); C-REACTIVE PROTEIN 6.7 mg/L (<10.0); CALCIUM 7.9 mg/dL (8.4-10.2); GLUCOSE 227 mg/dL (75-110); POTASSIUM 4.3 mmol/L (3.6-5.0)
[2020-06-11 05:38] LABS: CARBON DIOXIDE 30 mmol/L (22-30); CHLORIDE 105 mmol/L (98-107)
[2020-06-11 05:48] LABS: ANION GAP 3 (5-19)
[2020-06-11 05:54] LABS: ABSOLUTE LYMPHOCYTES# (MANUAL) 0.2 10^3/uL (0.5-4.7); ABSOLUTE MONOCYTES # (MANUAL) 0.1 10^3/uL (0.1-1.4); BAND NEUTROPHILS % (MANUAL) 1 % (3-5); BASOPHILS % (MANUAL) 0 % (0-2); EOSINOPHILS % (MANUAL) 0 % (0-6); LYMPHOCYTES % (MANUAL) 2 % (13-45); MONOCYTES % (MANUAL) 1 % (3-13); PLATELET COMMENT ADEQUATE; RBC MORPHOLOGY COMMENT NORMO-CYTIC/CHROMIC; SEGMENTED NEUTROPHILS % (MAN) 96 % (42-78); TOTAL CELLS COUNTED 100
[2020-06-11] MEDS: SENNOSIDES/DOCUSATE 8.6-50 MG 1 EACH TABLET PO SCH ×3 (06:07→22:44)
[2020-06-11] MEDS: METOCLOPRAMIDE HCL INJ/PF 10 MG/2 ML SDV IV SCH ×3 (06:07→22:43)
[2020-06-11 06:42] LABS: ARTERIAL BLOOD BASE EXCESS -7.1 mmol/L; ARTERIAL BLOOD H2CO3 0.77 mmol/L (1.05-1.35); ARTERIAL BLOOD HCO3 16.2 mmol/L (20-24); ARTERIAL BLOOD O2 SATURATION 95.3 % (94-98); ARTERIAL BLOOD PCO2 25.6 mmHg (35-45); ARTERIAL BLOOD PH 7.42 (7.35-7.45); ARTERIAL BLOOD PO2 72.9 mmHg (80-100)
[2020-06-11 06:43] LABS: ARTERIAL BLOOD FIO2 75%
[2020-06-11] MEDS: MIDAZOLAM HCL 50 MG/100 ML RTUINJ IV PRN ×3 (07:03→18:21)
--- NOTE | 2020-06-11 08:08 | PDOC CRITICAL CARE PROG REPORT ---
General Date:: 06/11/20 ICU Day:: 12 Ventilator Day:: 12 Hospital Day:: 23 Resuscitation Status: Full Code Events in the past 12 to 24 Hours:: This 74-year-old male was admitted on 05/19/2020 with diarrhea and abdominal pain (over 3 weeks). He was admitted to the hospitalist. He was transferred to the ICU on 05/31/2019 and intubated for worsening mental status, suspected to be due to acute hypoxemic respiratory failure secondary to COVID-19 pneumonia. 06/02/20: Still needing vent. Na and kidney function slightly better. 06/03: remains intubated. shows minimal response to verbal stimuli. does not follow commands. On PRVC 18/450/55/8 for a.m ABG. on Precedex/fentanyl for sedation. on heparin. on norepinephine. 06/04: remains intubated. on PRVC 20/500/65/8. clinically, no significant change. on Levophed @ 1. Platelets 85 today. Creatinine 1.68> 1.71. 06/05: Remains intubated. No significant change on the vent. ABG this mornin.32/50/89. On and off Levophed at 1 mcg/min. On fentanyl/Precedex for sedation. Creatinine 1.8. 06/06: Remains intubated. On PRVC 20/500/65/8. FiO2 65% but SpO2 85-87% this a.m. On Precedex/fentanyl for sedation. Appears more active today. Squirms in the bed. Does not follow commands. Does not visually track. Changed from heparin to argatroban yesterday due to concerns about thrombocytopenia. Platelets 94 this morning, increasing. On TF. 06/07: Hgb 6.8. No sign of bleeding. Blood ordered. 06/08: Still difficult to sedate. Intermittantly tachycardic 06/09: [place] replaced yesterday with 1500cc urine removed. Still intermittently agitated with varying amounts of sedation being needed. 06/10: Seems calmer today thus far. FIO2 dropped to 75%. No change to PEEP. TF held for residual 300. To restart. 06/11: PSV dropped to 15cm. Calm, not agitated. No change in FIO2. Review of systems relevant to events:: Pulmonary, neurological. Reason for ICU Addmission:: Need for intubation for Covid PNA. - Medications: Medications reviewed and adjusted accordingly: Yes Vasopressors:: Levophed. Sedation:: Fentanyl, versed. Physical Exam Vital Signs: Temp Pulse Resp BP Pulse Ox 98.8 F 111 H 24 H 153/87 H 88 L 06/10/20 22:00 06/11/20 07:00 06/11/20 06:31 06/11/20 06:31 06/11/20 06:31 Intake & Output 06/10/20 06/11/20 06/12/20 06:59 06:59 06:59 Intake Total 2734 2861 164 Output Total 2310 1965 Balance 424 896 164 Weight 89.5 kg 89.5 kg Weight/Height Weight 89.5 kg Height 5 ft 11 in General appearance: PRESENT: no acute distress Head exam: PRESENT: atraumatic, normocephalic Eye exam: PRESENT: conjunctiva pink, PERRLA. ABSENT: scleral icterus Ear exam: PRESENT: normal external ear exam Respiratory exam: PRESENT: clear to auscultation demi, decreased breath sounds. ABSENT: rales, rhonchi, wheezes Cardiovascular exam: PRESENT: RRR, tachycardia. ABSENT: diastolic murmur, rubs, systolic murmur GI/Abdominal exam: PRESENT: normal bowel sounds, soft. ABSENT: distended, guarding, mass, organolmegaly, rebound, tenderness Rectal exam: PRESENT: deferred Gentrourinary exam: PRESENT: indwelling catheter Extremities exam: PRESENT: full ROM. ABSENT: calf tenderness, clubbing, pedal edema Musculoskeletal exam: PRESENT: normal inspection Neurological exam: PRESENT: other - Sedated adequetely on versed and fentanyl. Skin exam: PRESENT: dry, intact, warm, other - Small healing ulcer on nose bridge.. ABSENT: cyanosis, rash Tubes/Lines: PRESENT: Endotracheal Tube, Nasogastic Tube Laboratory/Radiographs Laboratory Results: 06/11/20 04:40 06/11/20 04:40 06/11/20 06/11/20 06/11/20 04:40 04:40 05:00 WBC 11.9 H RBC 2.72 L Hgb 8.3 L Hct 24.4 L MCV 90 MCH 30.4 MCHC 34.0 RDW 14.1 H Plt Count 126 L Seg Neutrophils % Not Reportable Carbonic Acid HCO3/H2CO3 Ratio ABG pH ABG pCO2 ABG pO2 ABG HCO3 ABG O2 Saturation ABG Base Excess FiO2 Sodium 138.3 Potassium 4.3 Chloride 105 Carbon Dioxide 30 Anion Gap 3 L BUN 47 H Creatinine 1.01 Est GFR ( Amer) > 60 Glucose 227 H Calcium 7.9 L Ionized Calcium Bradley 1.16 C-Reactive Protein 6.7 06/11/20 05:00 WBC RBC Hgb Hct MCV MCH MCHC RDW Plt Count Seg Neutrophils % Carbonic Acid 0.77 L HCO3/H2CO3 Ratio 21:1 ABG pH 7.42 ABG pCO2 25.6 L ABG pO2 72.9 L ABG HCO3 16.2 L ABG O2 Saturation 95.3 ABG Base Excess -7.1 FiO2 75% Sodium Potassium Chloride Carbon Dioxide Anion Gap BUN Creatinine Est GFR ( Amer) Glucose Calcium Ionized Calcium Bradley C-Reactive Protein 05/23/20 05/24/20 05/25/20 04:44 04:49 04:51 Creatine Kinase CK-MB (CK-2) Troponin I NT-Pro-B Natriuret Pep 757 H 883 H 253 H 05/27/20 05/29/20 05/29/20 04:41 04:15 04:15 Creatine Kinase 439 H CK-MB (CK-2) 3.21 Troponin I < 0.012 NT-Pro-B Natriuret Pep 307 H 05/30/20 06/06/20 04:13 13:30 Creatine Kinase CK-MB (CK-2) Troponin I NT-Pro-B Natriuret Pep 549 H 216 H Impressions: Abdomen/Pelvis CT 05/19/20 15:57 IMPRESSION: 1. Nonspecific mild fluid-filled small bowel loops could reflect a mild enteritis. No bowel obstruction. 2. No peripancreatic inflammation. 3. Cholelithiasis. 4. Hepatic steatosis. 5. Enlarged prostate gland. 6. Basilar ground-glass pulmonary opacities are not specific but can be seen with infectious and noninfectious processes, including COVID 19 infection. Correlate with exposure history. Chest CT 05/29/20 00:00 IMPRESSION: Diffuse bilateral ground-glass opacities consistent with pulmonary edema or pneumonia. There is bibasilar consolidation either atelectasis or pneumonia. No effusions. Head CT 05/29/20 00:00 IMPRESSION: MILD CHRONIC CHANGES OF ATROPHY AND MICROVASCULAR ISCHEMIA. NO ACUTE PROCESS. EVIDENCE OF ACUTE STROKE: NO. PICC Line Insertion 05/30/20 00:00 IMPRESSION: SUCCESSFUL PLACEMENT OF A 5 FR DUAL LUMEN 35 CM PICC IN THE RIGHT BASILIC VEIN. KUB X-Ray 06/01/20 00:00 IMPRESSION: NG tube in good position in the upper stomach. Chest X-Ray 06/04/20 05:00 IMPRESSION: BILATERAL AIRSPACE DISEASE MAY BE SLIGHTLY WORSE. All labs, radiographs, diagnostic studies and EKGs were personally reviewed: Yes In addition, reports of radiographic and diagnostic studies were read: Yes Assessment and Plan - Diagnosis (1) Pneumonia due to 2019 novel coronavirus Is this a current diagnosis for this admission?: Yes Plan: Not able to make significant changes on ventilator. (2) Acute encephalopathy Is this a current diagnosis for this admission?: Yes Plan: Possibly still active underneath sedation. (3) Hypernatremia Is this a current diagnosis for this admission?: Yes Plan: Resolved (4) Anemia Is this a current diagnosis for this admission?: Yes Plan: Stable. Hgb 8.3. (5) Acute kidney injury Is this a current diagnosis for this admission?: Yes Plan: Resolved. Plan Summary: Maintasin support as is today. Still a full code. Family to discuss progress next week. Critical Time Critical Time (minutes): 35 Level of Care: ICU Anticipated discharge: Other Anticipated DC Timeframe: Other -: 1. The care of a critical patient is a dynamic process. This note is a repre sentative synopsis but static in nature. The timeframe for treatments given in order is not necessarily the actual time these treatments may have been done. 2. This patient requires critical care secondary to ongoing requirements for therapy not offered or safe outside the critical care environment. Transfer to a lower level of care will result in altered life or limb morbidity and mortality. 3. Multidisciplinary rounds completed. 4. ABCDE bundle addressed.
[2020-06-11 09:50] LABS: APPEARANCE,URINE CLOUDY; BILIRUBIN,URINE NEGATIVE (NEGATIVE); COLOR,URINE YELLOW; GLUCOSE, URINE 50 mg/dL (NEGATIVE); KETONES,URINE NEGATIVE (NEGATIVE); LEUKOCYTE ESTERASE,URINE MODERATE (NEGATIVE); NITRITE,URINE NEGATIVE (NEGATIVE); PROTEIN,URINE NEGATIVE (NEGATIVE); URIC ACID CRYSTALS,URINE RARE /HPF; URINE SPECIFIC GRAVITY 1.016; UROBILINOGEN,URINE NEGATIVE mg/dL (<2.0)
[2020-06-11] MEDS: FENTANYL CITRATE/PF 600 MCG/60 ML BAG IV PRN ×2 (10:14→20:30)
[2020-06-11] MEDS: POLYETHYLENE GLYCOL 3350 POWDER 17 GM/1 PACKET NG SCH (10:20)
[2020-06-11] MEDS: CHOLECALCIFEROL (D3) 1,000 UNIT (25 MCG) TABLET NG SCH (10:21)
[2020-06-11] MEDS: PANTOPRAZOLE SODIUM 40 MG VIAL IV SCH (10:21)
[2020-06-11] MEDS: ASCORBIC ACID 500 MG TABLET PO SCH ×2 (10:21→17:02)
[2020-06-11] MEDS: NORMAL SALINE 10 ML SDV (SCHEDULED) IV SCH ×2 (10:22→22:44)
[2020-06-11] MEDS: METHYLPREDNISOLONE INJ 125 MG/2 ML SDV IV SCH ×2 (10:23→22:43)
[2020-06-11] MEDS: 1/2 NORMAL SALINE 1,000 ML IV PRN (14:53)
[2020-06-11] MEDS: ARGATROBAN 250 MG/NS 250 ML (NON-ESRD) IV PRN ×2 (14:53)
[2020-06-11] MEDS: DEXTROSE 5%-WATER 250 ML with NOREPINEPHRINE BITARTRATE 4 MG IV PRN ×2 (17:02)
[2020-06-12] MEDS: ALBUTEROL SULFATE 0.083% NEB 2.5 MG/3 ML AMPUL NEB SCH ×6 (00:17→20:26)
[2020-06-12] MEDS: MIDAZOLAM HCL 50 MG/100 ML RTUINJ IV PRN ×4 (00:30→23:00)
[2020-06-12 05:04] LABS: ALBUMIN 1.9 g/dL (3.5-5.0); ALKALINE PHOSPHATASE 94 U/L (38-126); ASPARTATE AMINO TRANSFERASE 36 U/L (17-59); BILIRUBIN,DIRECT 0.2 mg/dL (0.0-0.4); BILIRUBIN,TOTAL 0.5 mg/dL (0.2-1.3); BLOOD UREA NITROGEN 50 mg/dL (7-20); CALCIUM 7.7 mg/dL (8.4-10.2); GLUCOSE 194 mg/dL (75-110); POTASSIUM 4.1 mmol/L (3.6-5.0); TOTAL PROTEIN 3.9 g/dL (6.3-8.2)
[2020-06-12 05:09] LABS: CARBON DIOXIDE 31 mmol/L (22-30); CHLORIDE 106 mmol/L (98-107)
[2020-06-12 05:10] LABS: ANION GAP 1 (5-19)
[2020-06-12] MEDS: METOCLOPRAMIDE HCL INJ/PF 10 MG/2 ML SDV IV SCH ×3 (05:36→21:12)
[2020-06-12] MEDS: SENNOSIDES/DOCUSATE 8.6-50 MG 1 EACH TABLET PO SCH ×2 (05:36→15:45)
[2020-06-12] MEDS: INSULIN REG, HUMAN 100 UNIT/ML 3 ML VIAL (PYX) SUBCUT SCH ×3 (05:36→17:17)
[2020-06-12 06:31] LABS: HEMATOCRIT 21.5 % (37.9-51.0); MEAN CORPUSCULAR HEMOGLOBIN 29.6 pg (27.0-33.4); MEAN CORPUSCULAR HGB CONC 33.3 g/dL (32.0-36.0); MEAN CORPUSCULAR VOLUME 89 fl (80-97); PLATELET COUNT 139 10^3/uL (150-450); RED BLOOD COUNT 2.43 10^6/uL (4.35-5.55); RED CELL DISTRIBUTION WIDTH 14.1 % (11.5-14.0); WHITE BLOOD COUNT 12.6 10^3/uL (4.0-10.5)
[2020-06-12 06:37] LABS: HEMOGLOBIN 7.2 g/dL (13.5-17.0)
[2020-06-12] MEDS: 1/2 NORMAL SALINE 1,000 ML IV PRN (09:04)
[2020-06-12] MEDS: FENTANYL CITRATE/PF 600 MCG/60 ML BAG IV PRN ×2 (09:05→18:55)
[2020-06-12] MEDS: DEXTROSE 5%-WATER 250 ML with NOREPINEPHRINE BITARTRATE 4 MG IV PRN ×2 (09:06)
[2020-06-12] MEDS: ARGATROBAN 250 MG/NS 250 ML (NON-ESRD) IV PRN ×2 (09:06)
--- NOTE | 2020-06-12 09:21 | RADIOLOGY REPORT (SQ) ---
EXAM DESCRIPTION: CHEST SINGLE VIEW IMAGES COMPLETED DATE/TIME: 06/12/2020 6:39 am REASON FOR STUDY: vent COMPARISON: 06/04/2020 NUMBER OF VIEWS: One view. TECHNIQUE: Single frontal radiographic image of the chest acquired. LIMITATIONS: 06/04/2020 FINDINGS: LUNGS AND PLEURA: Bilateral airspace disease with slight improved aeration in the left low er lobe. No pneumothorax. MEDIASTINUM AND HEART: Stable heart size and mediastinal structures. SUPPORT DEVICES: Appropriate location without change. BONY STRUCTURES: No acute findings. HARDWARE: None. OTHER: No other significant finding. IMPRESSION: Slight improvement. No pneumothorax. Reading location - IP/workstation name: [email or web address]
[2020-06-12] MEDS: CHOLECALCIFEROL (D3) 1,000 UNIT (25 MCG) TABLET NG SCH (10:55)
[2020-06-12] MEDS: PANTOPRAZOLE SODIUM 40 MG VIAL IV SCH (10:55)
[2020-06-12] MEDS: ASCORBIC ACID 500 MG TABLET PO SCH ×2 (10:55→17:18)
[2020-06-12] MEDS: NORMAL SALINE 10 ML SDV (SCHEDULED) IV SCH ×2 (10:56→21:12)
[2020-06-12] MEDS: POLYETHYLENE GLYCOL 3350 POWDER 17 GM/1 PACKET NG SCH (10:56)
[2020-06-12] MEDS: METHYLPREDNISOLONE INJ 125 MG/2 ML SDV IV SCH ×2 (10:56→21:12)
[2020-06-12] MEDS: SUCRALFATE 1 GM TABLET PO SCH ×2 (13:35→17:18)
--- NOTE | 2020-06-12 13:56 | PDOC CRITICAL CARE PROG REPORT ---
General Date:: 06/12/20 ICU Day:: 13 Ventilator Day:: 13 Hospital Day:: 24 Resuscitation Status: Full Code Events in the past 12 to 24 Hours:: This 74-year-old male was admitted on 05/19/2020 with diarrhea and abdominal pain (over 3 weeks). He was admitted to the hospitalist. He was transferred to the ICU on 05/31/2019 and intubated for worsening mental status, suspected to be due to acute hypoxemic respiratory failure secondary to COVID-19 pneumonia. 06/02/20: Still needing vent. Na and kidney function slightly better. 06/03: remains intubated. shows minimal response to verbal stimuli. does not follow commands. On PRVC 18/450/55/8 for a.m ABG. on Precedex/fentanyl for sedation. on heparin. on norepinephine. 06/04: remains intubated. on PRVC 20/500/65/8. clinically, no significant change. on Levophed @ 1. Platelets 85 today. Creatinine 1.68> 1.71. 06/05: Remains intubated. No significant change on the vent. ABG this mornin.32/50/89. On and off Levophed at 1 mcg/min. On fentanyl/Precedex for sedation. Creatinine 1.8. 06/06: Remains intubated. On PRVC 20/500/65/8. FiO2 65% but SpO2 85-87% this a.m. On Precedex/fentanyl for sedation. Appears more active today. Squirms in the bed. Does not follow commands. Does not visually track. Changed from heparin to argatroban yesterday due to concerns about thrombocytopenia. Platelets 94 this morning, increasing. On TF. 06/07: Hgb 6.8. No sign of bleeding. Blood ordered. 06/08: Still difficult to sedate. Intermittantly tachycardic 06/09: [place] replaced yesterday with 1500cc urine removed. Still intermittently agitated with varying amounts of sedation being needed. 06/10: Seems calmer today thus far. FIO2 dropped to 75%. No change to PEEP. TF held for residual 300. To restart. 06/11: PSV dropped to 15cm. Calm, not agitated. No change in FIO2. 06/12: Episode of desaturation today. Resolved. Still agitated at times. Review of systems relevant to events:: Pulmonary, neurological. Reason for ICU Addmission:: Need for intubation for Covid PNA. - Medications: Medications reviewed and adjusted accordingly: Yes Vasopressors:: Levophed Sedation:: Fentanyl, versed Physical Exam Vital Signs: Temp Pulse Resp BP Pulse Ox 98.4 F 103 H 32 H 134/80 H 92 06/12/20 12:00 06/12/20 12:45 06/12/20 12:45 06/12/20 12:00 06/12/20 12:45 Intake & Output 06/11/20 06/12/20 06/13/20 06:59 06:59 06:59 Intake Total 2861 2383 1260 Output Total 1965 3845 790 Balance 896 -1462 470 Weight 89.5 kg 93.5 kg Weight/Height Weight 93.5 kg Height 5 ft 11 in General appearance: PRESENT: no acute distress Head exam: PRESENT: atraumatic, normocephalic Eye exam: PRESENT: conjunctiva pink, EOMI, PERRLA. ABSENT: scleral icterus Ear exam: PRESENT: normal external ear exam Mouth exam: PRESENT: moist, tongue midline Respiratory exam: PRESENT: clear to auscultation demi, decreased breath sounds. ABSENT: rales, rhonchi, wheezes Cardiovascular exam: PRESENT: RRR, tachycardia. ABSENT: diastolic murmur, rubs, systolic murmur GI/Abdominal exam: PRESENT: normal bowel sounds, soft. ABSENT: distended, guarding, mass, organolmegaly, rebound, tenderness Rectal exam: PRESENT: deferred Gentrourinary exam: PRESENT: indwelling catheter Extremities exam: PRESENT: full ROM. ABSENT: calf tenderness, clubbing, pedal edema Musculoskeletal exam: PRESENT: normal inspection Neurological exam: PRESENT: altered, other - He alternates between being mostly sedated to agitated. Skin exam: PRESENT: dry, intact, warm. ABSENT: cyanosis, rash Tubes/Lines: PRESENT: Endotracheal Tube, Nasogastic Tube Laboratory/Radiographs Laboratory Results: 06/12/20 05:36 06/12/20 03:40 06/12/20 06/12/20 03:40 05:36 WBC 12.6 H RBC 2.43 L Hgb 7.2 L Hct 21.5 L MCV 89 MCH 29.6 MCHC 33.3 RDW 14.1 H Plt Count 139 L Sodium 137.7 Potassium 4.1 Chloride 106 Carbon Dioxide 31 H Anion Gap 1 L BUN 50 H Creatinine 0.99 Est GFR ( Amer) > 60 Glucose 194 H Calcium 7.7 L Total Bilirubin 0.5 AST 36 Alkaline Phosphatase 94 Total Protein 3.9 L Albumin 1.9 L 06/11/20 08:45 [place] Catheter Urine Culture - Final C.albicans/C.dubliniensis 05/23/20 05/24/20 05/25/20 04:44 04:49 04:51 Creatine Kinase CK-MB (CK-2) Troponin I NT-Pro-B Natriuret Pep 757 H 883 H 253 H 05/27/20 05/29/20 05/29/20 04:41 04:15 04:15 Creatine Kinase 439 H CK-MB (CK-2) 3.21 Troponin I < 0.012 NT-Pro-B Natriuret Pep 307 H 05/30/20 06/06/20 04:13 13:30 Creatine Kinase CK-MB (CK-2) Troponin I NT-Pro-B Natriuret Pep 549 H 216 H Impressions: Abdomen/Pelvis CT 05/19/20 15:57 IMPRESSION: 1. Nonspecific mild fluid-filled small bowel loops could reflect a mild enteritis. No bowel obstruction. 2. No peripancreatic inflammation. 3. Cholelithiasis. 4. Hepatic steatosis. 5. Enlarged prostate gland. 6. Basilar ground-glass pulmonary opacities are not specific but can be seen with infectious and noninfectious processes, including COVID 19 infection. Correlate with exposure history. Chest CT 05/29/20 00:00 IMPRESSION: Diffuse bilateral ground-glass opacities consistent with pulmonary edema or pneumonia. There is bibasilar consolidation either atelectasis or pneumonia. No effusions. Head CT 05/29/20 00:00 IMPRESSION: MILD CHRONIC CHANGES OF ATROPHY AND MICROVASCULAR ISCHEMIA. NO ACUTE PROCESS. EVIDENCE OF ACUTE STROKE: NO. PICC Line Insertion 05/30/20 00:00 IMPRESSION: SUCCESSFUL PLACEMENT OF A 5 FR DUAL LUMEN 35 CM PICC IN THE RIGHT BASILIC VEIN. KUB X-Ray 06/01/20 00:00 IMPRESSION: NG tube in good position in the upper stomach. Chest X-Ray 06/12/20 04:00 IMPRESSION: Slight improvement. No pneumothorax. All labs, radiographs, diagnostic studies and EKGs were personally reviewed: Yes In addition, reports of radiographic and diagnostic studies were read: Yes Assessment and Plan - Diagnosis (1) Pneumonia due to 2019 novel coronavirus Is this a current diagnosis for this admission?: Yes Plan: He is still needing nearly 100% FIO2 and we are unable to wean as yet. CXR is basically unchanged. (2) Acute encephalopathy Is this a current diagnosis for this admission?: Yes Plan: Delirium present before intubation. Unknown if it persists. (3) Hypernatremia Is this a current diagnosis for this admission?: Yes Plan: Resolved (4) Anemia Is this a current diagnosis for this admission?: Yes Plan: Level of Hgb 7.2 with coffee ground emesis in NG. Will continue to feed as it is probably gut protective. Argatroban stopped. On prophylactic lovenox, protonix and carafate. If H/H drops further, will transfuse. (5) Acute kidney injury Is this a current diagnosis for this admission?: Yes Plan: Resolved. Plan Summary: Pt is no better from a pulmonary standpoint. GI bleeding only mildly symptomatic from H/H standpoint. Overall no progress with ventilator Critical Time Critical Time (minutes): 35 Level of Care: ICU Anticipated discharge: Other Anticipated DC Timeframe: Other -: 1. The care of a critical patient is a dynamic process. This note is a security representative synopsis but static in nature. The timeframe for treatments given in order is not necessarily the actual time these treatments may have been done. 2. This patient requires critical care secondary to ongoing requirements for therapy not offered or safe outside the critical care environment. Transfer to a lower level of care will result in altered life or limb morbidity and mortality. 3. Multidisciplinary rounds completed. 4. ABCDE bundle addressed.
[2020-06-12 14:18] LABS: APPEARANCE,URINE CLOUDY; BILIRUBIN,URINE NEGATIVE (NEGATIVE); COLOR,URINE YELLOW; GLUCOSE, URINE NEGATIVE (NEGATIVE); KETONES,URINE NEGATIVE (NEGATIVE); LEUKOCYTE ESTERASE,URINE LARGE (NEGATIVE); NITRITE,URINE NEGATIVE (NEGATIVE); PROTEIN,URINE NEGATIVE (NEGATIVE); URINE SPECIFIC GRAVITY 1.012; UROBILINOGEN,URINE NEGATIVE mg/dL (<2.0)
[2020-06-13] MEDS: ALBUTEROL SULFATE 0.083% NEB 2.5 MG/3 ML AMPUL NEB SCH ×6 (00:43→20:37)
[2020-06-13] MEDS: SENNOSIDES/DOCUSATE 8.6-50 MG 1 EACH TABLET PO SCH ×4 (01:15→21:29)
[2020-06-13] MEDS: SUCRALFATE 1 GM TABLET PO SCH ×5 (01:18→23:18)
[2020-06-13] MEDS: INSULIN REG, HUMAN 100 UNIT/ML 3 ML VIAL (PYX) SUBCUT SCH ×5 (01:21→23:17)
[2020-06-13 04:28] LABS: HEMATOCRIT 23.6 % (37.9-51.0); HEMOGLOBIN 8.1 g/dL (13.5-17.0); MEAN CORPUSCULAR HEMOGLOBIN 30.2 pg (27.0-33.4); MEAN CORPUSCULAR HGB CONC 34.1 g/dL (32.0-36.0); MEAN CORPUSCULAR VOLUME 88 fl (80-97); RED BLOOD COUNT 2.68 10^6/uL (4.35-5.55); RED CELL DISTRIBUTION WIDTH 14.3 % (11.5-14.0); WHITE BLOOD COUNT 13.4 10^3/uL (4.0-10.5)
[2020-06-13 04:29] LABS: PARTIAL THROMBOPLASTIN TIME 30.9 SEC (23.5-35.8)
[2020-06-13 04:31] LABS: D-DIMER 2.59 ug/mL (0.00-0.50)
[2020-06-13] MEDS: MIDAZOLAM HCL 50 MG/100 ML RTUINJ IV PRN ×3 (04:40→17:56)
[2020-06-13 04:46] LABS: BLOOD UREA NITROGEN 45 mg/dL (7-20); C-REACTIVE PROTEIN 6.3 mg/L (<10.0); CALCIUM 7.9 mg/dL (8.4-10.2); GLUCOSE 214 mg/dL (75-110); POTASSIUM 4.1 mmol/L (3.6-5.0)
[2020-06-13 04:49] LABS: CARBON DIOXIDE 32 mmol/L (22-30); CHLORIDE 105 mmol/L (98-107)
[2020-06-13 04:54] LABS: ANION GAP 3 (5-19)
[2020-06-13 04:59] LABS: BASOPHILS % (MANUAL) 0 % (0-2); EOSINOPHILS % (MANUAL) 0 % (0-6); LYMPHOCYTES % (MANUAL) 0 % (13-45); MONOCYTES % (MANUAL) 0 % (3-13); SEGMENTED NEUTROPHILS % (MAN) 100 % (42-78); TOTAL CELLS COUNTED 100
[2020-06-13 05:00] LABS: PLATELET CLUMPS PRESENT; PLATELET COMMENT ADEQUATE; PLATELET COUNT 133 10^3/uL (150-450)
[2020-06-13] MEDS: METOCLOPRAMIDE HCL INJ/PF 10 MG/2 ML SDV IV SCH ×3 (05:37→21:29)
[2020-06-13] MEDS: 1/2 NORMAL SALINE 1,000 ML IV PRN ×2 (05:44→18:01)
[2020-06-13] MEDS: FENTANYL CITRATE/PF 600 MCG/60 ML BAG IV PRN ×3 (05:44→22:15)
--- NOTE | 2020-06-13 08:33 | PDOC CRITICAL CARE PROG REPORT ---
General Date:: 06/13/20 ICU Day:: 14 Ventilator Day:: 14 Hospital Day:: 25 Resuscitation Status: Full Code Events in the past 12 to 24 Hours:: This 74-year-old male was admitted on 05/19/2020 with diarrhea and abdominal pain (over 3 weeks). He was admitted to the hospitalist. He was transferred to the ICU on 05/31/2019 and intubated for worsening mental status, suspected to be due to acute hypoxemic respiratory failure secondary to COVID-19 pneumonia. 06/02/20: Still needing vent. Na and kidney function slightly better. 06/03: remains intubated. shows minimal response to verbal stimuli. does not follow commands. On PRVC 18/450/55/8 for a.m ABG. on Precedex/fentanyl for sedation. on heparin. on norepinephine. 06/04: remains intubated. on PRVC 20/500/65/8. clinically, no significant change. on Levophed @ 1. Platelets 85 today. Creatinine 1.68> 1.71. 06/05: Remains intubated. No significant change on the vent. ABG this mornin.32/50/89. On and off Levophed at 1 mcg/min. On fentanyl/Precedex for sedation. Creatinine 1.8. 06/06: Remains intubated. On PRVC 20/500/65/8. FiO2 65% but SpO2 85-87% this a.m. On Precedex/fentanyl for sedation. Appears more active today. Squirms in the bed. Does not follow commands. Does not visually track. Changed from heparin to argatroban yesterday due to concerns about thrombocytopenia. Platelets 94 this morning, increasing. On TF. 06/07: Hgb 6.8. No sign of bleeding. Blood ordered. 06/08: Still difficult to sedate. Intermittantly tachycardic 06/09: [place] replaced yesterday with 1500cc urine removed. Still intermittently agitated with varying amounts of sedation being needed. 06/10: Seems calmer today thus far. FIO2 dropped to 75%. No change to PEEP. TF held for residual 300. To restart. 06/11: PSV dropped to 15cm. Calm, not agitated. No change in FIO2. 06/12: Episode of desaturation today. Resolved. Still agitated at times. 06/13: Off levophed but still on high vent support. Review of systems relevant to events:: Pulmonary, neurological. Reason for ICU Addmission:: Need for intubation for Covid PNA. - Medications: Medications reviewed and adjusted accordingly: Yes Vasopressors:: None Sedation:: Fentanyl, versed. Physical Exam Vital Signs: Temp Pulse Resp BP Pulse Ox 99.1 F 86 22 H 83/64 L 95 06/13/20 04:00 06/13/20 04:27 06/13/20 06:11 06/13/20 06:11 06/13/20 06:11 Intake & Output 06/12/20 06/13/20 06/14/20 06:59 06:59 06:59 Intake Total 2383 3579 Output Total 3845 2453 Balance -1462 1126 Weight 93.5 kg 93.4 kg Weight/Height Weight 93.4 kg Height 5 ft 11 in General appearance: PRESENT: no acute distress Head exam: PRESENT: atraumatic, normocephalic Eye exam: PRESENT: conjunctiva pink, EOMI, PERRLA. ABSENT: scleral icterus Ear exam: PRESENT: normal external ear exam Mouth exam: PRESENT: moist, tongue midline Respiratory exam: PRESENT: clear to auscultation demi, decreased breath sounds. ABSENT: rales, rhonchi, wheezes Cardiovascular exam: PRESENT: RRR. ABSENT: diastolic murmur, rubs, systolic murmur GI/Abdominal exam: PRESENT: normal bowel sounds, soft. ABSENT: distended, guarding, mass, organolmegaly, rebound, tenderness Rectal exam: PRESENT: deferred Gentrourinary exam: PRESENT: indwelling catheter Extremities exam: PRESENT: full ROM. ABSENT: calf tenderness, clubbing, pedal edema Musculoskeletal exam: PRESENT: normal inspection Neurological exam: PRESENT: other - No agitation seen this AM yet. Skin exam: PRESENT: dry, intact, warm. ABSENT: cyanosis, rash Tubes/Lines: PRESENT: Endotracheal Tube, Nasogastic Tube Laboratory/Radiographs Laboratory Results: 06/13/20 03:46 06/13/20 03:46 06/12/20 06/13/20 06/13/20 13:30 03:46 03:46 WBC 13.4 H RBC 2.68 L Hgb 8.1 L Hct 23.6 L MCV 88 MCH 30.2 MCHC 34.1 RDW 14.3 H Plt Count 133 L Seg Neutrophils % Not Reportable Sodium 139.7 Potassium 4.1 Chloride 105 Carbon Dioxide 32 H Anion Gap 3 L BUN 45 H Creatinine 0.89 Est GFR ( Amer) > 60 Glucose 214 H Calcium 7.9 L C-Reactive Protein 6.3 Urine Color YELLOW Urine Appearance CLOUDY Urine pH 5.0 Ur Specific [place] 1.012 Urine Protein NEGATIVE Urine Glucose (UA) NEGATIVE Urine Ketones NEGATIVE Urine Blood LARGE H Urine Nitrite NEGATIVE Ur Leukocyte Esterase LARGE H Urine WBC (Auto) 70 Urine RBC (Auto) 145 Blood Type Antibody Screen 06/13/20 03:46 WBC RBC Hgb Hct MCV MCH MCHC RDW Plt Count Seg Neutrophils % Sodium Potassium Chloride Carbon Dioxide Anion Gap BUN Creatinine Est GFR ( Amer) Glucose Calcium C-Reactive Protein Urine Color Urine Appearance Urine pH Ur Specific Franklin Urine Protein Urine Glucose (UA) Urine Ketones Urine Blood Urine Nitrite Ur Leukocyte Esterase Urine WBC (Auto) Urine RBC (Auto) Blood Type O POSITIVE Antibody Screen NEGATIVE 06/11/20 08:45 [place] Catheter Urine Culture - Final C.albicans/C.dubliniensis 05/23/20 05/24/20 05/25/20 04:44 04:49 04:51 Creatine Kinase CK-MB (CK-2) Troponin I NT-Pro-B Natriuret Pep 757 H 883 H 253 H 05/27/20 05/29/20 05/29/20 04:41 04:15 04:15 Creatine Kinase 439 H CK-MB (CK-2) 3.21 Troponin I < 0.012 NT-Pro-B Natriuret Pep 307 H 05/30/20 06/06/20 04:13 13:30 Creatine Kinase CK-MB (CK-2) Troponin I NT-Pro-B Natriuret Pep 549 H 216 H Impressions: Abdomen/Pelvis CT 05/19/20 15:57 IMPRESSION: 1. Nonspecific mild fluid-filled small bowel loops could reflect a mild enteritis. No bowel obstruction. 2. No peripancreatic inflammation. 3. Cholelithiasis. 4. Hepatic steatosis. 5. Enlarged prostate gland. 6. Basilar ground-glass pulmonary opacities are not specific but can be seen with infectious and noninfectious processes, including COVID 19 infection. Correlate with exposure history. Chest CT 05/29/20 00:00 IMPRESSION: Diffuse bilateral ground-glass opacities consistent with pulmonary edema or pneumonia. There is bibasilar consolidation either atelectasis or pneumonia. No effusions. Head CT 05/29/20 00:00 IMPRESSION: MILD CHRONIC CHANGES OF ATROPHY AND MICROVASCULAR ISCHEMIA. NO ACUTE PROCESS. EVIDENCE OF ACUTE STROKE: NO. PICC Line Insertion 05/30/20 00:00 IMPRESSION: SUCCESSFUL PLACEMENT OF A 5 FR DUAL LUMEN 35 CM PICC IN THE RIGHT BASILIC VEIN. KUB X-Ray 06/01/20 00:00 IMPRESSION: NG tube in good position in the upper stomach. Chest X-Ray 06/12/20 04:00 IMPRESSION: Slight improvement. No pneumothorax. All labs, radiographs, diagnostic studies and EKGs were personally reviewed: Yes In addition, reports of radiographic and diagnostic studies were read: Yes Assessment and Plan - Diagnosis (1) Pneumonia due to 2019 novel coronavirus Is this a current diagnosis for this admission?: Yes Plan: The cause of his pulmonary issues and likely preintubation delirium. Still on 80% FIO2 with little room to wean. (2) Acute encephalopathy Is this a current diagnosis for this admission?: Yes Plan: Hard to tell on sedation (3) Anemia Is this a current diagnosis for this admission?: Yes Plan: Hgb 8.1 with tx. Plan Summary: Try to wean down FIO2 if possible. Critical Time Critical Time (minutes): 35 Level of Care: ICU Anticipated discharge: Other Anticipated DC Timeframe: Other -: 1. The care of a critical patient is a dynamic process. This note is a marketing development representative synopsis but static in nature. The timeframe for treatments given in order is not necessarily the actual time these treatments may have been done. 2. This patient requires critical care secondary to ongoing requirements for therapy not offered or safe outside the critical care environment. Transfer to a lower level of care will result in altered life or limb morbidity and mortality. 3. Multidisciplinary rounds completed. 4. ABCDE bundle addressed.
[2020-06-13] MEDS: ENOXAPARIN SODIUM INJ 40 MG/0.4 ML DISP.SYRIN SUBCUT SCH (11:04)
[2020-06-13] MEDS: ASCORBIC ACID 500 MG TABLET PO SCH ×2 (11:06→17:57)
[2020-06-13] MEDS: POLYETHYLENE GLYCOL 3350 POWDER 17 GM/1 PACKET NG SCH (11:07)
[2020-06-13] MEDS: PANTOPRAZOLE SODIUM 40 MG VIAL IV SCH (11:07)
[2020-06-13] MEDS: NORMAL SALINE 10 ML SDV (SCHEDULED) IV SCH ×2 (11:07→21:29)
[2020-06-13] MEDS: METHYLPREDNISOLONE INJ 125 MG/2 ML SDV IV SCH ×2 (11:07→21:29)
[2020-06-13] MEDS: CHOLECALCIFEROL (D3) 1,000 UNIT (25 MCG) TABLET NG SCH (11:11)
[2020-06-13 11:24] LABS: ARTERIAL BLOOD BASE EXCESS 3.8 mmol/L; ARTERIAL BLOOD H2CO3 1.27 mmol/L (1.05-1.35); ARTERIAL BLOOD HCO3 28.2 mmol/L (20-24); ARTERIAL BLOOD O2 SATURATION 96.2 % (94-98); ARTERIAL BLOOD PCO2 42.1 mmHg (35-45); ARTERIAL BLOOD PH 7.44 (7.35-7.45); ARTERIAL BLOOD PO2 79.8 mmHg (80-100); ARTERIAL BLOOD TOTAL CO2 29.5 mmol/L (23-27)
[2020-06-13 11:25] LABS: ARTERIAL BLOOD FIO2 80%
[2020-06-13] MEDS ORDERED: NOREPINEPHRINE BITARTRATE INJ/PF 4 MG/4 ML SDV IV ONE (22:23)
[2020-06-13] MEDS: DEXTROSE 5%-WATER 250 ML with NOREPINEPHRINE BITARTRATE 4 MG IV PRN ×2 (22:30)
[2020-06-14] MEDS: ALBUTEROL SULFATE 0.083% NEB 2.5 MG/3 ML AMPUL NEB SCH ×6 (00:08→19:43)
[2020-06-14] MEDS: MIDAZOLAM HCL 50 MG/100 ML RTUINJ IV PRN ×4 (01:52→18:26)
[2020-06-14] MEDS: FENTANYL CITRATE/PF 600 MCG/60 ML BAG IV PRN ×5 (04:09→21:57)
[2020-06-14 04:31] LABS: HEMATOCRIT 19.3 % (37.9-51.0); MEAN CORPUSCULAR HGB CONC 34.7 g/dL (32.0-36.0); MEAN CORPUSCULAR VOLUME 89 fl (80-97); PLATELET COUNT 144 10^3/uL (150-450); RED BLOOD COUNT 2.16 10^6/uL (4.35-5.55); RED CELL DISTRIBUTION WIDTH 13.9 % (11.5-14.0); WHITE BLOOD COUNT 15.7 10^3/uL (4.0-10.5)
[2020-06-14 04:50] LABS: BLOOD UREA NITROGEN 43 mg/dL (7-20); CALCIUM 7.4 mg/dL (8.4-10.2); CHLORIDE 104 mmol/L (98-107); GLUCOSE 202 mg/dL (75-110); POTASSIUM 3.9 mmol/L (3.6-5.0)
[2020-06-14 04:56] LABS: CARBON DIOXIDE 32 mmol/L (22-30)
[2020-06-14 05:02] LABS: ANION GAP 0 (5-19)
[2020-06-14 05:09] LABS: HEMOGLOBIN 6.7 g/dL (13.5-17.0)
[2020-06-14] MEDS ORDERED: NORMAL SALINE 250 ML IV PRN ×2 (05:16)
[2020-06-14] MEDS: METOCLOPRAMIDE HCL INJ/PF 10 MG/2 ML SDV IV SCH ×3 (05:20→21:56)
[2020-06-14] MEDS: SENNOSIDES/DOCUSATE 8.6-50 MG 1 EACH TABLET PO SCH ×3 (05:20→21:56)
[2020-06-14] MEDS: SUCRALFATE 1 GM TABLET PO SCH ×3 (05:20→17:43)
[2020-06-14] MEDS: INSULIN REG, HUMAN 100 UNIT/ML 3 ML VIAL (PYX) SUBCUT SCH ×3 (05:27→17:43)
--- NOTE | 2020-06-14 08:23 | RADIOLOGY REPORT (SQ) ---
EXAM DESCRIPTION: CHEST SINGLE VIEW IMAGES COMPLETED DATE/TIME: 06/14/2020 6:25 am REASON FOR STUDY: intubation COMPARISON: 06/12/2020 EXAM PARAMETERS: NUMBER OF VIEWS: One view. TECHNIQUE: Single frontal radiographic view of the chest acquired. RADIATION DOSE: NA LIMITATIONS: None. FINDINGS: LUNGS AND PLEURA: Patchy bilateral interstitial and alveolar opacities, stable. No large effusion. No pneumothorax. MEDIASTINUM AND HILAR STRUCTURES: Stable. HEART AND VASCULAR STRUCTURES: Stable. Unfolded thoracic aorta. BONES: No acute findings. HARDWARE: Endotracheal tube tip overlies midthoracic trachea. Right approach PICC tip terminates at SVC. Enteric tube tip overlies gastric body. OTHER: No other significant finding. IMPRESSION: Stable chest with patchy bilateral airspace disease. Endotracheal tube tip overlies midthoracic trachea. Additional lines as above. TECHNICAL DOCUMENTATION: JOB ID: [id number] 2010 [employer]- All Rights Reserved Reading location - IP/workstation name: [email or web address]
[2020-06-14] MEDS: ENOXAPARIN SODIUM INJ 40 MG/0.4 ML DISP.SYRIN SUBCUT SCH (11:00)
[2020-06-14] MEDS: NORMAL SALINE 10 ML SDV (SCHEDULED) IV SCH ×2 (11:01→21:56)
[2020-06-14] MEDS: POLYETHYLENE GLYCOL 3350 POWDER 17 GM/1 PACKET NG SCH (11:01)
[2020-06-14] MEDS: PANTOPRAZOLE SODIUM 40 MG VIAL IV SCH (11:03)
[2020-06-14] MEDS: ASCORBIC ACID 500 MG TABLET PO SCH ×2 (11:03→17:43)
[2020-06-14] MEDS: CHOLECALCIFEROL (D3) 1,000 UNIT (25 MCG) TABLET NG SCH (11:03)
[2020-06-14] MEDS: METHYLPREDNISOLONE INJ 125 MG/2 ML SDV IV SCH ×2 (11:03→21:57)
[2020-06-14] MEDS: 1/2 NORMAL SALINE 1,000 ML IV PRN (12:06)
[2020-06-14 18:09] LABS: HEMATOCRIT 26.7 % (37.9-51.0); MEAN CORPUSCULAR HEMOGLOBIN 29.8 pg (27.0-33.4); MEAN CORPUSCULAR VOLUME 88 fl (80-97); PLATELET COUNT 128 10^3/uL (150-450); RED BLOOD COUNT 3.04 10^6/uL (4.35-5.55); RED CELL DISTRIBUTION WIDTH 13.9 % (11.5-14.0); WHITE BLOOD COUNT 14.8 10^3/uL (4.0-10.5)
[2020-06-14 18:10] LABS: HEMOGLOBIN 9.1 g/dL (13.5-17.0)
[2020-06-14] MEDS: DEXTROSE 5%-WATER 250 ML with NOREPINEPHRINE BITARTRATE 4 MG IV PRN ×2 (19:06)
[2020-06-14 19:23] LABS: APPEARANCE,URINE CLOUDY; BILIRUBIN,URINE NEGATIVE (NEGATIVE); COLOR,URINE YELLOW; GLUCOSE, URINE NEGATIVE (NEGATIVE); KETONES,URINE NEGATIVE (NEGATIVE); LEUKOCYTE ESTERASE,URINE TRACE (NEGATIVE); NITRITE,URINE NEGATIVE (NEGATIVE); PROTEIN,URINE NEGATIVE (NEGATIVE); URINE SPECIFIC GRAVITY 1.018; UROBILINOGEN,URINE NEGATIVE mg/dL (<2.0)
--- NOTE | 2020-06-14 19:48 | PDOC CRITICAL CARE PROG REPORT ---
General Date:: 06/14/20 ICU Day:: 15 Ventilator Day:: 15 Hospital Day:: 26 Resuscitation Status: Full Code Events in the past 12 to 24 Hours:: This 74-year-old male was admitted on 05/19/2020 with diarrhea and abdominal pain (over 3 weeks). He was admitted to the hospitalist. He was transferred to the ICU on 05/31/2019 and intubated for worsening mental status, suspected to be due to acute hypoxemic respiratory failure secondary to COVID-19 pneumonia. 06/02/20: Still needing vent. Na and kidney function slightly better. 06/03: remains intubated. shows minimal response to verbal stimuli. does not follow commands. On PRVC 18/450/55/8 for a.m ABG. on Precedex/fentanyl for sedation. on heparin. on norepinephine. 06/04: remains intubated. on PRVC 20/500/65/8. clinically, no significant change. on Levophed @ 1. Platelets 85 today. Creatinine 1.68> 1.71. 06/05: Remains intubated. No significant change on the vent. ABG this mornin.32/50/89. On and off Levophed at 1 mcg/min. On fentanyl/Precedex for sedation. Creatinine 1.8. 06/06: Remains intubated. On PRVC 20/500/65/8. FiO2 65% but SpO2 85-87% this a.m. On Precedex/fentanyl for sedation. Appears more active today. Squirms in the bed. Does not follow commands. Does not visually track. Changed from heparin to argatroban yesterday due to concerns about thrombocytopenia. Platelets 94 this morning, increasing. On TF. 06/07: Hgb 6.8. No sign of bleeding. Blood ordered. 06/08: Still difficult to sedate. Intermittantly tachycardic 06/09: [place] replaced yesterday with 1500cc urine removed. Still intermittently agitated with varying amounts of sedation being needed. 06/10: Seems calmer today thus far. FIO2 dropped to 75%. No change to PEEP. TF held for residual 300. To restart. 06/11: PSV dropped to 15cm. Calm, not agitated. No change in FIO2. 06/12: Episode of desaturation today. Resolved. Still agitated at times. 06/13: Off levophed but still on high vent support. 06/14: Afebrile. WBC 15.7. Hemoglobin 6.7. Transfusion was ordered. Review of systems relevant to events:: Pulmonary, neurological. Reason for ICU Addmission:: Need for intubation for Covid PNA. - Medications: Medications reviewed and adjusted accordingly: Yes Vasopressors:: None Sedation:: Precedex/fentanyl Physical Exam Vital Signs: Temp Pulse Resp BP Pulse Ox 98.4 F 107 H 27 H 149/79 H 87 L 06/14/20 08:00 06/14/20 06:34 06/14/20 06:34 06/14/20 06:34 06/14/20 06:34 Intake & Output 06/13/20 06/14/20 06/15/20 06:59 06:59 06:59 Intake Total 3579 1632 Output Total 2453 1970 100 Balance 1126 -338 -100 Weight 93.4 kg 92.5 kg Weight/Height Weight 92.5 kg Height 1.8 m General appearance: PRESENT: no acute distress, well-developed, well-nourished Head exam: PRESENT: normocephalic, other - healing pressure sore on bridge of n ose Eye exam: PRESENT: conjunctiva pink, EOMI, PERRLA. ABSENT: scleral icterus Mouth exam: PRESENT: moist, tongue midline Neck exam: ABSENT: carotid bruit, JVD, lymphadenopathy, thyromegaly Respiratory exam: PRESENT: rales - inspiratory squeaks that clear with suctioning, symmetrical, tachypnea. ABSENT: rhonchi, wheezes Cardiovascular exam: PRESENT: RRR, tachycardia. ABSENT: diastolic murmur, rubs, systolic murmur Pulses: PRESENT: normal dorsalis pedis pul GI/Abdominal exam: PRESENT: normal bowel sounds, soft. ABSENT: distended, guarding, mass, organolmegaly, rebound, tenderness Gentrourinary exam: PRESENT: indwelling catheter Extremities exam: PRESENT: full ROM, +2 edema - worse in the upper extremities than lower extremities. ABSENT: calf tenderness, clubbing, pedal edema Musculoskeletal exam: PRESENT: normal inspection. ABSENT: deformity Neurological exam: PRESENT: altered, reflexes normal, CN II-XII grossly intact, other - winces and withdraws to painful stimuli in the extremities. bilateral foot drop Psychiatric exam: ABSENT: agitated, anxious Skin exam: PRESENT: dry, intact, warm. ABSENT: cyanosis, rash Tubes/Lines: PRESENT: Endotracheal Tube, Central Line - R PICC, Other - orogastric Laboratory/Radiographs Laboratory Results: 06/14/20 03:52 06/14/20 03:52 06/13/20 06/13/20 06/14/20 03:46 11:03 03:52 WBC 15.7 H RBC 2.16 L Hgb 6.7 L Hct 19.3 L MCV 89 MCH 31.0 MCHC 34.7 RDW 13.9 Plt Count 144 L Carbonic Acid 1.27 HCO3/H2CO3 Ratio 22:1 ABG pH 7.44 ABG pCO2 42.1 ABG pO2 79.8 L ABG HCO3 28.2 H ABG O2 Saturation 96.2 ABG Base Excess 3.8 FiO2 80% Sodium Potassium Chloride Carbon Dioxide Anion Gap BUN Creatinine Est GFR ( Amer) Glucose Calcium Magnesium Blood Type O POSITIVE Antibody Screen NEGATIVE 06/14/20 03:52 WBC RBC Hgb Hct MCV MCH MCHC RDW Plt Count Carbonic Acid HCO3/H2CO3 Ratio ABG pH ABG pCO2 ABG pO2 ABG HCO3 ABG O2 Saturation ABG Base Excess FiO2 Sodium 135.8 L Potassium 3.9 Chloride 104 Carbon Dioxide 32 H Anion Gap 0 L BUN 43 H Creatinine 0.85 Est GFR ( Amer) > 60 Glucose 202 H Calcium 7.4 L Magnesium 1.9 Blood Type Antibody Screen 05/23/20 05/24/20 05/25/20 04:44 04:49 04:51 Creatine Kinase CK-MB (CK-2) Troponin I NT-Pro-B Natriuret Pep 757 H 883 H 253 H 05/27/20 05/29/20 05/29/20 04:41 04:15 04:15 Creatine Kinase 439 H CK-MB (CK-2) 3.21 Troponin I < 0.012 NT-Pro-B Natriuret Pep 307 H 05/30/20 06/06/20 04:13 13:30 Creatine Kinase CK-MB (CK-2) Troponin I NT-Pro-B Natriuret Pep 549 H 216 H Impressions: Abdomen/Pelvis CT 05/19/20 15:57 IMPRESSION: 1. Nonspecific mild fluid-filled small bowel loops could reflect a mild enteritis. No bowel obstruction. 2. No peripancreatic inflammation. 3. Cholelithiasis. 4. Hepatic steatosis. 5. Enlarged prostate gland. 6. Basilar ground-glass pulmonary opacities are not specific but can be seen with infectious and noninfectious processes, including COVID 19 infection. Correlate with exposure history. Chest CT 05/29/20 00:00 IMPRESSION: Diffuse bilateral ground-glass opacities consistent with pulmonary edema or pneumonia. There is bibasilar consolidation either atelectasis or pneumonia. No effusions. Head CT 05/29/20 00:00 IMPRESSION: MILD CHRONIC CHANGES OF ATROPHY AND MICROVASCULAR ISCHEMIA. NO ACUTE PROCESS. EVIDENCE OF ACUTE STROKE: NO. PICC Line Insertion 05/30/20 00:00 IMPRESSION: SUCCESSFUL PLACEMENT OF A 5 FR DUAL LUMEN 35 CM PICC IN THE RIGHT BASILIC VEIN. KUB X-Ray 06/01/20 00:00 IMPRESSION: NG tube in good position in the upper stomach. All labs, radiographs, diagnostic studies and EKGs were personally reviewed: Yes In addition, reports of radiographic and diagnostic studies were read: Yes Assessment and Plan - Diagnosis (1) Acute respiratory failure with hypoxia and hypercapnia Is this a current diagnosis for this admission?: Yes Plan: * Increase PEEP to 10. Wean FiO2 as tolerated. * Titrate sedation for RASS -2. Will try increasing fentanyl to decrease Versed requirement. (2) Pneumonia due to 2019 novel coronavirus Is this a current diagnosis for this admission?: Yes (3) Thrombocytopenia Is this a current diagnosis for this admission?: Yes (4) Diarrhea Qualifiers: Diarrhea type: unspecified type Qualified Code(s): R19.7 - Diarrhea, unspecified Is this a current diagnosis for this admission?: Yes (5) Stage III pressure ulcer Qualifiers: Pressure injury location: other site Qualified Code(s): L89.893 - Pressure ulcer of other site, stage 3 Is this a current diagnosis for this admission?: Yes (6) Acute respiratory failure with hypoxia Is this a current diagnosis for this admission?: Yes Critical Time Critical Time (minutes): 30 Level of Care: ICU -: 1. The care of a critical patient is a dynamic process. This note is a sales representative cash registers synopsis but static in nature. The timeframe for treatments given in order is not necessarily the actual time these treatments may have been done. 2. This patient requires critical care secondary to ongoing requirements for therapy not offered or safe outside the critical care environment. Transfer to a lower level of care will result in altered life or limb morbidity and mortality. 3. Multidisciplinary rounds completed. 4. ABCDE bundle addressed.
[2020-06-15] MEDS: INSULIN REG, HUMAN 100 UNIT/ML 3 ML VIAL (PYX) SUBCUT SCH ×4 (00:23→17:46)
[2020-06-15] MEDS: ALBUTEROL SULFATE 0.083% NEB 2.5 MG/3 ML AMPUL NEB SCH ×6 (00:23→20:43)
[2020-06-15] MEDS: SUCRALFATE 1 GM TABLET PO SCH ×4 (00:24→17:48)
[2020-06-15] MEDS: MIDAZOLAM HCL 50 MG/100 ML RTUINJ IV PRN ×2 (01:55→11:29)
[2020-06-15] MEDS: FENTANYL CITRATE/PF 600 MCG/60 ML BAG IV PRN ×6 (02:05→21:29)
[2020-06-15 04:02] LABS: ALBUMIN 1.8 g/dL (3.5-5.0); ALKALINE PHOSPHATASE 101 U/L (38-126); ASPARTATE AMINO TRANSFERASE 31 U/L (17-59); BILIRUBIN,DIRECT 0.2 mg/dL (0.0-0.4); BILIRUBIN,TOTAL 0.4 mg/dL (0.2-1.3); BLOOD UREA NITROGEN 41 mg/dL (7-20); CALCIUM 7.2 mg/dL (8.4-10.2); CARBON DIOXIDE 31 mmol/L (22-30); GLUCOSE 196 mg/dL (75-110); HEMATOCRIT 25.6 % (37.9-51.0); HEMOGLOBIN 8.8 g/dL (13.5-17.0); MEAN CORPUSCULAR HEMOGLOBIN 30.3 pg (27.0-33.4); MEAN CORPUSCULAR HGB CONC 34.4 g/dL (32.0-36.0); MEAN CORPUSCULAR VOLUME 88 fl (80-97); PHOSPHORUS 3.2 mg/dL (2.5-4.5); PLATELET COUNT 120 10^3/uL (150-450); RED BLOOD COUNT 2.91 10^6/uL (4.35-5.55); RED CELL DISTRIBUTION WIDTH 13.8 % (11.5-14.0); TOTAL PROTEIN 3.8 g/dL (6.3-8.2); WHITE BLOOD COUNT 13.2 10^3/uL (4.0-10.5)
[2020-06-15 04:13] LABS: CHLORIDE 102 mmol/L (98-107)
[2020-06-15 04:15] LABS: ANION GAP 0 (5-19)
[2020-06-15 04:37] LABS: ABSOLUTE LYMPHOCYTES# (MANUAL) 0.5 10^3/uL (0.5-4.7); ABSOLUTE MONOCYTES # (MANUAL) 0.5 10^3/uL (0.1-1.4); BASOPHILS % (MANUAL) 0 % (0-2); EOSINOPHILS % (MANUAL) 0 % (0-6); LYMPHOCYTES % (MANUAL) 4 % (13-45); MONOCYTES % (MANUAL) 4 % (3-13); SEGMENTED NEUTROPHILS % (MAN) 92 % (42-78); TOTAL CELLS COUNTED 100
[2020-06-15 04:38] LABS: ANISOCYTOSIS SLIGHT; OVALOCYTES 1+; PLATELET COMMENT ADEQUATE; POIKILOCYTOSIS SLIGHT; SCHISTOCYTES SLIGHT; TEAR DROP CELLS SLIGHT
[2020-06-15 05:39] LABS: ARTERIAL BLOOD BASE EXCESS 4.2 mmol/L; ARTERIAL BLOOD HCO3 29.8 mmol/L (20-24); ARTERIAL BLOOD O2 SATURATION 92.6 % (94-98); ARTERIAL BLOOD PCO2 49.8 mmHg (35-45); ARTERIAL BLOOD PO2 65.7 mmHg (80-100); ARTERIAL BLOOD TOTAL CO2 31.3 mmol/L (23-27)
[2020-06-15 05:40] LABS: ARTERIAL BLOOD FIO2 70%
[2020-06-15] MEDS: METOCLOPRAMIDE HCL INJ/PF 10 MG/2 ML SDV IV SCH ×3 (06:41→21:31)
[2020-06-15] MEDS: SENNOSIDES/DOCUSATE 8.6-50 MG 1 EACH TABLET PO SCH ×3 (06:41→21:30)
[2020-06-15 07:02] LABS: PARTIAL THROMBOPLASTIN TIME 31.9 SEC (23.5-35.8)
[2020-06-15 07:04] LABS: D-DIMER 2.28 ug/mL (0.00-0.50)
[2020-06-15] MEDS: CHOLECALCIFEROL (D3) 1,000 UNIT (25 MCG) TABLET NG SCH (10:00)
[2020-06-15] MEDS: POLYETHYLENE GLYCOL 3350 POWDER 17 GM/1 PACKET NG SCH (10:00)
[2020-06-15] MEDS: METHYLPREDNISOLONE INJ 125 MG/2 ML SDV IV SCH ×2 (10:00→21:29)
[2020-06-15] MEDS: PANTOPRAZOLE SODIUM 40 MG VIAL IV SCH (10:00)
[2020-06-15] MEDS: ASCORBIC ACID 500 MG TABLET PO SCH ×2 (10:00→17:48)
[2020-06-15] MEDS: ENOXAPARIN SODIUM INJ 40 MG/0.4 ML DISP.SYRIN SUBCUT SCH ×2 (10:00)
[2020-06-15] MEDS: NORMAL SALINE 10 ML SDV (SCHEDULED) IV SCH ×2 (10:00→21:31)
--- NOTE | 2020-06-15 10:54 | RADIOLOGY REPORT (SQ) ---
EXAM DESCRIPTION: CHEST SINGLE VIEW IMAGES COMPLETED DATE/TIME: 06/15/2020 5:27 am REASON FOR STUDY: vent COMPARISON: Chest films 06/14/2020, 06/12/2020, 05/31/2020 EXAM PARAMETERS: NUMBER OF VIEWS: One view. TECHNIQUE: Single frontal radiographic view of the chest acquired. RADIATION DOSE: NA LIMITATIONS: None. FINDINGS: LUNGS AND PLEURA: No change in diffuse alveolar and interstitial infiltrates compared 06/14. No pleural effusions. No pneumothorax. MEDIASTINUM AND HILAR STRUCTURES: Fullness right hilum, mass versus adenopathy. HEART AND VASCULAR STRUCTURES: No cardiomegaly BONES: No acute findings. HARDWARE: Endotracheal tube at the thoracic inlet, about 7 cm from the jessica. Nasogastric tube tip and side port in the stomach. Right PICC line tip superior vena cava OTHER: No other significant finding. IMPRESSION: No change in diffuse bilateral alveolar and interstitial infiltrates Endotracheal tube tip at the thoracic inlet, 7 cm above the jessica Fullness right hilum, adenopathy versus mass TECHNICAL DOCUMENTATION: JOB ID: [id number] [employer]- All Rights Reserved Reading location - IP/workstation name: [email or web address]
[2020-06-15] MEDS: 1/2 NORMAL SALINE 1,000 ML IV PRN (11:28)
--- NOTE | 2020-06-15 11:59 | RADIOLOGY REPORT (SQ) ---
EXAM DESCRIPTION: CT HEAD WITHOUT IMAGES COMPLETED DATE/TIME: 06/15/2020 11:00 am REASON FOR STUDY: anoxic encephalopathy COMPARISON: CT brain 05/29/2020 TECHNIQUE: Axial images acquired through the brain without intravenous contrast. Images reviewed wi th bone, brain and subdural windows. Additional sagittal and coronal reconstructions were generated. Images stored on PACS. All CT scanners at this facility use dose modulation, iterative reconstruction, and/or weight based d osing when appropriate to reduce radiation dose to as low as reasonably achievable (ALARA). [facility]: Dose Right [facility]: CareDose [facility]: Dose Right [facility]: Teradose 4D [facility]: Smart [employer] RADIATION DOSE: CT Rad equipment meets quality standard of care and radiation dose reduction techniq ues were employed. CTDIvol: 53.2 mGy. DLP: 1097 mGy-cm. mGy. LIMITATIONS: Motion artifact throughout the study FINDINGS: Motion artifact throughout the study. No CT evidence of acute large territory infarct. No intracranial hemorrhage, mass effect, or midline shift. Right globe prosthesis. Paranasal sinuses grossly clear aside from minimal sphenoid sinus fluid. Findings discussed with Dr Small IMPRESSION: No acute findings. EVIDENCE OF ACUTE STROKE: NO. COMMENT: Quality ID # [id number]: Final reports with documentation of one or more dose reduction techniques (e.g., Automated exposure control, adjustment of the mA and/or kV according to patient size, use of iterative reconstruction technique) TECHNICAL DOCUMENTATION: JOB ID: [id number] 2010 [employer]- All Rights Reserved Reading location - IP/workstation name: [email or web address]
--- NOTE | 2020-06-15 16:31 | PDOC CRITICAL CARE PROG REPORT ---
General Date:: 06/15/20 ICU Day:: 16 Ventilator Day:: 16 Hospital Day:: 27 Resuscitation Status: Full Code Events in the past 12 to 24 Hours:: This 74-year-old male was admitted on 05/19/2020 with diarrhea and abdominal pain (over 3 weeks). He was admitted to the hospitalist. He was transferred to the ICU on 05/31/2019 and intubated for worsening mental status, suspected to be due to acute hypoxemic respiratory failure secondary to COVID-19 pneumonia. 06/02/20: Still needing vent. Na and kidney function slightly better. 06/03: remains intubated. shows minimal response to verbal stimuli. does not follow commands. On PRVC 18/450/55/8 for a.m ABG. on Precedex/fentanyl for sedation. on heparin. on norepinephine. 06/04: remains intubated. on PRVC 20/500/65/8. clinically, no significant change. on Levophed @ 1. Platelets 85 today. Creatinine 1.68> 1.71. 06/05: Remains intubated. No significant change on the vent. ABG this mornin.32/50/89. On and off Levophed at 1 mcg/min. On fentanyl/Precedex for sedation. Creatinine 1.8. 06/06: Remains intubated. On PRVC 20/500/65/8. FiO2 65% but SpO2 85-87% this a.m. On Precedex/fentanyl for sedation. Appears more active today. Squirms in the bed. Does not follow commands. Does not visually track. Changed from heparin to argatroban yesterday due to concerns about thrombocytopenia. Platelets 94 this morning, increasing. On TF. 06/07: Hgb 6.8. No sign of bleeding. Blood ordered. 06/08: Still difficult to sedate. Intermittantly tachycardic 06/09: [place] replaced yesterday with 1500cc urine removed. Still intermittently agitated with varying amounts of sedation being needed. 06/10: Seems calmer today thus far. FIO2 dropped to 75%. No change to PEEP. TF held for residual 300. To restart. 06/11: PSV dropped to 15cm. Calm, not agitated. No change in FIO2. 06/12: Episode of desaturation today. Resolved. Still agitated at times. 06/13: Off levophed but still on high vent support. 06/14: Afebrile. WBC 15.7. Hemoglobin 6.7. Transfusion was ordered. 06/15: Afebrile. WBC 15.713.2. Hemoglobin 8.8 today. Was transfused 2 units PRBC yesterday. ABG this a.m.: 7.40/50/66. Currently, on Versed/fentanyl for sedation. Eyes open. Not following commands. Nurse reports that the patient is showing intermittent, abnormal "posturing" type movements (shoulder shrugging). On PRVC 20/500/70/10. RR 21. SpO2 90%. Review of systems relevant to events:: Pulmonary, neurological. Reason for ICU Addmission:: Need for intubation for Covid PNA. - Medications: Medications reviewed and adjusted accordingly: Yes Vasopressors:: None Physical Exam Vital Signs: Temp Pulse Resp BP Pulse Ox 98.8 F 117 H 23 H 126/66 H 90 L 06/15/20 08:00 06/15/20 08:25 06/15/20 08:25 06/15/20 06:51 06/15/20 08:25 Intake & Output 06/14/20 06/15/20 06/16/20 06:59 06:59 06:59 Intake Total 1632 2558 Output Total 1970 1490 950 Balance -338 1068 -950 Weight 92.5 kg 96.1 kg Weight/Height Weight 96.1 kg Height 1.8 m General appearance: PRESENT: no acute distress, well-developed, well-nourished Head exam: PRESENT: normocephalic. ABSENT: atraumatic - pressure sore on bridge of nose Eye exam: PRESENT: conjunctiva pink, EOMI. ABSENT: PERRLA - OD pupillary defect. OS reactive., scleral icterus Mouth exam: PRESENT: moist, tongue midline Neck exam: ABSENT: carotid bruit, JVD, lymphadenopathy, thyromegaly Respiratory exam: PRESENT: clear to auscultation demi, symmetrical. ABSENT: rales, rhonchi, wheezes Cardiovascular exam: PRESENT: RRR, tachycardia. ABSENT: diastolic murmur, rubs, systolic murmur Pulses: PRESENT: normal dorsalis pedis pul GI/Abdominal exam: PRESENT: normal bowel sounds, soft. ABSENT: distended, guarding, mass, organolmegaly, rebound, tenderness Gentrourinary exam: PRESENT: indwelling catheter Extremities exam: PRESENT: full ROM, other - B foot drop. ABSENT: calf tenderness, clubbing, pedal edema Musculoskeletal exam: PRESENT: normal inspection. ABSENT: deformity Neurological exam: PRESENT: altered, reflexes normal, other - "quasi- decerebrate" posturing (shoulder shrug and internal rotation of shoulders and B leg extension) to noxious stimuli.. ABSENT: motor sensory deficit Psychiatric exam: ABSENT: agitated, anxious Tubes/Lines: PRESENT: Endotracheal Tube, Central Line - R PICC, Other - orogastric Laboratory/Radiographs Laboratory Results: 06/15/20 03:25 06/15/20 03:25 06/14/20 06/14/20 06/14/20 17:48 17:48 18:20 WBC 14.8 H RBC 3.04 L Hgb 9.1 L D Hct 26.7 L MCV 88 MCH 29.8 MCHC 34.0 RDW 13.9 Plt Count 128 L Seg Neutrophils % Carbonic Acid HCO3/H2CO3 Ratio ABG pH ABG pCO2 ABG pO2 ABG HCO3 ABG O2 Saturation ABG Base Excess FiO2 Sodium Potassium Chloride Carbon Dioxide Anion Gap BUN Creatinine Est GFR ( Amer) Glucose Calcium Ionized Calcium Bradley 1.07 L Phosphorus Magnesium Total Bilirubin AST Alkaline Phosphatase C-Reactive Protein Total Protein Albumin Urine Color YELLOW Urine Appearance CLOUDY Urine pH 5.0 Ur Specific Hamel 1.018 Urine Protein NEGATIVE Urine Glucose (UA) NEGATIVE Urine Ketones NEGATIVE Urine Blood NEGATIVE Urine Nitrite NEGATIVE Ur Leukocyte Esterase TRACE H Urine WBC (Auto) 6 Urine RBC (Auto) 2 06/15/20 06/15/20 06/15/20 03:25 03:25 03:25 WBC 13.2 H RBC 2.91 L Hgb 8.8 L Hct 25.6 L MCV 88 MCH 30.3 MCHC 34.4 RDW 13.8 Plt Count 120 L Seg Neutrophils % Not Reportable Carbonic Acid HCO3/H2CO3 Ratio ABG pH ABG pCO2 ABG pO2 ABG HCO3 ABG O2 Saturation ABG Base Excess FiO2 Sodium 133.3 L Potassium 4.0 Chloride 102 Carbon Dioxide 31 H Anion Gap 0 L BUN 41 H Creatinine 0.66 Est GFR ( Amer) > 60 Glucose 196 H Calcium 7.2 L Ionized Calcium Bradley Phosphorus 3.2 Magnesium 1.8 Total Bilirubin 0.4 AST 31 Alkaline Phosphatase 101 C-Reactive Protein 8.6 Total Protein 3.8 L Albumin 1.8 L Urine Color Urine Appearance Urine pH Ur Specific Hamel Urine Protein Urine Glucose (UA) Urine Ketones Urine Blood Urine Nitrite Ur Leukocyte Esterase Urine WBC (Auto) Urine RBC (Auto) 06/15/20 04:30 WBC RBC Hgb Hct MCV MCH MCHC RDW Plt Count Seg Neutrophils % Carbonic Acid 1.50 H HCO3/H2CO3 Ratio 19:1 ABG pH 7.40 ABG pCO2 49.8 H ABG pO2 65.7 L ABG HCO3 29.8 H ABG O2 Saturation 92.6 L ABG Base Excess 4.2 FiO2 70% Sodium Potassium Chloride Carbon Dioxide Anion Gap BUN Creatinine Est GFR ( Amer) Glucose Calcium Ionized Calcium Bradley Phosphorus Magnesium Total Bilirubin AST Alkaline Phosphatase C-Reactive Protein Total Protein Albumin Urine Color Urine Appearance Urine pH Ur Specific Hamel Urine Protein Urine Glucose (UA) Urine Ketones Urine Blood Urine Nitrite Ur Leukocyte Esterase Urine WBC (Auto) Urine RBC (Auto) 05/23/20 05/24/20 05/25/20 04:44 04:49 04:51 Creatine Kinase CK-MB (CK-2) Troponin I NT-Pro-B Natriuret Pep 757 H 883 H 253 H 05/27/20 05/29/20 05/29/20 04:41 04:15 04:15 Creatine Kinase 439 H CK-MB (CK-2) 3.21 Troponin I < 0.012 NT-Pro-B Natriuret Pep 307 H 05/30/20 06/06/20 04:13 13:30 Creatine Kinase CK-MB (CK-2) Troponin I NT-Pro-B Natriuret Pep 549 H 216 H Impressions: Abdomen/Pelvis CT 05/19/20 15:57 IMPRESSION: 1. Nonspecific mild fluid-filled small bowel loops could reflect a mild enteritis. No bowel obstruction. 2. No peripancreatic inflammation. 3. Cholelithiasis. 4. Hepatic steatosis. 5. Enlarged prostate gland. 6. Basilar ground-glass pulmonary opacities are not specific but can be seen with infectious and noninfectious processes, including COVID 19 infection. Correlate with exposure history. Chest CT 05/29/20 00:00 IMPRESSION: Diffuse bilateral ground-glass opacities consistent with pulmonary edema or pneumonia. There is bibasilar consolidation either atelectasis or pneumonia. No effusions. Head CT 05/29/20 00:00 IMPRESSION: MILD CHRONIC CHANGES OF ATROPHY AND MICROVASCULAR ISCHEMIA. NO ACUTE PROCESS. EVIDENCE OF ACUTE STROKE: NO. PICC Line Insertion 05/30/20 00:00 IMPRESSION: SUCCESSFUL PLACEMENT OF A 5 FR DUAL LUMEN 35 CM PICC IN THE RIGHT BASILIC VEIN. KUB X-Ray 06/01/20 00:00 IMPRESSION: NG tube in good position in the upper stomach. All labs, radiographs, diagnostic studies and EKGs were personally reviewed: Yes In addition, reports of radiographic and diagnostic studies were read: Yes Assessment and Plan - Diagnosis (1) Acute respiratory failure with hypoxia and hypercapnia Is this a current diagnosis for this admission?: Yes Plan: * PEEP 10. Wean FiO2 as tolerated. * Titrate sedation for RASS -2. (2) Acute encephalopathy Is this a current diagnosis for this admission?: Yes Plan: * Abnormal neurologic exam, suspicious for hypoxic/metabolic encephalopathy. Non-lateralizing. * Nonetheless, in light of COVID infection and risk of cerebral ischemic insult, will check head CT without contrast. (3) Pneumonia due to 2019 novel coronavirus Is this a current diagnosis for this admission?: Yes Plan: * Continue Solu-Medrol 60 mg IV every 12 hours. * Continue vitamin C, vitamin D3. * Start zinc sulfate. (4) Thrombocytopenia Is this a current diagnosis for this admission?: Yes (5) Diarrhea Qualifiers: Diarrhea type: unspecified type Qualified Code(s): R19.7 - Diarrhea, unspecified Is this a current diagnosis for this admission?: Yes (6) Stage III pressure ulcer Qualifiers: Pressure injury location: other site Qualified Code(s): L89.893 - Pressure ulcer of other site, stage 3 Is this a current diagnosis for this admission?: Yes (7) Acute respiratory failure with hypoxia Is this a current diagnosis for this admission?: Yes Critical Time Critical Time (minutes): 60 Level of Care: ICU -: 1. The care of a critical patient is a dynamic process. This note is a lifeline representatives synopsis but static in nature. The timeframe for treatments given in order is not necessarily the actual time these treatments may have been done. 2. This patient requires critical care secondary to ongoing requirements for therapy not offered or safe outside the critical care environment. Transfer to a lower level of care will result in altered life or limb morbidity and mortality. 3. Multidisciplinary rounds completed. 4. ABCDE bundle addressed.
[2020-06-15] MEDS: ZINC SULFATE 220 MG CAPSULE PO SCH (17:53)
[2020-06-16] MEDS: SUCRALFATE 1 GM TABLET PO SCH ×4 (00:07→17:32)
[2020-06-16] MEDS: MIDAZOLAM HCL 50 MG/100 ML RTUINJ IV PRN ×2 (00:07→16:32)
[2020-06-16] MEDS: INSULIN REG, HUMAN 100 UNIT/ML 3 ML VIAL (PYX) SUBCUT SCH ×4 (00:09→17:32)
[2020-06-16] MEDS: ALBUTEROL SULFATE 0.083% NEB 2.5 MG/3 ML AMPUL NEB SCH ×6 (00:54→20:14)
[2020-06-16] MEDS: FENTANYL CITRATE/PF 600 MCG/60 ML BAG IV PRN ×6 (01:10→20:40)
[2020-06-16 05:34] LABS: ARTERIAL BLOOD BASE EXCESS 4.4 mmol/L; ARTERIAL BLOOD H2CO3 1.45 mmol/L (1.05-1.35); ARTERIAL BLOOD HCO3 29.7 mmol/L (20-24); ARTERIAL BLOOD O2 SATURATION 97.8 % (94-98); ARTERIAL BLOOD PCO2 48.1 mmHg (35-45); ARTERIAL BLOOD PH 7.41 (7.35-7.45); ARTERIAL BLOOD PO2 104.7 mmHg (80-100); ARTERIAL BLOOD TOTAL CO2 31.1 mmol/L (23-27)
[2020-06-16 05:44] LABS: ARTERIAL BLOOD FIO2 75%; MEAN CORPUSCULAR HGB CONC 35.3 g/dL (32.0-36.0); MEAN CORPUSCULAR VOLUME 88 fl (80-97); PLATELET COUNT 100 10^3/uL (150-450); RED BLOOD COUNT 2.51 10^6/uL (4.35-5.55); RED CELL DISTRIBUTION WIDTH 13.8 % (11.5-14.0); WHITE BLOOD COUNT 10.5 10^3/uL (4.0-10.5)
[2020-06-16 06:08] LABS: HEMOGLOBIN 7.8 g/dL (13.5-17.0)
[2020-06-16 06:10] LABS: ABSOLUTE LYMPHOCYTES# (MANUAL) 0.2 10^3/uL (0.5-4.7); ABSOLUTE MONOCYTES # (MANUAL) 0.1 10^3/uL (0.1-1.4); BASOPHILS % (MANUAL) 0 % (0-2); EOSINOPHILS % (MANUAL) 0 % (0-6); LYMPHOCYTES % (MANUAL) 2 % (13-45); MONOCYTES % (MANUAL) 1 % (3-13); SEGMENTED NEUTROPHILS % (MAN) 97 % (42-78); TOTAL CELLS COUNTED 100
[2020-06-16 06:11] LABS: OVALOCYTES SLIGHT; PLATELET COMMENT ADEQUATE; POIKILOCYTOSIS SLIGHT
[2020-06-16 06:18] LABS: ALBUMIN 1.7 g/dL (3.5-5.0); ALKALINE PHOSPHATASE 90 U/L (38-126); ASPARTATE AMINO TRANSFERASE 43 U/L (17-59); BILIRUBIN,DIRECT 0.1 mg/dL (0.0-0.4); BILIRUBIN,TOTAL 0.4 mg/dL (0.2-1.3); BLOOD UREA NITROGEN 36 mg/dL (7-20); CARBON DIOXIDE 33 mmol/L (22-30); CHLORIDE 103 mmol/L (98-107); GLUCOSE 170 mg/dL (75-110); PHOSPHORUS 2.8 mg/dL (2.5-4.5); POTASSIUM 3.7 mmol/L (3.6-5.0); TOTAL PROTEIN 3.4 g/dL (6.3-8.2)
[2020-06-16 06:24] LABS: CALCIUM 7.1 mg/dL (8.4-10.2)
[2020-06-16 06:32] LABS: ANION GAP -4 (5-19)
[2020-06-16] MEDS: SENNOSIDES/DOCUSATE 8.6-50 MG 1 EACH TABLET PO SCH ×3 (07:09→23:19)
[2020-06-16] MEDS: METOCLOPRAMIDE HCL INJ/PF 10 MG/2 ML SDV IV SCH ×3 (07:09→23:19)
[2020-06-16] MEDS: 1/2 NORMAL SALINE 1,000 ML IV PRN (07:15)
--- NOTE | 2020-06-16 08:17 | RADIOLOGY REPORT (SQ) ---
EXAM DESCRIPTION: CHEST SINGLE VIEW IMAGES COMPLETED DATE/TIME: 06/16/2020 5:29 am REASON FOR STUDY: ETT tube COMPARISON: None. EXAM PARAMETERS: NUMBER OF VIEWS: One view. TECHNIQUE: Single frontal radiographic view of the chest acquired. RADIATION DOSE: NA LIMITATIONS: Patient rotation. FINDINGS: LUNGS AND PLEURA: Stable pulmonary exam demonstrating diffusely increased mixed interstiti al and airspace opacities. No large pleural effusion. No pneumothorax. MEDIASTINUM AND HILAR STRUCTURES: Rotated positioning limits examination. No acute findings. HEART AND VASCULAR STRUCTURES: Heart normal in size. Normal vasculature. BONES: No acute findings. HARDWARE: Endotracheal tube terminates approximately 7.5 cm cranial to the jessica. Right upper extre mity PICC terminates in the region of the superior vena cava. Enteric tube terminates subdiaphragmat ically out of the imaged field of view. OTHER: No other significant finding. IMPRESSION: 1. Stable pulmonary exam demonstrating diffusely increased mixed interstitial and airsp yuriy opacities. 2. Stable lines and tubes. TECHNICAL DOCUMENTATION: JOB ID: [id number] 2010 [employer]- All Rights Reserved Reading location - IP/workstation name: [email or web address]
[2020-06-16] MEDS: METHYLPREDNISOLONE INJ 125 MG/2 ML SDV IV SCH (09:48)
[2020-06-16] MEDS: ENOXAPARIN SODIUM INJ 40 MG/0.4 ML DISP.SYRIN SUBCUT SCH (09:48)
[2020-06-16] MEDS: POLYETHYLENE GLYCOL 3350 POWDER 17 GM/1 PACKET NG SCH (09:49)
[2020-06-16] MEDS: NORMAL SALINE 10 ML SDV (SCHEDULED) IV SCH ×2 (09:49→23:19)
[2020-06-16] MEDS: PANTOPRAZOLE SODIUM 40 MG VIAL IV SCH (09:49)
[2020-06-16] MEDS: POTASSI CL 20 MEQ/NS 1L 1,000 ML IV PRN (09:51)
[2020-06-16] MEDS: ASCORBIC ACID 500 MG TABLET PO SCH ×2 (09:52→17:32)
[2020-06-16] MEDS: CHOLECALCIFEROL (D3) 1,000 UNIT (25 MCG) TABLET NG SCH (09:52)
[2020-06-16] MEDS: ZINC SULFATE 220 MG CAPSULE PO SCH (09:52)
[2020-06-16] MEDS ORDERED: FUROSEMIDE INJ/PF 40 MG/4 ML SDV IV ONE (11:00)
[2020-06-16] MEDS: METOPROLOL TARTRATE PF/INJ 5 MG/5 ML SDV IV PRN ×2 (13:59→23:17)
[2020-06-16] MEDS ORDERED: LIDOCAINE 1% INJ-PF (10 MG/ML) 30 ML SDV ONE (15:12)
[2020-06-16] MEDS ORDERED: ETOMIDATE INJ/PF 20 MG/10 ML SDV IV ONE (15:14)
--- NOTE | 2020-06-16 15:41 | Operative Report ---
Bedside Procedure - History of Present Illness Indication for Procedure: acute respiratory failure Date: 05/31/20 Provider: TODD LUJAN - Intubation Orotracheal Time of Intubation: 15:30 Equipment used: Bougie ETT size: 7.5 ETT secured at: Teeth - 23 ETT secured at (cm): 23 Post Intubation Xray: Yes Intubation Complications: No complications
--- NOTE | 2020-06-16 17:02 | RADIOLOGY REPORT (SQ) ---
EXAM DESCRIPTION: CHEST SINGLE VIEW IMAGES COMPLETED DATE/TIME: 06/16/2020 12:43 pm REASON FOR STUDY: ET Tube Placement COMPARISON: 06/16/2020 EXAM PARAMETERS: NUMBER OF VIEWS: One view. TECHNIQUE: Single frontal radiographic view of the chest acquired. RADIATION DOSE: NA LIMITATIONS: External leads partially obscure underlying structures. FINDINGS: LUNGS AND PLEURA: No significant change in bilateral predominantly peripheral opacities. Cannot excluded trace pleural effusions. No pneumothorax. MEDIASTINUM AND HILAR STRUCTURES: Stable. HEART AND VASCULAR STRUCTURES: Stable. BONES: No acute findings. HARDWARE: Endotracheal tube tip projects approximately 3.8 cm above the jessica. Right PICC line and visualize feeding tube appear unchanged. OTHER: No other significant finding. IMPRESSION: Endotracheal tube tip projecting approximately 3.8 cm above the jessica. No other signif icant interval change. TECHNICAL DOCUMENTATION: JOB ID: [id number] 2010 [employer]- All Rights Reserved Reading location - IP/workstation name: [email or web address]
--- NOTE | 2020-06-16 18:37 | PDOC CRITICAL CARE PROG REPORT ---
General Date:: 06/16/20 ICU Day:: 17 Ventilator Day:: 17 Hospital Day:: 28 Resuscitation Status: Full Code Events in the past 12 to 24 Hours:: This 74-year-old male was admitted on 05/19/2020 with diarrhea and abdominal pain (over 3 weeks). He was admitted to the hospitalist. He was transferred to the ICU on 05/31/2019 and intubated for worsening mental status, suspected to be due to acute hypoxemic respiratory failure secondary to COVID-19 pneumonia. 06/02/20: Still needing vent. Na and kidney function slightly better. 06/03: remains intubated. shows minimal response to verbal stimuli. does not follow commands. On PRVC 18/450/55/8 for a.m ABG. on Precedex/fentanyl for sedation. on heparin. on norepinephine. 06/04: remains intubated. on PRVC 20/500/65/8. clinically, no significant change. on Levophed @ 1. Platelets 85 today. Creatinine 1.68> 1.71. 06/05: Remains intubated. No significant change on the vent. ABG this mornin.32/50/89. On and off Levophed at 1 mcg/min. On fentanyl/Precedex for sedation. Creatinine 1.8. 06/06: Remains intubated. On PRVC 20/500/65/8. FiO2 65% but SpO2 85-87% this a.m. On Precedex/fentanyl for sedation. Appears more active today. Squirms in the bed. Does not follow commands. Does not visually track. Changed from heparin to argatroban yesterday due to concerns about thrombocytopenia. Platelets 94 this morning, increasing. On TF. 06/07: Hgb 6.8. No sign of bleeding. Blood ordered. 06/08: Still difficult to sedate. Intermittantly tachycardic 06/09: Phoenix replaced yesterday with 1500cc urine removed. Still intermittently agitated with varying amounts of sedation being needed. 06/10: Seems calmer today thus far. FIO2 dropped to 75%. No change to PEEP. TF held for residual 300. To restart. 06/11: PSV dropped to 15cm. Calm, not agitated. No change in FIO2. 06/12: Episode of desaturation today. Resolved. Still agitated at times. 06/13: Off levophed but still on high vent support. 06/14: Afebrile. WBC 15.7. Hemoglobin 6.7. Transfusion was ordered. 06/15: Afebrile. WBC 15.713.2. Hemoglobin 8.8 today. Was transfused 2 units PRBC yesterday. ABG this a.m.: 7.40/50/66. Currently, on Versed/fentanyl for sedation. Eyes open. Not following commands. Nurse reports that the patient is showing intermittent, abnormal "posturing" type movements (shoulder shrugging). On PRVC 20/500/70/10. RR 21. SpO2 90%. 06/16: WBC 10.5. Hemoglobin 7.8. Platelets 100. On PRVC 20/500/70/10. ABG this a.m.: 7.41/48/105. CT of the head was obtained yesterday and showed no acute intracranial pathology. On Versed/fentanyl for sedation. Neurologically, no change. Continues to show shoulder shrugging posturing with tactile/noxious stimuli. Review of systems relevant to events:: Pulmonary, neurological. Reason for ICU Addmission:: Need for intubation for Covid PNA. - Medications: Medications reviewed and adjusted accordingly: Yes Vasopressors:: None Sedation:: Precedex/fentanyl Physical Exam Vital Signs: Temp Pulse Resp BP Pulse Ox 98.1 F 98 19 129/65 H 95 06/15/20 22:00 06/16/20 00:55 06/16/20 03:32 06/16/20 03:32 06/16/20 03:32 Intake & Output 06/15/20 06/16/20 06/17/20 06:59 06:59 06:59 Intake Total 2558 1432 Output Total 1490 2750 Balance 1068 -1318 Weight 96.1 kg 96.1 kg Weight/Height Weight 96.1 kg Height 1.8 m General appearance: PRESENT: no acute distress, well-developed, well-nourished Head exam: PRESENT: normocephalic. ABSENT: atraumatic - pressure sore on bridge of nose Eye exam: PRESENT: conjunctiva pink, EOMI. ABSENT: PERRLA - OD pupillary defect. OS pupil reactive, scleral icterus Mouth exam: PRESENT: moist, tongue midline Neck exam: ABSENT: carotid bruit, JVD, lymphadenopathy, thyromegaly Respiratory exam: PRESENT: crackles - bilaterally. ABSENT: rales, rhonchi, wheezes Cardiovascular exam: PRESENT: RRR, tachycardia. ABSENT: diastolic murmur, rubs, systolic murmur Pulses: PRESENT: normal dorsalis pedis pul Vascular exam: PRESENT: normal capillary refill GI/Abdominal exam: PRESENT: normal bowel sounds, soft. ABSENT: distended, guarding, mass, organolmegaly, rebound, tenderness Gentrourinary exam: PRESENT: indwelling catheter Extremities exam: PRESENT: full ROM, pedal edema. ABSENT: calf tenderness, clubbing Musculoskeletal exam: PRESENT: normal inspection. ABSENT: deformity Neurological exam: PRESENT: altered, reflexes normal, other - abnormal posturing to tactile and noxious stimuli. facial symmetry. spontaneous respirations intact. DTR 2+ x 4 extremities. Psychiatric exam: ABSENT: agitated, anxious Skin exam: PRESENT: dry, intact, warm. ABSENT: cyanosis, rash Tubes/Lines: PRESENT: Endotracheal Tube, Central Line - R PICC, Other - orogastric Laboratory/Radiographs Laboratory Results: 06/16/20 05:10 06/16/20 05:10 06/16/20 06/16/20 06/16/20 05:10 05:10 05:10 WBC 10.5 RBC 2.51 L Hgb 7.8 L Hct 22.0 L MCV 88 MCH 31.0 MCHC 35.3 RDW 13.8 Plt Count 100 L Seg Neutrophils % Not Reportable Carbonic Acid 1.45 H HCO3/H2CO3 Ratio 20:1 ABG pH 7.41 ABG pCO2 48.1 H ABG pO2 104.7 H ABG HCO3 29.7 H ABG O2 Saturation 97.8 ABG Base Excess 4.4 FiO2 75% Sodium 132.2 L Potassium 3.7 Chloride 103 Carbon Dioxide 33 H Anion Gap -4 L BUN 36 H Creatinine 0.77 Est GFR ( Amer) > 60 Glucose 170 H Calcium 7.1 L Phosphorus 2.8 Magnesium 1.7 Total Bilirubin 0.4 AST 43 Alkaline Phosphatase 90 Total Protein 3.4 L Albumin 1.7 L 05/23/20 05/24/20 05/25/20 04:44 04:49 04:51 Creatine Kinase CK-MB (CK-2) Troponin I NT-Pro-B Natriuret Pep 757 H 883 H 253 H 05/27/20 05/29/20 05/29/20 04:41 04:15 04:15 Creatine Kinase 439 H CK-MB (CK-2) 3.21 Troponin I < 0.012 NT-Pro-B Natriuret Pep 307 H 05/30/20 06/06/20 04:13 13:30 Creatine Kinase CK-MB (CK-2) Troponin I NT-Pro-B Natriuret Pep 549 H 216 H Impressions: Abdomen/Pelvis CT 05/19/20 15:57 IMPRESSION: 1. Nonspecific mild fluid-filled small bowel loops could reflect a mild enteritis. No bowel obstruction. 2. No peripancreatic inflammation. 3. Cholelithiasis. 4. Hepatic steatosis. 5. Enlarged prostate gland. 6. Basilar ground-glass pulmonary opacities are not specific but can be seen with infectious and noninfectious processes, including COVID 19 infection. Correlate with exposure history. Chest CT 05/29/20 00:00 IMPRESSION: Diffuse bilateral ground-glass opacities consistent with pulmonary edema or pneumonia. There is bibasilar consolidation either atelectasis or pneumonia. No effusions. PICC Line Insertion 05/30/20 00:00 IMPRESSION: SUCCESSFUL PLACEMENT OF A 5 FR DUAL LUMEN 35 CM PICC IN THE RIGHT BASILIC VEIN. KUB X-Ray 06/01/20 00:00 IMPRESSION: NG tube in good position in the upper stomach. Head CT 06/15/20 00:00 IMPRESSION: No acute findings. EVIDENCE OF ACUTE STROKE: NO. All labs, radiographs, diagnostic studies and EKGs were personally reviewed: Yes In addition, reports of radiographic and diagnostic studies were read: Yes Assessment and Plan - Diagnosis (1) Acute respiratory failure with hypoxia and hypercapnia Is this a current diagnosis for this admission?: Yes Plan: * PEEP 10. Wean FiO2 as tolerated. * Titrate sedation for RASS -2. * Significant cuff leak noted during exam. Changed over bougie today. (2) Acute encephalopathy Is this a current diagnosis for this admission?: Yes Plan: * Abnormal neurologic exam, suspicious for hypoxic/metabolic encephalopathy. Non-lateralizing. * Head CT (06/14) was negative for acute intracranial pathology. (3) Pneumonia due to 2019 novel coronavirus Is this a current diagnosis for this admission?: Yes Plan: * Decrease Solu-Medrol to 40 mg IV every 12 hours. * Continue vitamin C, vitamin D3. * Start zinc sulfate. 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 Platelet count did improve after changing heparin to argatroban; however, the patient has again started to trend down and his platelet count. (5) Diarrhea Qualifiers: Diarrhea type: unspecified type Qualified Code(s): R19.7 - Diarrhea, unspecified Is this a current diagnosis for this admission?: Yes (6) Stage III pressure ulcer Qualifiers: Pressure injury location: other site Qualified Code(s): L89.893 - Pressure ulcer of other site, stage 3 Is this a current diagnosis for this admission?: Yes Critical Time Critical Time (minutes): 60 Level of Care: ICU -: 1. The care of a critical patient is a dynamic process. This note is a indirect sales representative synopsis but static in nature. The timeframe for treatments given in order is not necessarily the actual time these treatments may have been done. 2. This patient requires critical care secondary to ongoing requirements for therapy not offered or safe outside the critical care environment. Transfer to a lower level of care will result in altered life or limb morbidity and mor tality. 3. Multidisciplinary rounds completed. 4. ABCDE bundle addressed.
[2020-06-16] MEDS ORDERED: SUCCINYLCHOLINE CHLORIDE INJ 200 MG/10 ML VIAL ONE (20:29)
[2020-06-16] MEDS ORDERED: METHYLPREDNISOLONE INJ 125 MG/2 ML SDV IV SCH (22:00)
[2020-06-16] MEDS: METHYLPREDNISOLONE INJ 40 MG/1 ML SDV IV SCH (23:16)
[2020-06-17] MEDS: FENTANYL CITRATE/PF 600 MCG/60 ML BAG IV PRN ×7 (00:37→23:56)
[2020-06-17] MEDS: ALBUTEROL SULFATE 0.083% NEB 2.5 MG/3 ML AMPUL NEB SCH ×6 (00:55→20:04)
[2020-06-17] MEDS: INSULIN REG, HUMAN 100 UNIT/ML 3 ML VIAL (PYX) SUBCUT SCH ×5 (00:57→23:13)
[2020-06-17] MEDS: SUCRALFATE 1 GM TABLET PO SCH ×5 (01:34→22:55)
[2020-06-17] MEDS: MIDAZOLAM HCL 50 MG/100 ML RTUINJ IV PRN ×3 (02:02→19:40)
[2020-06-17 05:50] LABS: ARTERIAL BLOOD BASE EXCESS 4.7 mmol/L; ARTERIAL BLOOD H2CO3 1.39 mmol/L (1.05-1.35); ARTERIAL BLOOD HCO3 29.7 mmol/L (20-24); ARTERIAL BLOOD O2 SATURATION 98.5 % (94-98); ARTERIAL BLOOD PCO2 46.2 mmHg (35-45); ARTERIAL BLOOD PH 7.43 (7.35-7.45); ARTERIAL BLOOD PO2 122.7 mmHg (80-100); ARTERIAL BLOOD TOTAL CO2 31.1 mmol/L (23-27)
[2020-06-17] MEDS: POTASSI CL 20 MEQ/NS 1L 1,000 ML IV PRN (05:52)
[2020-06-17 05:53] LABS: ARTERIAL BLOOD FIO2 100%
[2020-06-17] MEDS ORDERED: PANTOPRAZOLE SODIUM 40 MG PACKET.DR NG SCH (06:00)
[2020-06-17 06:05] LABS: HEMOGLOBIN 9.3 g/dL (13.5-17.0); MEAN CORPUSCULAR HEMOGLOBIN 29.9 pg (27.0-33.4); MEAN CORPUSCULAR HGB CONC 34.4 g/dL (32.0-36.0); MEAN CORPUSCULAR VOLUME 87 fl (80-97); PARTIAL THROMBOPLASTIN TIME 29.9 SEC (23.5-35.8); RED CELL DISTRIBUTION WIDTH 13.8 % (11.5-14.0); WHITE BLOOD COUNT 10.1 10^3/uL (4.0-10.5)
[2020-06-17 06:07] LABS: D-DIMER 2.99 ug/mL (0.00-0.50)
[2020-06-17 06:09] LABS: ALBUMIN 1.9 g/dL (3.5-5.0); ALKALINE PHOSPHATASE 107 U/L (38-126); ASPARTATE AMINO TRANSFERASE 44 U/L (17-59); BILIRUBIN,DIRECT 0.1 mg/dL (0.0-0.4); BILIRUBIN,TOTAL 0.5 mg/dL (0.2-1.3); BLOOD UREA NITROGEN 41 mg/dL (7-20); C-REACTIVE PROTEIN 7.9 mg/L (<10.0); CALCIUM 7.6 mg/dL (8.4-10.2); CHLORIDE 101 mmol/L (98-107); GLUCOSE 170 mg/dL (75-110); PHOSPHORUS 3.2 mg/dL (2.5-4.5); POTASSIUM 3.6 mmol/L (3.6-5.0); TOTAL PROTEIN 3.9 g/dL (6.3-8.2)
[2020-06-17 06:31] LABS: CARBON DIOXIDE 36 mmol/L (22-30)
[2020-06-17 06:32] LABS: ANION GAP -1 (5-19)
[2020-06-17 06:39] LABS: PREALBUMIN 22.9 mg/dL (17.6-36.0)
[2020-06-17 06:43] LABS: ABSOLUTE LYMPHOCYTES# (MANUAL) 0.1 10^3/uL (0.5-4.7); BAND NEUTROPHILS % (MANUAL) 1 % (3-5); BASOPHILS % (MANUAL) 0 % (0-2); EOSINOPHILS % (MANUAL) 0 % (0-6); LYMPHOCYTES % (MANUAL) 1 % (13-45); MONOCYTES % (MANUAL) 0 % (3-13); SEGMENTED NEUTROPHILS % (MAN) 98 % (42-78); TOTAL CELLS COUNTED 100
[2020-06-17 06:44] LABS: PLATELET CLUMPS PRESENT; PLATELET COMMENT DECREASED; RBC MORPHOLOGY COMMENT NORMO-CYTIC/CHROMIC
[2020-06-17 06:45] LABS: PLATELET COUNT 113 10^3/uL (150-450)
[2020-06-17] MEDS: METOCLOPRAMIDE HCL INJ/PF 10 MG/2 ML SDV IV SCH ×3 (06:46→22:56)
[2020-06-17] MEDS: SENNOSIDES/DOCUSATE 8.6-50 MG 1 EACH TABLET PO SCH ×3 (06:47→22:55)
--- NOTE | 2020-06-17 08:18 | RADIOLOGY REPORT (SQ) ---
EXAM DESCRIPTION: CHEST SINGLE VIEW IMAGES COMPLETED DATE/TIME: 06/17/2020 5:46 am REASON FOR STUDY: ETT tube COMPARISON: 06/16/2020 NUMBER OF VIEWS: One view. TECHNIQUE: Single frontal radiographic image of the chest acquired. LIMITATIONS: None. FINDINGS: LUNGS AND PLEURA: Stable appearance. MEDIASTINUM AND HILAR STRUCTURES: Stable heart size and mediastinal structures. HEART AND VASCULAR STRUCTURES: Stable appearance. SUPPORT DEVICES: Appropriate location without change. BONES: No acute findings. OTHER: No other significant finding. IMPRESSION: STABLE APPEARANCE OF THE CHEST. SUPPORT DEVICES UNCHANGED. TECHNICAL DOCUMENTATION: JOB ID: [id number] 2010 [employer]- All Rights Reserved Reading location - IP/workstation name: [email or web address]
[2020-06-17] MEDS: METHYLPREDNISOLONE INJ 40 MG/1 ML SDV IV SCH ×2 (10:34→22:56)
[2020-06-17] MEDS: NORMAL SALINE 10 ML SDV (SCHEDULED) IV SCH ×2 (10:35→23:19)
[2020-06-17] MEDS: ZINC SULFATE 220 MG CAPSULE PO SCH (11:50)
[2020-06-17] MEDS: CHOLECALCIFEROL (D3) 1,000 UNIT (25 MCG) TABLET NG SCH (11:50)
[2020-06-17] MEDS: ASCORBIC ACID 500 MG TABLET PO SCH ×2 (11:50→17:30)
[2020-06-17] MEDS: ENOXAPARIN SODIUM INJ 40 MG/0.4 ML DISP.SYRIN SUBCUT SCH (11:51)
[2020-06-17] MEDS: POLYETHYLENE GLYCOL 3350 POWDER 17 GM/1 PACKET NG SCH (11:52)
[2020-06-17] MEDS: METOPROLOL TARTRATE PF/INJ 5 MG/5 ML SDV IV PRN (12:20)
[2020-06-17] MEDS: MINERAL OIL/PETROLATUM,WHITE OPH OINT 3.5 GM OU PRN ×2 (15:35→23:21)
[2020-06-17] MEDS: PANTOPRAZOLE SODIUM 40 MG PACKET.DR NG SCH (17:30)
--- NOTE | 2020-06-17 18:42 | PDOC CRITICAL CARE PROG REPORT ---
General Date:: 06/17/20 ICU Day:: 18 Ventilator Day:: 18 Hospital Day:: 29 Resuscitation Status: Full Code Events in the past 12 to 24 Hours:: This 74-year-old male was admitted on 05/19/2020 with diarrhea and abdominal pain (over 3 weeks). He was admitted to the hospitalist. He was transferred to the ICU on 05/31/2019 and intubated for worsening mental status, suspected to be due to acute hypoxemic respiratory failure secondary to COVID-19 pneumonia. 06/02/20: Still needing vent. Na and kidney function slightly better. 06/03: remains intubated. shows minimal response to verbal stimuli. does not follow commands. On PRVC 18/450/55/8 for a.m ABG. on Precedex/fentanyl for sedation. on heparin. on norepinephine. 06/04: remains intubated. on PRVC 20/500/65/8. clinically, no significant change. on Levophed @ 1. Platelets 85 today. Creatinine 1.68> 1.71. 06/05: Remains intubated. No significant change on the vent. ABG this mornin.32/50/89. On and off Levophed at 1 mcg/min. On fentanyl/Precedex for sedation. Creatinine 1.8. 06/06: Remains intubated. On PRVC 20/500/65/8. FiO2 65% but SpO2 85-87% this a.m. On Precedex/fentanyl for sedation. Appears more active today. Squirms in the bed. Does not follow commands. Does not visually track. Changed from heparin to argatroban yesterday due to concerns about thrombocytopenia. Platelets 94 this morning, increasing. On TF. 06/07: Hgb 6.8. No sign of bleeding. Blood ordered. 06/08: Still difficult to sedate. Intermittantly tachycardic 06/09: Phoenix replaced yesterday with 1500cc urine removed. Still intermittently agitated with varying amounts of sedation being needed. 06/10: Seems calmer today thus far. FIO2 dropped to 75%. No change to PEEP. TF held for residual 300. To restart. 06/11: PSV dropped to 15cm. Calm, not agitated. No change in FIO2. 06/12: Episode of desaturation today. Resolved. Still agitated at times. 06/13: Off levophed but still on high vent support. 06/14: Afebrile. WBC 15.7. Hemoglobin 6.7. Transfusion was ordered. 06/15: Afebrile. WBC 15.713.2. Hemoglobin 8.8 today. Was transfused 2 units PRBC yesterday. ABG this a.m.: 7.40/50/66. Currently, on Versed/fentanyl for sedation. Eyes open. Not following commands. Nurse reports that the patient is showing intermittent, abnormal "posturing" type movements (shoulder shrugging). On PRVC 20/500/70/10. RR 21. SpO2 90%. 06/16: WBC 10.5. Hemoglobin 7.8. Platelets 100. On PRVC 20/500/70/10. ABG this a.m.: 7.41/48/105. CT of the head was obtained yesterday and showed no acute intracranial pathology. On Versed/fentanyl for sedation. Neurologically, no change. Continues to show shoulder shrugging posturing with tactile/noxious stimuli. 06/17: On PRVC, FiO2 now up to 80%. On Versed/fentanyl for sedation. ABG this a.m.: 7.4 3/46/123. Neurologically, no change. Off vasopressors. WBC 10.1. Hemoglobin 9.3. Albumin 1.9. Nurse reported dark-colored stools yesterday. Hemoccult positive. Review of systems relevant to events:: Pulmonary, neurological. Reason for ICU Addmission:: Need for intubation for Covid PNA. - Medications: Medications reviewed and adjusted accordingly: Yes Vasopressors:: None Sedation:: Precedex/fentanyl Physical Exam Vital Signs: Temp Pulse Resp BP Pulse Ox 99.3 F 80 23 H 124/54 L 99 06/17/20 04:00 06/17/20 04:20 06/17/20 08:00 06/17/20 07:47 06/17/20 08:00 Intake & Output 06/16/20 06/17/20 06/18/20 06:59 06:59 06:59 Intake Total 3229 3309 7 Output Total 3390 1280 90 Balance -1161 2028 Weight 98.5 kg Weight/Height Weight 98.5 kg Height 1.8 m General appearance: PRESENT: no acute distress, well-developed, well-nourished Head exam: PRESENT: normocephalic. ABSENT: atraumatic - pressure sore on bridge of nose Eye exam: PRESENT: conjunctiva pink, EOMI. ABSENT: PERRLA - OD pupil defect. OS reactive., scleral icterus Mouth exam: PRESENT: moist, tongue midline Neck exam: ABSENT: carotid bruit, JVD, lymphadenopathy, thyromegaly Respiratory exam: PRESENT: rales, symmetrical. ABSENT: rhonchi, wheezes Cardiovascular exam: PRESENT: RRR. ABSENT: diastolic murmur, rubs, systolic murmur Pulses: PRESENT: normal dorsalis pedis pul GI/Abdominal exam: PRESENT: normal bowel sounds, soft. ABSENT: distended, guarding, mass, organolmegaly, rebound, tenderness Gentrourinary exam: PRESENT: indwelling catheter Extremities exam: PRESENT: full ROM. ABSENT: calf tenderness, clubbing, pedal edema Neurological exam: PRESENT: altered, reflexes normal, CN II-XII grossly intact, other - abnormal "shoulder shrug" posturing to tactile stimuli. ABSENT: motor sensory deficit Psychiatric exam: ABSENT: agitated, anxious Skin exam: PRESENT: dry, intact, warm. ABSENT: cyanosis, rash Tubes/Lines: PRESENT: Endotracheal Tube, Central Line, Other - orogastric Laboratory/Radiographs Laboratory Results: 06/17/20 05:20 06/17/20 05:20 06/16/20 06/17/20 06/17/20 10:08 05:20 05:20 WBC 10.1 RBC 3.10 L Hgb 9.3 L Hct 27.0 L MCV 87 MCH 29.9 MCHC 34.4 RDW 13.8 Plt Count 113 L Seg Neutrophils % Not Reportable Carbonic Acid HCO3/H2CO3 Ratio ABG pH ABG pCO2 ABG pO2 ABG HCO3 ABG O2 Saturation ABG Base Excess FiO2 Sodium 135.6 L Potassium 3.6 Chloride 101 Carbon Dioxide 36 H Anion Gap -1 L BUN 41 H Creatinine 0.84 Est GFR ( Amer) > 60 Glucose 170 H Calcium 7.6 L Phosphorus 3.2 Magnesium 1.8 Total Bilirubin 0.5 AST 44 Alkaline Phosphatase 107 C-Reactive Protein 7.9 Total Protein 3.9 L Albumin 1.9 L Prealbumin 22.9 Stool Occult Blood POSITIVE 06/17/20 05:20 WBC RBC Hgb Hct MCV MCH MCHC RDW Plt Count Seg Neutrophils % Carbonic Acid 1.39 H HCO3/H2CO3 Ratio 21:1 ABG pH 7.43 ABG pCO2 46.2 H ABG pO2 122.7 H ABG HCO3 29.7 H ABG O2 Saturation 98.5 H ABG Base Excess 4.7 FiO2 100% Sodium Potassium Chloride Carbon Dioxide Anion Gap BUN Creatinine Est GFR ( Amer) Glucose Calcium Phosphorus Magnesium Total Bilirubin AST Alkaline Phosphatase C-Reactive Protein Total Protein Albumin Prealbumin Stool Occult Blood 05/23/20 05/24/20 05/25/20 04:44 04:49 04:51 Creatine Kinase CK-MB (CK-2) Troponin I NT-Pro-B Natriuret Pep 757 H 883 H 253 H 05/27/20 05/29/20 05/29/20 04:41 04:15 04:15 Creatine Kinase 439 H CK-MB (CK-2) 3.21 Troponin I < 0.012 NT-Pro-B Natriuret Pep 307 H 05/30/20 06/06/20 04:13 13:30 Creatine Kinase CK-MB (CK-2) Troponin I NT-Pro-B Natriuret Pep 549 H 216 H Impressions: Abdomen/Pelvis CT 05/19/20 15:57 IMPRESSION: 1. Nonspecific mild fluid-filled small bowel loops could reflect a mild enteritis. No bowel obstruction. 2. No peripancreatic inflammation. 3. Cholelithiasis. 4. Hepatic steatosis. 5. Enlarged prostate gland. 6. Basilar ground-glass pulmonary opacities are not specific but can be seen with infectious and noninfectious processes, including COVID 19 infection. Correlate with exposure history. Chest CT 05/29/20 00:00 IMPRESSION: Diffuse bilateral ground-glass opacities consistent with pulmonary edema or pneumonia. There is bibasilar consolidation either atelectasis or pneumonia. No effusions. PICC Line Insertion 05/30/20 00:00 IMPRESSION: SUCCESSFUL PLACEMENT OF A 5 FR DUAL LUMEN 35 CM PICC IN THE RIGHT BASILIC VEIN. KUB X-Ray 06/01/20 00:00 IMPRESSION: NG tube in good position in the upper stomach. Head CT 06/15/20 00:00 IMPRESSION: No acute findings. EVIDENCE OF ACUTE STROKE: NO. 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 Platelet count did improve after changing heparin to argatroban; however, the patient has again started to trend down and his platelet count. Of note, the patient is now on Lovenox. * Stop Lovenox. Hold anticoagulation for black tarry stools. 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 (5) Black tarry stools Is this a current diagnosis for this admission?: Yes Plan: * Hold Lovenox today. (6) Diarrhea Qualifiers: Diarrhea type: unspecified type Qualified Code(s): R19.7 - Diarrhea, unspecified Is this a current diagnosis for this admission?: Yes (7) Stage III pressure ulcer Qualifiers: Pressure injury location: other site Qualified Code(s): L89.893 - Pressure ulcer of other site, stage 3 Is this a current diagnosis for this admission?: Yes Critical Time Critical Time (minutes): 60 Level of Care: ICU -: 1. The care of a critical patient is a dynamic process. This note is a strategic partnership representative synopsis but static in nature. The timeframe for treatments given in order is not necessarily the actual time these treatments may have been done. 2. This patient requires critical care secondary to ongoing requirements for therapy not offered or safe outside the critical care environment. Transfer to a lower level of care will result in altered life or limb morbidity and mortality. 3. Multidisciplinary rounds completed. 4. ABCDE bundle addressed.
[2020-06-17] MEDS ORDERED: DEXTROSE 5%-WATER 250 ML with NOREPINEPHRINE BITARTRATE 4 MG IV PRN ×2 (20:00)
[2020-06-18] MEDS: ALBUTEROL SULFATE 0.083% NEB 2.5 MG/3 ML AMPUL NEB SCH ×7 (00:05→23:38)
[2020-06-18] MEDS: METOPROLOL TARTRATE PF/INJ 5 MG/5 ML SDV IV PRN ×2 (02:15→12:00)
[2020-06-18 04:34] LABS: HEMATOCRIT 22.7 % (37.9-51.0); MEAN CORPUSCULAR HEMOGLOBIN 30.3 pg (27.0-33.4); MEAN CORPUSCULAR HGB CONC 34.6 g/dL (32.0-36.0); MEAN CORPUSCULAR VOLUME 87 fl (80-97); RED BLOOD COUNT 2.59 10^6/uL (4.35-5.55); RED CELL DISTRIBUTION WIDTH 13.8 % (11.5-14.0); WHITE BLOOD COUNT 8.4 10^3/uL (4.0-10.5)
[2020-06-18 04:51] LABS: ALBUMIN 1.7 g/dL (3.5-5.0); ALKALINE PHOSPHATASE 93 U/L (38-126); ARTERIAL BLOOD BASE EXCESS 5.9 mmol/L; ARTERIAL BLOOD H2CO3 1.37 mmol/L (1.05-1.35); ARTERIAL BLOOD HCO3 30.6 mmol/L (20-24); ARTERIAL BLOOD O2 SATURATION 98.5 % (94-98); ARTERIAL BLOOD PCO2 45.4 mmHg (35-45); ARTERIAL BLOOD PH 7.45 (7.35-7.45); ARTERIAL BLOOD PO2 122.9 mmHg (80-100); ASPARTATE AMINO TRANSFERASE 45 U/L (17-59); BILIRUBIN,DIRECT 0.2 mg/dL (0.0-0.4); BILIRUBIN,TOTAL 0.6 mg/dL (0.2-1.3); BLOOD UREA NITROGEN 36 mg/dL (7-20); CALCIUM 7.3 mg/dL (8.4-10.2); CARBON DIOXIDE 38 mmol/L (22-30); CHLORIDE 102 mmol/L (98-107); GLUCOSE 169 mg/dL (75-110); POTASSIUM 4.1 mmol/L (3.6-5.0); TOTAL PROTEIN 3.4 g/dL (6.3-8.2)
[2020-06-18 04:56] LABS: ARTERIAL BLOOD FIO2 70%; HEMOGLOBIN 7.8 g/dL (13.5-17.0); PLATELET COUNT 99 10^3/uL (150-450)
[2020-06-18 05:14] LABS: ABSOLUTE MONOCYTES # (MANUAL) 0.2 10^3/uL (0.1-1.4); BASOPHILS % (MANUAL) 0 % (0-2); EOSINOPHILS % (MANUAL) 0 % (0-6); LYMPHOCYTES % (MANUAL) 0 % (13-45); MONOCYTES % (MANUAL) 2 % (3-13); SEGMENTED NEUTROPHILS % (MAN) 98 % (42-78); TOTAL CELLS COUNTED 100
[2020-06-18 05:24] LABS: PLATELET COMMENT DECREASED
[2020-06-18] MEDS: METOCLOPRAMIDE HCL INJ/PF 10 MG/2 ML SDV IV SCH ×3 (05:48→21:18)
[2020-06-18] MEDS: SUCRALFATE 1 GM TABLET PO SCH ×4 (05:48→23:17)
[2020-06-18] MEDS: NORMAL SALINE 10 ML SDV (AFTER EACH USE) IV PRN (05:49)
[2020-06-18] MEDS: INSULIN REG, HUMAN 100 UNIT/ML 3 ML VIAL (PYX) SUBCUT SCH ×4 (05:52→23:17)
[2020-06-18 06:34] LABS: ANION GAP -3 (5-19)
[2020-06-18] MEDS: SENNOSIDES/DOCUSATE 8.6-50 MG 1 EACH TABLET PO SCH ×3 (06:48→21:19)
[2020-06-18] MEDS: PANTOPRAZOLE SODIUM 40 MG PACKET.DR NG SCH ×2 (06:48→17:31)
[2020-06-18] MEDS: FENTANYL CITRATE/PF 600 MCG/60 ML BAG IV PRN ×4 (07:30→21:18)
[2020-06-18] MEDS: MAGNESIUM SULFATE/D5W 1 GM/100 ML RTUPB IV SCH ×2 (08:00→09:15)
[2020-06-18] MEDS: MIDAZOLAM HCL 50 MG/100 ML RTUINJ IV PRN ×2 (08:15→23:00)
[2020-06-18] MEDS: ENOXAPARIN SODIUM INJ 40 MG/0.4 ML DISP.SYRIN SUBCUT SCH (09:54)
[2020-06-18] MEDS: POLYETHYLENE GLYCOL 3350 POWDER 17 GM/1 PACKET NG SCH (09:55)
[2020-06-18] MEDS: METHYLPREDNISOLONE INJ 40 MG/1 ML SDV IV SCH (09:55)
[2020-06-18] MEDS: NORMAL SALINE 10 ML SDV (SCHEDULED) IV SCH ×2 (09:56→21:19)
[2020-06-18] MEDS: ASCORBIC ACID 500 MG TABLET PO SCH ×2 (09:57→17:31)
[2020-06-18] MEDS: CHOLECALCIFEROL (D3) 1,000 UNIT (25 MCG) TABLET NG SCH (09:57)
[2020-06-18] MEDS: ZINC SULFATE 220 MG CAPSULE PO SCH (09:57)
[2020-06-18] MEDS ORDERED: LABETALOL HCL INJ 20 MG/4 ML DISP.SYRIN IV ONE ×2 (13:34→14:00)
--- NOTE | 2020-06-18 14:08 | RADIOLOGY REPORT (SQ) ---
EXAM DESCRIPTION: CT HEAD WITHOUT IMAGES COMPLETED DATE/TIME: 06/18/2020 1:51 pm REASON FOR STUDY: abnormal reflex/physcial status change COMPARISON: 06/15/2020 TECHNIQUE: Axial images acquired through the brain without intravenous contrast. Images reviewed wi th bone, brain and subdural windows. Additional sagittal and coronal reconstructions were generated. Images stored on PACS. All CT scanners at this facility use dose modulation, iterative reconstruction, and/or weight based d osing when appropriate to reduce radiation dose to as low as reasonably achievable (ALARA). [facility]: Dose Right [facility]: CareDose [facility]: Dose Right [facility]: Teradose 4D [facility]: Smart [employer] RADIATION DOSE: CT Rad equipment meets quality standard of care and radiation dose reduction techniq ues were employed. CTDIvol: 49.0 mGy. DLP: 1010 mGy-cm. mGy. LIMITATIONS: Motion artifact. FINDINGS: VENTRICLES: Prominent. CEREBRUM: No masses. No hemorrhage. No midline shift. Areas of low density in the white matter mos t likely due to chronic micro-vascular ischemic change. No evidence for acute infarction. CEREBELLUM: No masses. No hemorrhage. No alteration of density. No evidence for acute infarction. EXTRAAXIAL SPACES: Mild age-related involutional change. No fluid collections. No masses. ORBITS AND GLOBE: No intra- or extraconal masses. Normal contour of globe without masses. CALVARIUM: No fracture. PARANASAL SINUSES: No fluid or mucosal thickening. SOFT TISSUES: No mass or hematoma. OTHER: No other significant finding. IMPRESSION: MILD CHRONIC CHANGES OF ATROPHY AND MICROVASCULAR ISCHEMIA. NO ACUTE PROCESS. EVIDENCE OF ACUTE STROKE: NO. TECHNICAL DOCUMENTATION: JOB ID: [id number] Quality ID # [id number]: Final reports with documentation of one or more dose reduction techniques (e.g., Au tomated exposure control, adjustment of the mA and/or kV according to patient size, use of iterative reconstruction technique) 2010 [employer]- All Rights Reserved Reading location - IP/workstation name: [email or web address]
--- NOTE | 2020-06-18 14:43 | PDOC CRITICAL CARE PROG REPORT ---
General Date:: 06/18/20 ICU Day:: 19 Ventilator Day:: Hospital Day:: 30 Resuscitation Status: Full Code Events in the past 12 to 24 Hours:: This 74-year-old male was admitted on 05/19/2020 with diarrhea and abdominal pain (over 3 weeks). He was admitted to the hospitalist. He was transferred to the ICU on 05/31/2019 and intubated for worsening mental status, suspected to be due to acute hypoxemic respiratory failure secondary to COVID-19 pneumonia. 06/02/20: Still needing vent. Na and kidney function slightly better. 06/03: remains intubated. shows minimal response to verbal stimuli. does not follow commands. On PRVC 18/450/55/8 for a.m ABG. on Precedex/fentanyl for sedation. on heparin. on norepinephine. 06/04: remains intubated. on PRVC 20/500/65/8. clinically, no significant change. on Levophed @ 1. Platelets 85 today. Creatinine 1.68> 1.71. 06/05: Remains intubated. No significant change on the vent. ABG this mornin.32/50/89. On and off Levophed at 1 mcg/min. On fentanyl/Precedex for sedation. Creatinine 1.8. 06/06: Remains intubated. On PRVC 20/500/65/8. FiO2 65% but SpO2 85-87% this a.m. On Precedex/fentanyl for sedation. Appears more active today. Squirms in the bed. Does not follow commands. Does not visually track. Changed from heparin to argatroban yesterday due to concerns about thrombocytopenia. Platelets 94 this morning, increasing. On TF. 06/07: Hgb 6.8. No sign of bleeding. Blood ordered. 06/08: Still difficult to sedate. Intermittantly tachycardic 06/09: Phoenix replaced yesterday with 1500cc urine removed. Still intermittently agitated with varying amounts of sedation being needed. 06/10: Seems calmer today thus far. FIO2 dropped to 75%. No change to PEEP. TF held for residual 300. To restart. 06/11: PSV dropped to 15cm. Calm, not agitated. No change in FIO2. 06/12: Episode of desaturation today. Resolved. Still agitated at times. 06/13: Off levophed but still on high vent support. 06/14: Afebrile. WBC 15.7. Hemoglobin 6.7. Transfusion was ordered. 06/15: Afebrile. WBC 15.713.2. Hemoglobin 8.8 today. Was transfused 2 units PRBC yesterday. ABG this a.m.: 7.40/50/66. Currently, on Versed/fentanyl for sedation. Eyes open. Not following commands. Nurse reports that the patient is showing intermittent, abnormal "posturing" type movements (shoulder shrugging). On PRVC 20/500/70/10. RR 21. SpO2 90%. 06/16: WBC 10.5. Hemoglobin 7.8. Platelets 100. On PRVC 20/500/70/10. ABG this a.m.: 7.41/48/105. CT of the head was obtained yesterday and showed no acute intracranial pathology. On Versed/fentanyl for sedation. Neurologically, no change. Continues to show shoulder shrugging posturing with tactile/noxious stimuli. 06/17: On PRVC, FiO2 now up to 80%. On Versed/fentanyl for sedation. ABG this a.m.: 7.43/46/123. Neurologically, no change. Off vasopressors. WBC 10.1. Hemoglobin 9.3. Albumin 1.9. Nurse reported dark-colored stools yesterday. Hemoccult positive. 06/18: Started on norepinephrine infusion overnight. But, now off, as BP is 180+. Showing some spontaneous R UE movement in addition to his abnormal posturing. Afebrile. WBC 8.4. Hemoglobin 7.8. Platelets 87. Off argatroban due to Hemoccult positive stools. ABG this a.m.: 7.45/45/123. On PRVC, FiO2 70%. Review of systems relevant to events:: Pulmonary, neurological. Reason for ICU Addmission:: Need for intubation for Covid PNA. - Medications: Medications reviewed and adjusted accordingly: Yes Vasopressors:: None Sedation:: Precedex/fentanyl Physical Exam Vital Signs: Temp Pulse Resp BP Pulse Ox 98.1 F 105 H 20 100/55 L 98 06/18/20 05:51 06/18/20 00:05 06/18/20 04:02 06/18/20 04:02 06/18/20 04:02 Intake & Output 06/17/20 06/18/20 06/19/20 06:59 06:59 06:59 Intake Total 3309 551 Output Total 1280 3685 Balance 2028 -3133 Weight 94.4 kg Weight/Height Weight 94.4 kg Height 1.8 m General appearance: PRESENT: no acute distress, well-developed, well-nourished Head exam: PRESENT: normocephalic. ABSENT: atraumatic - pressure sore on bridge of nose Eye exam: PRESENT: conjunctival injection - OD, conjunctiva pink, EOMI, PERRLA. ABSENT: scleral icterus Mouth exam: PRESENT: moist, tongue midline Neck exam: ABSENT: carotid bruit, JVD, lymphadenopathy, thyromegaly Respiratory exam: PRESENT: rales, rhonchi. ABSENT: wheezes Cardiovascular exam: PRESENT: RRR, tachycardia. ABSENT: diastolic murmur, rubs, systolic murmur Pulses: PRESENT: normal dorsalis pedis pul GI/Abdominal exam: PRESENT: normal bowel sounds, soft. ABSENT: distended, guarding, mass, organolmegaly, rebound, tenderness Gentrourinary exam: PRESENT: indwelling catheter Extremities exam: PRESENT: full ROM, pedal edema, +2 edema. ABSENT: calf tenderness, clubbing Musculoskeletal exam: ABSENT: deformity, normal inspection Neurological exam: PRESENT: altered, CN II-XII grossly intact, motor sensory deficit, other - No pain sensation in the lower extremitites. Pain sensation intact in the upper torso. Grimaces to pain. Still demonstrating abnormal posturing to tactile and noxious stimuli.. ABSENT: reflexes normal - B patellar 2+. B biceps 1+. Psychiatric exam: ABSENT: agitated, anxious Skin exam: PRESENT: dry, intact, warm. ABSENT: cyanosis, rash Tubes/Lines: PRESENT: Endotracheal Tube, Central Line - R PICC, Other - Orogastric Laboratory/Radiographs Laboratory Results: 06/18/20 04:00 06/18/20 04:00 06/18/20 06/18/20 06/18/20 04:00 04:00 04:00 WBC 8.4 RBC 2.59 L Hgb 7.8 L Hct 22.7 L MCV 87 MCH 30.3 MCHC 34.6 RDW 13.8 Plt Count 99 L Seg Neutrophils % Not Reportable Carbonic Acid 1.37 H HCO3/H2CO3 Ratio 22:1 ABG pH 7.45 ABG pCO2 45.4 H ABG pO2 122.9 H ABG HCO3 30.6 H ABG O2 Saturation 98.5 H ABG Base Excess 5.9 FiO2 70% Sodium 137.0 Potassium 4.1 Chloride 102 Carbon Dioxide 38 H Anion Gap -3 L BUN 36 H Creatinine 0.72 Est GFR ( Amer) > 60 Glucose 169 H Calcium 7.3 L Magnesium 1.7 Total Bilirubin 0.6 AST 45 Alkaline Phosphatase 93 Total Protein 3.4 L Albumin 1.7 L 05/23/20 05/24/20 05/25/20 04:44 04:49 04:51 Creatine Kinase CK-MB (CK-2) Troponin I NT-Pro-B Natriuret Pep 757 H 883 H 253 H 05/27/20 05/29/20 05/29/20 04:41 04:15 04:15 Creatine Kinase 439 H CK-MB (CK-2) 3.21 Troponin I < 0.012 NT-Pro-B Natriuret Pep 307 H 05/30/20 06/06/20 04:13 13:30 Creatine Kinase CK-MB (CK-2) Troponin I NT-Pro-B Natriuret Pep 549 H 216 H Impressions: Abdomen/Pelvis CT 05/19/20 15:57 IMPRESSION: 1. Nonspecific mild fluid-filled small bowel loops could reflect a mild enteritis. No bowel obstruction. 2. No peripancreatic inflammation. 3. Cholelithiasis. 4. Hepatic steatosis. 5. Enlarged prostate gland. 6. Basilar ground-glass pulmonary opacities are not specific but can be seen with infectious and noninfectious processes, including COVID 19 infection. Correlate with exposure history. Chest CT 05/29/20 00:00 IMPRESSION: Diffuse bilateral ground-glass opacities consistent with pulmonary edema or pneumonia. There is bibasilar consolidation either atelectasis or pneumonia. No effusions. PICC Line Insertion 05/30/20 00:00 IMPRESSION: SUCCESSFUL PLACEMENT OF A 5 FR DUAL LUMEN 35 CM PICC IN THE RIGHT BASILIC VEIN. KUB X-Ray 06/01/20 00:00 IMPRESSION: NG tube in good position in the upper stomach. Head CT 06/15/20 00:00 IMPRESSION: No acute findings. EVIDENCE OF ACUTE STROKE: NO. Chest X-Ray 06/17/20 05:00 IMPRESSION: STABLE APPEARANCE OF THE CHEST. SUPPORT DEVICES UNCHANGED. All labs, radiographs, diagnostic studies and EKGs were personally reviewed: Yes In addition, reports of radiographic and diagnostic studies were read: Yes Assessment and Plan - Diagnosis (1) Acute respiratory failure with hypoxia and hypercapnia Is this a current diagnosis for this admission?: Yes Plan: * PEEP 10. Wean FiO2 as tolerated. * Titrate sedation for RASS -2. (2) Acute encephalopathy Is this a current diagnosis for this admission?: Yes Plan: * Abnormal neurologic exam, suspicious for hypoxic/metabolic encephalopathy. * Head CT (06/14) was negative for acute intracranial pathology. * Preferential movement of R side and acute swing from hypotension to hypertension is suspicious for acute stroke. Will recheck head CT; however, given his overall clinical status, acute intervention (NOT available at this institution) would be of little meaningful benefit. (3) Pneumonia due to 2019 novel coronavirus Is this a current diagnosis for this admission?: Yes Plan: * Decrease Solu-Medrol to 40 mg IV daily. * Continue vitamin C, vitamin D3. * Start zinc sulfate. 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 Platelet count did improve after changing heparin to argatroban; however, the patient has again started to trend down and his platelet count. Of note, the patient is now on Lovenox. * Hold anticoagulation for black tarry stools. 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 * On SCDs for DVT prophylaxis. (5) Black tarry stools Is this a current diagnosis for this admission?: Yes Plan: * Off anticoagulation/DVT prophylaxis for now. * On Protonix BID and Carafate for presumed upper GI bleed and hemoccult- positive stools. * Hgb 9.3-->7.8. Monitor. Transfusion threshold 7. (6) Diarrhea Qualifiers: Diarrhea type: unspecified type Qualified Code(s): R19.7 - Diarrhea, unspecified Is this a current diagnosis for this admission?: Yes (7) Stage III pressure ulcer Qualifiers: Pressure injury location: other site Qualified Code(s): L89.893 - Pressure ulcer of other site, stage 3 Is this a current diagnosis for this admission?: Yes Plan Summary: Anticipating arrival to [facility] on Wednesday to discuss goals of care. Critical Time Critical Time (minutes): 45 Level of Care: ICU -: 1. The care of a critical patient is a dynamic process. This note is a sales representative jewelry synopsis but static in nature. The timeframe for treatments given in order is not necessarily the actual time these treatments may have been done. 2. This patient requires critical care secondary to ongoing requirements for therapy not offered or safe outside the critical care environment. Transfer to a lower level of care will result in altered life or limb morbidity and mortality. 3. Multidisciplinary rounds completed. 4. ABCDE bundle addressed.
[2020-06-18] MEDS: FLUCONAZOLE 400 MG/NS RTU 400 MG/200 ML RTUPB IV SCH (18:41)
[2020-06-18] MEDS: POTASSI CL 20 MEQ/NS 1L 1,000 ML IV PRN (21:19)
[2020-06-19] MEDS: FENTANYL CITRATE/PF 600 MCG/60 ML BAG IV PRN ×6 (00:15→20:34)
[2020-06-19 03:44] LABS: ARTERIAL BLOOD BASE EXCESS 10.2 mmol/L; ARTERIAL BLOOD H2CO3 1.47 mmol/L (1.05-1.35); ARTERIAL BLOOD HCO3 35.1 mmol/L (20-24); ARTERIAL BLOOD O2 SATURATION 90.3 % (94-98); ARTERIAL BLOOD PH 7.47 (7.35-7.45); ARTERIAL BLOOD PO2 55.3 mmHg (80-100); ARTERIAL BLOOD TOTAL CO2 36.6 mmol/L (23-27)
[2020-06-19 03:45] LABS: ARTERIAL BLOOD FIO2 65%
[2020-06-19 03:57] LABS: ALBUMIN 1.8 g/dL (3.5-5.0); ALKALINE PHOSPHATASE 101 U/L (38-126); ASPARTATE AMINO TRANSFERASE 58 U/L (17-59); BILIRUBIN,DIRECT 0.1 mg/dL (0.0-0.4); BILIRUBIN,TOTAL 0.7 mg/dL (0.2-1.3); BLOOD UREA NITROGEN 31 mg/dL (7-20); CARBON DIOXIDE 35 mmol/L (22-30); CHLORIDE 105 mmol/L (98-107); GLUCOSE 110 mg/dL (75-110); HEMATOCRIT 26.6 % (37.9-51.0); HEMOGLOBIN 9.1 g/dL (13.5-17.0); MEAN CORPUSCULAR HEMOGLOBIN 29.8 pg (27.0-33.4); MEAN CORPUSCULAR HGB CONC 34.2 g/dL (32.0-36.0); MEAN CORPUSCULAR VOLUME 87 fl (80-97); PLATELET COUNT 109 10^3/uL (150-450); POTASSIUM 4.5 mmol/L (3.6-5.0); RED BLOOD COUNT 3.06 10^6/uL (4.35-5.55); RED CELL DISTRIBUTION WIDTH 14.1 % (11.5-14.0); TOTAL PROTEIN 3.7 g/dL (6.3-8.2); WHITE BLOOD COUNT 7.3 10^3/uL (4.0-10.5)
[2020-06-19 04:15] LABS: ANION GAP -2 (5-19)
[2020-06-19 04:47] LABS: ABSOLUTE LYMPHOCYTES# (MANUAL) 0.2 10^3/uL (0.5-4.7); ABSOLUTE MONOCYTES # (MANUAL) 0.1 10^3/uL (0.1-1.4); BAND NEUTROPHILS % (MANUAL) 1 % (3-5); BASOPHILS % (MANUAL) 0 % (0-2); EOSINOPHILS % (MANUAL) 2 % (0-6); LYMPHOCYTES % (MANUAL) 3 % (13-45); MONOCYTES % (MANUAL) 2 % (3-13); SEGMENTED NEUTROPHILS % (MAN) 92 % (42-78); TOTAL CELLS COUNTED 100
[2020-06-19 04:48] LABS: PLATELET COMMENT DECREASED; RBC MORPHOLOGY COMMENT NORMO-CYTIC/CHROMIC
[2020-06-19] MEDS: ALBUTEROL SULFATE 0.083% NEB 2.5 MG/3 ML AMPUL NEB SCH ×6 (04:53→23:44)
[2020-06-19] MEDS: SUCRALFATE 1 GM TABLET PO SCH ×4 (05:18→23:26)
[2020-06-19] MEDS: METOPROLOL TARTRATE PF/INJ 5 MG/5 ML SDV IV PRN (05:18)
[2020-06-19] MEDS: ALBUMIN HUMAN 12.5 GM/50 ML RTUINJ IV SCH ×4 (05:18→09:36)
[2020-06-19] MEDS: METOCLOPRAMIDE HCL INJ/PF 10 MG/2 ML SDV IV SCH ×3 (05:18→21:16)
[2020-06-19] MEDS: PANTOPRAZOLE SODIUM 40 MG PACKET.DR NG SCH ×2 (05:19→17:39)
[2020-06-19] MEDS: INSULIN REG, HUMAN 100 UNIT/ML 3 ML VIAL (PYX) SUBCUT SCH ×4 (05:19→23:26)
[2020-06-19] MEDS: SENNOSIDES/DOCUSATE 8.6-50 MG 1 EACH TABLET PO SCH ×3 (05:19→21:16)
[2020-06-19] MEDS: MAGNESIUM SULFATE/D5W 1 GM/100 ML RTUPB IV SCH ×2 (05:48→06:59)
[2020-06-19] MEDS: ACETAMINOPHEN 650 MG SUPP.RECT PR PRN (05:49)
[2020-06-19 06:20] LABS: PARTIAL THROMBOPLASTIN TIME 28.2 SEC (23.5-35.8)
[2020-06-19 06:23] LABS: D-DIMER 3.49 ug/mL (0.00-0.50)
[2020-06-19 06:35] LABS: C-REACTIVE PROTEIN 22.7 mg/L (<10.0)
[2020-06-19 06:40] LABS: PHOSPHORUS 2.3 mg/dL (2.5-4.5)
--- NOTE | 2020-06-19 09:20 | PDOC CRITICAL CARE PROG REPORT ---
General Date:: 06/19/20 ICU Day:: 19 Ventilator Day:: Hospital Day:: 30 Resuscitation Status: Full Code Events in the past 12 to 24 Hours:: This 74-year-old male was admitted on 05/19/2020 with diarrhea and abdominal pain (over 3 weeks). He was admitted to the hospitalist. He was transferred to the ICU on 05/31/2019 and intubated for worsening mental status, suspected to be due to acute hypoxemic respiratory failure secondary to COVID-19 pneumonia. 06/02/20: Still needing vent. Na and kidney function slightly better. 06/03: remains intubated. shows minimal response to verbal stimuli. does not follow commands. On PRVC 18/450/55/8 for a.m ABG. on Precedex/fentanyl for sedation. on heparin. on norepinephine. 06/04: remains intubated. on PRVC 20/500/65/8. clinically, no significant change. on Levophed @ 1. Platelets 85 today. Creatinine 1.68> 1.71. 06/05: Remains intubated. No significant change on the vent. ABG this mornin.32/50/89. On and off Levophed at 1 mcg/min. On fentanyl/Precedex for sedation. Creatinine 1.8. 06/06: Remains intubated. On PRVC 20/500/65/8. FiO2 65% but SpO2 85-87% this a.m. On Precedex/fentanyl for sedation. Appears more active today. Squirms in the bed. Does not follow commands. Does not visually track. Changed from heparin to argatroban yesterday due to concerns about thrombocytopenia. Platelets 94 this morning, increasing. On TF. 06/07: Hgb 6.8. No sign of bleeding. Blood ordered. 06/08: Still difficult to sedate. Intermittantly tachycardic 06/09: [place] replaced yesterday with 1500cc urine removed. Still intermittently agitated with varying amounts of sedation being needed. 06/10: Seems calmer today thus far. FIO2 dropped to 75%. No change to PEEP. TF held for residual 300. To restart. 06/11: PSV dropped to 15cm. Calm, not agitated. No change in FIO2. 06/12: Episode of desaturation today. Resolved. Still agitated at times. 06/13: Off levophed but still on high vent support. 06/14: Afebrile. WBC 15.7. Hemoglobin 6.7. Transfusion was ordered. 06/15: Afebrile. WBC 15.713.2. Hemoglobin 8.8 today. Was transfused 2 units PRBC yesterday. ABG this a.m.: 7.40/50/66. Currently, on Versed/fentanyl for sedation. Eyes open. Not following commands. Nurse reports that the patient is showing intermittent, abnormal "posturing" type movements (shoulder shrugging). On PRVC 20/500/70/10. RR 21. SpO2 90%. 06/16: WBC 10.5. Hemoglobin 7.8. Platelets 100. On PRVC 20/500/70/10. ABG this a.m.: 7.41/48/105. CT of the head was obtained yesterday and showed no acute intracranial pathology. On Versed/fentanyl for sedation. Neurologically, no change. Continues to show shoulder shrugging posturing with tactile/noxious stimuli. 06/17: On PRVC, FiO2 now up to 80%. On Versed/fentanyl for sedation. ABG this a.m.: 7.43/46/123. Neurologically, no change. Off vasopressors. WBC 10.1. Hemoglobin 9.3. Albumin 1.9. Nurse reported dark-colored stools yesterday. Hemoccult positive. 06/18: Started on norepinephrine infusion overnight. But, now off, as BP is 180+. Showing some spontaneous R UE movement in addition to his abnormal posturing. Afebrile. WBC 8.4. Hemoglobin 7.8. Platelets 87. Off argatroban due to Hemoccult positive stools. ABG this a.m.: 7.45/45/123. On PRVC, FiO2 70 06/19: Off and on levophed. Not able to wean. No posturing today. Review of systems relevant to events:: Pulmonary, neurological. CV. Reason for ICU Addmission:: Need for intubation for Covid PNA. - Medications: Medications reviewed and adjusted accordingly: Yes Vasopressors:: Levophed. Sedation:: Fentanyl, versed. Physical Exam Vital Signs: Temp Pulse Resp BP Pulse Ox 101.1 F H 84 18 75/43 L 99 06/19/20 08:28 06/19/20 07:00 06/19/20 08:00 06/19/20 07:52 06/19/20 08:00 Intake & Output 06/18/20 06/19/20 06/20/20 06:59 06:59 06:59 Intake Total 1611 1154 Output Total 3685 0200 285 Balance -2074 -2236 -285 Weight 94.4 kg 96.2 kg Weight/Height Weight 96.2 kg Height 5 ft 11 in General appearance: PRESENT: no acute distress Head exam: PRESENT: atraumatic, normocephalic Eye exam: PRESENT: conjunctiva pink, EOMI, PERRLA. ABSENT: scleral icterus Ear exam: PRESENT: normal external ear exam Mouth exam: PRESENT: moist, tongue midline Respiratory exam: PRESENT: clear to auscultation demi. ABSENT: rales, rhonchi, wheezes Cardiovascular exam: PRESENT: RRR. ABSENT: diastolic murmur, rubs, systolic murmur GI/Abdominal exam: PRESENT: normal bowel sounds, soft. ABSENT: distended, guarding, mass, organolmegaly, rebound, tenderness Rectal exam: PRESENT: deferred Gentrourinary exam: PRESENT: indwelling catheter Extremities exam: PRESENT: full ROM. ABSENT: calf tenderness, clubbing, pedal edema Musculoskeletal exam: PRESENT: normal inspection Neurological exam: PRESENT: other - Sedated. Skin exam: PRESENT: dry, intact, warm. ABSENT: cyanosis, rash Tubes/Lines: PRESENT: Endotracheal Tube, Nasogastic Tube Laboratory/Radiographs Laboratory Results: 06/19/20 03:35 06/19/20 03:35 06/19/20 06/19/20 06/19/20 03:35 03:35 03:35 WBC 7.3 RBC 3.06 L Hgb 9.1 L Hct 26.6 L MCV 87 MCH 29.8 MCHC 34.2 RDW 14.1 H Plt Count 109 L Seg Neutrophils % Not Reportable Carbonic Acid 1.47 H HCO3/H2CO3 Ratio 23:1 ABG pH 7.47 H ABG pCO2 49.0 H ABG pO2 55.3 L ABG HCO3 35.1 H ABG O2 Saturation 90.3 L ABG Base Excess 10.2 FiO2 65% Sodium 137.8 Potassium 4.5 Chloride 105 Carbon Dioxide 35 H Anion Gap -2 L BUN 31 H Creatinine 0.44 L Est GFR ( Amer) > 60 Glucose 110 Calcium 7.0 L* Phosphorus Magnesium 1.6 Total Bilirubin 0.7 AST 58 Alkaline Phosphatase 101 C-Reactive Protein Total Protein 3.7 L Albumin 1.8 L 06/19/20 03:35 WBC RBC Hgb Hct MCV MCH MCHC RDW Plt Count Seg Neutrophils % Carbonic Acid HCO3/H2CO3 Ratio ABG pH ABG pCO2 ABG pO2 ABG HCO3 ABG O2 Saturation ABG Base Excess FiO2 Sodium Potassium Chloride Carbon Dioxide Anion Gap BUN Creatinine Est GFR ( Amer) Glucose Calcium Phosphorus 2.3 L Magnesium Total Bilirubin AST Alkaline Phosphatase C-Reactive Protein 22.7 H Total Protein Albumin 05/23/20 05/24/20 05/25/20 04:44 04:49 04:51 Creatine Kinase CK-MB (CK-2) Troponin I NT-Pro-B Natriuret Pep 757 H 883 H 253 H 05/27/20 05/29/20 05/29/20 04:41 04:15 04:15 Creatine Kinase 439 H CK-MB (CK-2) 3.21 Troponin I < 0.012 NT-Pro-B Natriuret Pep 307 H 05/30/20 06/06/20 04:13 13:30 Creatine Kinase CK-MB (CK-2) Troponin I NT-Pro-B Natriuret Pep 549 H 216 H Impressions: Abdomen/Pelvis CT 05/19/20 15:57 IMPRESSION: 1. Nonspecific mild fluid-filled small bowel loops could reflect a mild enteritis. No bowel obstruction. 2. No peripancreatic inflammation. 3. Cholelithiasis. 4. Hepatic steatosis. 5. Enlarged prostate gland. 6. Basilar ground-glass pulmonary opacities are not specific but can be seen with infectious and noninfectious processes, including COVID 19 infection. Correlate with exposure history. Chest CT 05/29/20 00:00 IMPRESSION: Diffuse bilateral ground-glass opacities consistent with pulmonary edema or pneumonia. There is bibasilar consolidation either atelectasis or pneumonia. No effusions. PICC Line Insertion 05/30/20 00:00 IMPRESSION: SUCCESSFUL PLACEMENT OF A 5 FR DUAL LUMEN 35 CM PICC IN THE RIGHT BASILIC VEIN. KUB X-Ray 06/01/20 00:00 IMPRESSION: NG tube in good position in the upper stomach. Chest X-Ray 06/17/20 05:00 IMPRESSION: STABLE APPEARANCE OF THE CHEST. SUPPORT DEVICES UNCHANGED. Head CT 06/18/20 00:00 IMPRESSION: MILD CHRONIC CHANGES OF ATROPHY AND MICROVASCULAR ISCHEMIA. NO ACUTE PROCESS. EVIDENCE OF ACUTE STROKE: NO. All labs, radiographs, diagnostic studies and EKGs were personally reviewed: Yes In addition, reports of radiographic and diagnostic studies were read: Yes Assessment and Plan - Diagnosis (1) Pneumonia due to 2019 novel coronavirus Is this a current diagnosis for this admission?: Yes Plan: In nearly 2 weeks we have really not been able to wean his ventilator. (2) Acute encephalopathy Is this a current diagnosis for this admission?: Yes Plan: While sedated it is difficult to tell although he is likely still delirious. (3) Anemia Is this a current diagnosis for this admission?: Yes Plan: Hgb 9.1 with transfusion. Occult blood positive. Off argatroban. Plan Summary: Rommel who is decision maker will be coming in from [place]. Expressed desire if no progress to withdraw. Critical Time Critical Time (minutes): 35 Level of Care: ICU Anticipated discharge: Other Anticipated DC Timeframe: Other -: 1. The care of a critical patient is a dynamic process. This note is a repr esentative synopsis but static in nature. The timeframe for treatments given in order is not necessarily the actual time these treatments may have been done. 2. This patient requires critical care secondary to ongoing requirements for therapy not offered or safe outside the critical care environment. Transfer to a lower level of care will result in altered life or limb morbidity and mortality. 3. Multidisciplinary rounds completed. 4. ABCDE bundle addressed.
[2020-06-19] MEDS: ENOXAPARIN SODIUM INJ 40 MG/0.4 ML DISP.SYRIN SUBCUT SCH (09:32)
[2020-06-19] MEDS: POLYETHYLENE GLYCOL 3350 POWDER 17 GM/1 PACKET NG SCH (09:33)
[2020-06-19] MEDS: CHOLECALCIFEROL (D3) 1,000 UNIT (25 MCG) TABLET NG SCH (09:39)
[2020-06-19] MEDS: ZINC SULFATE 220 MG CAPSULE PO SCH (09:42)
[2020-06-19] MEDS: METHYLPREDNISOLONE INJ 40 MG/1 ML SDV IV SCH (09:42)
[2020-06-19] MEDS: ASCORBIC ACID 500 MG TABLET PO SCH ×2 (09:42→17:39)
[2020-06-19] MEDS: NORMAL SALINE 10 ML SDV (SCHEDULED) IV SCH ×2 (09:43→21:16)
[2020-06-19] MEDS: MIDAZOLAM HCL 50 MG/100 ML RTUINJ IV PRN (11:35)
[2020-06-19] MEDS: FLUCONAZOLE 400 MG/NS RTU 400 MG/200 ML RTUPB IV SCH (17:39)
[2020-06-19] MEDS: POTASSI CL 20 MEQ/NS 1L 1,000 ML IV PRN (18:04)
[2020-06-20] MEDS: FENTANYL CITRATE/PF 600 MCG/60 ML BAG IV PRN ×7 (00:42→23:30)
[2020-06-20] MEDS: ALBUTEROL SULFATE 0.083% NEB 2.5 MG/3 ML AMPUL NEB SCH ×5 (04:35→20:55)
[2020-06-20 05:23] LABS: ARTERIAL BLOOD BASE EXCESS 10.6 mmol/L; ARTERIAL BLOOD H2CO3 1.88 mmol/L (1.05-1.35); ARTERIAL BLOOD O2 SATURATION 96.9 % (94-98); ARTERIAL BLOOD PCO2 62.3 mmHg (35-45); ARTERIAL BLOOD PH 7.39 (7.35-7.45); ARTERIAL BLOOD PO2 94.1 mmHg (80-100); ARTERIAL BLOOD TOTAL CO2 38.9 mmol/L (23-27)
[2020-06-20 05:27] LABS: ARTERIAL BLOOD FIO2 100%
[2020-06-20 05:28] LABS: HEMATOCRIT 21.9 % (37.9-51.0); MEAN CORPUSCULAR HEMOGLOBIN 29.8 pg (27.0-33.4); MEAN CORPUSCULAR VOLUME 88 fl (80-97); RED CELL DISTRIBUTION WIDTH 13.9 % (11.5-14.0); WHITE BLOOD COUNT 5.7 10^3/uL (4.0-10.5)
[2020-06-20] MEDS: SUCRALFATE 1 GM TABLET PO SCH ×3 (06:11→18:17)
[2020-06-20] MEDS: SENNOSIDES/DOCUSATE 8.6-50 MG 1 EACH TABLET PO SCH ×3 (06:11→21:23)
[2020-06-20] MEDS: METOCLOPRAMIDE HCL INJ/PF 10 MG/2 ML SDV IV SCH ×3 (06:12→21:23)
[2020-06-20] MEDS: INSULIN REG, HUMAN 100 UNIT/ML 3 ML VIAL (PYX) SUBCUT SCH ×3 (06:12→18:20)
[2020-06-20] MEDS ORDERED: PANTOPRAZOLE SODIUM 40 MG PACKET.DR ONE (06:18)
[2020-06-20] MEDS: PANTOPRAZOLE SODIUM 40 MG PACKET.DR NG SCH ×2 (06:22→16:29)
[2020-06-20 06:26] LABS: BLOOD UREA NITROGEN 31 mg/dL (7-20); CALCIUM 7.4 mg/dL (8.4-10.2); CARBON DIOXIDE 37 mmol/L (22-30); CHLORIDE 102 mmol/L (98-107); GLUCOSE 125 mg/dL (75-110); HEMOGLOBIN 7.5 g/dL (13.5-17.0); POTASSIUM 4.6 mmol/L (3.6-5.0)
[2020-06-20 06:28] LABS: ABSOLUTE LYMPHOCYTES# (MANUAL) 0.5 10^3/uL (0.5-4.7); BAND NEUTROPHILS % (MANUAL) 1 % (3-5); BASOPHILS % (MANUAL) 0 % (0-2); EOSINOPHILS % (MANUAL) 0 % (0-6); LYMPHOCYTES % (MANUAL) 8 % (13-45); MONOCYTES % (MANUAL) 0 % (3-13); SEGMENTED NEUTROPHILS % (MAN) 91 % (42-78); TOTAL CELLS COUNTED 100
[2020-06-20 06:31] LABS: OVALOCYTES SLIGHT; PLATELET COMMENT DECREASED; POIKILOCYTOSIS SLIGHT; ROULEAUX SLIGHT; SCHISTOCYTES SLIGHT
[2020-06-20 06:32] LABS: PLATELET COUNT 90 10^3/uL (150-450)
[2020-06-20 07:02] LABS: ANION GAP -4 (5-19)
--- NOTE | 2020-06-20 08:26 | PDOC CRITICAL CARE PROG REPORT ---
General Date:: 06/20/20 Resuscitation Status: Full Code Events in the past 12 to 24 Hours:: This 74-year-old male was admitted on 05/19/2020 with diarrhea and abdominal pain (over 3 weeks). He was admitted to the hospitalist. He was transferred to the ICU on 05/31/2019 and intubated for worsening mental status, suspected to be due to acute hypoxemic respiratory failure secondary to COVID-19 pneumonia. 06/02/20: Still needing vent. Na and kidney function slightly better. 06/03: remains intubated. shows minimal response to verbal stimuli. does not follow commands. On PRVC 18/450/55/8 for a.m ABG. on Precedex/fentanyl for sedation. on heparin. on norepinephine. 06/04: remains intubated. on PRVC 20/500/65/8. clinically, no significant change. on Levophed @ 1. Platelets 85 today. Creatinine 1.68> 1.71. 06/05: Remains intubated. No significant change on the vent. ABG this mornin.32/50/89. On and off Levophed at 1 mcg/min. On fentanyl/Precedex for sedation. Creatinine 1.8. 06/06: Remains intubated. On PRVC 20/500/65/8. FiO2 65% but SpO2 85-87% this a.m. On Precedex/fentanyl for sedation. Appears more active today. Squirms in the bed. Does not follow commands. Does not visually track. Changed from heparin to argatroban yesterday due to concerns about thrombocytopenia. Platelets 94 this morning, increasing. On TF. 06/07: Hgb 6.8. No sign of bleeding. Blood ordered. 06/08: Still difficult to sedate. Intermittantly tachycardic 06/09: [place] replaced yesterday with 1500cc urine removed. Still intermittently agitated with varying amounts of sedation being needed. 06/10: Seems calmer today thus far. FIO2 dropped to 75%. No change to PEEP. TF held for residual 300. To restart. 06/11: PSV dropped to 15cm. Calm, not agitated. No change in FIO2. 06/12: Episode of desaturation today. Resolved. Still agitated at times. 06/13: Off levophed but still on high vent support. 06/14: Afebrile. WBC 15.7. Hemoglobin 6.7. Transfusion was ordered. 06/15: Afebrile. WBC 15.713.2. Hemoglobin 8.8 today. Was transfused 2 units PRBC yesterday. ABG this a.m.: 7.40/50/66. Currently, on Versed/fentanyl for sedation. Eyes open. Not following commands. Nurse reports that the patient is showing intermittent, abnormal "posturing" type movements (shoulder shrugging). On PRVC 20/500/70/10. RR 21. SpO2 90%. 06/16: WBC 10.5. Hemoglobin 7.8. Platelets 100. On PRVC 20/500/70/10. ABG this a.m.: 7.41/48/105. CT of the head was obtained yesterday and showed no acute intracranial pathology. On Versed/fentanyl for sedation. Neurologically, no change. Continues to show shoulder shrugging posturing with tactile/noxious stimuli. 06/17: On PRVC, FiO2 now up to 80%. On Versed/fentanyl for sedation. ABG this a.m.: 7.43/46/123. Neurologically, no change. Off vasopressors. WBC 10.1. Hemoglobin 9.3. Albumin 1.9. Nurse reported dark-colored stools yesterday. Hemoccult positive. 06/18: Started on norepinephrine infusion overnight. But, now off, as BP is 180+. Showing some spontaneous R UE movement in addition to his abnormal posturing. Afebrile. WBC 8.4. Hemoglobin 7.8. Platelets 87. Off argatroban due to Hemoccult positive stools. ABG this a.m.: 7.45/45/123. On PRVC, FiO2 70 06/19: Off and on levophed. Not able to wean. No posturing today. 06/20: FIO2 90% Peep still at 10. Off levophed. Review of systems relevant to events:: Pulmonary, neurological. Reason for ICU Addmission:: Need for intubation for Covid PNA. - Medications: Medications reviewed and adjusted accordingly: Yes Vasopressors:: None Sedation:: Versed Physical Exam Vital Signs: Temp Pulse Resp BP Pulse Ox 99.0 F 104 H 18 169/78 H 91 L 06/20/20 04:00 06/19/20 23:44 06/20/20 06:02 06/20/20 06:02 06/20/20 06:02 Intake & Output 06/19/20 06/20/20 06/21/20 06:59 06:59 06:59 Intake Total 1354 3484 Output Total 3390 2070 Balance -2035 1414 Weight 96.2 kg 91.4 kg Weight/Height Weight 91.4 kg Height 5 ft 11 in General appearance: PRESENT: no acute distress Head exam: PRESENT: atraumatic, normocephalic Eye exam: PRESENT: conjunctiva pink, EOMI, PERRLA. ABSENT: scleral icterus Ear exam: PRESENT: normal external ear exam Mouth exam: PRESENT: moist, tongue midline Respiratory exam: PRESENT: clear to auscultation demi. ABSENT: rales, rhonchi, wheezes Cardiovascular exam: PRESENT: RRR, tachycardia. ABSENT: diastolic murmur, rubs, systolic murmur GI/Abdominal exam: PRESENT: normal bowel sounds, soft. ABSENT: distended, guarding, mass, organolmegaly, rebound, tenderness Rectal exam: PRESENT: deferred Gentrourinary exam: PRESENT: indwelling catheter Extremities exam: PRESENT: +1 edema Musculoskeletal exam: PRESENT: normal inspection Neurological exam: PRESENT: altered, other - Unresponsive. Skin exam: PRESENT: dry, intact, warm. ABSENT: cyanosis, rash Tubes/Lines: PRESENT: Endotracheal Tube, Nasogastic Tube Laboratory/Radiographs Laboratory Results: 06/20/20 04:40 06/20/20 04:40 06/20/20 06/20/20 06/20/20 04:40 04:40 04:40 WBC 5.7 Cancelled RBC 2.50 L Cancelled Hgb 7.5 L Cancelled Hct 21.9 L Cancelled MCV 88 Cancelled MCH 29.8 Cancelled MCHC 34.0 Cancelled RDW 13.9 Cancelled Plt Count 90 L Cancelled Seg Neutrophils % Not Reportable Cancelled Carbonic Acid HCO3/H2CO3 Ratio ABG pH ABG pCO2 ABG pO2 ABG HCO3 ABG O2 Saturation ABG Base Excess FiO2 Sodium 134.8 L Potassium 4.6 Chloride 102 Carbon Dioxide 37 H Anion Gap -4 L BUN 31 H Creatinine 0.52 Est GFR ( Amer) > 60 Glucose 125 H Calcium 7.4 L Magnesium 06/20/20 06/20/20 04:40 04:40 WBC RBC Hgb Hct MCV MCH MCHC RDW Plt Count Seg Neutrophils % Carbonic Acid 1.88 H HCO3/H2CO3 Ratio 19:1 ABG pH 7.39 ABG pCO2 62.3 H ABG pO2 94.1 ABG HCO3 37.0 H ABG O2 Saturation 96.9 ABG Base Excess 10.6 FiO2 100% Sodium Potassium Chloride Carbon Dioxide Anion Gap BUN Creatinine Est GFR ( Amer) Glucose Calcium Magnesium 1.9 05/23/20 05/24/20 05/25/20 04:44 04:49 04:51 Creatine Kinase CK-MB (CK-2) Troponin I NT-Pro-B Natriuret Pep 757 H 883 H 253 H 05/27/20 05/29/20 05/29/20 04:41 04:15 04:15 Creatine Kinase 439 H CK-MB (CK-2) 3.21 Troponin I < 0.012 NT-Pro-B Natriuret Pep 307 H 05/30/20 06/06/20 04:13 13:30 Creatine Kinase CK-MB (CK-2) Troponin I NT-Pro-B Natriuret Pep 549 H 216 H Impressions: Abdomen/Pelvis CT 05/19/20 15:57 IMPRESSION: 1. Nonspecific mild fluid-filled small bowel loops could reflect a mild enteritis. No bowel obstruction. 2. No peripancreatic inflammation. 3. Cholelithiasis. 4. Hepatic steatosis. 5. Enlarged prostate gland. 6. Basilar ground-glass pulmonary opacities are not specific but can be seen with infectious and noninfectious processes, including COVID 19 infection. Correlate with exposure history. Chest CT 05/29/20 00:00 IMPRESSION: Diffuse bilateral ground-glass opacities consistent with pulmonary edema or pneumonia. There is bibasilar consolidation either atelectasis or pneumonia. No effusions. PICC Line Insertion 05/30/20 00:00 IMPRESSION: SUCCESSFUL PLACEMENT OF A 5 FR DUAL LUMEN 35 CM PICC IN THE RIGHT BASILIC VEIN. KUB X-Ray 06/01/20 00:00 IMPRESSION: NG tube in good position in the upper stomach. Chest X-Ray 06/17/20 05:00 IMPRESSION: STABLE APPEARANCE OF THE CHEST. SUPPORT DEVICES UNCHANGED. Head CT 06/18/20 00:00 IMPRESSION: MILD CHRONIC CHANGES OF ATROPHY AND MICROVASCULAR ISCHEMIA. NO ACUTE PROCESS. EVIDENCE OF ACUTE STROKE: NO. All labs, radiographs, diagnostic studies and EKGs were personally reviewed: Yes In addition, reports of radiographic and diagnostic studies were read: Yes Assessment and Plan - Diagnosis (1) Pneumonia due to 2019 novel coronavirus Is this a current diagnosis for this admission?: Yes Plan: Still positive and his lungs are still quite affected. FIO2 still at 90%. (2) Acute encephalopathy Is this a current diagnosis for this admission?: Yes Plan: Will wean down versed and hopefully stop. (3) Anemia Is this a current diagnosis for this admission?: Yes Plan: Hgb level 7.5. No sign of bleeding. May need transfusion soon. Plan Summary: Family said to discuss aggressiveness fof care or withdrawal on arrival of Wednesday. Critical Time Critical Time (minutes): 35 Level of Care: ICU Anticipated discharge: Other Anticipated DC Timeframe: Other -: 1. The care of a critical patient is a dynamic process. This note is a business center representative synopsis but static in nature. The timeframe for treatments given in order is not necessarily the actual time these treatments may have been done. 2. This patient requires critical care secondary to ongoing requirements for therapy not offered or safe outside the critical care environment. Transfer to a lower level of care will result in altered life or limb morbidity and mortality. 3. Multidisciplinary rounds completed. 4. ABCDE bundle addressed.
[2020-06-20] MEDS: CHOLECALCIFEROL (D3) 1,000 UNIT (25 MCG) TABLET NG SCH (10:10)
[2020-06-20] MEDS: POLYETHYLENE GLYCOL 3350 POWDER 17 GM/1 PACKET NG SCH (10:10)
[2020-06-20] MEDS: METHYLPREDNISOLONE INJ 40 MG/1 ML SDV IV SCH (10:11)
[2020-06-20] MEDS: ASCORBIC ACID 500 MG TABLET PO SCH ×2 (10:11→18:17)
[2020-06-20] MEDS: NORMAL SALINE 10 ML SDV (SCHEDULED) IV SCH ×2 (10:11→21:23)
[2020-06-20] MEDS: ENOXAPARIN SODIUM INJ 40 MG/0.4 ML DISP.SYRIN SUBCUT SCH (10:12)
[2020-06-20] MEDS: ZINC SULFATE 220 MG CAPSULE PO SCH (10:19)
[2020-06-20] MEDS: METOPROLOL TARTRATE PF/INJ 5 MG/5 ML SDV IV PRN ×2 (12:09→16:30)
[2020-06-20] MEDS: FLUCONAZOLE 400 MG/NS RTU 400 MG/200 ML RTUPB IV SCH (18:17)
[2020-06-21] MEDS: INSULIN REG, HUMAN 100 UNIT/ML 3 ML VIAL (PYX) SUBCUT SCH ×4 (00:08→18:04)
[2020-06-21] MEDS: SUCRALFATE 1 GM TABLET PO SCH ×4 (00:09→17:38)
[2020-06-21] MEDS: ALBUTEROL SULFATE 0.083% NEB 2.5 MG/3 ML AMPUL NEB SCH ×6 (00:24→20:08)
[2020-06-21 04:09] LABS: HEMATOCRIT 20.6 % (37.9-51.0); MEAN CORPUSCULAR HEMOGLOBIN 30.5 pg (27.0-33.4); MEAN CORPUSCULAR VOLUME 87 fl (80-97); PLATELET COUNT 105 10^3/uL (150-450); RED BLOOD COUNT 2.36 10^6/uL (4.35-5.55); RED CELL DISTRIBUTION WIDTH 13.9 % (11.5-14.0); WHITE BLOOD COUNT 6.2 10^3/uL (4.0-10.5)
[2020-06-21 04:15] LABS: PARTIAL THROMBOPLASTIN TIME 35.7 SEC (23.5-35.8)
[2020-06-21 04:18] LABS: D-DIMER 2.92 ug/mL (0.00-0.50)
[2020-06-21 04:23] LABS: HEMOGLOBIN 7.2 g/dL (13.5-17.0)
[2020-06-21 04:31] LABS: ABSOLUTE LYMPHOCYTES# (MANUAL) 0.1 10^3/uL (0.5-4.7); ABSOLUTE MONOCYTES # (MANUAL) 0.2 10^3/uL (0.1-1.4); BAND NEUTROPHILS % (MANUAL) 1 % (3-5); BASOPHILS % (MANUAL) 0 % (0-2); EOSINOPHILS % (MANUAL) 1 % (0-6); LYMPHOCYTES % (MANUAL) 2 % (13-45); MONOCYTES % (MANUAL) 3 % (3-13); SEGMENTED NEUTROPHILS % (MAN) 93 % (42-78); TOTAL CELLS COUNTED 100
[2020-06-21 04:32] LABS: PLATELET COMMENT DECREASED; RBC MORPHOLOGY COMMENT NORMO-CYTIC/CHROMIC
[2020-06-21] MEDS: FENTANYL CITRATE/PF 600 MCG/60 ML BAG IV PRN ×4 (05:00→16:21)
[2020-06-21] MEDS: METOCLOPRAMIDE HCL INJ/PF 10 MG/2 ML SDV IV SCH ×3 (05:47→21:10)
[2020-06-21] MEDS: PANTOPRAZOLE SODIUM 40 MG PACKET.DR NG SCH ×2 (05:47→17:38)
[2020-06-21] MEDS: SENNOSIDES/DOCUSATE 8.6-50 MG 1 EACH TABLET PO SCH ×3 (05:47→21:10)
--- NOTE | 2020-06-21 08:31 | PDOC CRITICAL CARE PROG REPORT ---
General Date:: 06/21/20 ICU Day:: 22 Ventilator Day:: 22 Hospital Day:: 33 Resuscitation Status: Full Code Events in the past 12 to 24 Hours:: This 74-year-old male was admitted on 05/19/2020 with diarrhea and abdominal pain (over 3 weeks). He was admitted to the hospitalist. He was transferred to the ICU on 05/31/2019 and intubated for worsening mental status, suspected to be due to acute hypoxemic respiratory failure secondary to COVID-19 pneumonia. 06/02/20: Still needing vent. Na and kidney function slightly better. 06/03: remains intubated. shows minimal response to verbal stimuli. does not follow commands. On PRVC 18/450/55/8 for a.m ABG. on Precedex/fentanyl for sedation. on heparin. on norepinephine. 06/04: remains intubated. on PRVC 20/500/65/8. clinically, no significant change. on Levophed @ 1. Platelets 85 today. Creatinine 1.68> 1.71. 06/05: Remains intubated. No significant change on the vent. ABG this mornin.32/50/89. On and off Levophed at 1 mcg/min. On fentanyl/Precedex for sedation. Creatinine 1.8. 06/06: Remains intubated. On PRVC 20/500/65/8. FiO2 65% but SpO2 85-87% this a.m. On Precedex/fentanyl for sedation. Appears more active today. Squirms in the bed. Does not follow commands. Does not visually track. Changed from heparin to argatroban yesterday due to concerns about thrombocytopenia. Platelets 94 this morning, increasing. On TF. 06/07: Hgb 6.8. No sign of bleeding. Blood ordered. 06/08: Still difficult to sedate. Intermittantly tachycardic 06/09: [place] replaced yesterday with 1500cc urine removed. Still intermittently agitated with varying amounts of sedation being needed. 06/10: Seems calmer today thus far. FIO2 dropped to 75%. No change to PEEP. TF held for residual 300. To restart. 06/11: PSV dropped to 15cm. Calm, not agitated. No change in FIO2. 06/12: Episode of desaturation today. Resolved. Still agitated at times. 06/13: Off levophed but still on high vent support. 06/14: Afebrile. WBC 15.7. Hemoglobin 6.7. Transfusion was ordered. 06/15: Afebrile. WBC 15.713.2. Hemoglobin 8.8 today. Was transfused 2 units PRBC yesterday. ABG this a.m.: 7.40/50/66. Currently, on Versed/fentanyl for sedation. Eyes open. Not following commands. Nurse reports that the patient is showing intermittent, abnormal "posturing" type movements (shoulder shrugging). On PRVC 20/500/70/10. RR 21. SpO2 90%. 06/16: WBC 10.5. Hemoglobin 7.8. Platelets 100. On PRVC 20/500/70/10. ABG this a.m.: 7.41/48/105. CT of the head was obtained yesterday and showed no acute intracranial pathology. On Versed/fentanyl for sedation. Neurologically, no change. Continues to show shoulder shrugging posturing with tactile/noxious stimuli. 06/17: On PRVC, FiO2 now up to 80%. On Versed/fentanyl for sedation. ABG this a.m.: 7.43/46/123. Neurologically, no change. Off vasopressors. WBC 10.1. Hemoglobin 9.3. Albumin 1.9. Nurse reported dark-colored stools yesterday. Hemoccult positive. 06/18: Started on norepinephrine infusion overnight. But, now off, as BP is 180+. Showing some spontaneous R UE movement in addition to his abnormal posturing. Afebrile. WBC 8.4. Hemoglobin 7.8. Platelets 87. Off argatroban due to Hemoccult positive stools. ABG this a.m.: 7.45/45/123. On PRVC, FiO2 70 06/19: Off and on levophed. Not able to wean. No posturing today. 06/20: FIO2 90% Peep still at 10. Off levophed. 06/21: Still off levophed. Yeast is sputum likely overgrowth but also in urine. Could be sign of fungemia. On diflucan, caspofungin not available. Review of systems relevant to events:: Pulmonary Reason for ICU Addmission:: Need for intubation for Covid PNA. - Medications: Medications reviewed and adjusted accordingly: Yes Vasopressors:: None Sedation:: Fentanyl, versed. Physical Exam Vital Signs: Temp Pulse Resp BP Pulse Ox 99.1 F 102 H 18 104/46 L 99 06/20/20 22:00 06/21/20 03:58 06/21/20 08:00 06/21/20 07:25 06/21/20 08:00 Intake & Output 06/20/20 06/21/20 06/22/20 06:59 06:59 06:59 Intake Total 3484 860 Output Total 2070 3325 Balance 1414 -2465 Weight 91.4 kg 97.2 kg Weight/Height Weight 97.2 kg Height 5 ft 11 in General appearance: PRESENT: no acute distress Head exam: PRESENT: atraumatic, normocephalic Eye exam: PRESENT: conjunctiva pink, EOMI, PERRLA. ABSENT: scleral icterus Ear exam: PRESENT: normal external ear exam Mouth exam: PRESENT: moist, tongue midline Respiratory exam: PRESENT: clear to auscultation demi, decreased breath sounds, symmetrical. ABSENT: rales, rhonchi, wheezes Cardiovascular exam: PRESENT: RRR. ABSENT: diastolic murmur, rubs, systolic murmur GI/Abdominal exam: PRESENT: normal bowel sounds, soft. ABSENT: distended, guarding, mass, organolmegaly, rebound, tenderness Rectal exam: PRESENT: deferred Gentrourinary exam: PRESENT: indwelling catheter Extremities exam: PRESENT: +1 edema Musculoskeletal exam: PRESENT: normal inspection Neurological exam: PRESENT: other - Sedated. Skin exam: PRESENT: dry, intact, warm. ABSENT: cyanosis, rash Tubes/Lines: PRESENT: Endotracheal Tube, Nasogastic Tube Laboratory/Radiographs Laboratory Results: 06/21/20 03:50 06/21/20 06/21/20 03:50 03:50 WBC 6.2 RBC 2.36 L Hgb 7.2 L Hct 20.6 L MCV 87 MCH 30.5 MCHC 35.0 RDW 13.9 Plt Count 105 L Seg Neutrophils % Not Reportable C-Reactive Protein 79.4 H 06/19/20 12:58 Tracheal Aspirate Gram Stain - Final 06/19/20 12:58 Tracheal Aspirate Sputum Culture - Final Yeast, Not Amanda Albicans Greatly Reduced Normal Roberta 05/23/20 05/24/20 05/25/20 04:44 04:49 04:51 Creatine Kinase CK-MB (CK-2) Troponin I NT-Pro-B Natriuret Pep 757 H 883 H 253 H 05/27/20 05/29/20 05/29/20 04:41 04:15 04:15 Creatine Kinase 439 H CK-MB (CK-2) 3.21 Troponin I < 0.012 NT-Pro-B Natriuret Pep 307 H 05/30/20 06/06/20 04:13 13:30 Creatine Kinase CK-MB (CK-2) Troponin I NT-Pro-B Natriuret Pep 549 H 216 H Impressions: Abdomen/Pelvis CT 05/19/20 15:57 IMPRESSION: 1. Nonspecific mild fluid-filled small bowel loops could reflect a mild enteritis. No bowel obstruction. 2. No peripancreatic inflammation. 3. Cholelithiasis. 4. Hepatic steatosis. 5. Enlarged prostate gland. 6. Basilar ground-glass pulmonary opacities are not specific but can be seen with infectious and noninfectious processes, including COVID 19 infection. Correlate with exposure history. Chest CT 05/29/20 00:00 IMPRESSION: Diffuse bilateral ground-glass opacities consistent with pulmonary edema or pneumonia. There is bibasilar consolidation either atelectasis or pneumonia. No effusions. PICC Line Insertion 05/30/20 00:00 IMPRESSION: SUCCESSFUL PLACEMENT OF A 5 FR DUAL LUMEN 35 CM PICC IN THE RIGHT BASILIC VEIN. KUB X-Ray 06/01/20 00:00 IMPRESSION: NG tube in good position in the upper stomach. Chest X-Ray 06/17/20 05:00 IMPRESSION: STABLE APPEARANCE OF THE CHEST. SUPPORT DEVICES UNCHANGED. Head CT 06/18/20 00:00 IMPRESSION: MILD CHRONIC CHANGES OF ATROPHY AND MICROVASCULAR ISCHEMIA. NO ACUTE PROCESS. EVIDENCE OF ACUTE STROKE: NO. EKG: Bigeminy. All labs, radiographs, diagnostic studies and EKGs were personally reviewed: Yes In addition, reports of radiographic and diagnostic studies were read: Yes Assessment and Plan - Diagnosis (1) Pneumonia due to 2019 novel coronavirus Is this a current diagnosis for this admission?: Yes Plan: Still on 100% FiO2. Oxygen saturation 91%. Not able to make weaning moves. (2) Acute encephalopathy Is this a current diagnosis for this admission?: Yes Plan: Impossible to say with sedation. (3) Anemia Is this a current diagnosis for this admission?: Yes Plan: Likely acute illness and inflammation. Hgb level 7.2. If family decides to withdraw will not transfuse. Plan Summary: Maintain support. Start diflucan. Critical Time Critical Time (minutes): 35 Level of Care: ICU Anticipated discharge: Other Anticipated DC Timeframe: Other -: 1. The care of a critical patient is a dynamic process. This note is a parts representative synopsis but static in nature. The timeframe for treatments given in order is not necessarily the actual time these treatments may have been done. 2. This patient requires critical care secondary to ongoing requirements for therapy not offered or safe outside the critical care environment. Transfer to a lower level of care will result in altered life or limb morbidity and mortality. 3. Multidisciplinary rounds completed. 4. ABCDE bundle addressed.
[2020-06-21 08:37] LABS: BLOOD UREA NITROGEN 28 mg/dL (7-20); CALCIUM 7.3 mg/dL (8.4-10.2); CHLORIDE 98 mmol/L (98-107); GLUCOSE 128 mg/dL (75-110); POTASSIUM 3.4 mmol/L (3.6-5.0)
[2020-06-21 08:46] LABS: CARBON DIOXIDE 38 mmol/L (22-30)
[2020-06-21 08:47] LABS: ANION GAP -2 (5-19)
[2020-06-21] MEDS: FLUCONAZOLE 400 MG/NS RTU 400 MG/200 ML RTUPB IV SCH ×2 (09:10→17:37)
[2020-06-21] MEDS: METOPROLOL TARTRATE PF/INJ 5 MG/5 ML SDV IV PRN (09:11)
[2020-06-21] MEDS: MIDAZOLAM HCL 50 MG/100 ML RTUINJ IV PRN (09:11)
[2020-06-21] MEDS: ASCORBIC ACID 500 MG TABLET PO SCH ×2 (09:12→17:35)
[2020-06-21] MEDS: ENOXAPARIN SODIUM INJ 40 MG/0.4 ML DISP.SYRIN SUBCUT SCH (09:12)
[2020-06-21] MEDS: CHOLECALCIFEROL (D3) 1,000 UNIT (25 MCG) TABLET NG SCH (09:12)
[2020-06-21] MEDS: ZINC SULFATE 220 MG CAPSULE PO SCH (09:12)
[2020-06-21] MEDS: METHYLPREDNISOLONE INJ 40 MG/1 ML SDV IV SCH (09:12)
[2020-06-21] MEDS: NORMAL SALINE 10 ML SDV (SCHEDULED) IV SCH ×2 (10:00→21:10)
[2020-06-21] MEDS: POTASSI CL 20 MEQ/NS 1L 1,000 ML IV PRN (11:00)
[2020-06-21] MEDS: POLYETHYLENE GLYCOL 3350 POWDER 17 GM/1 PACKET NG SCH (13:33)
[2020-06-22] MEDS: ALBUTEROL SULFATE 0.083% NEB 2.5 MG/3 ML AMPUL NEB SCH ×3 (00:10→08:00)
[2020-06-22] MEDS: SUCRALFATE 1 GM TABLET PO SCH ×2 (00:48→05:29)
[2020-06-22] MEDS: INSULIN REG, HUMAN 100 UNIT/ML 3 ML VIAL (PYX) SUBCUT SCH ×2 (00:49→05:35)
[2020-06-22] MEDS: MIDAZOLAM HCL 50 MG/100 ML RTUINJ IV PRN (02:26)
[2020-06-22] MEDS: FENTANYL CITRATE/PF 600 MCG/60 ML BAG IV PRN (02:54)
[2020-06-22] MEDS: PANTOPRAZOLE SODIUM 40 MG PACKET.DR NG SCH (05:29)
[2020-06-22] MEDS: METOCLOPRAMIDE HCL INJ/PF 10 MG/2 ML SDV IV SCH (05:30)
[2020-06-22] MEDS: SENNOSIDES/DOCUSATE 8.6-50 MG 1 EACH TABLET PO SCH (05:30)
[2020-06-22 06:05] LABS: ABSOLUTE EOSINOPHILS # (AUTO) 0.1 10^3/uL (0.0-0.6); ABSOLUTE LYMPHOCYTES (AUTO) 0.3 10^3/uL (0.5-4.7); ABSOLUTE MONOCYTES (AUTO) 0.2 10^3/uL (0.1-1.4); ABSOLUTE NEUT (AUTO) 3.7 10^3/uL (1.7-8.2); EOSINOPHILS % (AUTO) 1.2 % (0-6); HEMATOCRIT 19.6 % (37.9-51.0); LYMPHOCYTES % (AUTO) 6.7 % (13-45); MEAN CORPUSCULAR HEMOGLOBIN 30.7 pg (27.0-33.4); MEAN CORPUSCULAR HGB CONC 35.2 g/dL (32.0-36.0); MEAN CORPUSCULAR VOLUME 87 fl (80-97); MONOCYTES % (AUTO) 4.4 % (3-13); PLATELET COUNT 102 10^3/uL (150-450); RED BLOOD COUNT 2.24 10^6/uL (4.35-5.55); SEGMENTED NEUTROPHILS % (AUTO) 87.7 % (42-78); TOTAL CELLS COUNTED % (AUTO) 100 %; WHITE BLOOD COUNT 4.2 10^3/uL (4.0-10.5)
[2020-06-22 06:11] LABS: HEMOGLOBIN 6.9 g/dL (13.5-17.0)
[2020-06-22 08:01] VITALS: BP 131/71
[2020-06-22] MEDS ORDERED: MORPHINE SULFATE 10 MG/ML INJ ONE (08:25)
[2020-06-22] MEDS ORDERED: MORPHINE SULFATE 10 MG/ML INJ IV PRN ×2 (08:26→09:09)
--- NOTE | 2020-06-24 15:50 | Death Summary ---
Summary Date : 06/22/20 Time of :: 09:03 Autopsy: No Resuscitation Status: Do Not Resuscitate - Final Diagnosis (1) Pneumonia due to 2019 novel coronavirus Is this a current diagnosis for this admission?: Yes (2) Acute encephalopathy Is this a current diagnosis for this admission?: Yes (3) Anemia Is this a current diagnosis for this admission?: Yes Hospital Course:: This patient was a 74 yo man who had been diagnosed with Covid pneumonia. He was admitted to [facility] 05/20 and came to the ICU 05/31/20 and was intubated for worsening hypoxia and obtundation. He had been delirius before this and worsened. After inubation he needed 90-100% to maintain O2 saturations around 90%. I spoke to don hylton daughters, one a nurse from [place], who expressed her father would not want a assisted vent, trach or feeding tube. We maintained him for 3 weeks at there request, not unreasonable, however there was no improvement. When he was weaned to 90% we could go no lower and frequently had to go back to 100%. The daughters regrouped as previously planned on 06/22. The invoked his wish to not be on a ventilator, or have a trach. At more than 3 weeks intubated that was a need to be addressed. He was made comfort care, DNR and care was withdrawn and the patient extubated. He peacefully with his daughters at his side at 09:03 AM on 06/22/20.
== END 2020-06-22 09:03 | disposition expired | DRG 207 ==
LOC: ER 10:57 → EH 19:34 → 3N 22:34 → ICU 05-31 11:34
PROVIDERS: ADMIT Anesthesiology; ATTEND Anesthesiology
PROC: XW033E5 Introduction of Remdesivir Anti-infective into Peripheral Vein, Percutaneous Approach, New Technology Group 5 (ICD-10-PCS; 2020-05-25)
PROC: 02HV33Z Insertion of Infusion Device into Superior Vena Cava, Percutaneous Approach (ICD-10-PCS; 2020-05-30)
PROC: 5A1955Z Respiratory Ventilation, Greater than 96 Consecutive Hours (ICD-10-PCS; principal; 2020-05-31)
PROC: 0BH17EZ Insertion of Endotracheal Airway into Trachea, Via Natural or Artificial Opening (ICD-10-PCS; 2020-05-31)
PROC: 0DH67UZ Insertion of Feeding Device into Stomach, Via Natural or Artificial Opening (ICD-10-PCS; 2020-05-31)
PROC: 3E0G76Z Introduction of Nutritional Substance into Upper GI, Via Natural or Artificial Opening (ICD-10-PCS; 2020-05-31)
PROC: 30233N1 Transfusion of Nonautologous Red Blood Cells into Peripheral Vein, Percutaneous Approach (ICD-10-PCS; 2020-06-07)
PROC: 30233N1 Transfusion of Nonautologous Red Blood Cells into Peripheral Vein, Percutaneous Approach (ICD-10-PCS; 2020-06-14)
DX: U07.1 COVID-19 (principal); L89.813 Pressure ulcer of head, stage 3; J12.82 Pneumonia due to coronavirus disease 2019; A41.9 Sepsis, unspecified organism; K85.80 Other acute pancreatitis without necrosis or infection; J96.01 Acute respiratory failure with hypoxia; G93.40 Encephalopathy, unspecified; N17.9 Acute kidney failure, unspecified; E87.0 Hyperosmolality and hypernatremia; E87.1 Hypo-osmolality and hyponatremia; K92.2 Gastrointestinal hemorrhage, unspecified; E88.89 Other specified metabolic disorders; D69.6 Thrombocytopenia, unspecified; Z51.5 Encounter for palliative care; I10 Essential (primary) hypertension; M19.90 Unspecified osteoarthritis, unspecified site; E66.9 Obesity, unspecified; E87.6 Hypokalemia; R19.7 Diarrhea, unspecified; D64.9 Anemia, unspecified; T45.515A Adverse effect of anticoagulants, initial encounter; Y92.239 Unspecified place in hospital as the place of occurrence of the external cause; Z86.010 Personal history of colon polyps; Z87.891 Personal history of nicotine dependence; Z82.49 Family history of ischemic heart disease and other diseases of the circulatory system; Z68.28 Body mass index [BMI] 28.0-28.9, adult
CPT/HCPCS: 31500; 36415; 36430; 36573; 36600; 70450; 71045; 71250; 74018; 74177; 80048; 80053; 80061; 81001; 82272; 82330; 82533; 82550; 82553; 82728; 82803; 82962; 83605; 83615; 83690; 83735; 83880; 84100; 84134; 84478; 84484; 85025; 85027; 85379; 85610; 85730; 86022; 86140; 86850; 86900; 86901; 86920; 87040; 87045; 87070; 87086; 87205; 87324; 87449; 87635; 93005; 93010; 94002; 94003; 94640; 94660; 96361; 96374; 99285; 99291; 99292; C9113; C9803; J0330; J0692; J0696; J0883; J1170; J1200; J1450; J1630; J1642; J1644; J1650; J1815; J1940; J1956; J2060; J2185; J2250; J2270; J2704; J2765; J2920; J2930; J3010; J3411; J3475; J3480; J3486; J3490; J7030; J7050; J7060; J7120; J7613; P9016; P9047